=== PATIENT | male | born 1955 | race Caucasian/White ===

== ENCOUNTER → 2016-07-06 | Outpatient (REF) | payer OTHER ==
[~2016-07-06] MED LIST: ASPI81TA85 PO; CREO12CA PO; LISI5TAB PO; SYNT88TA2 PO; VICO5TAB16 PO; ZANA4CAP PO; ZYRT10CA PO
[2016-07-06 18:31] LABS: ALBUMIN 3.5 GM/DL (3.2-5.2); ALBUMIN/GLOBULIN RATIO 1.17 (1.00-1.93); ALKALINE PHOSPHATASE 149 U/L (45-117); ALT/SGPT 17 U/L (12-78); AMYLASE 154 U/L (25-115); ANION GAP 8 MEQ/L (8-16); AST/SGOT 21 U/L (15-37); BILIRUBIN,TOTAL 0.2 MG/DL (0.2-1.0); BLOOD UREA NITROGEN 23 MG/DL (7-18); CALCIUM LEVEL 8.1 MG/DL (8.8-10.2); CARBON DIOXIDE LEVEL 27 MEQ/L (21-32); CHLORIDE LEVEL 107 MEQ/L (98-107); CREATININE FOR GFR 1.09 MG/DL (0.70-1.30); GLOMERULAR FILTRATION RATE > 60.0 (>49); GLUCOSE, FASTING 72 MG/DL (80-110); POTASSIUM SERUM 4.8 MEQ/L (3.5-5.1); SODIUM LEVEL 142 MEQ/L (136-145); TOTAL PROTEIN 6.5 GM/DL (6.4-8.2)
[2016-07-06 18:43] LABS: ADD MORPHOLOGY? YES; BASO % 0.8 % (0.0-1.0); EOS # 0.3 K/mm3 (0.0-0.50); EOS % 6.3 % (0.0-3.0); LARGE UNSTAINED CELL # 0.2 K/mm3 (0.0-0.4); LARGE UNSTAINED CELL % 3.2 % (0.0-4.0); LYMPH # 1.4 K/mm3 (1.5-4.5); MEAN CORPUSCULAR HEMOGLOBIN 19.5 pg (27.0-33.0); MEAN CORPUSCULAR HGB CONC 27.5 g/dl (32.0-36.5); MONO # 0.4 K/mm3 (0.0-0.8); MONO % 7.4 % (0.0-5.0); NEUTROPHILS # 2.9 K/mm3 (1.8-7.7); NEUTROPHILS % 55.3 % (36.0-66.0); PLATELET COUNT, AUTOMATED 219 k/mm3 (150-450); RED CELL DISTRIBUTION WIDTH 14.9 % (11.5-14.5); WHITE BLOOD COUNT 5.2 K/mm3 (4.0-10.0)
[2016-07-06 20:05] LABS: ANISOCYTOSIS 1+; HYPOCHROMASIA 3+; MICROCYTOSIS 2+
== END ==
LOC: M SFHCLERA 14:18
PROVIDERS: ATTEND Family Medicine
DX: K86.9 Disease of pancreas, unspecified (principal); G45.9 Transient cerebral ischemic attack, unspecified; I10 Essential (primary) hypertension

== ENCOUNTER → 2016-07-20 | Outpatient (CLI) | payer OTHER ==
--- NOTE | 2016-07-20 11:47 | REP ---
MRI PANCREAS WITH AND WITHOUT CONTRAST: TECHNIQUE: Multiple axial and coronal sequences obtained pre and post IV gadolinium administration, with the intravenous administration of 13 mL of gadolinium via thyroid injector. This study is limited due to patient breathing motion reportedly due to persistent coughing. Comparison made with a CT from [facility] 03/09/[address] exams from [facility] dated 03/06/2016 and 06/18/2015. Given the limitations of this exam, I do not see a definite mass involving the pancreas. There is no pancreatic duct dilatation and no evidence of biliary dilatation. Note is again made of multiple enlarged mesenteric lymph nodes as seen on the CT exams dating back to 06/18/2015. The adenopathy is seen centrally in the mesentery just below the body of the pancreas and surrounding the pancreatic head. Findings appear similar to the prior CT of 03/09/2016. I do not see significant ascites in the visualized abdomen. The visualized abdominal aorta is normal in caliber. The visualized liver and spleen are grossly unremarkable. There are small cysts in each kidney. IMPRESSION: Limited due to persistent breathing motion due to a persistent cough. No definite pancreatic mass within the limitations of this exam. There is mesenteric and peripancreatic adenopathy, which appears similar to the prior CT study of 03/09/2016. Recommend followup CT of the abdomen with multiphasic intravenous contrast administration to better evaluate the pancreas and mesentery, as CT exam would eliminate motion artifact. Signed by Shravan Monahan MD 07/20/2016 12:44 P
== END ==
LOC: M RAD 09:41
PROVIDERS: ATTEND Family Medicine
DX: K86.9 Disease of pancreas, unspecified (principal)

== ENCOUNTER → 2016-08-31 | Outpatient (REF) | payer OTHER ==
[2016-08-31 12:30] LABS: MEAN CORPUSCULAR HEMOGLOBIN 19.9 pg (27.0-33.0); MEAN CORPUSCULAR HGB CONC 28.4 g/dl (32.0-36.5); MEAN CORPUSCULAR VOLUME 70.3 fl (80.0-96.0); RED CELL DISTRIBUTION WIDTH 16.7 % (11.5-14.5); WHITE BLOOD COUNT 8.1 K/mm3 (4.0-10.0)
[2016-08-31 13:25] LABS: ALBUMIN 3.3 GM/DL (3.2-5.2); ALBUMIN/GLOBULIN RATIO 1.18 (1.00-1.93); ALKALINE PHOSPHATASE 172 U/L (45-117); ALT/SGPT 21 U/L (12-78); ANION GAP 8 MEQ/L (8-16); AST/SGOT 22 U/L (15-37); BILIRUBIN,TOTAL 0.4 MG/DL (0.2-1.0); BLOOD UREA NITROGEN 28 MG/DL (7-18); CARBON DIOXIDE LEVEL 27 MEQ/L (21-32); CHLORIDE LEVEL 104 MEQ/L (98-107); CREATININE FOR GFR 1.33 MG/DL (0.70-1.30); FREE T4 1.09 NG/DL (0.76-1.46); GLUCOSE, FASTING 92 MG/DL (80-110); POTASSIUM SERUM 4.6 MEQ/L (3.5-5.1); SODIUM LEVEL 139 MEQ/L (136-145); TOTAL PROTEIN 6.1 GM/DL (6.4-8.2)
[2016-08-31 13:45] LABS: BANDS 1 % (< 11); EOSINOPHILS 3 % (0-5)
[2016-08-31 13:46] LABS: ANISOCYTOSIS 2+; HYPOCHROMASIA 2+; MICROCYTOSIS 2+; POIKILOCYTOSIS 1+
[2016-09-04 08:06] LABS: ACETAMINOPHEN Negative ug/mL (10-30); AMITRIPTYLINE None Detected (Not Estab.); BUTALBITAL None Detected ug/mL (1-10); DESIPRAMINE None Detected (Not Estab.); DIAZEPAM None Detected ug/mL (0.1-0.9); DOXEPIN None Detected (Not Estab.); ETHANOL Negative % (0.000-0.010); NORCHLORDIAZEPOXIDE None Detected ug/mL (0.1-0.6); NORDIAZEPAM None Detected ug/mL (0.1-1.4); NORDOXEPIN None Detected (Not Estab.); NORTRIPTYLINE None Detected ng/mL (50-150); PENTOBARBITAL None Detected ug/mL (1-5); PHENOBARBITAL None Detected ug/mL (15-40); PHENYTOIN None Detected ug/mL (10.0-20.0)
== END ==
LOC: M SFHCLERA 10:22
PROVIDERS: ATTEND Family Medicine
DX: D64.89 Other specified anemias (principal); R59.1 Generalized enlarged lymph nodes; K86.9 Disease of pancreas, unspecified; F19.10 Other psychoactive substance abuse, uncomplicated

== ENCOUNTER → 2016-09-15 | Outpatient (REF) | payer OTHER | LOC: M SFHCLERA 13:06 | PROVIDERS: ATTEND Family Medicine | DX: D64.9 Anemia, unspecified (principal); R74.8 Abnormal levels of other serum enzymes ==

== ENCOUNTER → 2016-09-21 | Outpatient (REF) | payer OTHER ==
[2016-09-21 18:16] LABS: ALBUMIN 3.1 GM/DL (3.2-5.2); ALBUMIN/GLOBULIN RATIO 1.03 (1.00-1.93); ALKALINE PHOSPHATASE 169 U/L (45-117); ALT/SGPT 28 U/L (12-78); ANION GAP 7 MEQ/L (8-16); AST/SGOT 25 U/L (15-37); BILIRUBIN,TOTAL 0.4 MG/DL (0.2-1.0); BLOOD UREA NITROGEN 24 MG/DL (7-18); CALCIUM LEVEL 7.8 MG/DL (8.8-10.2); CARBON DIOXIDE LEVEL 29 MEQ/L (21-32); CHLORIDE LEVEL 102 MEQ/L (98-107); CREATININE FOR GFR 1.28 MG/DL (0.70-1.30); GLOMERULAR FILTRATION RATE > 60.0 (>49); GLUCOSE, FASTING 91 MG/DL (80-110); POTASSIUM SERUM 4.3 MEQ/L (3.5-5.1); SODIUM LEVEL 138 MEQ/L (136-145); TOTAL PROTEIN 6.1 GM/DL (6.4-8.2)
[2016-09-21 18:50] LABS: MEAN CORPUSCULAR HEMOGLOBIN 19.7 pg (27.0-33.0); MEAN CORPUSCULAR VOLUME 68.2 fl (80.0-96.0); RED CELL DISTRIBUTION WIDTH 16.4 % (11.5-14.5); WHITE BLOOD COUNT 8.8 K/mm3 (4.0-10.0)
[2016-09-21 19:50] LABS: BASOPHILS 3 % (0-4); EOSINOPHILS 5 % (0-5); MICROCYTOSIS 3+
[2016-09-21 19:51] LABS: ANISOCYTOSIS 1+; HYPOCHROMASIA 2+
== END ==
LOC: M SFHCLERA 13:39
PROVIDERS: ATTEND Family Medicine
DX: D64.9 Anemia, unspecified (principal)

== ENCOUNTER → 2016-10-05 | Outpatient (REF) | payer OTHER ==
[2016-10-05 17:48] LABS: MEAN CORPUSCULAR HEMOGLOBIN 19.3 pg (27.0-33.0); MEAN CORPUSCULAR HGB CONC 27.7 g/dl (32.0-36.5); MEAN CORPUSCULAR VOLUME 69.7 fl (80.0-96.0); RED CELL DISTRIBUTION WIDTH 16.2 % (11.5-14.5); WHITE BLOOD COUNT 8.6 K/mm3 (4.0-10.0)
[2016-10-05 18:02] LABS: ANION GAP 6 MEQ/L (8-16); BLOOD UREA NITROGEN 20 MG/DL (7-18); CALCIUM LEVEL 8.1 MG/DL (8.8-10.2); CARBON DIOXIDE LEVEL 28 MEQ/L (21-32); CHLORIDE LEVEL 107 MEQ/L (98-107); GLOMERULAR FILTRATION RATE > 60.0 (>49); GLUCOSE, FASTING 92 MG/DL (80-110); POTASSIUM SERUM 4.1 MEQ/L (3.5-5.1); SODIUM LEVEL 141 MEQ/L (136-145)
== END ==
LOC: M SFHCLERA 14:13
PROVIDERS: ATTEND Family Medicine
DX: D64.9 Anemia, unspecified (principal)

== ENCOUNTER 2016-11-13 00:19 | Emergency (ER) | payer OTHER ==
[~2016-11-13] VITALS: Ht 175.3 cm; Wt 62.0 kg
[2016-11-13 00:38] VITALS: BP 144/79
[2016-11-13] MEDS ORDERED: PRED20TA PO (02:59)
[2016-11-13] MEDS ORDERED: traMADol 50 MG TAB PO ONE (03:00)
[2016-11-13] MEDS ORDERED: predniSONE 20 MG TAB PO ONE (03:00)
== END 2016-11-13 03:30 | disposition home or self-care (01) ==
LOC: M ED 00:19
DX: S80.861A Insect bite (nonvenomous), right lower leg, initial encounter (principal); W57.XXXA Bitten or stung by nonvenomous insect and other nonvenomous arthropods, initial encounter; Y92.89 Other specified places as the place of occurrence of the external cause; Y93.89 Activity, other specified; Y99.9 Unspecified external cause status

== ENCOUNTER → 2017-01-04 | Outpatient (CLI) | payer OTHER ==
[~2017-01-04] MED LIST changes: +PRED20TA PO; +PROT1TAB2 PO
--- NOTE | 2017-01-04 15:15 | REP ---
LEFT FOOT, FOUR VIEWS: HISTORY: Foreign body There is no acute fracture or dislocation. The joint spaces are normal in appearance. There is no radiopaque foreign body. IMPRESSION: There is no acute fracture or dislocation. Signed by Edgardo Carmona MD 01/04/2017 03:20 P
== END ==
LOC: M LRY 14:00
PROVIDERS: ATTEND Family Medicine
DX: M79.672 Pain in left foot (principal); M79.5 Residual foreign body in soft tissue

== ENCOUNTER → 2017-01-04 | Outpatient (REF) | payer OTHER | LOC: M SFHCLERA 14:05 | PROVIDERS: ATTEND Family Medicine | DX: K86.9 Disease of pancreas, unspecified (principal) ==

== ENCOUNTER → 2017-01-12 | Outpatient (REF) | payer OTHER ==
[2017-01-12 17:19] LABS: MEAN CORPUSCULAR HEMOGLOBIN 22.2 pg (27.0-33.0); MEAN CORPUSCULAR HGB CONC 30.7 g/dl (32.0-36.5); MEAN CORPUSCULAR VOLUME 72.3 fl (80.0-96.0); RED CELL DISTRIBUTION WIDTH 19.8 % (11.5-14.5); WHITE BLOOD COUNT 6.8 K/mm3 (4.0-10.0)
[2017-01-12 17:39] LABS: ALBUMIN 2.6 GM/DL (3.2-5.2); ALBUMIN/GLOBULIN RATIO 0.84 (1.00-1.93); BILIRUBIN,TOTAL 0.3 MG/DL (0.2-1.0); CALCIUM LEVEL 8.2 MG/DL (8.8-10.2); CREATININE FOR GFR 1.34 MG/DL (0.70-1.30); GLOMERULAR FILTRATION RATE 57.5 (>49); POTASSIUM SERUM 4.3 MEQ/L (3.5-5.1); TOTAL PROTEIN 5.7 GM/DL (6.4-8.2)
[2017-01-24 06:40] LABS: SUMMARY SEE SEPARATE REPORT
== END ==
LOC: M SFHCLERA 13:16
PROVIDERS: ATTEND Family Medicine
DX: F19.10 Other psychoactive substance abuse, uncomplicated (principal)

== ENCOUNTER 2017-02-20 07:11 | Emergency (ER) | payer OTHER ==
[~2017-02-20] VITALS: Ht 167.6 cm; Wt 65.2 kg
[~2017-02-20 07:11] MED LIST changes: -PROT1TAB2 PO
[2017-02-20] MEDS ORDERED: fentaNYL 100 MCG/2 ML INJECTION (J3010) IV ONE (08:00)
[2017-02-20 08:26] LABS: BASO # 0.1 10^3/uL (0.0-0.2); BASO % 0.6 % (0.0-1.0); EOS # 0.3 10^3/uL (0.0-0.50); EOS % 2.9 % (0.0-3.0); IMMATURE GRANULOCYTE % 0.3 % (0-0); LYMPH # 1.1 10^3/uL (1.5-4.5); LYMPH % 11.6 % (24.0-44.0); MEAN CORPUSCULAR HGB CONC 30.1 g/dl (32.0-36.5); MONO # 0.8 10^3/uL (0.0-0.8); MONO % 9.2 % (0.0-5.0); NEUTROPHILS # 6.9 10^3/uL (1.8-7.7); NEUTROPHILS % 75.4 % (36.0-66.0); PLATELET COUNT, AUTOMATED 267 10^3/uL (150-450); WHITE BLOOD COUNT 9.1 10^3/uL (4.0-10.0)
[2017-02-20 08:40] LABS: ADD MORPHOLOGY? YES; MEAN CORPUSCULAR VOLUME 73.1 fl (80.0-96.0); POSITIVE MORPH POS FLAG
[2017-02-20 08:43] LABS: ALBUMIN 2.3 GM/DL (3.2-5.2); ALBUMIN/GLOBULIN RATIO 0.59 (1.00-1.93); ALKALINE PHOSPHATASE 141 U/L (45-117); ALT/SGPT 20 U/L (12-78); ANION GAP 6 MEQ/L (8-16); AST/SGOT 14 U/L (15-37); BILIRUBIN,DIRECT < 0.1 MG/DL (0.0-0.2); BILIRUBIN,TOTAL 0.2 MG/DL (0.2-1.0); BLOOD UREA NITROGEN 17 MG/DL (7-18); CALCIUM LEVEL 8.2 MG/DL (8.8-10.2); CARBON DIOXIDE LEVEL 27 MEQ/L (21-32); CHLORIDE LEVEL 104 MEQ/L (98-107); CREATININE FOR GFR 1.03 MG/DL (0.70-1.30); GLOMERULAR FILTRATION RATE > 60.0 (>49); GLUCOSE, FASTING 123 MG/DL (80-110); POTASSIUM SERUM 4.1 MEQ/L (3.5-5.1); SODIUM LEVEL 137 MEQ/L (136-145); TOTAL PROTEIN 6.2 GM/DL (6.4-8.2)
[2017-02-20 09:06] LABS: MICROCYTOSIS 2+
--- NOTE | 2017-02-20 09:31 | REP ---
ABDOMEN SERIES: Three views. HISTORY: Abdomen pain. FINDINGS: Upright chest radiograph is compared with the December 28, 2016 prior study. There are old granulomatous calcifications in the right upper lobe and in the left hilus and left mediastinum unchanged. Multiple healed bilateral rib fractures are noted as before. Heart is not enlarged. Lung gavin are otherwise clear. No infiltrate or free subdiaphragmatic air is seen. Supine and erect views of the abdomen show a normal bowel gas pattern with air and stool in a nondistended colon. There is a bone island in the left iliac bone unchanged from the December 28, 2016 prior radiographs. Old rib fractures are again noted. Some vascular calcification is seen. Psoas margins and flank stripes are intact. No mass organomegaly is seen. No significant air fluid level noted. IMPRESSION: Unremarkable bowel gas pattern. Multiple old rib fractures bilaterally. Old granulomatous disease. Signed by Seth Victor MD 02/20/2017 12:58 P
[2017-02-20] MEDS ORDERED: DICYCLOMINE INJ 20MG/2ML (J0500) IM ONE (09:45)
[2017-02-20] MEDS ORDERED: NS 1,000 ML IV ONE (09:45)
[2017-02-20] MEDS ORDERED: GASTROGRAFIN SOLUTION 30ML PO ONE (10:00)
[2017-02-20] MEDS ORDERED: GASTROGRAFIN SOLUTION 30ML (Q9963) PO ONE (10:30)
[2017-02-20] MEDS ORDERED: ISOVUE-370 76% 100ML VIAL (Q9967) As Ordered ONE (11:21)
[2017-02-20 12:08] LABS: METHADONE URINE NEGATIVE (NEGATIVE)
--- NOTE | 2017-02-20 12:20 | REP ---
CT of the chest with IV contrast: Comparison is the most recent prior study of 04/11/2015. There are no lung masses or nodules. There are no infiltrates or effusions. There is a calcified granuloma in the lingula. This is unchanged. There are numerous small bulla throughout the lung parenchyma bilaterally compatible with bullous emphysema, unchanged. There is no mediastinal, hilar or axillary lymphadenopathy. The thoracic aorta is unremarkable. Cardiac size is normal. There is no pericardial effusion. There are no lytic, blastic or destructive changes in the skeletal structures. There are calcified granulomas in the right and left emilie. . Impression: No evidence of metastatic disease. No lymphadenopathy. No infiltrate or effusion. Bullous emphysema. Calcified granulomas. Signed by Shravan Peterson MD 02/20/2017 12:11 P
--- NOTE | 2017-02-20 12:31 | REP ---
CT abdomen pelvis with IV contrast, without bowel contrast: Comparison is 12/28/2016. The hepatic parenchyma is homogeneous and unchanged. The gallbladder is unremarkable and unchanged. The head of the pancreas is enlarged measuring 4.7 cm transversely by 2.9 cm AP by 4.8 cm craniocaudad. This is unchanged from the comparison study. The body and tail of the pancreas are normal size, unchanged and unremarkable. There is diffuse gastric wall thickening as previously. This is nonspecific and the stomach is nondistended and could merely be artifact from under distension. There are numerous enlarged peripancreatic and mesenteric lymph nodes. These are similar to the prior study. Pelvis: There is no ascites. There is no pelvic sidewall adenopathy. The bladder is unremarkable. There is no inguinal adenopathy. I suspect there is a left scrotal hydrocele. Impression: Enlarged pancreatic head, unchanged from the prior study. Parapancreatic and mesenteric lymphadenopathy, unchanged from the prior study. No ascites. Left scrotal hydrocele, unchanged. There are no lytic, blastic or destructive skeletal changes. There is degenerative disc disease in the lumbar spine L5 S1. I suspect there is an old healed fracture of the posterior arch of the right tenth rib. Signed by Shravan Peterson MD 02/20/2017 12:21 P
[2017-02-20] MEDS ORDERED: PROT1TAB2 PO (12:50)
[2017-02-20 13:09] VITALS: BP 135/79
== END 2017-02-20 13:22 | disposition home or self-care (01) ==
LOC: M ED 07:11
DX: K29.00 Acute gastritis without bleeding (principal); K86.9 Disease of pancreas, unspecified; F19.10 Other psychoactive substance abuse, uncomplicated; Z72.0 Tobacco use
CPT/HCPCS: 71260; 74022; 74177; 80048; 80076; 80307; 83690; 85025; 93041; 96372; 96374; 99284; J0500; J3010; Q9963; Q9967

== ENCOUNTER → 2017-04-18 | Outpatient (REF) | payer OTHER ==
[~2017-04-18] MED LIST changes: +PROT1TAB2 PO
[2017-04-18 16:44] LABS: ALBUMIN 2.5 GM/DL (3.2-5.2); ALBUMIN/GLOBULIN RATIO 0.76 (1.00-1.93); ALKALINE PHOSPHATASE 145 U/L (45-117); ALT/SGPT 30 U/L (12-78); ANION GAP 9 MEQ/L (8-16); AST/SGOT 26 U/L (7-37); BILIRUBIN,TOTAL 0.1 MG/DL (0.2-1.0); BLOOD UREA NITROGEN 22 MG/DL (7-18); CALCIUM LEVEL 7.3 MG/DL (8.8-10.2); CARBON DIOXIDE LEVEL 23 MEQ/L (21-32); CHLORIDE LEVEL 111 MEQ/L (98-107); CREATININE FOR GFR 1.05 MG/DL (0.70-1.30); GLOMERULAR FILTRATION RATE > 60.0 (>49); GLUCOSE, FASTING 95 MG/DL (80-110); POTASSIUM SERUM 4.2 MEQ/L (3.5-5.1); SODIUM LEVEL 143 MEQ/L (136-145); TOTAL PROTEIN 5.8 GM/DL (6.4-8.2)
== END ==
LOC: M SFHCLERA 11:45
PROVIDERS: ATTEND Family Medicine
DX: I10 Essential (primary) hypertension (principal)

== ENCOUNTER 2017-07-19 18:19 | Inpatient (IN) | payer OTHER ==
[2017-07-19] MEDS: NS 1,000 ML IV (19:54)
[2017-07-19] MEDS: MORPHINE 4 MG/ML 1ML VIAL (J2270) IV ×2 (20:01→22:43)
[2017-07-19 20:12] LABS: BASO # 0.1 10^3/uL (0.0-0.2); BASO % 0.4 % (0.0-1.0); EOS # 0.2 10^3/uL (0.0-0.50); EOS % 1.4 % (0.0-3.0); HEMOGLOBIN 7.2 g/dl (14.0-18.0); IMMATURE GRANULOCYTE % 0.5 % (0-3.0); LYMPH # 1.1 10^3/uL (1.5-4.5); LYMPH % 8.4 % (24.0-44.0); MEAN CORPUSCULAR HEMOGLOBIN 17.4 pg (27.0-33.0); MEAN CORPUSCULAR HGB CONC 26.7 g/dl (32.0-36.5); MEAN CORPUSCULAR VOLUME 65.4 fl (80.0-96.0); MONO # 1.6 10^3/uL (0.0-0.8); MONO % 12.3 % (0.0-5.0); NEUTROPHILS # 10.1 10^3/uL (1.8-7.7); PLATELET COUNT, AUTOMATED 348 10^3/uL (150-450); RED BLOOD COUNT 4.13 10^6/uL (4.30-6.10); RED CELL DISTRIBUTION WIDTH 18.5 % (11.5-14.5); WHITE BLOOD COUNT 13.1 10^3/uL (4.0-10.0)
[2017-07-19 20:20] LABS: ANION GAP 6 MEQ/L (8-16); BLOOD UREA NITROGEN 17 MG/DL (7-18); CALCIUM LEVEL 7.4 MG/DL (8.8-10.2); CARBON DIOXIDE LEVEL 28 MEQ/L (21-32); CHLORIDE LEVEL 106 MEQ/L (98-107); CREATININE FOR GFR 1.12 MG/DL (0.70-1.30); GLOMERULAR FILTRATION RATE > 60.0 (>49); GLUCOSE, FASTING 90 MG/DL (70-100); POTASSIUM SERUM 4.1 MEQ/L (3.5-5.1); SODIUM LEVEL 140 MEQ/L (136-145)
[2017-07-19 20:23] LABS: LACTIC ACID SEPSIS PROTOCOL 1.7 MMOL/L (0.4-2.0)
[2017-07-19] MEDS: CEFAZOLIN SOD 1 GM in APPROPRIATE DILUENT 1 EA IV (20:35)
[2017-07-19] MEDS ORDERED: ACETAMINOPHEN TAB 650MG DOSE (2X325MG) PO (23:30)
[2017-07-19] MEDS ORDERED: tiZANidine 4 MG TAB PO (23:30)
[2017-07-19] MEDS ORDERED: PERCOCET 5MG/325MG TAB PO (23:30)
[2017-07-19] MEDS ORDERED: ONDANSETRON 4 MG TAB (S0181) PO (23:30)
[2017-07-19] MEDS ORDERED: IPRATROPIUM HFA INHALER 12.9 GRAMS (ATROVENT HFA) INH (23:45)
[2017-07-20] MEDS ORDERED: ISOVUE-370 76% 100ML VIAL (Q9967) As Ordered (00:02)
[2017-07-20] MEDS: LevoFLOXacin IV 500 MG in APPROPRIATE DILUENT 1 EA IV ×2 (01:11→23:03)
[2017-07-20] MEDS: SUCRALFATE 1 GM TAB PO ×5 (01:17→20:22)
[2017-07-20] MEDS: PERCOCET 5MG/325MG TAB PO (01:18)
[2017-07-20] MEDS: hydrOXYzine 25 MG TAB PO (01:37)
[2017-07-20] MEDS: VANCOMYCIN HCL 1,000 MG, VIAL MATE ADAPTER 1 EACH in D5W 250 ML IV ×3 (03:15→20:22)
[2017-07-20 03:44] LABS: IMMEDIATE SPIN CROSSMATCH 1 2
[2017-07-20 06:53] LABS: BASO % 0.4 % (0.0-1.0); EOS # 0.3 10^3/uL (0.0-0.50); EOS % 3.1 % (0.0-3.0); HEMATOCRIT 34.3 % (42.0-52.0); IMMATURE GRANULOCYTE % 0.4 % (0-3.0); LYMPH # 0.9 10^3/uL (1.5-4.5); LYMPH % 9.4 % (24.0-44.0); MEAN CORPUSCULAR HEMOGLOBIN 19.5 pg (27.0-33.0); MEAN CORPUSCULAR HGB CONC 28.3 g/dl (32.0-36.5); MEAN CORPUSCULAR VOLUME 68.9 fl (80.0-96.0); MONO # 1.2 10^3/uL (0.0-0.8); NEUTROPHILS # 7.2 10^3/uL (1.8-7.7); NEUTROPHILS % 74.7 % (36.0-66.0); RED BLOOD COUNT 4.98 10^6/uL (4.30-6.10); RED CELL DISTRIBUTION WIDTH 21.2 % (11.5-14.5); WHITE BLOOD COUNT 9.7 10^3/uL (4.0-10.0)
[2017-07-20 06:57] LABS: HEMOGLOBIN 9.7 g/dl (14.0-18.0); PLATELET COUNT, AUTOMATED 238 10^3/uL (150-450)
[2017-07-20 07:14] LABS: ANION GAP 7 MEQ/L (8-16); BLOOD UREA NITROGEN 15 MG/DL (7-18); CALCIUM LEVEL 7.7 MG/DL (8.8-10.2); CARBON DIOXIDE LEVEL 24 MEQ/L (21-32); CHLORIDE LEVEL 104 MEQ/L (98-107); GLOMERULAR FILTRATION RATE > 60.0 (>49); GLUCOSE, FASTING 67 MG/DL (70-100); MAGNESIUM LEVEL 1.8 MG/DL (1.8-2.4); POTASSIUM SERUM 4.1 MEQ/L (3.5-5.1); SODIUM LEVEL 135 MEQ/L (136-145)
[2017-07-20 07:16] LABS: ERYTHROCYTE SEDIMENTATION RATE 27 mm/hr (0-20)
[2017-07-20] MEDS: ATORVASTATIN 20 MG TAB PO (08:52)
[2017-07-20] MEDS: CREON-24 CAPSULE PO ×3 (08:52→17:49)
[2017-07-20] MEDS: FLUoxetine 20 MG CAP PO (08:52)
[2017-07-20] MEDS: amLODIPine 10 MG TAB PO (08:53)
[2017-07-20] MEDS: PANTOPRAZOLE 40MG TAB (PROTONIX) PO (08:53)
[2017-07-20] MEDS: ENOXAPARIN 40 MG/0.4 ML SYRINGE (J1650) SC (08:54)
[2017-07-20] MEDS: hydroCHLOROthiazide 25 MG TAB PO (09:01)
[2017-07-20] MEDS: IPRATROPIUM 0.5MG/ALBUTEROL 2.5MG INH SOL UD 3ML (DUONEB)(J7620) NEB ×3 (12:08→20:00)
[2017-07-20] MEDS: ASPIRIN 81 MG ENTERIC TAB PO (12:44)
[2017-07-20] MEDS: FERROUS SULFATE 325MG TAB PO ×3 (12:44→20:22)
[2017-07-21] MEDS: IPRATROPIUM 0.5MG/ALBUTEROL 2.5MG INH SOL UD 3ML (DUONEB)(J7620) NEB ×4 (02:00→20:00)
[2017-07-21] MEDS: ALBUTEROL 90 MCG/ACT 8GM HFA INHALER INH (04:01)
[2017-07-21 06:33] LABS: BASO % 0.4 % (0.0-1.0); EOS # 0.2 10^3/uL (0.0-0.50); EOS % 2.4 % (0.0-3.0); HEMATOCRIT 31.2 % (42.0-52.0); HEMOGLOBIN 9.2 g/dl (14.0-18.0); IMMATURE GRANULOCYTE % 0.3 % (0-3.0); LYMPH % 10.2 % (24.0-44.0); MEAN CORPUSCULAR HEMOGLOBIN 19.6 pg (27.0-33.0); MEAN CORPUSCULAR HGB CONC 29.5 g/dl (32.0-36.5); MEAN CORPUSCULAR VOLUME 66.4 fl (80.0-96.0); MONO # 1.3 10^3/uL (0.0-0.8); MONO % 13.6 % (0.0-5.0); NEUTROPHILS # 6.9 10^3/uL (1.8-7.7); NEUTROPHILS % 73.1 % (36.0-66.0); PLATELET COUNT, AUTOMATED 285 10^3/uL (150-450); RED CELL DISTRIBUTION WIDTH 21.2 % (11.5-14.5); WHITE BLOOD COUNT 9.4 10^3/uL (4.0-10.0)
[2017-07-21 07:05] LABS: ANION GAP 8 MEQ/L (8-16); BLOOD UREA NITROGEN 17 MG/DL (7-18); CALCIUM LEVEL 7.1 MG/DL (8.8-10.2); CARBON DIOXIDE LEVEL 26 MEQ/L (21-32); CHLORIDE LEVEL 101 MEQ/L (98-107); CREATININE FOR GFR 1.24 MG/DL (0.70-1.30); GLOMERULAR FILTRATION RATE > 60.0 (>49); GLUCOSE, FASTING 102 MG/DL (70-100); MAGNESIUM LEVEL 1.8 MG/DL (1.8-2.4); POTASSIUM SERUM 3.8 MEQ/L (3.5-5.1); SODIUM LEVEL 135 MEQ/L (136-145)
[2017-07-21] MEDS: SUCRALFATE 1 GM TAB PO ×4 (07:37→20:49)
[2017-07-21 09:18] LABS: VANCOMYCIN LEVEL TROUGH 14.1 UG/ML (10.0-20.0)
[2017-07-21] MEDS: VANCOMYCIN HCL 1,000 MG, VIAL MATE ADAPTER 1 EACH in D5W 250 ML IV ×2 (10:09→20:49)
[2017-07-21] MEDS: FLUoxetine 20 MG CAP PO (10:15)
[2017-07-21] MEDS: ENOXAPARIN 40 MG/0.4 ML SYRINGE (J1650) SC (10:16)
[2017-07-21] MEDS: ASPIRIN 81 MG ENTERIC TAB PO (10:16)
[2017-07-21] MEDS: ATORVASTATIN 20 MG TAB PO (10:16)
[2017-07-21] MEDS: FERROUS SULFATE 325MG TAB PO ×3 (10:17→20:49)
[2017-07-21] MEDS: amLODIPine 10 MG TAB PO (10:17)
[2017-07-21] MEDS: CREON-24 CAPSULE PO ×3 (10:19→17:16)
[2017-07-21] MEDS: hydroCHLOROthiazide 25 MG TAB PO (10:20)
[2017-07-21] MEDS: PANTOPRAZOLE 40MG TAB (PROTONIX) PO (10:20)
[2017-07-22] MEDS: LevoFLOXacin IV 500 MG in APPROPRIATE DILUENT 1 EA IV (00:12)
[2017-07-22] MEDS: IPRATROPIUM 0.5MG/ALBUTEROL 2.5MG INH SOL UD 3ML (DUONEB)(J7620) NEB ×4 (02:00→20:00)
[2017-07-22 06:01] LABS: BASO % 0.5 % (0.0-1.0); EOS # 0.3 10^3/uL (0.0-0.50); EOS % 3.7 % (0.0-3.0); HEMATOCRIT 31.3 % (42.0-52.0); HEMOGLOBIN 9.1 g/dl (14.0-18.0); IMMATURE GRANULOCYTE % 0.6 % (0-3.0); LYMPH # 0.9 10^3/uL (1.5-4.5); LYMPH % 10.4 % (24.0-44.0); MEAN CORPUSCULAR HEMOGLOBIN 19.4 pg (27.0-33.0); MEAN CORPUSCULAR HGB CONC 29.1 g/dl (32.0-36.5); MEAN CORPUSCULAR VOLUME 66.9 fl (80.0-96.0); MONO % 11.7 % (0.0-5.0); NEUTROPHILS # 6.2 10^3/uL (1.8-7.7); NEUTROPHILS % 73.1 % (36.0-66.0); PLATELET COUNT, AUTOMATED 311 10^3/uL (150-450); RED BLOOD COUNT 4.68 10^6/uL (4.30-6.10); RED CELL DISTRIBUTION WIDTH 21.7 % (11.5-14.5); WHITE BLOOD COUNT 8.5 10^3/uL (4.0-10.0)
[2017-07-22 06:23] LABS: ANION GAP 7 MEQ/L (8-16); BLOOD UREA NITROGEN 13 MG/DL (7-18); CARBON DIOXIDE LEVEL 26 MEQ/L (21-32); CHLORIDE LEVEL 103 MEQ/L (98-107); CREATININE FOR GFR 1.03 MG/DL (0.70-1.30); GLOMERULAR FILTRATION RATE > 60.0 (>49); GLUCOSE, FASTING 109 MG/DL (70-100); MAGNESIUM LEVEL 1.8 MG/DL (1.8-2.4); POTASSIUM SERUM 3.8 MEQ/L (3.5-5.1); SODIUM LEVEL 136 MEQ/L (136-145)
[2017-07-22] MEDS: CREON-24 CAPSULE PO ×3 (07:39→18:04)
[2017-07-22] MEDS: SUCRALFATE 1 GM TAB PO ×4 (07:39→20:48)
[2017-07-22] MEDS: ASPIRIN 81 MG ENTERIC TAB PO (09:16)
[2017-07-22] MEDS: FLUoxetine 20 MG CAP PO (09:16)
[2017-07-22] MEDS: PANTOPRAZOLE 40MG TAB (PROTONIX) PO (09:16)
[2017-07-22] MEDS: ATORVASTATIN 20 MG TAB PO (09:17)
[2017-07-22] MEDS: amLODIPine 10 MG TAB PO (09:17)
[2017-07-22] MEDS: FERROUS SULFATE 325MG TAB PO ×3 (09:17→20:48)
[2017-07-22] MEDS: hydroCHLOROthiazide 25 MG TAB PO (09:18)
[2017-07-22] MEDS: VANCOMYCIN HCL 1,000 MG, VIAL MATE ADAPTER 1 EACH in D5W 250 ML IV ×2 (09:18→20:48)
[2017-07-22] MEDS: ENOXAPARIN 40 MG/0.4 ML SYRINGE (J1650) SC (09:19)
[2017-07-23] MEDS: LevoFLOXacin IV 500 MG in APPROPRIATE DILUENT 1 EA IV (00:34)
[2017-07-23] MEDS: IPRATROPIUM 0.5MG/ALBUTEROL 2.5MG INH SOL UD 3ML (DUONEB)(J7620) NEB ×4 (02:00→20:50)
[2017-07-23 06:02] LABS: BASO # 0.1 10^3/uL (0.0-0.2); BASO % 0.5 % (0.0-1.0); EOS # 0.6 10^3/uL (0.0-0.50); EOS % 5.9 % (0.0-3.0); HEMATOCRIT 33.4 % (42.0-52.0); HEMOGLOBIN 9.9 g/dl (14.0-18.0); IMMATURE GRANULOCYTE % 0.7 % (0-3.0); LYMPH # 0.8 10^3/uL (1.5-4.5); LYMPH % 7.7 % (24.0-44.0); MEAN CORPUSCULAR HEMOGLOBIN 19.8 pg (27.0-33.0); MEAN CORPUSCULAR HGB CONC 29.6 g/dl (32.0-36.5); MEAN CORPUSCULAR VOLUME 66.7 fl (80.0-96.0); MONO # 0.8 10^3/uL (0.0-0.8); MONO % 7.4 % (0.0-5.0); NEUTROPHILS # 8.2 10^3/uL (1.8-7.7); NEUTROPHILS % 77.8 % (36.0-66.0); PLATELET COUNT, AUTOMATED 388 10^3/uL (150-450); RED BLOOD COUNT 5.01 10^6/uL (4.30-6.10); RED CELL DISTRIBUTION WIDTH 22.3 % (11.5-14.5); WHITE BLOOD COUNT 10.5 10^3/uL (4.0-10.0)
[2017-07-23 06:24] LABS: ANION GAP 9 MEQ/L (8-16); BLOOD UREA NITROGEN 16 MG/DL (7-18); CALCIUM LEVEL 7.2 MG/DL (8.8-10.2); CARBON DIOXIDE LEVEL 25 MEQ/L (21-32); CHLORIDE LEVEL 102 MEQ/L (98-107); CREATININE FOR GFR 1.05 MG/DL (0.70-1.30); GLOMERULAR FILTRATION RATE > 60.0 (>49); GLUCOSE, FASTING 100 MG/DL (70-100); MAGNESIUM LEVEL 1.8 MG/DL (1.8-2.4); SODIUM LEVEL 136 MEQ/L (136-145)
[2017-07-23] MEDS: PANTOPRAZOLE 40MG TAB (PROTONIX) PO (08:06)
[2017-07-23] MEDS: SUCRALFATE 1 GM TAB PO ×4 (08:06→20:27)
[2017-07-23] MEDS: CREON-24 CAPSULE PO ×3 (08:06→17:31)
[2017-07-23] MEDS: amLODIPine 10 MG TAB PO (08:06)
[2017-07-23] MEDS: FERROUS SULFATE 325MG TAB PO ×3 (08:06→20:27)
[2017-07-23] MEDS: FLUoxetine 20 MG CAP PO (08:06)
[2017-07-23] MEDS: ATORVASTATIN 20 MG TAB PO (08:06)
[2017-07-23] MEDS: ASPIRIN 81 MG ENTERIC TAB PO (08:07)
[2017-07-23] MEDS: hydroCHLOROthiazide 25 MG TAB PO (08:07)
[2017-07-23] MEDS: ENOXAPARIN 40 MG/0.4 ML SYRINGE (J1650) SC (08:07)
[2017-07-23] MEDS: VANCOMYCIN HCL 1,000 MG, VIAL MATE ADAPTER 1 EACH in D5W 250 ML IV (08:08)
[2017-07-23] MEDS: CALCIUM CARBONATE 500 MG CHEW U/D PO (16:42)
[2017-07-23] MEDS: BACTRIM 160MG/800MG DS TAB PO (20:27)
[2017-07-24] MEDS: IPRATROPIUM 0.5MG/ALBUTEROL 2.5MG INH SOL UD 3ML (DUONEB)(J7620) NEB ×2 (02:00→08:40)
[2017-07-24 07:39] LABS: BASO # 0.1 10^3/uL (0.0-0.2); BASO % 0.6 % (0.0-1.0); EOS # 0.6 10^3/uL (0.0-0.50); EOS % 7.3 % (0.0-3.0); HEMATOCRIT 33.8 % (42.0-52.0); HEMOGLOBIN 9.9 g/dl (14.0-18.0); IMMATURE GRANULOCYTE % 0.8 % (0-3.0); LYMPH # 1.1 10^3/uL (1.5-4.5); LYMPH % 13.3 % (24.0-44.0); MEAN CORPUSCULAR HEMOGLOBIN 19.4 pg (27.0-33.0); MEAN CORPUSCULAR HGB CONC 29.3 g/dl (32.0-36.5); MEAN CORPUSCULAR VOLUME 66.4 fl (80.0-96.0); MONO # 0.7 10^3/uL (0.0-0.8); NEUTROPHILS # 5.9 10^3/uL (1.8-7.7); PLATELET COUNT, AUTOMATED 366 10^3/uL (150-450); RED BLOOD COUNT 5.09 10^6/uL (4.30-6.10); RED CELL DISTRIBUTION WIDTH 22.4 % (11.5-14.5); WHITE BLOOD COUNT 8.5 10^3/uL (4.0-10.0)
[2017-07-24 07:58] LABS: ANION GAP 7 MEQ/L (8-16); BLOOD UREA NITROGEN 26 MG/DL (7-18); C REACTIVE PROTEIN QUANTITATIV 1.16 MG/DL (0.00-0.30); CALCIUM LEVEL 7.6 MG/DL (8.8-10.2); CARBON DIOXIDE LEVEL 25 MEQ/L (21-32); CHLORIDE LEVEL 103 MEQ/L (98-107); CREATININE FOR GFR 1.23 MG/DL (0.70-1.30); GLOMERULAR FILTRATION RATE > 60.0 (>49); GLUCOSE, FASTING 102 MG/DL (70-100); MAGNESIUM LEVEL 1.9 MG/DL (1.8-2.4); SODIUM LEVEL 135 MEQ/L (136-145)
[2017-07-24] MEDS: CREON-24 CAPSULE PO (08:20)
[2017-07-24] MEDS: BACTRIM 160MG/800MG DS TAB PO (08:20)
[2017-07-24] MEDS: ASPIRIN 81 MG ENTERIC TAB PO (08:20)
[2017-07-24] MEDS: FERROUS SULFATE 325MG TAB PO (08:20)
[2017-07-24] MEDS: amLODIPine 10 MG TAB PO (08:21)
[2017-07-24] MEDS: ATORVASTATIN 20 MG TAB PO (08:21)
[2017-07-24] MEDS: PANTOPRAZOLE 40MG TAB (PROTONIX) PO (08:21)
[2017-07-24] MEDS: FLUoxetine 20 MG CAP PO (08:22)
[2017-07-24] MEDS: SUCRALFATE 1 GM TAB PO (08:27)
[2017-07-24] MEDS: ENOXAPARIN 40 MG/0.4 ML SYRINGE (J1650) SC (08:33)
[2017-07-24] MEDS: hydroCHLOROthiazide 25 MG TAB PO (09:33)
== END 2017-07-24 11:20 | disposition home or self-care (01) | DRG 383 ==
LOC: M MS5PR 07-20 13:48 → M ED 18:19 → M ED INP 23:12
PROC: 30233N1 Transfusion of Nonautologous Red Blood Cells into Peripheral Vein, Percutaneous Approach (ICD-10-PCS; principal; 2017-07-20)
DX: L03.115 Cellulitis of right lower limb (principal); I10 Essential (primary) hypertension; J44.9 Chronic obstructive pulmonary disease, unspecified; D50.9 Iron deficiency anemia, unspecified; E03.9 Hypothyroidism, unspecified; I25.10 Atherosclerotic heart disease of native coronary artery without angina pectoris; K21.9 Gastro-esophageal reflux disease without esophagitis; Z87.891 Personal history of nicotine dependence; Z90.411 Acquired partial absence of pancreas; Z88.1 Allergy status to other antibiotic agents; Z88.8 Allergy status to other drugs, medicaments and biological substances; Z95.5 Presence of coronary angioplasty implant and graft; Z79.899 Other long term (current) drug therapy; Z91.14 Patient's other noncompliance with medication regimen; Z86.73 Personal history of transient ischemic attack (TIA), and cerebral infarction without residual deficits

== ENCOUNTER 2017-10-22 01:00 | Emergency (ER) | payer OTHER ==
[2017-10-22] MEDS: metroNIDAZOLE (FLAGYL) 500 MG TAB PO (02:33)
[2017-10-22] MEDS: cefTRIAXone SOD 1 GM VIAL (J0696) IM (02:33)
[2017-10-22] MEDS: ADACEL/BOOSTRIX VACCINE (DIPHTH/PERTUSS/ACELL/TETANUS)0.5ML SYR (90715) IM (02:34)
== END 2017-10-22 02:58 | disposition home or self-care (01) ==
LOC: M ED 01:00
DX: S61.250A Open bite of right index finger without damage to nail, initial encounter (principal); W55.01XA Bitten by cat, initial encounter; Y92.009 Unspecified place in unspecified non-institutional (private) residence as the place of occurrence of the external cause; Y93.89 Activity, other specified; I25.10 Atherosclerotic heart disease of native coronary artery without angina pectoris; I12.9 Hypertensive chronic kidney disease with stage 1 through stage 4 chronic kidney disease, or unspecified chronic kidney disease; N18.9 Chronic kidney disease, unspecified; K21.9 Gastro-esophageal reflux disease without esophagitis; G47.33 Obstructive sleep apnea (adult) (pediatric); Z79.899 Other long term (current) drug therapy; Z95.1 Presence of aortocoronary bypass graft; Z86.73 Personal history of transient ischemic attack (TIA), and cerebral infarction without residual deficits; Z88.0 Allergy status to penicillin; Z88.8 Allergy status to other drugs, medicaments and biological substances
CPT/HCPCS: 90715

== ENCOUNTER → 2017-11-28 | Outpatient (REF) | payer OTHER ==
[2017-11-28 20:31] LABS: BASO # 0.1 10^3/uL (0.0-0.2); BASO % 0.7 % (0.0-1.0); EOS # 0.1 10^3/uL (0.0-0.50); EOS % 1.9 % (0.0-3.0); HEMATOCRIT 29.5 % (42.0-52.0); HEMOGLOBIN 8.1 g/dl (13.5-17.5); IMMATURE GRANULOCYTE % 0.3 % (0-3.0); LYMPH # 1.2 10^3/uL (1.5-4.5); LYMPH % 17.8 % (24.0-44.0); MEAN CORPUSCULAR HGB CONC 27.5 g/dl (32.0-36.5); MEAN CORPUSCULAR VOLUME 69.1 fl (80.0-96.0); MONO # 0.6 10^3/uL (0.0-0.8); MONO % 8.5 % (0.0-5.0); NEUTROPHILS # 4.9 10^3/uL (1.8-7.7); NEUTROPHILS % 70.8 % (36.0-66.0); PLATELET COUNT, AUTOMATED 278 10^3/uL (150-450); RED BLOOD COUNT 4.27 10^6/uL (4.30-6.10); RED CELL DISTRIBUTION WIDTH 17.1 % (11.5-14.5); WHITE BLOOD COUNT 6.9 10^3/uL (4.0-10.0)
[2017-11-28 20:43] LABS: APPEARANCE, URINE CLEAR (CLEAR); BACTERIA, URINE AUTO NEGATIVE (NEGATIVE); BILIRUBIN, URINE AUTO NEGATIVE (NEGATIVE); BLOOD, URINE BLOOD NEGATIVE (NEGATIVE); COLOR, URINE YELLOW (YELLOW); GLUCOSE, URINE (UA) AUTO NEGATIVE (NEGATIVE); KETONE, URINE AUTO NEGATIVE (NEGATIVE); LEUKOCYTE ESTERASE, URINE AUTO NEGATIVE (NEGATIVE); MUCUS, URINE SMALL (NEGATIVE); NITRITE, URINE AUTO NEGATIVE (NEGATIVE); PROTEIN, URINE AUTO NEGATIVE (NEGATIVE); RBC, URINE AUTO 1 /HPF (0-3); SPECIFIC GRAVITY URINE AUTO 1.015 (1.002-1.035); SQUAMOUS EPITHELIAL CELL UR AU 0 /HPF (0-6); UROBILINOGEN, URINE AUTO 0.2 mg/dL (0.0-2.0); WBC, URINE AUTO 1 /HPF (0-3)
[2017-11-28 20:51] LABS: ALBUMIN 2.8 GM/DL (3.2-5.2); ALKALINE PHOSPHATASE 144 U/L (45-117); ALT/SGPT 23 U/L (12-78); ANION GAP 10 MEQ/L (8-16); AST/SGOT 24 U/L (7-37); BILIRUBIN,TOTAL 0.3 MG/DL (0.2-1.0); BLOOD UREA NITROGEN 21 MG/DL (7-18); CALCIUM LEVEL 8.1 MG/DL (8.8-10.2); CARBON DIOXIDE LEVEL 25 MEQ/L (21-32); CHLORIDE LEVEL 108 MEQ/L (98-107); CHOLESTEROL LEVEL 134 MG/DL (<200); CHOLESTEROL RISK RATIO 2.977 (<5); CREATININE FOR GFR 1.42 MG/DL (0.70-1.30); GLOMERULAR FILTRATION RATE 53.6 (>49); GLUCOSE, FASTING 78 MG/DL (70-100); HDL CHOLESTEROL 45 MG/DL (>40); LDL CHOLESTEROL 63.6 MG/DL (<100); NON-HDL-C 89 MG/DL; POTASSIUM SERUM 4.5 MEQ/L (3.5-5.1); SODIUM LEVEL 143 MEQ/L (136-145); TOTAL PROTEIN 6.3 GM/DL (6.4-8.2); TRIGLYCERIDES LEVEL 127 MG/DL (<150)
[2017-12-06 11:26] LABS: SUMMARY SEE SEPARATE REPORT
== END ==
LOC: M SFHCLERA 15:11
DX: I10 Essential (primary) hypertension (principal); F15.10 Other stimulant abuse, uncomplicated

== ENCOUNTER 2018-01-17 23:58 | Emergency (ER) | payer OTHER ==
[2018-01-18 00:55] LABS: BASO # 0.1 10^3/uL (0.0-0.2); BASO % 0.7 % (0.0-1.0); EOS # 0.4 10^3/uL (0.0-0.50); EOS % 6.2 % (0.0-3.0); HEMATOCRIT 29.1 % (42.0-52.0); HEMOGLOBIN 7.9 g/dl (13.5-17.5); IMMATURE GRANULOCYTE % 0.1 % (0-3.0); LYMPH # 1.5 10^3/uL (1.5-4.5); LYMPH % 20.3 % (24.0-44.0); MEAN CORPUSCULAR HEMOGLOBIN 18.5 pg (27.0-33.0); MEAN CORPUSCULAR HGB CONC 27.1 g/dl (32.0-36.5); MEAN CORPUSCULAR VOLUME 68.1 fl (80.0-96.0); MONO # 0.9 10^3/uL (0.0-0.8); MONO % 12.5 % (0.0-5.0); NEUTROPHILS # 4.3 10^3/uL (1.8-7.7); NEUTROPHILS % 60.2 % (36.0-66.0); PLATELET COUNT, AUTOMATED 194 10^3/uL (150-450); RED BLOOD COUNT 4.27 10^6/uL (4.30-6.10); RED CELL DISTRIBUTION WIDTH 17.1 % (11.5-14.5); WHITE BLOOD COUNT 7.1 10^3/uL (4.0-10.0)
[2018-01-18 01:30] LABS: ALBUMIN 2.6 GM/DL (3.2-5.2); ALBUMIN/GLOBULIN RATIO 0.76 (1.00-1.93); ALKALINE PHOSPHATASE 140 U/L (45-117); ALT/SGPT 27 U/L (12-78); ANION GAP 7 MEQ/L (8-16); AST/SGOT 29 U/L (7-37); BILIRUBIN,DIRECT < 0.1 MG/DL (0.0-0.2); BILIRUBIN,TOTAL 0.2 MG/DL (0.2-1.0); BLOOD UREA NITROGEN 14 MG/DL (7-18); CALCIUM LEVEL 6.7 MG/DL (8.8-10.2); CARBON DIOXIDE LEVEL 23 MEQ/L (21-32); CHLORIDE LEVEL 110 MEQ/L (98-107); GLOMERULAR FILTRATION RATE > 60.0 (>49); GLUCOSE, FASTING 74 MG/DL (70-100); LIPASE 452 U/L (73-393); POTASSIUM SERUM 4.5 MEQ/L (3.5-5.1); SODIUM LEVEL 140 MEQ/L (136-145)
[2018-01-18] MEDS: NS 1,000 ML IV (02:11)
[2018-01-18] MEDS: GASTROGRAFIN SOLUTION 30ML (Q9963) PO ×2 (02:11→02:40)
[2018-01-18 03:25] LABS: KETONE, URINE AUTO RFX NEGATIVE (NEGATIVE); LEUKOCYTE ESTERASE UR AUTO RFX NEGATIVE (NEGATIVE); NITRITE, URINE AUTO RFX NEGATIVE (NEGATIVE); RBC, URINE AUTO RFX 1 /HPF (0-3); SPECIFIC GRAVITY UR AUTO RFX 1.009 (1.002-1.035); SQUAM EPITHELIAL CELL UR AURFX 0 /HPF (0-6); WBC, URINE AUTO RFX 0 /HPF (0-3)
[2018-01-18] MEDS ORDERED: ISOVUE-370 76% 100ML VIAL (Q9967) As Ordered (03:27)
== END 2018-01-18 04:46 | disposition home or self-care (01) ==
LOC: M ED 23:58
DX: D64.9 Anemia, unspecified (principal); N43.40 Spermatocele of epididymis, unspecified; R19.7 Diarrhea, unspecified; J44.9 Chronic obstructive pulmonary disease, unspecified; I10 Essential (primary) hypertension; E07.9 Disorder of thyroid, unspecified; H40.9 Unspecified glaucoma; F19.10 Other psychoactive substance abuse, uncomplicated; K86.89 Other specified diseases of pancreas; Z88.0 Allergy status to penicillin; Z88.8 Allergy status to other drugs, medicaments and biological substances; Z87.891 Personal history of nicotine dependence
CPT/HCPCS: Q9963

== ENCOUNTER → 2018-03-15 | Outpatient (REF) | payer OTHER | LOC: M SFHCLERA 14:22 | DX: D50.9 Iron deficiency anemia, unspecified (principal); E03.9 Hypothyroidism, unspecified; F15.10 Other stimulant abuse, uncomplicated; Z53.8 Procedure and treatment not carried out for other reasons ==

== ENCOUNTER 2018-04-19 19:20 | Observation (INO) | payer OTHER ==
[2018-04-19 20:40] LABS: BASO % 0.6 % (0.0-1.0); EOS # 0.3 10^3/uL (0.0-0.50); EOS % 4.8 % (0.0-3.0); HEMATOCRIT 24.8 % (42.0-52.0); IMMATURE GRANULOCYTE % 0.4 % (0-3.0); LYMPH # 1.1 10^3/uL (1.5-4.5); LYMPH % 16.3 % (24.0-44.0); MEAN CORPUSCULAR HEMOGLOBIN 18.6 pg (27.0-33.0); MEAN CORPUSCULAR VOLUME 68.9 fl (80.0-96.0); MONO # 0.6 10^3/uL (0.0-0.8); MONO % 8.8 % (0.0-5.0); NEUTROPHILS # 4.6 10^3/uL (1.8-7.7); NEUTROPHILS % 69.1 % (36.0-66.0); PLATELET COUNT, AUTOMATED 238 10^3/uL (150-450); RED CELL DISTRIBUTION WIDTH 18.1 % (11.5-14.5); WHITE BLOOD COUNT 6.7 10^3/uL (4.0-10.0)
[2018-04-19 20:44] LABS: INR 1.03; PROTHROMBIN TIME 13.6 SECONDS (12.1-14.4)
[2018-04-19 20:45] LABS: PARTIAL THROMBOPLASTIN TIME 24.4 SECONDS (25.4-37.6)
[2018-04-19 20:50] LABS: ANION GAP 7 MEQ/L (8-16); BLOOD UREA NITROGEN 21 MG/DL (7-18); CARBON DIOXIDE LEVEL 29 MEQ/L (21-32); CHLORIDE LEVEL 105 MEQ/L (98-107); GLOMERULAR FILTRATION RATE 59.2 (>49); GLUCOSE, FASTING 90 MG/DL (70-100); POTASSIUM SERUM 3.7 MEQ/L (3.5-5.1); SODIUM LEVEL 141 MEQ/L (136-145)
[2018-04-19 21:01] LABS: HEMOGLOBIN 6.7 g/dl (13.5-17.5)
[2018-04-19] MEDS ORDERED: IPRATROPIUM 0.5MG/ALBUTEROL 2.5MG INH SOL UD 3ML (DUONEB)(J7620) NEB (22:15)
[2018-04-19] MEDS: diphenhydrAMINE 25 MG CAP PO (23:29)
[2018-04-19] MEDS: ACETAMINOPHEN TAB 650MG DOSE (2X325MG) PO (23:29)
[2018-04-19 23:30] LABS: IMMEDIATE SPIN CROSSMATCH 1 2
[2018-04-20 01:44] LABS: APPEARANCE, URINE CLEAR (CLEAR); BACTERIA, URINE AUTO NEGATIVE (NEGATIVE); BILIRUBIN, URINE AUTO NEGATIVE (NEGATIVE); BLOOD, URINE BLOOD NEGATIVE (NEGATIVE); COLOR, URINE YELLOW (YELLOW); GLUCOSE, URINE (UA) AUTO NEGATIVE (NEGATIVE); KETONE, URINE AUTO NEGATIVE (NEGATIVE); LEUKOCYTE ESTERASE, URINE AUTO NEGATIVE (NEGATIVE); NITRITE, URINE AUTO NEGATIVE (NEGATIVE); PROTEIN, URINE AUTO NEGATIVE (NEGATIVE); RBC, URINE AUTO 1 /HPF (0-3); SPECIFIC GRAVITY URINE AUTO 1.017 (1.002-1.035); SQUAMOUS EPITHELIAL CELL UR AU 0 /HPF (0-6); UROBILINOGEN, URINE AUTO 0.2 mg/dL (0.0-2.0); WBC, URINE AUTO 0 /HPF (0-3)
[2018-04-20] MEDS: IPRATROPIUM 0.5MG/ALBUTEROL 2.5MG INH SOL UD 3ML (DUONEB)(J7620) NEB ×4 (02:22→20:36)
[2018-04-20] MEDS: ACETAMINOPHEN TAB 650MG DOSE (2X325MG) PO (03:31)
[2018-04-20] MEDS: NS 1,000 ML IV ×2 (03:58→20:24)
[2018-04-20] MEDS: LEVOTHYROXINE 88MCG TABLET (0.088 MG) PO (05:35)
[2018-04-20 06:03] LABS: HEMATOCRIT 29.2 % (42.0-52.0); HEMOGLOBIN 8.5 g/dl (13.5-17.5); MEAN CORPUSCULAR HEMOGLOBIN 20.8 pg (27.0-33.0); MEAN CORPUSCULAR HGB CONC 29.1 g/dl (32.0-36.5); MEAN CORPUSCULAR VOLUME 71.6 fl (80.0-96.0); PLATELET COUNT, AUTOMATED 209 10^3/uL (150-450); RED BLOOD COUNT 4.08 10^6/uL (4.30-6.10); RED CELL DISTRIBUTION WIDTH 21.6 % (11.5-14.5)
[2018-04-20 06:19] LABS: ANION GAP 8 MEQ/L (8-16); BLOOD UREA NITROGEN 21 MG/DL (7-18); CALCIUM LEVEL 7.3 MG/DL (8.8-10.2); CARBON DIOXIDE LEVEL 25 MEQ/L (21-32); CHLORIDE LEVEL 109 MEQ/L (98-107); CREATININE FOR GFR 1.17 MG/DL (0.70-1.30); GLOMERULAR FILTRATION RATE > 60.0 (>49); GLUCOSE, FASTING 117 MG/DL (70-100); POTASSIUM SERUM 3.8 MEQ/L (3.5-5.1); SODIUM LEVEL 142 MEQ/L (136-145)
[2018-04-20 09:15] LABS: FOLATE 16.5 NG/ML (>5.4); VITAMIN B12 LEVEL 871 PG/ML (247-911)
[2018-04-20] MEDS: amLODIPine 10 MG TAB PO (09:30)
[2018-04-20] MEDS: FERROUS SULFATE 325MG TAB PO ×2 (09:30→20:23)
[2018-04-20] MEDS: hydroCHLOROthiazide 25 MG TAB PO (09:31)
[2018-04-20] MEDS: IRON SUCROSE 500 MG in NS 250 ML IV (10:18)
[2018-04-20] MEDS: MAALOX 30 ML SUSP *UDC PO (16:55)
[2018-04-20] MEDS: rOPINIRole 1MG TAB PO (20:23)
[2018-04-20] MEDS: PANTOPRAZOLE 40MG TAB (PROTONIX) PO (20:23)
[2018-04-20] MEDS: ONDANSETRON 4MG/2ML VIAL (J2405) IV (22:13)
[2018-04-21] MEDS: IPRATROPIUM 0.5MG/ALBUTEROL 2.5MG INH SOL UD 3ML (DUONEB)(J7620) NEB ×2 (01:47→08:36)
[2018-04-21] MEDS: MAALOX 30 ML SUSP *UDC PO (02:13)
[2018-04-21] MEDS: LEVOTHYROXINE 88MCG TABLET (0.088 MG) PO (06:47)
[2018-04-21 08:26] LABS: BASO # 0.1 10^3/uL (0.0-0.2); BASO % 0.6 % (0.0-1.0); EOS # 0.5 10^3/uL (0.0-0.50); EOS % 5.3 % (0.0-3.0); HEMATOCRIT 31.1 % (42.0-52.0); IMMATURE GRANULOCYTE % 0.5 % (0-3.0); LYMPH # 0.9 10^3/uL (1.5-4.5); MEAN CORPUSCULAR HEMOGLOBIN 20.7 pg (27.0-33.0); MEAN CORPUSCULAR HGB CONC 28.9 g/dl (32.0-36.5); MEAN CORPUSCULAR VOLUME 71.5 fl (80.0-96.0); MONO # 0.6 10^3/uL (0.0-0.8); MONO % 7.4 % (0.0-5.0); NEUTROPHILS # 6.5 10^3/uL (1.8-7.7); NEUTROPHILS % 76.2 % (36.0-66.0); PLATELET COUNT, AUTOMATED 280 10^3/uL (150-450); RED BLOOD COUNT 4.35 10^6/uL (4.30-6.10); RED CELL DISTRIBUTION WIDTH 21.6 % (11.5-14.5); WHITE BLOOD COUNT 8.5 10^3/uL (4.0-10.0)
[2018-04-21] MEDS: FERROUS SULFATE 325MG TAB PO (09:48)
[2018-04-21] MEDS: amLODIPine 10 MG TAB PO (09:50)
[2018-04-21] MEDS: hydroCHLOROthiazide 25 MG TAB PO (09:50)
[2018-04-24 11:09] LABS: ALBUMIN % 48.5 % (55.8-66.1); ALPHA-1-GLOBULIN % 8.5 % (2.9-4.9)
[2018-04-24 11:10] LABS: ALBUMIN 2.91 GM/DL (3.29-5.55); ALPHA-1-GLOBULINS 0.51 GM/DL (0.17-0.41); BETA-2-GLOBULINS 0.52 GM/DL (0.19-0.55); BETA-2-GLOBULINS % 8.7 % (3.2-6.5); GAMMA GLOBULIN % 14.3 % (11.1-18.8); GAMMA GLOBULINS 0.86 GM/DL (0.65-1.58)
== END 2018-04-21 11:33 | disposition home or self-care (01) ==
LOC: M ED 19:20 → M ED INP 22:00 → M MSPAV 22:55
DX: D50.9 Iron deficiency anemia, unspecified (principal); I10 Essential (primary) hypertension; E78.00 Pure hypercholesterolemia, unspecified; E03.9 Hypothyroidism, unspecified; J44.9 Chronic obstructive pulmonary disease, unspecified; M54.5 Low back pain; K21.9 Gastro-esophageal reflux disease without esophagitis; Z79.899 Other long term (current) drug therapy; Z98.61 Coronary angioplasty status; I25.10 Atherosclerotic heart disease of native coronary artery without angina pectoris; Z87.891 Personal history of nicotine dependence; F15.20 Other stimulant dependence, uncomplicated; F12.90 Cannabis use, unspecified, uncomplicated; F10.11 Alcohol abuse, in remission; F11.11 Opioid abuse, in remission; Z88.0 Allergy status to penicillin; Z88.8 Allergy status to other drugs, medicaments and biological substances
CPT/HCPCS: 36430

== ENCOUNTER → 2018-04-19 | Outpatient (REF) | payer OTHER ==
[~2018-04-19] MED LIST changes: +AMLO10TA4; +AMLO10TA4 PO; +ASPI81TAEC PO; +ATOR1TAB21 PO; +ATRO0.063; +ATRO0.063 INH; +CARA1TAB6 PO; +CART240C3 PO; +CREO24CA PO; +FERR1TAB8 PO; +FLAG500T PO; +FLUO20CA19 PO; +HYDR1CAP25 PO; +HYDR25TAB PO; +LEVA750T7 PO; +LEVO88TA3; +PATIENT COMMENT; +REQU3TAB PO; +SULF1TAB93 PO; +TIZA-208 PO; +VENTAER INH
[2018-04-19 16:43] LABS: BASO % 0.4 % (0.0-1.0); EOS # 0.3 10^3/uL (0.0-0.50); EOS % 2.9 % (0.0-3.0); HEMATOCRIT 27.6 % (42.0-52.0); HEMOGLOBIN 7.1 g/dl (13.5-17.5); LYMPH # 1.1 10^3/uL (1.5-4.5); LYMPH % 10.7 % (24.0-44.0); MEAN CORPUSCULAR HEMOGLOBIN 17.9 pg (27.0-33.0); MEAN CORPUSCULAR HGB CONC 25.7 g/dl (32.0-36.5); MEAN CORPUSCULAR VOLUME 69.7 fl (80.0-96.0); MONO # 0.8 10^3/uL (0.0-0.8); NEUTROPHILS % 77.6 % (36.0-66.0); PLATELET COUNT, AUTOMATED 293 10^3/uL (150-450); RED BLOOD COUNT 3.96 10^6/uL (4.30-6.10); WHITE BLOOD COUNT 10.3 10^3/uL (4.0-10.0)
[2018-04-19 16:54] LABS: BLOOD UREA NITROGEN 21 MG/DL (7-18); CARBON DIOXIDE LEVEL 25 MEQ/L (21-32); CHLORIDE LEVEL 106 MEQ/L (98-107); CREATININE FOR GFR 1.21 MG/DL (0.70-1.30); FERRITIN 5 NG/ML (26-388); GLOMERULAR FILTRATION RATE > 60.0 (>49); GLUCOSE, FASTING 79 MG/DL (70-100); IRON (FE) 33 UG/DL (65-175); PERCENT SATURATION 7.9 % (19.7-50.0); SODIUM LEVEL 139 MEQ/L (136-145); TOTAL IRON BINDING CAPACITY 417 UG/DL (250-450)
[2018-04-19 17:43] LABS: HEMOGLOBIN A1c 5.6 %
== END ==
LOC: M SFHCLERA 11:44
PROVIDERS: ATTEND Family Medicine
DX: D50.9 Iron deficiency anemia, unspecified (principal); E03.9 Hypothyroidism, unspecified; F15.10 Other stimulant abuse, uncomplicated; I10 Essential (primary) hypertension

== ENCOUNTER → 2018-10-23 | Outpatient (REF) | payer OTHER ==
[~2018-10-23] MED LIST changes: -AMLO10TA4; -AMLO10TA4 PO; +AMLO10TA5; +AMLO10TA5 PO; -TIZA-208 PO; +TIZA4TAB4 PO
[2018-10-23 20:29] LABS: BASO % 0.3 % (0.0-1.0); EOS # 0.3 10^3/uL (0.0-0.50); HEMATOCRIT 40.2 % (42.0-52.0); HEMOGLOBIN 12.3 g/dl (13.5-17.5); LYMPH % 16.9 % (24.0-44.0); MEAN CORPUSCULAR HEMOGLOBIN 25.1 pg (27.0-33.0); MEAN CORPUSCULAR HGB CONC 30.6 g/dl (32.0-36.5); MONO # 0.5 10^3/uL (0.0-0.8); MONO % 8.8 % (0.0-5.0); NEUTROPHILS # 4.2 10^3/uL (1.8-7.7); NEUTROPHILS % 68.7 % (36.0-66.0); PLATELET COUNT, AUTOMATED 143 10^3/uL (150-450); WHITE BLOOD COUNT 6.2 10^3/uL (4.0-10.0)
[2018-10-23 20:40] LABS: ALBUMIN 3.2 GM/DL (3.2-5.2); ALT/SGPT 17 U/L (12-78); BILIRUBIN,TOTAL 0.2 MG/DL (0.2-1.0); BLOOD UREA NITROGEN 23 MG/DL (7-18); CALCIUM LEVEL 8.2 MG/DL (8.8-10.2); CARBON DIOXIDE LEVEL 26 MEQ/L (21-32); CHLORIDE LEVEL 106 MEQ/L (98-107); CREATININE FOR GFR 1.17 MG/DL (0.70-1.30); GLOMERULAR FILTRATION RATE > 60.0 (>49); GLUCOSE, FASTING 77 MG/DL (70-100); POTASSIUM SERUM 4.1 MEQ/L (3.5-5.1); SODIUM LEVEL 140 MEQ/L (136-145); TOTAL PROTEIN 6.5 GM/DL (6.4-8.2)
== END ==
LOC: M SFHCLERA 15:27
PROVIDERS: ATTEND Family Medicine
DX: I10 Essential (primary) hypertension (principal); E03.9 Hypothyroidism, unspecified

== ENCOUNTER → 2019-01-15 | Outpatient (REF) | payer OTHER ==
[2019-01-15 19:41] LABS: BASO # 0.1 10^3/uL (0.0-0.2); BASO % 0.6 % (0.0-1.0); EOS # 0.7 10^3/uL (0.0-0.5); EOS % 8.5 % (0.0-3.0); HEMOGLOBIN 12.2 g/dl (13.5-17.5); LYMPH # 1.4 10^3/uL (1.5-5.0); LYMPH % 17.1 % (24.0-44.0); MEAN CORPUSCULAR HEMOGLOBIN 25.5 pg (27.0-33.0); MEAN CORPUSCULAR HGB CONC 31.3 g/dl (32.0-36.5); MEAN CORPUSCULAR VOLUME 81.6 fl (80.0-96.0); MONO # 0.9 10^3/uL (0.0-0.8); MONO % 10.9 % (0.0-5.0); PLATELET COUNT, AUTOMATED 193 10^3/uL (150-450); RED BLOOD COUNT 4.78 10^6/uL (4.30-6.10); WHITE BLOOD COUNT 8.1 10^3/uL (4.0-10.0)
== END ==
LOC: M SFHCLERA 15:42
PROVIDERS: ATTEND Family Medicine
DX: R10.84 Generalized abdominal pain (principal); E03.9 Hypothyroidism, unspecified

== ENCOUNTER 2019-01-28 16:14 | Emergency (ER) | payer OTHER ==
[~2019-01-28] VITALS: Ht 165.1 cm; Wt 63.6 kg
[2019-01-28] MEDS ORDERED: ROPI0.253 PO (16:26)
[2019-01-28] MEDS ORDERED: LOSA100T8 PO (16:26)
[2019-01-28] MEDS ORDERED: diphenhydrAMINE INJ 50MG/ML VIAL (J1200) As Ordered ONE (16:40)
[2019-01-28] MEDS ORDERED: HALOPERIDOL 5 MG/ML VIAL (J1630) As Ordered ONE (16:41)
[2019-01-28] MEDS ORDERED: diphenhydrAMINE INJ 50MG/ML VIAL (J1200) IM ONE (16:45)
[2019-01-28] MEDS ORDERED: HALOPERIDOL 5 MG/ML VIAL (J1630) IM ONE (17:00)
[2019-01-28 17:48] LABS: HEMATOCRIT 39.6 % (42.0-52.0); HEMOGLOBIN 12.8 g/dl (13.5-17.5); MEAN CORPUSCULAR HEMOGLOBIN 26.3 pg (27.0-33.0); MEAN CORPUSCULAR HGB CONC 32.3 g/dl (32.0-36.5); MEAN CORPUSCULAR VOLUME 81.3 fl (80.0-96.0); PLATELET COUNT, AUTOMATED 188 10^3/uL (150-450); RED BLOOD COUNT 4.87 10^6/uL (4.30-6.10); WHITE BLOOD COUNT 6.4 10^3/uL (4.0-10.0)
[2019-01-28 18:18] LABS: ACETAMINOPHEN LEVEL < 2.0 UG/ML (10.0-30.0); ALBUMIN 3.3 GM/DL (3.2-5.2); ALT/SGPT 19 U/L (12-78); BILIRUBIN,DIRECT < 0.1 MG/DL (0.0-0.2); BILIRUBIN,TOTAL 0.3 MG/DL (0.2-1.0); BLOOD UREA NITROGEN 25 MG/DL (7-18); CALCIUM LEVEL 8.3 MG/DL (8.8-10.2); CARBON DIOXIDE LEVEL 27 MEQ/L (21-32); CHLORIDE LEVEL 107 MEQ/L (98-107); CREATININE FOR GFR 1.14 MG/DL (0.70-1.30); ETHYL ALCOHOL (ETHANOL) < 0.003 % (0.000-0.010); GLOMERULAR FILTRATION RATE > 60.0 (>49); GLUCOSE, FASTING 94 MG/DL (70-100); POTASSIUM SERUM 4.5 MEQ/L (3.5-5.1); SALICYLATE LEVEL < 1.7 MG/DL (5.0-30.0); SODIUM LEVEL 140 MEQ/L (136-145); TOTAL PROTEIN 6.4 GM/DL (6.4-8.2)
[2019-01-28 18:34] LABS: AMPHETAMINES LEVEL URINE POSITIVE (NEGATIVE); BARBITURATES URINE NEGATIVE (NEGATIVE); BENZODIAZEPINES URINE NEGATIVE (NEGATIVE); CANNABINOIDS URINE POSITIVE (NEGATIVE); COCAINE METABOLITE URINE NEGATIVE (NEGATIVE); METHADONE URINE NEGATIVE (NEGATIVE); OPIATES URINE NEGATIVE (NEGATIVE); PHENCYCLIDINE URINE NEGATIVE (NEGATIVE)
[2019-01-28 20:03] VITALS: BP 141/79
--- NOTE | 2019-01-30 07:24 | ECGEPIP ---
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
== END 2019-01-28 20:05 | disposition home or self-care (01) ==
LOC: EDBD 16:14 → M ED 16:14
DX: F19.10 Other psychoactive substance abuse, uncomplicated (principal); I10 Essential (primary) hypertension; J44.9 Chronic obstructive pulmonary disease, unspecified; Z79.51 Long term (current) use of inhaled steroids; Z79.899 Other long term (current) drug therapy; Z87.891 Personal history of nicotine dependence; Z88.1 Allergy status to other antibiotic agents; Z88.8 Allergy status to other drugs, medicaments and biological substances
CPT/HCPCS: 80048; 80076; 80307; 84443; 85027; 93005; 96372; 99285; G0480; J1200; J1630

== ENCOUNTER → 2019-05-27 | Outpatient (REF) | payer MEDICARE, MEDICAID ==
[~2019-05-27] MED LIST changes: -FLUO20CA19 PO; +FLUO20CA22 PO; +LOSA100T8 PO; +ROPI0.253 PO
[2019-05-27 18:08] LABS: BASO # 0.1 10^3/uL (0.0-0.2); BASO % 0.7 % (0.0-1.0); EOS # 0.5 10^3/uL (0.0-0.5); EOS % 7.2 % (0.0-3.0); HEMATOCRIT 39.5 % (42.0-52.0); HEMOGLOBIN 12.1 g/dl (13.5-17.5); LYMPH # 1.3 10^3/uL (1.5-5.0); MEAN CORPUSCULAR HEMOGLOBIN 24.5 pg (27.0-33.0); MEAN CORPUSCULAR HGB CONC 30.6 g/dl (32.0-36.5); MEAN CORPUSCULAR VOLUME 80.1 fl (80.0-96.0); MONO # 0.7 10^3/uL (0.0-0.8); MONO % 9.8 % (0.0-5.0); NEUTROPHILS # 4.5 10^3/uL (1.5-8.5); NEUTROPHILS % 64.2 % (36.0-66.0); PLATELET COUNT, AUTOMATED 190 10^3/uL (150-450); RED BLOOD COUNT 4.93 10^6/uL (4.30-6.10)
[2019-05-27 18:23] LABS: ALBUMIN 3.2 GM/DL (3.2-5.2); ALT/SGPT 19 U/L (12-78); BILIRUBIN,TOTAL 0.2 MG/DL (0.2-1.0); BLOOD UREA NITROGEN 21 MG/DL (7-18); CALCIUM LEVEL 7.7 MG/DL (8.8-10.2); CARBON DIOXIDE LEVEL 27 MEQ/L (21-32); CHLORIDE LEVEL 106 MEQ/L (98-107); CREATININE FOR GFR 1.13 MG/DL (0.70-1.30); FREE T4 1.03 NG/DL (0.76-1.46); GLOMERULAR FILTRATION RATE > 60.0 (>49); GLUCOSE, FASTING 117 MG/DL (70-100); POTASSIUM SERUM 4.4 MEQ/L (3.5-5.1); SODIUM LEVEL 139 MEQ/L (136-145); TOTAL PROTEIN 6.2 GM/DL (6.4-8.2)
== END ==
LOC: M SFHCLERA 12:42
PROVIDERS: ATTEND Family Medicine
DX: I10 Essential (primary) hypertension (principal); E03.9 Hypothyroidism, unspecified

== ENCOUNTER → 2019-07-30 | Outpatient (REF) | payer OTHER, MEDICAID, MEDICARE | LOC: M SFHCLERA 12:04 | PROVIDERS: ATTEND Family Medicine | DX: Z11.59 Encounter for screening for other viral diseases (principal); E83.51 Hypocalcemia; K86.9 Disease of pancreas, unspecified ==

== ENCOUNTER 2020-01-16 18:50 | Emergency (ER) | payer MEDICARE, MEDICAID ==
[~2020-01-16] VITALS: Ht 167.6 cm; Wt 68.2 kg
[~2020-01-16 18:50] MED LIST changes: -AMLO10TA5; -AMLO10TA5 PO; +AMLO1TAB25; +AMLO1TAB25 PO; -ASPI81TA85 PO; +ASPI81TA86 PO
[2020-01-16 18:53] VITALS: BP 141/74
[2020-01-16] MEDS ORDERED: PANT40TA29 PO (19:32)
--- NOTE | 2020-01-16 21:35 | REPVR ---
PROCEDURE INFORMATION: Exam: XR Chest, 2 Views Exam date and time: 01/16/2020 9:06 PM Age: 64 years old Clinical indication: Shortness of breath; Additional info: SOB TECHNIQUE: Imaging protocol: XR of the chest Views: 2 views. COMPARISON: CT Chest with contrast 02/20/2017 11:26 AM FINDINGS: Lungs: There are small partially calcified granulomas on the right. There is mild prominence of the vascular markings which could be the result of borderline congestive change. Pleural space: There are small bilateral pleural effusions. There is a small amount of fluid within the minor fissure. Heart/Mediastinum: Prosthetic valve is noted. Bones/joints: Severe degenerative and arthritic change right and left shoulder with osteophyte formation. Old healed fracture of the right clavicle. Old healed rib fractures right and left lower thorax. Sternal wires are present. There is mild kyphosis of the thoracic spine. IMPRESSION: 1. There are small bilateral pleural effusions. 2. Possible borderline congestive change Electronically signed by: Eliu Clark On 01/16/2020 21:35:19 PM
[2020-01-16 21:45] LABS: AMPHETAMINES LEVEL URINE POSITIVE (NEGATIVE); BARBITURATES URINE NEGATIVE (NEGATIVE); BENZODIAZEPINES URINE NEGATIVE (NEGATIVE); CANNABINOIDS URINE NEGATIVE (NEGATIVE); COCAINE METABOLITE URINE NEGATIVE (NEGATIVE); METHADONE URINE NEGATIVE (NEGATIVE); OPIATES URINE NEGATIVE (NEGATIVE); PHENCYCLIDINE URINE NEGATIVE (NEGATIVE)
--- NOTE | 2020-01-17 09:26 | ED PDOC ---
Post-Departure Follow-Up radiology report faxed to Yamilex Hernandez MD Jan 17, 2020 09:26
== END 2020-01-16 22:12 | disposition home or self-care (01) ==
LOC: M ED 18:50
DX: F15.10 Other stimulant abuse, uncomplicated (principal); E11.9 Type 2 diabetes mellitus without complications; J44.9 Chronic obstructive pulmonary disease, unspecified; I10 Essential (primary) hypertension; E78.5 Hyperlipidemia, unspecified; F10.10 Alcohol abuse, uncomplicated; F11.10 Opioid abuse, uncomplicated; Z79.899 Other long term (current) drug therapy; Z79.82 Long term (current) use of aspirin; Z88.0 Allergy status to penicillin; Z88.8 Allergy status to other drugs, medicaments and biological substances; F17.210 Nicotine dependence, cigarettes, uncomplicated

== ENCOUNTER 2020-01-17 21:59 | Inpatient (IN) | payer MEDICARE, MEDICAID ==
[~2020-01-17] VITALS: Ht 170.2 cm; Wt 63.5 kg
[~2020-01-17 21:59] MED LIST changes: +PANT40TA29 PO
[2020-01-17 23:29] VITALS: BP 154/74
[2020-01-18] MEDS ORDERED: ROPI0.5T3 PO (00:40)
[2020-01-18] MEDS ORDERED: HYDR12CA PO (00:40)
[2020-01-18] MEDS ORDERED: AMLO1TAB24 PO (00:40)
[2020-01-18] MEDS ORDERED: TRAM50TA2 PO (00:40)
[2020-01-18] MEDS ORDERED: COMBAER6 INH (00:40)
[2020-01-18] MEDS: FUROSEMIDE 40MG/4ML VIAL (J1940) IV SCH ×4 (01:19→20:08)
[2020-01-18] MEDS: ACETAMINOPHEN TAB 650MG DOSE (2X325MG) PO PRN ×2 (01:26→20:09)
[2020-01-18] MEDS: LevoFLOXacin IV 750 MG in IV 1 EA IV SCH ×3 (01:30→23:37)
--- NOTE | 2020-01-18 01:41 | REPVR ---
PROCEDURE INFORMATION: Exam: XR Chest, 1 View Exam date and time: 01/18/2020 1:33 AM Age: 64 years old Clinical indication: Shortness of breath; Additional info: SOB TECHNIQUE: Imaging protocol: XR of the chest Views: 1 view. COMPARISON: CR Chest, 2 view PA, Lat 01/16/2020 8:52 PM FINDINGS: Lungs: Slight interstitial prominence which is similar to the prior study. Minimal bibasilar infiltrates since the prior study. Pleural space: Unremarkable. No pleural effusion. No pneumothorax. Heart/Mediastinum: Left atrial occluding device. Mild cardiomegaly. Bones/joints: Status post sternotomy. Degenerative changes are noted in the shoulders, left greater than right. IMPRESSION: 1. Minimal right base and left infrahilar infiltrates since 01/16/2020 which may reflect early pulmonary venous congestion. 2. Otherwise stable chest. Electronically signed by: Kirk Mott On 01/18/2020 01:40:53 AM
--- NOTE | 2020-01-18 01:42 | HPEPDOC ---
[facility] Medical History & Physical Date of Admission Jan 17, 2020 Date of Service: Jan 17, 2020 Attending Physician: DANNY HOPPER MD History and Physical CHIEF COMPLAINT: Dyspnea HISTORY OF PRESENT ILLNESS: 64-year-old M with a recent history of a 5 vessel CABG for CAD, history of PSUD currently smoking meth, last confirmed use 01/16/2020, history of anemia, hypertension, hyperlipidemia, hypothyroidism, COPD/asthma, osteoarthritis, low back pain, GERD, TIA, history of pancreatic mass s/p resection c/b pancreatic insufficiency, DM who presented to [facility] [place] with worsening SOB and WRIGHT over a few days without a recent history of fever, chills, nausea, vomiting, diarrhea, peripheral edema, chest pain or palpitations. At [facility] initial vitals were 121/85, hypoxemic requiring 3L NC, tachypneic to a RR of 25, HR 99. On examination there, he had diminished breath sounds some scattered wheezing without fabby crackles or edema. Work up at [facility] [place] revealed WBC 8.6, Hgb 11.6, platelets 206, K 3, Cl 115, bicarb 14, BUN 11, Cr 0.7, Ca 4. 9, lactate 3.1, EKG without acute ischemic signs with QTc of 493 otherwise NSR, elevated D-dimer for which he had a CTA that showed bilateral R>L (R loculated) moderate pleural effusions without a PE, while UA was bland, tox screen was negative, troponin was wnl (0.04) and proBNP was 4913. He is now being transferred from [place] for new onset CHF with request for possible pulm/th oracic surgery involvement for pleural effusions. Review system: 10 point review systems negative and then those described in HPI. PAST MEDICAL HISTORY: HTN Hypercholesterolemia Hypothyroidism COPD Asthma Osteoarthritis Low Back Pain Cataract Acid Reflux TIA History of pancreatic mass Anemia Substance abuse: former EtOH and former smoker. 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 Noncompliance with medications PAST SURGICAL HISTORY: Tonsillectomy Carotid endarterectomy Left Subclavian artery bypass Partial pancreatectomy Recent CABG within the last 1 month FAMILY HISTORY: Father: of cancer Mother: of [place] and had a hx of cancer 5 sisters; 1 of cancer, and does not know the health history of his other 4 sisters. SOCIAL HISTORY: Quit smoking. Smoked 1 PPD x 40 years. Quit EtOH. Used to drink whiskey. Still smokes marijuana and uses methamphetamine. Did use heroine in the past. Has a remote hx of cocaine use. On Social Security Disability. Does not work. Last worked in 1974. PHYSICAL EXAMINATION: General: Appears older than stated age, NAD HEENT: NCAT, wears corrective lenses, PERRLA, EOMI, clear posterior oropharynx Neck: No JVD, supple Pulm: Diminished breath sounds, better at apices, no fabby crackles, wheezing or rhonchi, on 4L NC Cardiac: RRR, no mrg Abd: normoactive sounds, soft, NTND Ext: no LE edema, WWP Neuro: CN2-12 intact, moving all extremities Psych: AOx3 LABORATORY DATA: See above from [place] IMAGING: as described above. MICROBIOLOGY: Had BCx drawn at [place]. Assessment and plan: 64-year-old M with a recent history of a 5 vessel CABG for CAD, history of PSUD currently smoking meth, last confirmed use 01/16/2020, history of anemia, hypertension, hyperlipidemia, hypothyroidism, COPD/asthma, osteoarthritis, low back pain, GERD, TIA, history of pancreatic mass s/p resection c/b pancreatic insufficiency, DM who presented to [place] with worsening SOB and WRIGHT over a few days and found to have new onset HF with bilateral pleural effusions and interstitial edema and elevated BNP without evidence of ongoing ACS now transferred to [facility]. New onset CHF s/p recent CABG without evidence of ACS -TTE -Diuresis with 40 IV lasix Q46H, goal net negative 2L/24h -daily weights -consistent carb diet with 2g sodium and 2L/24h fluid restriction -strict I/Os -cardiology consult in the morning, does not have a jordan man, just had a multivessel CABG, now with new onset HF -EKG on arrival --> NSR -telemetry -Troponin -CXR CAD: -s/p recent CABG -ASA 81 Hypoxemic respiratory failure: likely 2/2 CHF with bilateral pleural effusions however given active CT chest findings will entertain possible infectious etiology vs. other etiologies for the bilateral effusions -respiratory panel on arrival for covid-19 r/o -procalcitonin -diuresis as above -TTE as above -CXR -will defer to day team on decision to pursue thoracentesis, currently suspect HF post CABG and hemodynamically stable with mild hypoxemia -empiric Levaquin -CTA without PE PSUD: -No recent alcohol or nicotine, however admits to meth and marijuana and discussed deleterious health effects to which he reports plan to quit both immediately DM: -SSI -hypoglycemia protocol -FSBG AC/HS -consistent carb diet COPD: -combivent and albuterol PRN -hold off steroids at this time, s/p solumedrol at [facility] -respiratory panel HTN: -hold amlodipine and HCTZ for hemodynamic accommodation to diurese -lasix as above RLS: -continue ropinirole DVT prophylaxis with TEDs and SCDs Dispo: medsurg with tele Home Medications Scheduled Amlodipine Besylate (Amlodipine Besylate) 5 Mg Tablet, 5 MG PO DAILY Hydrochlorothiazide (Hydrochlorothiazide) 12.5 Mg Capsule, 12.5 MG PO DAILY Levothyroxine Sodium (Synthroid) 88 Mcg Tab, 88 MCG PO DAILY Ropinirole HCl (Ropinirole HCl) 0.5 Mg Tablet, 0.5 MG PO BID Scheduled PRN Albuterol Sulfate (Ventolin Hfa) 108 Mcg/Act Aer, 2 PUFFS INH Q4H PRN for SHORTNESS OF BREATH Ipratropium/Albuterol Sulfate (Combivent Respimat 20-100 Mcg) 4 Gm Mist.inhal, 1 PUFF INH Q6H PRN for SHORTNESS OF BREATH Tramadol HCl (Tramadol HCl) 50 Mg Tablet, 50 MG PO BID PRN for PAIN Allergies Coded Allergies: amoxicillin (Verified Allergy, Unknown, rash, 01/28/19) clavulanic acid (Verified Allergy, Unknown, rash, 01/28/19) pregabalin (Verified Adverse Reaction, Unknown, seizures, 01/28/19) warfarin (Verified Adverse Reaction, Unknown, bleeding, 01/28/19) A-FIB/CHADSVASC A-FIB History Current/History of A-Fib/PAF?: No Current PO Anticoag Therapy: No Age/Risk Factor Scoring CHADSVASC: CHADSVASC Response (Comments) Value Age Risk Factor Age < 65 years old 0 Gender Risk Factor Male 0 Hx of CHF Yes 1 Hx of HTN Yes 1 Hx of Stroke/TIA/or VTE No 0 Hx of Diabetes Yes 1 Hx of Vascular Disease Yes 1 Total 4 Treatment Treatment ordered: NONE Reason Anticoagulant not given: Not indicated/[id number] DANNY HOPPER MD Jan 17, 2020 23:19
[2020-01-18 04:47] LABS: HEMATOCRIT 35.5 % (42.0-52.0); HEMOGLOBIN 10.5 g/dl (13.5-17.5); MEAN CORPUSCULAR HGB CONC 29.6 g/dl (32.0-36.5); MEAN CORPUSCULAR VOLUME 84.5 fl (80.0-96.0); PLATELET COUNT, AUTOMATED 206 10^3/uL (150-450); WHITE BLOOD COUNT 5.8 10^3/uL (4.0-10.0)
[2020-01-18 05:27] LABS: ALBUMIN 2.8 GM/DL (3.2-5.2); BILIRUBIN,TOTAL 0.3 MG/DL (0.2-1.0); CREATININE FOR GFR 1.33 MG/DL (0.70-1.30); FREE T4 0.97 NG/DL (0.76-1.46); GLOMERULAR FILTRATION RATE 57.4 (>49); MAGNESIUM LEVEL 1.4 MG/DL (1.8-2.4); POTASSIUM SERUM 3.9 MEQ/L (3.5-5.1); THYROID STIMULATING HORMONE 1.34 uIU/ML (0.358-3.740)
[2020-01-18 06:00] VITALS: BP 117/64
[2020-01-18] MEDS ORDERED: FUROSEMIDE 40MG/4ML VIAL (J1940) IV SCH (06:00)
[2020-01-18] MEDS: LEVOTHYROXINE 88MCG TABLET (0.088 MG) PO SCH (06:04)
[2020-01-18] MEDS: ALBUTEROL 90 MCG/ACT 8GM HFA INHALER INH PRN (08:23)
[2020-01-18] MEDS ORDERED: PREVNAR 13 VACCINE SYRINGE IM ONE (09:00)
[2020-01-18] MEDS: rOPINIRole 0.25 MG TAB(REQUIP) PO SCH ×2 (09:38→20:08)
[2020-01-18] MEDS: ENOXAPARIN 40MG/0.4ML SYRINGE (J1650 PER 10MG) SC SCH (09:38)
--- NOTE | 2020-01-18 10:33 | IPNPDOC ---
Subjective Date Seen The patient was seen on 01/18/20. Subjective Chief Complaint/HPI Mr. Ambriz is a 64 year old male with history of polysubstance abuse with meth and a 5 vessel CABG for CAD here with dyspnea 2/2 decompensated heart failure. Overnight, he was diuresed which helped with his breathing. He is still requiring oxygen this morning, but we will wean as tolerated. Otherwise, denies fever/chills, N/V, diarrhea, chest pain, abdominal pain, or dysuria Constitutional: Denies: Chills, Fever Pulmonary: Reports: Dyspnea Cardiovascular: Denies: Chest Pain Gastrointestinal: Denies: Nausea, Vomiting, Abdominal Pain, Diarrhea Genitourinary: Denies: Dysuria Objective Physical Examination General Exam: Positive: Alert, Cooperative, Mild Distress Eye Exam: Positive: EOMI; Negative: Sclera icteric Neck Exam: Positive: Supple Chest Exam: Positive: Other (Bibasilar crackles) Heart Exam: Positive: Rate Normal, Regular Rhythm Abdomen Exam: Positive: Normal bowel sounds Extremity Exam: Positive: Edema (bilateral pitting edema) Psych Exam: Positive: Mood NL Assessment /Plan Assessment Mr. Ambriz is a 64 year old male with polysubstance abuse with meth and recent 5 vessel CABG here with dyspnea 2/2 CHF exacerbation. We will aggressively diurese him and put him on a 2L fluid restriction and 2g sodium diet. Echo has been ordered. Cardiology has been consulted, recommendations appreciated Plan/VTE VTE Prophylaxis Ordered?: Yes Plan 1. New onset CHF in setting of recent CABG - Denies symptoms of ACS and troponin is within normal limits - Will try to obtain records from [place] where he had his CABG - Consistent carb diet with 2g sodium and 2L fluid restriction - Continue with diuresis - Pending results from TTE - Cardiology consulted, spoke with Dr. Ladd, Recommendations appreciated 2. Hypoxemic respiratory failure - Required 3L at [place] - Improved with diuresis - Continue oxygen supplementation as needed - CXR demonstrated minimal pleural effusion, most likely CHF than infectious etiology (low WBC and improvement with diuresis), will wait for Procalcitonin results before discontinuing antibiotics. Since minimal pleural effusion on CXR, will hold off on thoracic surgery consult for drainage. 3. Recent 5 vessel CABG - Continue ASA - Will try to obtain records from [place] - Cardiology consulted, recommendations appreciated 4. Polysubstance abuse - Uses meth and marijuana - No withdrawal symptoms at this time, will continue to monitor 5. DM 2 - Continue with SSI and consistent carbohydrate diet 6. Hypertension - Amlodipine and HCTZ held due to diuresis - Blood pressure stable 7. RLS - Ropinirole 8. DVT ppx - SCD and TEDs VS, I&O, 24H, Fishbone Vital Signs/I&O Vital Signs Date Time Temp Pulse Resp B/P (MAP) Pulse Ox O2 Delivery O2 Flow Rate FiO2 01/18/20 08:56 97 Room Air 01/18/20 06:00 97.9 84 20 117/64 (81) 3.0 I&O- Last 24 Hours up to 6 AM 01/18/20 06:00 Intake Total 0 ml Output Total 1300 ml Balance -1300 ml Laboratory Data 24H LABS Laboratory Tests 2 01/17/20 23:59: Bedside Glucose (Misc Panel) 264H 01/18/20 00:07: Lactic Acid Level 2.5*H, Troponin I 0.02 01/18/20 04:38: Anion Gap 7L, Glomerular Filtration Rate 57.4, Lactic Acid Followup at 4 Hours 1.7, Calcium Level 8.0L, Magnesium Level 1.4L, Total Bilirubin 0.3, Aspartate Amino Transf (AST/SGOT) 15, Alanine Aminotransferase (ALT/SGPT) 27, Alkaline Phosphatase 216H, Total Protein 6.0L, Albumin 2.8L, Albumin/Globulin Ratio 0.9, Thyroid Stimulating Hormone (TSH) 1.340, Free Thyroxine 0.97 01/18/20 04:39: Nucleated Red Blood Cells % (auto) 0.3H CBC/BMP Laboratory Tests 01/18/20 04:38 01/18/20 04:39 Microbiology Microbiology 01/18/20 Respiratory Virus Panel (PCR) ([facility]ILIB[facility]) - Final, Complete 01/18/20 Blood Culture, Received Pending 01/18/20 Blood Culture, Received Pending PUJA CASTELLANOS DO Jan 18, 2020 10:33
[2020-01-18] MEDS: COMBIVENT RESPIMAT 100-20MCG INHALER 4GM INH PRN ×2 (11:58→16:47)
[2020-01-18] MEDS: CALCIUM CARBONATE 500 MG CHEW U/D PO PRN ×2 (13:19→20:08)
[2020-01-18] MEDS: MAG SULF 1GM/100ML (MAG RUN) 1 GM in IV 1 EA IV SCH ×3 (13:20→17:17)
[2020-01-18] MEDS: PANTOPRAZOLE 20 MG TAB PO SCH (13:22)
[2020-01-18 14:00] VITALS: BP 143/70
--- NOTE | 2020-01-18 16:52 | ECGEPIP ---
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
[2020-01-18] MEDS: LOSARTAN 25 MG TAB PO SCH (21:39)
[2020-01-18] MEDS: MAGNESIUM OXIDE 400 MG TAB (MAG-OX) PO SCH (21:40)
[2020-01-18] MEDS: ATORVASTATIN 20 MG TAB PO SCH (21:40)
[2020-01-18 22:00] VITALS: BP 112/62
[2020-01-19] MEDS: ALBUTEROL 90 MCG/ACT 8GM HFA INHALER INH PRN (04:34)
[2020-01-19] MEDS: LEVOTHYROXINE 88MCG TABLET (0.088 MG) PO SCH (05:49)
[2020-01-19 06:00] VITALS: BP 124/75
[2020-01-19 07:51] LABS: BASO % 0.4 % (0.0-1.0); EOS # 0.1 10^3/uL (0.0-0.5); EOS % 1.2 % (0.0-3.0); HEMATOCRIT 32.3 % (42.0-52.0); HEMOGLOBIN 9.8 g/dl (13.5-17.5); LYMPH % 9.6 % (24.0-44.0); MEAN CORPUSCULAR HGB CONC 30.3 g/dl (32.0-36.5); MEAN CORPUSCULAR VOLUME 82.4 fl (80.0-96.0); MONO # 0.8 10^3/uL (0.0-0.8); NEUTROPHILS # 8.7 10^3/uL (1.5-8.5); NEUTROPHILS % 81.3 % (36.0-66.0); PLATELET COUNT, AUTOMATED 219 10^3/uL (150-450); RED BLOOD COUNT 3.92 10^6/uL (4.30-6.10); WHITE BLOOD COUNT 10.7 10^3/uL (4.0-10.0)
[2020-01-19 08:10] LABS: CALCIUM LEVEL 8.3 MG/DL (8.8-10.2); CREATININE FOR GFR 1.47 MG/DL (0.70-1.30); GLOMERULAR FILTRATION RATE 51.2 (>49); POTASSIUM SERUM 3.6 MEQ/L (3.5-5.1); TROPONIN I 0.02 NG/ML (< 0.10)
[2020-01-19] MEDS: FUROSEMIDE 40MG/4ML VIAL (J1940) IV SCH (08:14)
[2020-01-19] MEDS: PANTOPRAZOLE 20 MG TAB PO SCH (08:16)
[2020-01-19] MEDS: ASPIRIN 81 MG ENTERIC TAB PO SCH (08:16)
[2020-01-19] MEDS: ENOXAPARIN 40MG/0.4ML SYRINGE (J1650 PER 10MG) SC SCH (08:16)
[2020-01-19] MEDS: rOPINIRole 0.25 MG TAB(REQUIP) PO SCH ×2 (08:16→20:23)
[2020-01-19] MEDS: MAGNESIUM OXIDE 400 MG TAB (MAG-OX) PO SCH ×2 (08:16→20:23)
[2020-01-19] MEDS: COMBIVENT RESPIMAT 100-20MCG INHALER 4GM INH PRN ×3 (08:30→18:30)
[2020-01-19] MEDS: SUCRALFATE 1 GM TAB PO SCH ×3 (12:55→20:23)
[2020-01-19] MEDS: FAMOTIDINE 20 MG TAB PO SCH ×2 (12:55→20:22)
[2020-01-19 14:00] VITALS: BP 116/68
--- NOTE | 2020-01-19 18:48 | IPNPDOC ---
Subjective Date Seen The patient was seen on 01/19/20. Subjective Chief Complaint/HPI Mr. Ambriz is a 64 year old male with history of polysubstance abuse with meth and a 5 vessel CABG for CAD here with dyspnea 2/2 decompensated heart failure. Overnight, he felt short of breath but saturation was okay. Will give IS. Otherwise, denies fever/chills, N/V, diarrhea, chest pain, abdominal pain, or dysuria Constitutional: Denies: Chills, Fever Pulmonary: Reports: Dyspnea Cardiovascular: Denies: Chest Pain Gastrointestinal: Denies: Abdominal Pain Genitourinary: Denies: Dysuria Objective Physical Examination General Exam: Positive: Alert, Cooperative, Mild Distress Eye Exam: Positive: EOMI; Negative: Sclera icteric Neck Exam: Positive: Supple Chest Exam: Positive: Other (Bibasilar crackles) Heart Exam: Positive: Rate Normal, Regular Rhythm Abdomen Exam: Positive: Normal bowel sounds Extremity Exam: Positive: Edema (bilateral pitting edema) Psych Exam: Positive: Mood NL Assessment /Plan Assessment Mr. Ambriz is a 64 year old male with polysubstance abuse with meth and recent 5 vessel CABG here with dyspnea 2/2 CHF exacerbation. We will aggressively diurese him and put him on a 2L fluid restriction and 2g sodium diet. Echo has been ordered. Cardiology has been consulted, recommendations appreciated Plan/VTE VTE Prophylaxis Ordered?: Yes Plan 1. New onset CHF in setting of recent CABG - Denies symptoms of ACS and troponin is within normal limits - Will try to obtain records from [place] where he had his CABG - Consistent carb diet with 2g sodium and 2L fluid restriction - Continue with diuresis - Pending results from TTE - Cardiology consulted, spoke with Dr. Ladd, Recommendations appreciated - On losartan and metoprolol 2. Hypoxemic respiratory failure - Required 3L at [place] - Improved with diuresis - Continue oxygen supplementation as needed - CXR demonstrated minimal pleural effusion, most likely CHF than infectious etiology (low WBC and improvement with diuresis), will wait for Procalcitonin results before discontinuing antibiotics. Since minimal pleural effusion on CXR, will hold off on thoracic surgery consult for drainage. - Start IS 3. Recent 5 vessel CABG - Continue ASA - Will try to obtain records from [place] - Cardiology consulted, recommendations appreciated 4. Polysubstance abuse - Uses meth and marijuana - No withdrawal symptoms at this time, will continue to monitor 5. DM 2 - Continue with SSI and consistent carbohydrate diet 6. Hypertension - Blood pressure stable. Continue to monitor 7. RLS - Ropinirole 8. DVT ppx - SCD and TEDs VS, I&O, 24H, Fishbone Vital Signs/I&O Vital Signs Date Time Temp Pulse Resp B/P (MAP) Pulse Ox O2 Delivery O2 Flow Rate FiO2 01/19/20 14:00 98.4 81 17 116/68 (84) 98 Nasal Cannula 1.0 I&O- Last 24 Hours up to 6 AM 01/19/20 06:00 Intake Total 1820 ml Output Total 1955 ml Balance -135 ml Laboratory Data 24H LABS Laboratory Tests 2 01/18/20 19:53: Bedside Glucose (Misc Panel) 132H 01/19/20 06:56: Immature Granulocyte % (Auto) 0.5, Neutrophils (%) (Auto) 81.3H, Lymphocytes (%) (Auto) 9.6L, Monocytes (%) (Auto) 7.0H, Eosinophils (%) (Auto) 1.2, Basophils (%) (Auto) 0.4, Neutrophils # (Auto) 8.7H, Lymphocytes # (Auto) 1.0L, Monocytes # (Auto) 0.8, Eosinophils # (Auto) 0.1, Basophils # (Auto) 0.0, Nucleated Red Blood Cells % (auto) 0.0, Anion Gap 9, Glomerular Filtration Rate 51.2, Calcium Level 8.3L, Magnesium Level 2.0, Troponin I 0.02 01/19/20 11:24: Bedside Glucose (Misc Panel) 100 01/19/20 16:26: Bedside Glucose (Misc Panel) 109 CBC/BMP Laboratory Tests 01/19/20 06:56 Microbiology Microbiology 01/18/20 Respiratory Virus Panel (PCR) ([facility]ILIBETH) - Final, Complete 01/18/20 Blood Culture - Preliminary, Resulted No growth after 24 hours . All specim... 01/18/20 Blood Culture - Preliminary, Resulted No growth after 24 hours . All specim... PUJA CASTELLANOS DO Jan 19, 2020 18:48
[2020-01-19] MEDS: CALCIUM CARBONATE 500 MG CHEW U/D PO PRN (20:22)
[2020-01-19] MEDS: LOSARTAN 25 MG TAB PO SCH (20:22)
[2020-01-19] MEDS: ATORVASTATIN 20 MG TAB PO SCH (20:23)
[2020-01-19] MEDS: METOPROLOL SUCC *XL* 12.5MG PER 1/2 TAB (TopROL *XL*) PO SCH (20:33)
[2020-01-19 22:00] VITALS: BP 95/52
[2020-01-19] MEDS: LevoFLOXacin IV 750 MG in IV 1 EA IV SCH (23:04)
[2020-01-20] MEDS: ALBUTEROL 90 MCG/ACT 8GM HFA INHALER INH PRN ×2 (00:32→04:45)
[2020-01-20] MEDS: ACETAMINOPHEN TAB 650MG DOSE (2X325MG) PO PRN ×2 (01:46→22:33)
[2020-01-20] MEDS: CALCIUM CARBONATE 500 MG CHEW U/D PO PRN ×2 (03:55→15:55)
[2020-01-20] MEDS: LEVOTHYROXINE 88MCG TABLET (0.088 MG) PO SCH (05:37)
[2020-01-20 06:00] VITALS: BP 108/59
[2020-01-20 06:42] LABS: BASO % 0.5 % (0.0-1.0); EOS # 0.2 10^3/uL (0.0-0.5); EOS % 2.9 % (0.0-3.0); HEMATOCRIT 33.8 % (42.0-52.0); HEMOGLOBIN 10.2 g/dl (13.5-17.5); LYMPH # 0.9 10^3/uL (1.5-5.0); LYMPH % 11.6 % (24.0-44.0); MEAN CORPUSCULAR HEMOGLOBIN 25.4 pg (27.0-33.0); MEAN CORPUSCULAR HGB CONC 30.2 g/dl (32.0-36.5); MEAN CORPUSCULAR VOLUME 84.1 fl (80.0-96.0); MONO # 0.6 10^3/uL (0.0-0.8); MONO % 7.7 % (0.0-5.0); NEUTROPHILS % 76.4 % (36.0-66.0); PLATELET COUNT, AUTOMATED 204 10^3/uL (150-450); RED BLOOD COUNT 4.02 10^6/uL (4.30-6.10); WHITE BLOOD COUNT 7.8 10^3/uL (4.0-10.0)
[2020-01-20 07:12] LABS: CALCIUM LEVEL 7.6 MG/DL (8.8-10.2); CREATININE FOR GFR 1.47 MG/DL (0.70-1.30); GLOMERULAR FILTRATION RATE 51.2 (>49); POTASSIUM SERUM 3.6 MEQ/L (3.5-5.1)
[2020-01-20] MEDS: SUCRALFATE 1 GM TAB PO SCH ×4 (07:30→20:35)
[2020-01-20] MEDS ORDERED: LIDOCAINE 5% (LIDODERM) PATCH TD SCH (09:00)
[2020-01-20] MEDS: ENOXAPARIN 40MG/0.4ML SYRINGE (J1650 PER 10MG) SC SCH (11:02)
[2020-01-20] MEDS: FAMOTIDINE 20 MG TAB PO SCH ×2 (11:02→20:35)
[2020-01-20] MEDS: MAGNESIUM OXIDE 400 MG TAB (MAG-OX) PO SCH ×2 (11:03→20:34)
[2020-01-20] MEDS: rOPINIRole 0.25 MG TAB(REQUIP) PO SCH ×2 (11:04→20:34)
[2020-01-20] MEDS: PARoxetine 10MG TABLET PO SCH (11:04)
[2020-01-20] MEDS: FUROSEMIDE 40 MG TAB PO SCH (11:04)
[2020-01-20] MEDS: PANTOPRAZOLE 20 MG TAB PO SCH (11:05)
[2020-01-20] MEDS: ASPIRIN 81 MG ENTERIC TAB PO SCH (11:05)
[2020-01-20] MEDS: COMBIVENT RESPIMAT 100-20MCG INHALER 4GM INH PRN ×2 (11:20→16:48)
[2020-01-20] MEDS: TIOTROPIUM INHALER/CAPSULE (SPIRIVA) INH SCH (11:58)
[2020-01-20 16:00] VITALS: BP 113/56
[2020-01-20] MEDS ORDERED: COMBIVENT RESPIMAT 100-20MCG INHALER 4GM INH PRN (17:00)
[2020-01-20] MEDS: MAALOX 30 ML SUSP *UDC PO PRN ×2 (17:30→22:33)
[2020-01-20] MEDS: IPRATROPIUM 0.5MG/ALBUTEROL 2.5MG INH SOL UD 3ML (DUONEB) NEB PRN (17:31)
[2020-01-20] MEDS: ADVAIR HFA 230/21MCG INHALER INH SCH (19:28)
--- NOTE | 2020-01-20 20:08 | IPNPDOC ---
Subjective Date Seen The patient was seen on 01/20/20. Subjective Chief Complaint/HPI Mr. Ambriz is a 64 year old male with history of polysubstance abuse with meth and a 5 vessel CABG for CAD here with dyspnea 2/2 decompensated heart failure. He does not have oxygen at home. We weaned him off oxygen, but he feels dyspneic without it. Saturated at 96 at room air. Ambulation saturated at 93. Spoke with cardiology about his dyspnea. He does have COPD and currently is not receiving medication for COPD. Will add on COPD treatment. Otherwise, denies fever/chills, N/V, diarrhea, chest pain, abdominal pain, or dysuria Constitutional: Denies: Chills, Fever Pulmonary: Reports: Dyspnea Cardiovascular: Denies: Chest Pain Gastrointestinal: Reports: Other Symptoms (gerd); Denies: Diarrhea Genitourinary: Denies: Dysuria Objective Physical Examination General Exam: Positive: Alert, Cooperative, Mild Distress Eye Exam: Positive: EOMI; Negative: Sclera icteric Neck Exam: Positive: Supple Chest Exam: Positive: Other (Bibasilar crackles) Heart Exam: Positive: Rate Normal, Regular Rhythm Abdomen Exam: Positive: Normal bowel sounds Extremity Exam: Positive: Edema (bilateral pitting edema) Psych Exam: Positive: Mood NL Assessment /Plan Assessment Mr. Ambriz is a 64 year old male with polysubstance abuse with meth and recent 5 vessel CABG here with dyspnea 2/2 CHF exacerbation. We will aggressively diurese him and put him on a 2L fluid restriction and 2g sodium diet. Echo has been ordered. Cardiology has been consulted, recommendations appreciated Plan/VTE VTE Prophylaxis Ordered?: Yes Plan 1. New onset CHF in setting of recent CABG - Denies symptoms of ACS and troponin is within normal limits - Will try to obtain records from [place] where he had his CABG - Consistent carb diet with 2g sodium and 2L fluid restriction - Continue with diuresis - Pending results from [facility] - Cardiology consulted, spoke with Dr. Ladd, Recommendations appreciated - On losartan and metoprolol 2. Hypoxemic respiratory failure - Required 3L at [place], weaned off - Improved with diuresis - CXR demonstrated minimal pleural effusion, most likely CHF than infectious etiology (low WBC and improvement with diuresis), will wait for Procalcitonin results before discontinuing antibiotics. Since minimal pleural effusion on CXR, will hold off on thoracic surgery consult for drainage. - Start IS 3. Recent 5 vessel CABG - Continue ASA - Will try to obtain records from [place] - Cardiology consulted, recommendations appreciated 4. Polysubstance abuse - Uses meth and marijuana - No withdrawal symptoms at this time, will continue to monitor 5. DM 2 - Continue with SSI and consistent carbohydrate diet 6. Hypertension - Blood pressure stable. Continue to monitor 7. RLS - Ropinirole 8. COPD - Will start on inhalers 9. DVT ppx - SCD and TEDs VS, I&O, 24H, Fishbone Vital Signs/I&O Vital Signs Date Time Temp Pulse Resp B/P (MAP) Pulse Ox O2 Delivery O2 Flow Rate FiO2 01/20/20 16:00 97.4 87 19 113/56 (75) 96 Room Air 01/20/20 09:00 0.0 I&O- Last 24 Hours up to 6 AM 01/20/20 06:00 Intake Total 1976 ml Output Total 675 ml Balance 1301 ml Laboratory Data 24H LABS Laboratory Tests 2 01/19/20 20:47: Bedside Glucose (Misc Panel) 89 01/20/20 05:07: Bedside Glucose (Misc Panel) 112 01/20/20 05:51: Immature Granulocyte % (Auto) 0.9, Neutrophils (%) (Auto) 76.4H, Lymphocytes (%) (Auto) 11.6L, Monocytes (%) (Auto) 7.7H, Eosinophils (%) (Auto) 2.9, Basophils (%) (Auto) 0.5, Neutrophils # (Auto) 6.0, Lymphocytes # (Auto) 0.9L, Monocytes # (Auto) 0.6, Eosinophils # (Auto) 0.2, Basophils # (Auto) 0.0, Nucleated Red B lood Cells % (auto) 0.0, Anion Gap 10, Glomerular Filtration Rate 51.2, Calcium Level 7.6L 01/20/20 11:42: Bedside Glucose (Misc Panel) 82 01/20/20 17:03: Bedside Glucose (Misc Panel) 130H CBC/BMP Laboratory Tests 01/20/20 05:51 Microbiology Microbiology 01/18/20 Respiratory Virus Panel (PCR) (LILIBETH) - Final, Complete 01/18/20 Blood Culture - Preliminary, Resulted No Growth after 48 hours. All Specime... 01/18/20 Blood Culture - Preliminary, Resulted No Growth after 48 hours. All Specime... PUJA CASTELLANOS DO Jan 20, 2020 20:08
--- NOTE | 2020-01-20 20:31 | ECGEPIP ---
[facility] Test Date: 2020-01-19 Pat Name: RISSA YUSUF Department: Room: [place] [address] Gender: Male Sap Sd Analyst: LATOSHA : [id number] Requested By: Otilio Ladd Order Number: [id number] Reading MD: Fabian Cortes Measurements Intervals [place] Rate: 80 P: 79 FL: 161 QRS: 68 QRSD: 109 T: 105 QT: 452 QTc: 524 Interpretive Statements Normal sinus rhythm Left atrial enlargement Nonspecific repolarization abnormalities No significant change when compared to prior tracing of 01/18/2020 Electronically Signed on 01-20-2020 20:30:59 EDT by Fabian Cortes
[2020-01-20] MEDS: ATORVASTATIN 20 MG TAB PO SCH (20:35)
[2020-01-20] MEDS: LOSARTAN 25 MG TAB PO SCH (20:36)
[2020-01-20] MEDS: METOPROLOL SUCC *XL* 12.5MG PER 1/2 TAB (TopROL *XL*) PO SCH (20:37)
[2020-01-20] MEDS ORDERED: **NOTE PATIENT COMMENT** MISC XX SCH (21:00)
[2020-01-20 22:00] VITALS: BP 127/60
[2020-01-21] MEDS: LevoFLOXacin IV 750 MG in IV 1 EA IV SCH (00:13)
[2020-01-21] MEDS ORDERED: PILL CUTTER 1 EACH XX PRN (01:30)
[2020-01-21] MEDS: LEVOTHYROXINE 88MCG TABLET (0.088 MG) PO SCH (05:49)
[2020-01-21 06:00] VITALS: BP 134/71
[2020-01-21 06:03] LABS: BASO % 0.4 % (0.0-1.0); EOS # 0.3 10^3/uL (0.0-0.5); EOS % 3.8 % (0.0-3.0); HEMATOCRIT 33.9 % (42.0-52.0); HEMOGLOBIN 10.5 g/dl (13.5-17.5); LYMPH # 0.7 10^3/uL (1.5-5.0); LYMPH % 9.7 % (24.0-44.0); MEAN CORPUSCULAR HEMOGLOBIN 25.4 pg (27.0-33.0); MEAN CORPUSCULAR VOLUME 82.1 fl (80.0-96.0); MONO # 0.6 10^3/uL (0.0-0.8); MONO % 8.6 % (0.0-5.0); NEUTROPHILS # 5.6 10^3/uL (1.5-8.5); NEUTROPHILS % 76.7 % (36.0-66.0); PLATELET COUNT, AUTOMATED 196 10^3/uL (150-450); RED BLOOD COUNT 4.13 10^6/uL (4.30-6.10); WHITE BLOOD COUNT 7.3 10^3/uL (4.0-10.0)
[2020-01-21] MEDS: TIOTROPIUM INHALER/CAPSULE (SPIRIVA) INH SCH (06:27)
[2020-01-21] MEDS: ADVAIR HFA 230/21MCG INHALER INH SCH ×2 (06:28→20:26)
[2020-01-21 06:38] LABS: BLOOD UREA NITROGEN 24 MG/DL (7-18); CALCIUM LEVEL 7.8 MG/DL (8.8-10.2); CARBON DIOXIDE LEVEL 29 MEQ/L (21-32); CHLORIDE LEVEL 99 MEQ/L (98-107); CREATININE FOR GFR 1.25 MG/DL (0.70-1.30); GLOMERULAR FILTRATION RATE > 60.0 (>49); GLUCOSE, FASTING 102 MG/DL (70-100); POTASSIUM SERUM 4.3 MEQ/L (3.5-5.1); SODIUM LEVEL 135 MEQ/L (136-145)
--- NOTE | 2020-01-21 07:25 | ECHO ---
DATE OF PROCEDURE: 01/19/2020 Gender: Male Height: 60 kg Weight: 67 inches REFERRING PHYSICIAN: Dr. Marroquin INDICATION: Congestive heart failure, recent coronary artery bypass grafting (CABG). MEASUREMENTS: IVS 0.7 cm LV 5.2 cm LVPW 1.2 cm LA 4.3 cm Aorta 3.1 cm RV 2.7 IVC 1.6 cm Mitral E wave velocity 83 Mitral A wave 51 E prime septal 5.4 E prime lateral 8.6 FINDINGS: This study is of fair technical quality with difficult visualization. Left ventricle is normal size. There is severe global hypokinesis with dyskinesis of the septum and akinesis of the apex. Overall estimated LVEF approximately 20%. Right ventricle does not appear grossly dilated and has preserved mobility. Left atrium is mildly enlarged. Right atrium appears normal. Aortic valve is sclerotic, but mobility of cusp is preserved. There are prominent degenerative abnormalities of the mitral malina with mitral annular calcifications. Mobility of leaflets is preserved. Tricuspid valve appears normal. Pulmonic valve was not seen. No pericardial effusion is noted. Inferior vena cava is normal size. Aortic root is normal. Aortic arch and abdominal aorta were not well seen. Doppler interrogation of the aortic valve reveals no stenosis or insufficiency. There is mild mitral insufficiency and mild tricuspid insufficiency. Calculated pulmonary artery pressure is within normal limits. Mitral inflow pattern on tissue Doppler imaging of the mitral annulus revealed grade 2 diastolic dysfunction. CONCLUSIONS: 1. Study is of fair technical quality. Patient is in sinus rhythm. 2. Normal left ventricle (LV) with extensive wall motion abnormalities as outlined above, and overall estimated left ventricular ejection fraction (LVEF) 20%. Grade 2 diastolic dysfunction. 3. Mild mitral insufficiency. 4. Likely normal central venous pressure and normal pulmonary artery pressure. COMMENTS: This study is consistent with ischemic cardiomyopathy and resulting severe left ventricular systolic dysfunction, but is arguing against volume overloaded state. [id number]
[2020-01-21] MEDS: MAGNESIUM OXIDE 400 MG TAB (MAG-OX) PO SCH ×2 (09:15→20:23)
[2020-01-21] MEDS: PARoxetine 10MG TABLET PO SCH (09:15)
[2020-01-21] MEDS: ENOXAPARIN 40MG/0.4ML SYRINGE (J1650 PER 10MG) SC SCH (09:15)
[2020-01-21] MEDS: FAMOTIDINE 20 MG TAB PO SCH ×2 (09:15→20:24)
[2020-01-21] MEDS: ASPIRIN 81 MG ENTERIC TAB PO SCH (09:16)
[2020-01-21] MEDS: rOPINIRole 0.25 MG TAB(REQUIP) PO SCH ×2 (09:16→20:22)
[2020-01-21] MEDS: SUCRALFATE 1 GM TAB PO SCH ×4 (09:16→20:22)
[2020-01-21] MEDS: FUROSEMIDE 40 MG TAB PO SCH (09:16)
[2020-01-21] MEDS: PANTOPRAZOLE 20 MG TAB PO SCH (09:19)
[2020-01-21] MEDS: IPRATROPIUM 0.5MG/ALBUTEROL 2.5MG INH SOL UD 3ML (DUONEB) NEB PRN (11:26)
[2020-01-21] MEDS: MAALOX 30 ML SUSP *UDC PO PRN ×2 (11:47→17:37)
[2020-01-21 14:00] VITALS: BP 110/49
--- NOTE | 2020-01-21 18:58 | IPNPDOC ---
Subjective Date Seen The patient was seen on 01/21/20. Subjective Chief Complaint/HPI Mr. Ambriz is a 64 year old male with history of polysubstance abuse with meth and a 5 vessel CABG for CAD here with dyspnea 2/2 decompensated heart failure. He has been weaned off oxygen and is on COPD regimen. Heart burn, better with Mylanta. Otherwise, denies fever/chills, N/V, diarrhea, chest pain, abdominal pain, or dysuria Constitutional: Denies: Chills, Fever Cardiovascular: Denies: Chest Pain Gastrointestinal: Denies: Abdominal Pain Genitourinary: Denies: Dysuria Objective Physical Examination General Exam: Positive: Alert, Cooperative, Mild Distress Eye Exam: Positive: EOMI; Negative: Sclera icteric Neck Exam: Positive: Supple Chest Exam: Positive: Other (diminished breath sounds) Heart Exam: Positive: Rate Normal, Regular Rhythm Abdomen Exam: Positive: Normal bowel sounds Extremity Exam: Positive: Edema (bilateral pitting edema) Psych Exam: Positive: Mood NL Assessment /Plan Assessment Mr. Ambriz is a 64 year old male with polysubstance abuse with meth and recent 5 vessel CABG here with dyspnea 2/2 CHF exacerbation. We will aggressively diurese him and put him on a 2L fluid restriction and 2g sodium diet.. He still has some dyspnea, suspecting from COPD. When he was admitted, there was no COPD meds on his med list. We have started him on COPD medications Plan/VTE VTE Prophylaxis Ordered?: Yes Plan 1. New onset CHF in setting of recent CABG - Denies symptoms of ACS and troponin is within normal limits - Will try to obtain records from [place] where he had his CABG - Consistent carb diet with 2g sodium and 2L fluid restriction - Continue with diuresis - Pending results from [facility] - Cardiology consulted, spoke with Dr. Ladd, Recommendations appreciated - On losartan and metoprolol 2. Hypoxemic respiratory failure - Required 3L at [place], weaned off - Improved with diuresis - CXR demonstrated minimal pleural effusion, most likely CHF than infectious etiology (low WBC and improvement with diuresis), will wait for Procalcitonin results before discontinuing antibiotics. Since minimal pleural effusion on CXR, will hold off on thoracic surgery consult for drainage. - Start IS 3. Recent 5 vessel CABG - Continue ASA - Will try to obtain records from [place] - Cardiology consulted, recommendations appreciated 4. Polysubstance abuse - Uses meth and marijuana - No withdrawal symptoms at this time, will continue to monitor 5. DM 2 - Continue with SSI and consistent carbohydrate diet 6. Hypertension - Blood pressure stable. Continue to monitor 7. RLS - Ropinirole 8. COPD - Will start on inhalers 9. DVT ppx - SCD and TEDs VS, I&O, 24H, Fishbone Vital Signs/I&O Vital Signs Date Time Temp Pulse Resp B/P (MAP) Pulse Ox O2 Delivery O2 Flow Rate FiO2 01/21/20 14:00 98.5 69 16 110/49 (69) 93 Room Air I&O- Last 24 Hours up to 6 AM 01/21/20 06:00 Intake Total 1360 ml Output Total 0 ml Balance 1360 ml Laboratory Data 24H LABS Laboratory Tests 2 01/20/20 20:49: Bedside Glucose (Misc Panel) 120H 01/21/20 05:29: Immature Granulocyte % (Auto) 0.8, Neutrophils (%) (Auto) 76.7H, Lymphocytes (%) (Auto) 9.7L, Monocytes (%) (Auto) 8.6H, Eosinophils (%) (Auto) 3.8H, Basophils (%) (Auto) 0.4, Neutrophils # (Auto) 5.6, Lymphocytes # (Auto) 0.7L, Monocytes # (Auto) 0.6, Eosinophils # (Auto) 0.3, Basophils # (Auto) 0.0, Nucleated Red B lood Cells % (auto) 0.0, Anion Gap 7L, Glomerular Filtration Rate > 60.0, Calcium Level 7.8L 01/21/20 12:19: Bedside Glucose (Misc Panel) 109 01/21/20 16:34: Bedside Glucose (Misc Panel) 154H CBC/BMP Laboratory Tests 01/21/20 05:29 Microbiology Microbiology 01/18/20 Respiratory Virus Panel (PCR) (LILIBETH) - Final, Complete 01/18/20 Blood Culture - Preliminary, Resulted No Growth after 72 hours. All specime... 01/18/20 Blood Culture - Preliminary, Resulted No Growth after 72 hours. All specime... PUJA CASTELLANOS DO Jan 21, 2020 18:58
[2020-01-21] MEDS: LOSARTAN 25 MG TAB PO SCH (20:23)
[2020-01-21] MEDS: ATORVASTATIN 20 MG TAB PO SCH (20:24)
[2020-01-21 20:29] VITALS: BP 113/50
[2020-01-21] MEDS ORDERED: METOPROLOL SUCC *XL* 12.5MG PER 1/2 TAB (TopROL *XL*) PO SCH (21:00)
[2020-01-21] MEDS: ACETAMINOPHEN TAB 650MG DOSE (2X325MG) PO PRN (21:42)
[2020-01-21 22:00] VITALS: BP 113/50
[2020-01-22] MEDS: IPRATROPIUM 0.5MG/ALBUTEROL 2.5MG INH SOL UD 3ML (DUONEB) NEB PRN (04:57)
[2020-01-22] MEDS: LEVOTHYROXINE 88MCG TABLET (0.088 MG) PO SCH (05:49)
[2020-01-22 06:00] VITALS: BP 122/70
[2020-01-22 06:18] LABS: BASO % 0.6 % (0.0-1.0); EOS # 0.3 10^3/uL (0.0-0.5); EOS % 4.7 % (0.0-3.0); HEMATOCRIT 36.4 % (42.0-52.0); HEMOGLOBIN 11.1 g/dl (13.5-17.5); LYMPH % 14.8 % (24.0-44.0); MEAN CORPUSCULAR HEMOGLOBIN 25.2 pg (27.0-33.0); MEAN CORPUSCULAR HGB CONC 30.5 g/dl (32.0-36.5); MEAN CORPUSCULAR VOLUME 82.5 fl (80.0-96.0); MONO # 0.6 10^3/uL (0.0-0.8); MONO % 8.7 % (0.0-5.0); NEUTROPHILS # 4.8 10^3/uL (1.5-8.5); NEUTROPHILS % 70.3 % (36.0-66.0); PLATELET COUNT, AUTOMATED 237 10^3/uL (150-450); RED BLOOD COUNT 4.41 10^6/uL (4.30-6.10); WHITE BLOOD COUNT 6.9 10^3/uL (4.0-10.0)
[2020-01-22 06:40] LABS: BLOOD UREA NITROGEN 21 MG/DL (7-18); CALCIUM LEVEL 7.8 MG/DL (8.8-10.2); CARBON DIOXIDE LEVEL 29 MEQ/L (21-32); CHLORIDE LEVEL 99 MEQ/L (98-107); CREATININE FOR GFR 1.26 MG/DL (0.70-1.30); GLOMERULAR FILTRATION RATE > 60.0 (>49); GLUCOSE, FASTING 97 MG/DL (70-100); SODIUM LEVEL 132 MEQ/L (136-145)
[2020-01-22] MEDS: TIOTROPIUM INHALER/CAPSULE (SPIRIVA) INH SCH (07:11)
[2020-01-22] MEDS: ADVAIR HFA 230/21MCG INHALER INH SCH (07:11)
[2020-01-22] MEDS: SUCRALFATE 1 GM TAB PO SCH ×2 (08:11→12:15)
[2020-01-22] MEDS: FUROSEMIDE 40 MG TAB PO SCH (08:11)
[2020-01-22] MEDS: PANTOPRAZOLE 20 MG TAB PO SCH (08:11)
[2020-01-22] MEDS: rOPINIRole 0.25 MG TAB(REQUIP) PO SCH (08:11)
[2020-01-22] MEDS: ASPIRIN 81 MG ENTERIC TAB PO SCH (08:12)
[2020-01-22] MEDS: FAMOTIDINE 20 MG TAB PO SCH (08:12)
[2020-01-22] MEDS: PARoxetine 10MG TABLET PO SCH (08:12)
[2020-01-22] MEDS: ENOXAPARIN 40MG/0.4ML SYRINGE (J1650 PER 10MG) SC SCH (08:12)
[2020-01-22] MEDS: MAGNESIUM OXIDE 400 MG TAB (MAG-OX) PO SCH (08:12)
[2020-01-22] MEDS: MAALOX 30 ML SUSP *UDC PO PRN ×2 (08:16→14:08)
[2020-01-22] MEDS ORDERED: METO1TAB32 PO (09:53)
[2020-01-22] MEDS ORDERED: SPIR12.9 INH (09:53)
[2020-01-22] MEDS ORDERED: ADVA230A INH (09:53)
[2020-01-22] MEDS ORDERED: FURO40TA2 PO (09:53)
[2020-01-22] MEDS ORDERED: PARO5TAB PO (09:53)
[2020-01-22] MEDS ORDERED: MYLASSUD PO (09:53)
[2020-01-22] MEDS ORDERED: Pill Cutter XX (09:53)
[2020-01-22] MEDS ORDERED: ATOR40TA75 PO (09:53)
[2020-01-22] MEDS ORDERED: ASPI81TAEC PO (09:53)
[2020-01-22] MEDS ORDERED: COZA1TAB PO (09:53)
[2020-01-22] MEDS: ACETAMINOPHEN TAB 650MG DOSE (2X325MG) PO PRN (12:54)
--- NOTE | 2020-01-22 21:16 | DS.PDOC ---
Discharge Summary General Date of Admission Jan 17, 2020 at 23:37 Date of Discharge Jan 22, 2020 Attending Physician: PUJA CASTELLANOS DO Specialist/Consultants [facility], Dr. Ladd Discharge Summary PROCEDURES PERFORMED DURING STAY: Echocardiogram ADMITTING DIAGNOSES: 1. New onset CHF in the setting of recent CABG 2. CAD, no evidence of ACS at this time 3. Hypoxic respiratory failure 4. Polysubstance use disorder 5. Diabetes mellitus 6. COPD 8. Hypertension 9. Restless leg syndrome DISCHARGE DIAGNOSES: 1. New onset CHF in the setting of recent CABG 2. CAD, no evidence of ACS at this time 3. Hypoxic respiratory failure 4. Polysubstance use disorder 5. Diabetes mellitus 6. COPD 8. Hypertension 9. Restless leg syndrome COMPLICATIONS/CHIEF COMPLAINT: Congestive Heart Failure. HISTORY OF PRESENT ILLNESS: Mr. Ambriz is a 54-year-old male with recent history of a 5 vessel CABG for coronary artery disease, polysubstance use disorder with meth, hypertension, hyperlipidemia, COPD who initially presented to [facility] for worsening shortness of breath and dyspnea on exertion who was transferred here for higher level of care. While at [facility] his hypoxic requiring 3 L of nasal cannula when normally is not on oxygen.. EKG did not demonstrate any ischemic signs. Troponins were negative. Pro-BMP was [id number]. HOSPITAL COURSE: During his hospitalization cardiology was consulted. They helped manage his diuretics as well as his cardiac medications. He was put on a diuretic, and ARB, and a beta luisito. He is also started on aspirin and a stati n. He was able to be weaned off of oxygen, based still felt dyspneic. At room air he was saturated at 96%, and when he walked he saturated 93%. When received a packet from [facility], he was on triple therapy for COPD. It was not on his home med list. It may have been too expensive for him. I started him on triple therapy with a long-acting beta agonist, a long-acting antimuscarinic, and a long-acting inhaled steroid. In addition, he does not have good help at home. He has a lot of new medications which he will need help taking and staying compliant. On discharge she was feeling better. Denied any fever or chills, lightheadedness or dizziness, abdominal pain, diarrhea, or dysuria. He did have an episode of chest pain, bases that he gets this periodically since the recent CABG. We checked an EKG which was similar to his prior EKGs. He asked about paying for oxygen even though he did not qualify for oxygen. Since he had a history of smoking, I was worried that the oxygen with combusted. I explained I cannot write him a prescription for oxygen. Otherwise, the packet from [facility] also mentioned that he had a pancreatic mass. The biopsy of the nodule in his lung did not demonstrate cancer. I recommended that he follow-up with oncology for further evaluation. DISCHARGE MEDICATIONS: Please see below. ALLERGIES: Please see below. PHYSICAL EXAMINATION ON DISCHARGE: VITAL SIGNS: Please see below. GENERAL: Comfortable, in no apparent distress. HEENT: Head normocephalic/atraumatic, EOMI, sclera clear. NECK: Supple RESPIRATORY: Lungs clear to auscultation bilaterally, no rales, wheeze or rhonchi. CARDIOVASCULAR: Regular rate and rhythm. ABDOMEN: Soft, nontender, no guarding or rebound tenderness. Normal bowel sounds. MUSCLE SKELETAL: Muscle strength 5/5 in all extremities. NEUROLOGICAL: CN 312 grossly intact, no focal deficits noted. PSYCHOLOGICAL: Normal mood and affect LABORATORY DATA: Please see below. PROGNOSIS: Stable ACTIVITY: As tolerated DIET: Low-salt diet with 2 L fluid ejection DISCHARGE PLAN: Home DISPOSITION: 01 Home, Self-Care. DISCHARGE INSTRUCTIONS: 1. Follow-up with her PCP within a week 2. Follow-up with cardiology within a week 3. Follow-up with a ancient art curator for COPD management 4. Follow-up with oncology for evaluation of pancreatic mass ITEMS TO FOLLOWUP ON ON OUTPATIENT: 1. Official echocardiogram results (the lyft driver said the EF was poor) DISCHARGE CONDITION: Stable. Total time spent on discharge planning, discharge summary, and med reconciliation a 55 minutes Vital Signs/I&Os Vital Signs Date Time Temp Pulse Resp B/P (MAP) Pulse Ox O2 Delivery O2 Flow Rate FiO2 01/22/20 06:00 98.2 75 17 122/70 (87) 100 Room Air 01/21/20 14:00 I&O- Last 24 Hours up to 6 AM 01/22/20 06:00 Intake Total 1060 ml Balance 1060 ml Laboratory Data Labs 24H Laboratory Tests 2 01/22/20 05:38: Immature Granulocyte % (Auto) 0.9, Neutrophils (%) (Auto) 70.3H, Lymphocytes (%) (Auto) 14.8L, Monocytes (%) (Auto) 8.7H, Eosinophils (%) (Auto) 4.7H, Basophils (%) (Auto) 0.6, Neutrophils # (Auto) 4.8, Lymphocytes # (Auto) 1.0L, Monocytes # (Auto) 0.6, Eosinophils # (Auto) 0.3, Basophils # (Auto) 0.0, Nucleated Red Blood Cells % (auto) 0.0, Anion Gap 4L, Glomerular Filtration Rate > 60.0, [place] Level 7.8L CBC/BMP Laboratory Tests 01/22/20 05:38 Microbiology Microbiology 01/18/20 Respiratory Virus Panel (PCR) (LILIBETH) - Final, Complete 01/18/20 Blood Culture - Preliminary, Resulted No Growth after 72 hours. All specime... 01/18/20 Blood Culture - Preliminary, Resulted No Growth after 72 hours. All specime... Discharge Medications Scheduled Aspirin (Aspirin EC) 81 Mg Tablet.dr, 81 MG PO DAILY Atorvastatin Calcium (Atorvastatin Calcium) 40 Mg Tablet, 40 MG PO QPM Fluticasone Propion/Salmeterol (Advair Hfa 230-21 Mcg Inhaler) 12 Gm Hfa.aer.ad, 2 PUFF INH RBID Furosemide (Furosemide) 40 Mg Tablet, 40 MG PO DAILY Levothyroxine Sodium (Synthroid) 88 Mcg Tab, 88 MCG PO DAILY, (Reported) Losartan Potassium (Cozaar) 25 Mg Tablet, 25 MG PO QHS Metoprolol Succinate (Metoprolol Succinate) 25 Mg Tab.er.24h, 12.5 MG PO QHS Paroxetine (Paroxetine HCl) 10 Mg Tablet, 10 MG PO DAILY Ropinirole HCl (Ropinirole HCl) 0.5 Mg Tablet, 0.5 MG PO BID, (Reported) Tiotropium [place] (Spiriva Respimat) 4 Gm Mist.inhal, 2 INHALATION INH DAILY Scheduled PRN Albuterol Sulfate (Ventolin Hfa) 108 Mcg/Act Aer, 2 PUFFS INH Q4H PRN for SHORTNESS OF BREATH, (Reported) Aluminum/Magnesium/Simeth (Mag-Al Plus Suspension) 30 Ml Oral.susp, 30 ML PO Q4HP PRN for INDIGESTION Ipratropium/Albuterol Sulfate (Combivent Respimat 20-100 Mcg) 4 Gm Mist.inhal, 1 PUFF INH Q6H PRN for SHORTNESS OF BREATH, (Reported) Tramadol HCl (Tramadol HCl) 50 Mg Tablet, 50 MG PO BID PRN for PAIN, (Reported) [Pill Cutter] 1 EACH EA, 1 EACH XX ASDIRECTED PRN for TO SPLIT MEDICATION Allergies Coded Allergies: amoxicillin (Verified Allergy, Unknown, rash, 01/28/19) clavulanic acid (Verified Allergy, Unknown, rash, 01/28/19) pregabalin (Verified Adverse Reaction, Unknown, seizures, 01/28/19) warfarin (Verified Adverse Reaction, Unknown, bleeding, 01/28/19) PUJA CASTELLANOS DO Jan 22, 2020 21:16
--- NOTE | 2020-01-23 06:05 | ECGEPIP ---
[facility] Test Date: 2020-01-22 Pat Name: RISSA YUSUF Department: Room: [place] [address] Gender: Male Post Partum Nurse: TASHA : 1955 Requested By: PUJA Del Valle Order Number: [id number] Reading MD: Fabian Cortes Measurements Intervals [place] Rate: 77 P: 71 SD: 168 QRS: 57 QRSD: 106 T: 118 QT: 442 QTc: 502 Interpretive Statements Normal sinus rhythm Nonspecific ST-T wave abnormalities No significant change when compared to prior tracing of 01/19/2020 Electronically Signed on 01-23-2020 6:05:53 EDT by Fabian Cortes
--- NOTE | 2020-01-30 12:49 | IPN ---
DATE: 01/19/2020 Mr. Ambriz tells me that he is feeling better than he did yesterday. He is a little less short of breath but still gets easily short of breath just ambulating in his room. Denies any chest discomfort other than his chronic heartburn. No other clinical events occurred overnight. Vital signs: Blood pressure 124/75, heart rate has been in 80s and 90s, sinus rhythm. He is afebrile. Saturation is 97% on 1 liter of oxygen by nasal cannula. Fluid balance yesterday was recorded as -1300 mL. Weight is 60.4 kg. He is alert, oriented, and appropriate. His jugular venous pressure (JVP) does not look high. Lungs are reasonably clear today. I barely can appreciate any diminished breath sounds over right base. Left lung sounds clear. Heart exam reveals regular rhythm without obvious gallop, murmur, or rub. Abdomen is soft without obvious tenderness, guarding, or dullness. The previous surgeries are apparent. Extremities are free of edema. Peripheral pulses are diminished but no trophic defects are present. Neurologically, he is for the most part intact. LABORATORIES: CBC: WBC 10.7, hemoglobin 9.9, hematocrit 32.3, platelet count 217,000. Basic metabolic panel this morning was sodium 135, potassium 3.6, BUN 29, creatinine 1.5, glucose 107, magnesium 2.0, and troponin was negative. Patient had an electrocardiogram that did not appreciably change from prior. He had an echocardiogram that I interpreted about an hour ago that revealed severe left ventricular systolic dysfunction with ejection fraction approximately 20%, grade 2 diastolic dysfunction, and no hemodynamically significant valvular disease. Central venous pressure and pulmonary artery pressure were normal. ASSESSMENT AND PLAN: Mr. Ambriz is a 64-year-old man who has a multitude of medical problems, but his dominant issue currently is congestive heart failure that is due to underlying severe left ventricular systolic dysfunction. He just had coronary bypass surgery on December 15. At this point, he is already reasonably euvolemic. We will be working on adjusting his medications to support left ventricular (LV) function. Fortunately, his blood pressure seems to be holding reasonably well. I am going to discontinue his intravenous (IV) furosemide and leave him only on oral furosemide 40 mg daily. Will not advance the dose of losartan as yet, because his creatinine had jumped up since yesterday, I believe most likely as a consequence of IV contrast administered in [place]. I will add a small dose of beta luisito. Because I foresee that compliance on the patient's part will be limited and because he has also chronic obstructive pulmonary disease (COPD), I will give him Toprol-XL, even though carvedilol would typically be my drug of choice. But in this situation, but it is once a day dosing, and beta 1 selectivity provides certain advantage. health services administrator hopefully will see the patient tomorrow, because in my opinion it probably does not matter what we do in the hospital; if he returns home, he will be back almost immediately, because he does not have any support, and I do not believe that he is able to comprehend the importance of medication compliance and also dietary compliance. As far as coronary artery disease is concerned, he continues to complain about heartburn, which probably indeed is heartburn. There is no evidence for ischemia on EKG, and his troponin has remained negative. Overall his prognosis is certainly poor, not only due to underlying heart and lung disease but also due to history of drug use and very limited social support. [facility]
--- NOTE | 2020-01-31 11:06 | CR ---
DATE OF CONSULTATION: 01/18/2020 REFERRING PROVIDER: Mark Calle DO INDICATION: Congestive heart failure. HISTORY OF PRESENT ILLNESS: Mr. Ambriz is previously unknown to me. He is a 64-year-old man who has a longstanding history of polysubstance abuse and most recently presented to [facility] in [place] with unstable coronary syndrome which prompted cardiac catheterization that was followed by bypass surgery on 12/16/2019 (total of five bypasses, free left internal mammary artery (UPTON) to diagonal sequentially to left anterior descending artery (LAD), and sequential saphenous vein graft (SVG) to obtuse marginal-1 (OM1), OM2, and posterior descending artery (PDA). Preoperatively, he had an echocardiogram that revealed left ventricular ejection fraction 25-30% with 1+ to 2+ mitral regurgitation (MR) and moderately severe pulmonary hypertension. He was discharged home and apparently spent at home approximately 2 or 3 weeks but then presented to [facility] yesterday with tachypnea and severe dyspnea. CT angiography of the chest did not reveal any evidence for pulmonary embolism but he was noted to have bilateral pleural effusions more on the right side and his BNP was high, close to 5000. His lactic acid was also elevated and he was transferred to our facility for further management. On arrival here, he was essentially treated with administration of diuretics and today tells me that he is feeling better even though he is still short of breath with fairly minimal exertion. He denies any anginal symptoms but complains about heartburn which he says, I have all the time. PAST MEDICAL HISTORY: 1. Coronary artery disease as above. 2. Chronic obstructive pulmonary disease (COPD). 3. Pulmonary nodule. 4. Carotid artery disease. He is followed by Dr. Andrade. Based on the exam, it appears that he has probably [id number] bypasses on both sides. 5. Chronic aortic insufficiency. 6. History of CVA. 7. History of peptic ulcer disease with gastrointestinal (GI) bleeding. 8. Glaucoma. 9. Polysubstance drug abuse including crack cocaine, alcohol, cigarettes, and currently methamphetamine. 10. Hyperlipidemia. 11. Hypertension. 12. History of pancreatis mass and recurrent pancreatitis status post surgeries. 13. Hypothyroidism. 14. History of GI bleeding. FAMILY HISTORY: Patient tells me that both his parents of cancer even though the admission note states that his mother of myocardial infarction (MA). He had several sisters, he believes that they all of cancer but is not certain. SOCIAL HISTORY: Patient is single, lives alone, does not have any relatives. He says that he never really worked and has been on social security disability virtually all of his adult life. He quit smoking and drinking alcohol in 2011 after pancreatitis that was nearly lethal. He still uses methamphetamine occasionally. OUTPATIENT MEDICATIONS: Based on admission note, his outpatient medications include: - amlodipine 10 - losartan/HCTZ 100/12.5 - Synthroid 88 - Ventolin as needed - tramadol - pantoprazole 40 mg daily ALLERGIES: He has reported allergies of AMOXICILIN, CLAVULANIC ACID, PREGABALIN, and WARFARIN. REVIEW OF SYSTEMS: Somewhat limited but he denies any fever, chills, nausea, vomiting, or diarrhea, if anything, he tends to be constipated. He says that he still has some soreness around the sternum. Denies any obvious anginal symptoms but does report exertional dyspnea, and [place] Heart Association Class III-IV, and also had episodes of paroxysmal nocturnal dyspnea (PND) and orthopnea. No peripheral edema. Denies trouble with urination. PHYSICAL EXAMINATION: Mr. Ambriz is a 64-year-old man who appears substantially older than his calendar age. He does not appear to be in any distress. He is alert and oriented times three. Vital signs: Blood pressure 143/70, heart rate has been in 80s and 90s, sinus rhythm. There were no significant arrhythmias detected on telemetry. He is afebrile, saturation is 99% on room air. I do not appreciate any distinct jugular venous pressure (JVP) elevation. There are scars below both clavicles and there are palpable, probably [id number]-[id number]-[id number] bypasses crossing clavicles on both sides, it appears much larger on the left. There are bilateral carotid bruits. Lungs are reasonably clear with the exception of the diminished breath sounds over bases. Heart exam reveals regular rhythm, I do not appreciate any distinct gallop, rub, or murmur. Abdomen has scars after prior surgeries but overall is soft. I do not appreciate any guarding. No evidence for ascites. I do not appreciate any obvious hepatosplenomegaly. Extremities have, if anything, trace edema. Peripheral pulses are of full quality but no trophic defects. Neurologically, there seems to be generalized weakness, but he is alert and oriented and for the most part appropriate. I do not appreciate any evidence for focal defects. His sternotomy seems to be healing appropriately without any discharge, redness, or other signs of infection. EVALUATION AND LABORATORY DATA: His ECG reveals sinus rhythm with nonspecific ST-T abnormalities and no convincing evidence for prior myocardial infarction. Basic metabolic panel as of this morning: Sodium 136, potassium 3.9, BUN 22, creatinine 1.3, GFR 57, glucose 184. His lactic acid, the initial one, was 2.5 here, which was better compared to [facility] and came down to 1.7 as of this morning. Magnesium 1.4. Liver function tests otherwise normal. Troponin I was negative. Albumin was 2.8. TSH 1.3. CBC reveals hemoglobin 10.5, hematocrit 35, platelet count 206,000, and WBC count 5.8. Chest x-ray is consistent with mild congestive heart failure and sternotomy. ASSESSMENT AND PLAN: Mr. Ambriz is a 64-year-old man who underwent five-vessel bypass surgery on 12/16/2019 and now presents with heart failure. At the time of my dictation, he already appears much improved. He does have a lot of heartburn, which does not sound angina by his description. His troponin was negative. Obviously, one of the dominant problems here is a history of drug abuse. Also, the fact that he does not have any help at home and he says that it is virtually impossible for him to even go shopping because he gets very short of breath. He says it is about half a mile and he uses an electric scooter that he just bought but with approaching winter that certainly might be challenging. So, I initially I asked for social security specialist to get involved because he probably will need some form of assistance at home. As far as purely medical management is concerned, I believe that we need to put him on appropriate medications. His current anemia is mildly elevated, but I still think he should be able to tolerate low dose ARB or angiotensin-converting enzyme. I am not going to put him on full dose but will start him on losartan 25 mg daily. Diuretics will be continued. I think that he will be probably sufficiently compensated that we can start him on low dose beta luisito tomorrow. I will add aspirin. He is not chronically anticoagulated because of history of gastrointestinal (GI) bleeding, but at least enteric-coated baby aspirin he certainly should tolerate and he needs to be put on lipid lowering medications with extensive vascular disease and recent bypass surgery. I will be happy to see him in followup on outpatient basis, but I have to repeat that the principal determinate of his prognosis is probably not medical but social and he will need some form of support. KOSTA
== END 2020-01-22 14:52 | disposition home or self-care (01) | DRG 291 ==
LOC: M MSPAV 23:37
PROVIDERS: ADMIT Internal Medicine; ATTEND Internal Medicine
DX: I11.0 Hypertensive heart disease with heart failure (principal); J96.91 Respiratory failure, unspecified with hypoxia; I25.10 Atherosclerotic heart disease of native coronary artery without angina pectoris; Z95.1 Presence of aortocoronary bypass graft; D64.9 Anemia, unspecified; I50.41 Acute combined systolic (congestive) and diastolic (congestive) heart failure; E78.5 Hyperlipidemia, unspecified; E03.9 Hypothyroidism, unspecified; J44.9 Chronic obstructive pulmonary disease, unspecified; M19.90 Unspecified osteoarthritis, unspecified site; M54.5 Low back pain; K21.9 Gastro-esophageal reflux disease without esophagitis; Z86.73 Personal history of transient ischemic attack (TIA), and cerebral infarction without residual deficits; E11.9 Type 2 diabetes mellitus without complications; Z91.14 Patient's other noncompliance with medication regimen; F12.10 Cannabis abuse, uncomplicated; F15.10 Other stimulant abuse, uncomplicated; Z87.891 Personal history of nicotine dependence; G25.81 Restless legs syndrome; Z79.899 Other long term (current) drug therapy; Z88.0 Allergy status to penicillin; Z88.8 Allergy status to other drugs, medicaments and biological substances

== ENCOUNTER 2020-03-18 11:33 | Inpatient (IN) | payer MEDICARE, MEDICAID ==
[~2020-03-18] VITALS: Ht 167.6 cm; Wt 62.9 kg
[~2020-03-18 11:33] MED LIST changes: +ADVA230A INH; +AMLO1TAB24 PO; +ATOR40TA75 PO; +COMBAER6 INH; +COZA1TAB PO; +FURO40TA2 PO; +HYDR12CA PO; +METO1TAB32 PO; +MYLASSUD PO; +PARO5TAB PO; +Pill Cutter XX; +ROPI0.5T3 PO; +SPIR12.9 INH; +TRAM50TA2 PO
[2020-03-18 14:15] VITALS: BP 139/74
[2020-03-18] MEDS ORDERED: METO1TAB32 PO (16:46)
[2020-03-18] MEDS ORDERED: LOSA25TA14 PO (16:46)
[2020-03-18] MEDS ORDERED: ATOR40TA75 PO (16:46)
[2020-03-18] MEDS ORDERED: IPRAINH INH (16:46)
[2020-03-18 16:50] LABS: BASO # 0.1 10^3/uL (0.0-0.2); BASO % 0.6 % (0.0-1.0); EOS # 0.2 10^3/uL (0.0-0.5); EOS % 1.2 % (0.0-3.0); HEMATOCRIT 31.3 % (42.0-52.0); HEMOGLOBIN 8.9 g/dl (13.5-17.5); LYMPH # 1.3 10^3/uL (1.5-5.0); LYMPH % 9.4 % (24.0-44.0); MEAN CORPUSCULAR HEMOGLOBIN 22.4 pg (27.0-33.0); MEAN CORPUSCULAR HGB CONC 28.4 g/dl (32.0-36.5); MEAN CORPUSCULAR VOLUME 78.6 fl (80.0-96.0); MONO # 0.9 10^3/uL (0.0-0.8); MONO % 6.2 % (0.0-5.0); NEUTROPHILS # 11.3 10^3/uL (1.5-8.5); NEUTROPHILS % 81.7 % (36.0-66.0); RED BLOOD COUNT 3.98 10^6/uL (4.30-6.10); WHITE BLOOD COUNT 13.8 10^3/uL (4.0-10.0)
[2020-03-18] MEDS ORDERED: PARO5TAB PO (16:53)
[2020-03-18] MEDS ORDERED: AMLO1TAB24 PO (16:53)
[2020-03-18 16:59] LABS: INR 1.07; PROTHROMBIN TIME 14.1 SECONDS (12.5-14.3)
[2020-03-18] MEDS ORDERED: FURO40TA2 PO (17:07)
[2020-03-18] MEDS ORDERED: SPIR12.9 INH (17:07)
[2020-03-18 17:36] LABS: ALBUMIN 2.9 GM/DL (3.2-5.2); ALT/SGPT 20 U/L (12-78); BILIRUBIN,TOTAL 0.4 MG/DL (0.2-1.0); BLOOD UREA NITROGEN 25 MG/DL (7-18); CALCIUM LEVEL 8.1 MG/DL (8.8-10.2); CARBON DIOXIDE LEVEL 23 MEQ/L (21-32); CHLORIDE LEVEL 102 MEQ/L (98-107); CREATININE FOR GFR 1.27 MG/DL (0.70-1.30); GLOMERULAR FILTRATION RATE > 60.0 (>49); GLUCOSE, FASTING 81 MG/DL (70-100); POTASSIUM SERUM 5.1 MEQ/L (3.5-5.1); SODIUM LEVEL 134 MEQ/L (136-145); TOTAL PROTEIN 6.6 GM/DL (6.4-8.2)
--- NOTE | 2020-03-18 19:06 | HPEPDOC ---
General Date of Admission 03/18/20 Date of Service: Mar 18, 2020 Chief Complaint The patient is a 64-year-old male admitted with a reason for visit of Symptomatic Anemia. History of Present Illness 64-year-old male with CAD/ CABG, PAD s/p left axillary carotid bypass, COPD, history of PSUD, history of anemia, hypertension, hyperlipidemia, hypothyroidism, osteoarthritis, low back pain, GERD, TIA, history of pancreatic mass s/p resection c/b pancreatic insufficiency, DM, memory issues who presented to [facility] on 03/16/20 for sudden onset back pain. He also complained of dyspnea on exertion. He also complained of dizziness and light headedness and says sometimes he feels like he is going to pass out but has not actually passed out. On evaluation there he was found to have a Hb of 6.1, his stool occult was negative. He was transfused 2 units of PRBC. He had CT of chest and abdomen done CT abdomen showed extensive retroperitoneal adenopathy, gastric wall thickening with irregularity and irregularity of distal esophagus. possible pancreatic head enlargement. CT chest showed COPD, bilateral pleural effusions. Underlying opacity in the right lung base and malignancy cannot be excluded. He was transfered here for symptomatic anemia, GI malignancy for GI work up with EGD/ ERCP. Now patient complains of persistant back pain radiating to right shoulder It is sharp, stabbing in nature about 6/10 and constant. He still has exertional SOB but denies dizziness and light headedness. Home Medications Scheduled Amlodipine Besylate (Amlodipine Besylate) 5 Mg Tablet, 5 MG PO DAILY, (Reported) Atorvastatin Calcium (Atorvastatin Calcium) 40 Mg Tablet, 40 MG PO QHS, (Reported) Furosemide (Furosemide) 40 Mg Tablet, 40 MG PO DAILY, (Reported) Ipratropium [place] (Atrovent Hfa) 12.9 Gm Hfa.aer.ad, 2 PUFF INH Q6H, (Reported) Losartan Potassium (Losartan Potassium) 25 Mg Tablet, 25 MG PO QHS, (Reported) Metoprolol Succinate (Metoprolol Succinate) 25 Mg Tab.er.24h, 12.5 MG PO QHS, (Reported) Paroxetine (Paroxetine HCl) 10 Mg Tablet, 10 MG PO DAILY, (Reported) Ropinirole HCl (Ropinirole HCl) 0.5 Mg Tablet, 0.5 MG PO BID, (Reported) Tiotropium [place] (Spiriva Respimat) 4 Gm Mist.inhal, 2 PUFFS INH DAILY, (Reported) Scheduled PRN Albuterol Sulfate (Ventolin Hfa) 108 Mcg/Act Aer, 2 PUFFS INH Q4H PRN for SHORTNESS OF BREATH, (Reported) Ipratropium/Albuterol Sulfate (Combivent Respimat 20-100 Mcg) 4 Gm Mist.inhal, 1 PUFF INH Q6H PRN for SHORTNESS OF BREATH, (Reported) Tramadol HCl (Tramadol HCl) 50 Mg Tablet, 50 MG PO Q6H PRN for PAIN, (Reported) Allergies Coded Allergies: amoxicillin (Verified Allergy, Unknown, rash, 01/28/19) clavulanic acid (Verified Allergy, Unknown, rash, 01/28/19) pregabalin (Verified Adverse Reaction, Unknown, seizures, 01/28/19) warfarin (Verified Adverse Reaction, Unknown, bleeding, 01/28/19) Past Medical History Medical History CAD s/p CABG in November 2019 History of severe pancreatitis 8 years ago related to alcohol abuse s/p partial resection Chronic pancreatic insufficiency, Pancreatic mass since 2017 had biopsy recently with [facility] DM Anemia HTN HLD Hypothyroidism COPD Asthma CKD stage 3 Osteoarthritis Low Back Pain Cataract Glaucoma TIA Substance abuse: former EtOH and former smoker. 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 Noncompliance with medications PAD with left axillary to carotid bypass. LBP RADIATING TO BLE BILATERAL SHOULDER PAIN Systolic CHF ejection fraction 25-30% with 1+ to 2+ mitral regurgitation (MR) Moderately severe pulmonary hypertension Chronic aortic insufficiency. History of CVA. History of peptic ulcer disease with gastrointestinal (GI) bleeding. Surgical History Tonsillectomy Carotid endarterectomy Left Subclavian artery bypass Partial pancreatectomy CABG November 2019 Family History Father: of cancer Mother: of [place] and had a hx of cancer 5 sisters; 1 of cancer Social History * Smoker: former Smoker Alcohol: Denies Drugs: marijuana (last used 2 weeks ago ), other (methamphetamine last use within 3 to 4 weeks ago) A-FIB/CHADSVASC A-FIB History Current/History of A-Fib/PAF?: No Review of Systems Constitutional: Reports: Weakness, Fatigue; Denies: Chills, Fever, Night Sweats Eyes: Denies: Pain, Vision change ENT: Denies: Head Aches, Ear Pain, Dysphagia Skin: Denies: Rash, Lesions, Breakdown Pulmonary: Reports: Dyspnea, Cough Cardiovascular: Reports: Lt Headedness; Denies: Chest Pain, Palpitations, Orthopnea, Paroxysmal Noc. Dyspnea Gastrointestinal: Denies: Nausea, Vomiting, Abdominal Pain, Diarrhea Genitourinary: Denies: Dysuria, Frequency, Incontinence, Retention Hematologic: Denies: Bruising, Bleeding Excessively Musculoskeletal: Reports: Back Pain Psych: Reports: Memory Issues Physical Examination General Exam: Positive: Alert, Cooperative, No Acute Distress Eye Exam: Positive: PERRLA, Conjunctiva & lids normal, EOMI; Negative: Sclera icteric ENT Exam: Positive: Atraumatic, Mucous membr. moist/pink, Pharynx Normal Neck Exam: Positive: Supple, +2 carotid pulse wo bruit (on the left); Negative: JVD, thyromegaly Chest Exam: Positive: Clear to auscultation, Diminished (diminished airentry) Heart Exam: Positive: Rate Normal, Regular Rhythm, Normal S1, Normal S2; Negative: Murmurs, Rubs Assessment/Plan 64-year-old male with CAD/ CABG, PAD s/p left axillary carotid bypass, COPD, history of PSUD, history of anemia, hypertension, hyperlipidemia, hypothyro idism, osteoarthritis, low back pain, GERD, TIA, history of pancreatic mass s/p resection c/b pancreatic insufficiency, DM, memory issues who presented to [facility] on 03/16/20 for sudden onset back pain. He also complained of dyspnea on exertion. He also complained of dizziness and light headedness and says sometimes he feels like he is going to pass out but has not actually passed out. On evaluation there he was found to have a Hb of 6.1, his stool occult was negative. He was transfused 2 units of PRBC. He had CT of chest and abdomen done CT abdomen showed extensive retroperitoneal adenopathy, gastric wall thickening with irregularity and irregularity of distal esophagus. possible pancreatic head enlargement. CT chest showed COPD, bilateral pleural effusions. Underlying opacity in the right lung base and malignancy cannot be excluded. He was transferred here for symptomatic anemia, GI malignancy for GI work up with EGD/ ERCP. Symptomatic Anemia Hb 6.1 no clear source of any bleed Stool for occult blood Outside hospital was negative Transfused 2 units of red blood cell at [place]. Has h/o severe iron deficiency will check levels of iron, vit b12, folate GI consult dr manley. Gastric wall thickening and esophageal wall thickening with retroperitoneal lymphadenopathy Planned for EGD tomorrow. Pancreatic Mass known for [address] with retroperitoneal lymphadenopathy Reports had biopsy in the last 1 moth. will try to get records. CAD s/p CABG in November 2019 metoprolol Back pain tramadol prn. Hypertension amlodipine and Metoprolol Hypothyroid Synthroid Asthma/COPD combivent and spiriva RLS on requip PAD s/p Left carotid bypass surgery follows with vascular as outpatient in [place]. Partial pancreatectomy for pancreatitis 8 years ago with chronic pancreatitis. H/O Substance abuse Quit EtOH and tobacco use use 8 years ago Still smokes marijuana and does a little methamphetamine. Last use 2 weeks to 1 month ago. Did use heroine and cocaine use in the past, but has quit. Plan / VTE VTE Prophylaxis Ordered?: Yes CIRO CLARK MD Mar 18, 2020 14:29
[2020-03-18] MEDS: COMBIVENT RESPIMAT 100-20MCG INHALER 4GM INH SCH (19:13)
--- NOTE | 2020-03-18 19:13 | CR.PDOC ---
General Date of Consultation: Mar 18, 2020 Referring Provider: CIRO MALIK MD Attending Physician: MADHU MURRAY MD Consultation Primary physician/ hospitalist: -Dr. Malik Reason for consult: -Anemia and abnormal CT scan showing esophageal and gastric wall thickening, intra-abdominal lymphadenopathy HPI: 64-year-old male with CAD/ CABG, PAD s/p left axillary carotid bypass, COPD, h istory of PSUD, history of anemia, hypertension, hyperlipidemia, hypothyroidism, osteoarthritis, low back pain, GERD, TIA, history of pancreatic mass s/p resection c/b pancreatic insufficiency, DM, memory issues who presented to [place] on 03/16/20 for sudden onset back pain. He also complained of dyspnea on exertion. He also complained of dizziness and light headedness and says sometimes he feels like he is going to pass out but has not actually passed out. On evaluation there he was found to have a Hb of 6.1, his stool occult was negative but patient reports having dark stools for the past few days, soft and paste like stools. He was transfused 2 units of PRBC. He had CT of chest and abdomen done CT abdomen showed extensive retroperitoneal adenopathy, gastric wall thickening with irregularity and irregularity of distal esophagus. possible pancreatic head enlargement. Pertinent negative GI symptoms: Patient denies fever, sick contacts, recent travel,, diarrhea, abdominal pain, loss of appetite, early satiety or unintentional weight loss. No history of hematemesis, hematochezia. Review of Systems: GI: as stated above CVS: No chest pain, No palpitations, No leg swelling. 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 Skin: No rash : No hematuria, No burning sensation of the urine ENT: No ear discharge/ pain, No dysphagia. Eyes: No photophobia. Jaundice Home medications: reviewed. Antithrombotic agents: - [ ] Medical h/o: As above. Surgical h/o: None on abdomen. Social h/o: Alcohol: - [ ] , smoking: [ ] , IVDA/ drugs: [ ] . Family h/o of GI cancers - None Prior Endoscopies: --- EGD: - [ ] --- Colonoscopy: - [ ] Prior GI evaluations: - [ ] Exam: Vitals: reviewed General: Alert and oriented x 3, not in distress HEENT: NO pallor, no icterus. Normal oropharynx, NO cervical lymph nodes. Chest: symmetric with bilateral clear air entry, CVS: S1, S2 heard, normal, no murmurs . Abdomen: non-distended, no surgical scars, soft, non-tender, no palpable masses, normal bowel sounds heard. Rectal exam: Patient refused / Deferred at this time in view of scheduled colonoscopy. Extremities: no pedal edema, pulses palpable. ANTI [employer] OPER[employer] OFFICER: no focal motor or sensory deficits. Moves all extremities Skin: no rash. Labs: reviewed. HCV screening indicated ordered / done OR Not indicated due to age. Imaging: reviewed. [ ] Impression: - Severe symptomatic anemia with abnormal CT scan -- needs further evaluation -- DDx-- lymphoma vs Gi cancer vs reactive lymphadenopathy. Recommendations: - Patient educated about the test results, possible differential diagnoses and All questions answered. - Diet as tolerated for today and NPO after midnight. - Monitor H/H and transfuse as needed. - Will schedule for EGD tomorrow and depending on that will need EUS electively. - The procedure, indications, elevated risks (bleeding, perforation, infection, hypotension, respiratory depression, allergy, need for endotracheal intubation, surgery, colostomy, cardiac arrest, even ), benefits, limitations (e.g., missing a lesion), and all other alternatives (including no intervention) were explained to the patient who understood and agreed for the procedure. Plan of care discussed with patient and primary team. Patient verbalized understanding and agreed with the plan. Vital Signs/I&O Vital Signs Date Time Temp Pulse Resp B/P (MAP) Pulse Ox O2 Delivery O2 Flow Rate FiO2 03/18/20 14:15 98.2 79 18 139/74 (95) 98 Nasal Cannula 2.0 98 Laboratory Data Labs 24H Laboratory Tests 2 03/18/20 16:29: Immature Granulocyte % (Auto) 0.9, Neutrophils (%) (Auto) 81.7H, Lymphocytes (%) (Auto) 9.4L, Monocytes (%) (Auto) 6.2H, Eosinophils (%) (Auto) 1.2, Basophils (%) (Auto) 0.6, Neutrophils # (Auto) 11.3H, Lymphocytes # (Auto) 1.3L, Monocytes # (Auto) 0.9H, Eosinophils # (Auto) 0.2, Basophils # (Auto) 0.1, Nucleated Red Blood Cells % (auto) 0.0, Prothrombin Time 14.1H, Prothromb Time International Ratio 1.07, Anion Gap 9, Glomerular Filtration Rate > 60.0, Calcium Level 8.1L, Total Bilirubin 0.4, Aspartate Amino Transf (AST/SGOT) 39H, Alanine Aminotransferase (ALT/SGPT) 20, Alkaline Phosphatase 225H, Total Protein 6.6, Albumin 2.9L, Albumin/Globulin Ratio 0.8 CBC/BMP Laboratory Tests 03/18/20 16:29 Allergies Coded Allergies: amoxicillin (Verified Allergy, Unknown, rash, 01/28/19) clavulanic acid (Verified Allergy, Unknown, rash, 01/28/19) pregabalin (Verified Adverse Reaction, Unknown, seizures, 01/28/19) warfarin (Verified Adverse Reaction, Unknown, bleeding, 01/28/19) Home Medications Scheduled Amlodipine Besylate (Amlodipine Besylate) 5 Mg Tablet, 5 MG PO DAILY, (Reported) Atorvastatin Calcium (Atorvastatin Calcium) 40 Mg Tablet, 40 MG PO QHS, (Rep orted) Furosemide (Furosemide) 40 Mg Tablet, 40 MG PO DAILY, (Reported) Ipratropium [place] (Atrovent Hfa) 12.9 Gm Hfa.aer.ad, 2 PUFF INH Q6H, (Reported) Losartan Potassium (Losartan Potassium) 25 Mg Tablet, 25 MG PO QHS, (Reported) Metoprolol Succinate (Metoprolol Succinate) 25 Mg Tab.er.24h, 12.5 MG PO QHS, (Reported) Paroxetine (Paroxetine HCl) 10 Mg Tablet, 10 MG PO DAILY, (Reported) Ropinirole HCl (Ropinirole HCl) 0.5 Mg Tablet, 0.5 MG PO BID, (Reported) Tiotropium [place] (Spiriva Respimat) 4 Gm Mist.inhal, 2 PUFFS INH DAILY, (Reported) Scheduled PRN Albuterol Sulfate (Ventolin Hfa) 108 Mcg/Act Aer, 2 PUFFS INH Q4H PRN for SHORTN ESS OF BREATH, (Reported) Ipratropium/Albuterol Sulfate (Combivent Respimat 20-100 Mcg) 4 Gm Mist.inhal, 1 PUFF INH Q6H PRN for SHORTNESS OF BREATH, (Reported) Tramadol HCl (Tramadol HCl) 50 Mg Tablet, 50 MG PO Q6H PRN for PAIN, (Reported) MADHU MURRAY MD Mar 18, 2020 19:13
[2020-03-18] MEDS: traMADol 50 MG TAB PO PRN (20:13)
[2020-03-18] MEDS: ATORVASTATIN 20 MG TAB PO SCH (20:51)
[2020-03-18] MEDS: rOPINIRole 0.25 MG TAB(REQUIP) PO SCH (20:51)
[2020-03-18] MEDS: METOPROLOL SUCC *XL* 12.5MG PER 1/2 TAB (TopROL *XL*) PO SCH (20:53)
[2020-03-18 22:00] VITALS: BP 119/59
[2020-03-19] MEDS ORDERED: traMADol 50 MG TAB PO ONE (00:45)
[2020-03-19] MEDS: traMADol 50 MG TAB PO PRN ×4 (00:45→23:50)
[2020-03-19 06:00] VITALS: BP 134/61
[2020-03-19 06:44] LABS: BASO # 0.1 10^3/uL (0.0-0.2); BASO % 0.7 % (0.0-1.0); EOS # 0.2 10^3/uL (0.0-0.5); EOS % 2.6 % (0.0-3.0); HEMATOCRIT 28.9 % (42.0-52.0); HEMOGLOBIN 8.3 g/dl (13.5-17.5); LYMPH # 1.4 10^3/uL (1.5-5.0); LYMPH % 17.6 % (24.0-44.0); MEAN CORPUSCULAR HEMOGLOBIN 22.4 pg (27.0-33.0); MEAN CORPUSCULAR HGB CONC 28.7 g/dl (32.0-36.5); MEAN CORPUSCULAR VOLUME 78.1 fl (80.0-96.0); MONO # 0.7 10^3/uL (0.0-0.8); MONO % 8.5 % (0.0-5.0); NEUTROPHILS # 5.6 10^3/uL (1.5-8.5); NEUTROPHILS % 69.5 % (36.0-66.0); PLATELET COUNT, AUTOMATED 576 10^3/uL (150-450)
[2020-03-19 07:06] LABS: BLOOD UREA NITROGEN 26 MG/DL (7-18); CALCIUM LEVEL 7.8 MG/DL (8.8-10.2); CARBON DIOXIDE LEVEL 27 MEQ/L (21-32); CHLORIDE LEVEL 103 MEQ/L (98-107); CREATININE FOR GFR 1.26 MG/DL (0.70-1.30); FERRITIN 17 NG/ML (26-388); GLOMERULAR FILTRATION RATE > 60.0 (>49); GLUCOSE, FASTING 81 MG/DL (70-100); IRON (FE) 17 UG/DL (65-175); PERCENT SATURATION 4.7 % (19.7-50.0); POTASSIUM SERUM 4.8 MEQ/L (3.5-5.1); SODIUM LEVEL 135 MEQ/L (136-145); TOTAL IRON BINDING CAPACITY 363 UG/DL (250-450)
[2020-03-19] MEDS: TIOTROPIUM INHALER/CAPSULE (SPIRIVA) INH SCH (07:27)
[2020-03-19] MEDS: COMBIVENT RESPIMAT 100-20MCG INHALER 4GM INH SCH ×4 (07:27→19:43)
--- NOTE | 2020-03-19 07:54 | REP ---
INDICATION: pleural efussion COMPARISON: 01/18/2020 TECHNIQUE: PA and lateral. FINDINGS: Mediastinum and cardiac silhouette stable with evidence for prior sternotomy and CABG. Lung gavin demonstrate chronic changes suggesting COPD/emphysematous disease. No focal consolidation. Blunting to the costophrenic angles and diaphragmatic surface on both frontal and lateral radiographs suggests chronic change although small pleural reactions cannot be excluded. No pneumothorax. Skeletal structures intact. IMPRESSION: Presumed chronic stable changes. No focal consolidation or significant large effusion. <Electronically signed by Rocael James > 03/19/20 [id number]
[2020-03-19] MEDS: rOPINIRole 0.25 MG TAB(REQUIP) PO SCH ×2 (09:24→22:31)
[2020-03-19] MEDS: amLODIPine 5 MG TAB PO SCH (09:25)
--- NOTE | 2020-03-19 10:54 | IPNPDOC ---
Subjective Date Seen The patient was seen on 03/19/20. Subjective Chief Complaint/HPI No complaints this morning. Asks when he can eat. No fever ro chills, no overt bleeding from anywhere. Objective Physical Examination General Exam: Positive: Alert, Cooperative, No Acute Distress Eye Exam: Positive: PERRLA, Conjunctiva & lids normal, EOMI; Negative: Sclera icteric ENT Exam: Positive: Atraumatic, Mucous membr. moist/pink, Pharynx Normal Neck Exam: Positive: Supple, +2 carotid pulse wo bruit (on the left); Negative: JVD, thyromegaly Chest Exam: Positive: Clear to auscultation, Diminished (diminished airentry) Heart Exam: Positive: Rate Normal, Regular Rhythm, Normal S1, Normal S2; Negative: Murmurs, Rubs Assessment /Plan Assessment 64-year-old male with CAD/ CABG, PAD s/p left axillary carotid bypass, COPD, history of PSUD, history of anemia, hypertension, hyperlipidemia, hypothyroidism, osteoarthritis, low back pain, GERD, TIA, history of pancreatic mass s/p resection c/b pancreatic insufficiency, DM, memory issues who presented to [place] on 03/16/20 for sudden onset back pain. He also complained of dyspnea on exertion. He also complained of dizziness and light headedness and says sometimes he feels like he is going to pass out but has not actually passed out. On evaluation there he was found to have a Hb of 6.1, his stool occult was negative. He was transfused 2 units of PRBC. He had CT of chest and abdomen done CT abdomen showed extensive retroperitoneal adenopathy, gastric wall thickening with irregularity and irregularity of distal esophagus. possible pancreatic head enlargement. CT chest showed COPD, bilateral pleural effusions. Underlying opacity in the right lung base and malignancy cannot be excluded. He was transferred here for symptomatic anemia, GI malignancy for GI work up with EGD/ ERCP. Symptomatic Anemia Hb 6.1 no clear source of any bleed Stool for occult blood Outside hospital was negative Transfused 2 units of red blood cell at [place]. Has severe iron deficiency, noncompliant with oral iron supplements. Says he forgets his meds will give venofer prior to discharge. vit b12, folate, Pending. GI consult Dr Marquez. Gastric wall thickening and esophageal wall thickening with retroperitoneal lymphadenopathy possible malignancy Planned for EGD Pancreatic Mass known for [address] with retroperitoneal lymphadenopathy Reports had biopsy in the last 1 month. Will try to get records. Pulmonary nodules. Retroperitoneal lymphadenopathy/ mesenteric lymphadenopathy PET scan on 04/10/2019 slightly hypermetabolic RLL nodule SUV 1.0, 1.3 cm Mild hypermetabolism in the mid and distal esophagus 2.3 SUV Hypermetabolism with in the retroperitoneal and small bowel mesenteric lymph nodes compatible with likely malignancy 1.9 to 2.6 SUV Mild low level metabolism in the region of pancreatic head fullness may be related to inflammation or neoplasm. 2.1 SUV Bx of RLL nodule on 01/27/20: benign lung parenchyma wih fibroelastosis and a minute area of granulomatous inflammation and necrosis at the edge of the cores. Negative for AFB and fungal organisms. No carcinoma is identified. CAD s/p CABG in November 2019 metoprolol Back pain tramadol prn. Hypertension amlodipine and Metoprolol Hypothyroid Synthroid Asthma/COPD Combivent and Spiriva RLS on Requip PAD s/p bilateral carotid bypass surgery follows with vascular as outpatient in [place]. Partial pancreatectomy for pancreatitis 8 years ago with chronic pancreatitis. H/O Substance abuse Quit EtOH and tobacco use use 8 years ago Still smokes marijuana and does a little methamphetamine. Last use 2 weeks to 1 month ago. Did use heroine and cocaine use in the past, but has quit. Plan/VTE VTE Prophylaxis Ordered?: Yes VS, I&O, 24H, Fishbone Vital Signs/I&O Vital Signs Date Time Temp Pulse Resp B/P (MAP) Pulse Ox O2 Delivery O2 Flow Rate FiO2 03/19/20 10:15 18 03/19/20 09:26 Nasal Cannula 03/19/20 09:25 78 147/70 03/19/20 06:00 98.7 93 2.0 03/18/20 14:15 98 I&O- Last 24 Hours up to 6 AM 03/19/20 06:00 Intake Total 780 ml Balance 780 ml Laboratory Data 24H LABS Laboratory Tests 2 03/18/20 16:29: Immature Granulocyte % (Auto) 0.9, Neutrophils (%) (Auto) 81.7H, Lymphocytes (%) (Auto) 9.4L, Monocytes (%) (Auto) 6.2H, Eosinophils (%) (Auto) 1.2, Basophils (%) (Auto) 0.6, Neutrophils # (Auto) 11.3H, Lymphocytes # (Auto) 1.3L, Monocytes # (Auto) 0.9H, Eosinophils # (Auto) 0.2, Basophils # (Auto) 0.1, Nucleated Red Blood Cells % (auto) 0.0, Prothrombin Time 14.1H, Prothromb Time International Ratio 1.07, Anion Gap 9, Glomerular Filtration Rate > 60.0, Calcium Level 8.1L, Total Bilirubin 0.4, Aspartate Amino Transf (AST/SGOT) 39H, Alanine Aminotransferase (ALT/SGPT) 20, Alkaline Phosphatase 225H, Total Protein 6.6, Albumin 2.9L, Albumin/Globulin Ratio 0.8 03/19/20 06:11: Coronavirus (COVID-19)(PCR) NEGATIVE 03/19/20 06:13: Immature Granulocyte % (Auto) 1.1, Neutrophils (%) (Auto) 69.5H, Lymphocytes (%) (Auto) 17.6L, Monocytes (%) (Auto) 8.5H, Eosinophils (%) (Auto) 2.6, Basophils (%) (Auto) 0.7, Neutrophils # (Auto) 5.6, Lymphocytes # (Auto) 1.4L, Monocytes # (Auto) 0.7, Eosinophils # (Auto) 0.2, Basophils # (Auto) 0.1, Nucleated Red Blood Cells % (auto) 0.0, Anion Gap 5L, Glomerular Filtration Rate > 60.0, [place] Level 7.8L, Iron Level 17L, Total Iron Binding Capacity 363, Transferrin % Saturation 4.7L, Ferritin 17L CBC/BMP Laboratory Tests 03/18/20 16:29 03/19/20 06:13 CIRO CLARK MD Mar 19, 2020 10:54
[2020-03-19] MEDS ORDERED: KETOROLAC 30 MG/ML 1ML VIAL IV ONE (11:15)
[2020-03-19 12:47] LABS: VITAMIN B12 LEVEL 756 PG/ML (247-911)
[2020-03-19 12:49] LABS: FOLATE 10.3 NG/ML (>5.4)
[2020-03-19] MEDS ORDERED: LIDOCAINE 2% 100MG/5ML SDV (FOR ANES.) As Ordered ONE (13:21)
[2020-03-19] MEDS ORDERED: propofoL 200 MG/20 ML VIAL As Ordered ONE (13:21)
[2020-03-19] MEDS ORDERED: ePHEDrine SULFATE 25 MG/5 ML(5MG/ML) SYRINGE As Ordered ONE (14:02)
--- NOTE | 2020-03-19 14:27 | ROOR ---
Patient Name: Edgardo Ambriz Procedure Date: 03/19/2020 1:01 PM Date of : 1955 Age: 64 Gender: Male Note Status: Finalized Procedure: Upper GI endoscopy Indications: Acute post hemorrhagic anemia, Abnormal CT of the GI tract Providers: Joe Marquez MD Referring MD: Shravan SAHU MD, 2. Inpatient 2. Inpatient Requesting Provider: Medicines: Monitored Anesthesia Care Complications: No immediate complications. Procedure: Pre-Anesthesia Assessment: - Prior to the procedure, a History and Physical was performed, and patient medications and allergies were reviewed. The patient is competent. The risks and benefits of the procedure and the sedation options and risks were discussed with the patient. All questions were answered and informed consent was obtained. Patient identification and proposed procedure were verified by the physician, the nurse and the anesthesiologist in the procedure room. Mental Status Examination: alert and oriented. Airway Examination: normal oropharyngeal airway and neck mobility. Respiratory Examination: clear to auscultation. CV Examination: normal. Prophylactic Antibiotics: The patient does not require prophylactic antibiotics. Prior Anticoagulants: The patient has taken no previous anticoagulant or antiplatelet agents. ASA Grade Assessment: II - A patient with mild systemic disease. After reviewing the risks and benefits, the patient was deemed in satisfactory condition to undergo the procedure. The anesthesia plan was to use monitored anesthesia care (MAC). Immediately prior to administration of medications, the patient was re-assessed for adequacy to receive sedatives. The heart rate, respiratory rate, oxygen saturations, blood pressure, adequacy of pulmonary ventilation, and response to care were monitored throughout the procedure. The physical status of the patient was re-assessed after the procedure. The Endoscope was introduced through the mouth, and advanced to the second part of duodenum. The upper GI endoscopy was accomplished without difficulty. The patient tolerated the procedure well. Findings: LA Grade D (one or more mucosal breaks involving at least 75% of esophageal circumference) esophagitis with no bleeding was found in the lower third of the esophagus. Evidence of a gastrojejunostomy was found in the gastric body (greater curvature). This was characterized by erythema and ulceration. Multiple biopsies were obtained at the anastomosis and ulcer with cold forceps for histology. Verification of patient identification for the specimen was done by the physician and nurse using the patient's name, date and medical record number. Estimated blood loss was minimal. A suture was found at the pylorus. A benign appearing (likely from prior surgery) moderate stenosis was found at the pylorus. This was traversed. The duodenal bulb, second portion of the duodenum and third portion of the duodenum were normal. Duodenum contained clear bile. Normal mucosa was found in the jejunum. Impression: - LA Grade D reflux esophagitis. - A gastrojejunostomy was found, characterized by erythema and ulceration. - A suture was found in the stomach. - Gastric stenosis was found at the pylorus. - Normal duodenal bulb, second portion of the duodenum and third portion of the duodenum. - Normal mucosa was found in the jejunum. - Multiple biopsies were obtained at the anastomosis and ulcer. Recommendation: - Patient has a contact number available for emergencies. The signs and symptoms of potential delayed complications were discussed with the patient. Return to normal activities tomorrow. Written discharge instructions were provided to the patient. - Clear liquid diet today, then advance as tolerated to high fiber diet. - Continue present medications. - Use Protonix (pantoprazole) 40 mg PO twice daily - to be taken in morning (1/2 hour before breakfast) and at bedtime ( atleast 3 hours after last meal) for 3 months. - Observe patient's clinical course. - Check hemoglobin and hematocrit q 12 hours for one day. - Perform magnetic resonance imaging (MRI) with gadolinium. - Perform an upper endoscopic ultrasound (UEUS) at appointment to be scheduled. - Return to GI clinic 1 - 2 weeks. Please call GI clinic @ [phone] for apppointment date and time. - Return to primary care physician. Procedure Code(s): --- Professional --- 23278, Esophagogastroduodenoscopy, flexible, transoral; with biopsy, single or multiple Diagnosis Code(s): --- Professional --- K21.0, Gastro-esophageal reflux disease with esophagitis Z98.0, Intestinal bypass and anastomosis status T18.2XXA, Foreign body in stomach, initial encounter K31.1, Adult hypertrophic pyloric stenosis D62, Acute posthemorrhagic anemia R93.3, Abnormal findings on diagnostic imaging of other parts of digestive tract CPT copyright 2019 [employer]. All rights reserved. The codes documented in this report are preliminary and upon grip boss review may be revised to meet current compliance requirements. Joe Marquez MD Joe Marquez MD 03/19/2020 2:26:15 PM Electronically signed by Joe Marquez MD Number of Addenda: 0 Note Initiated On: 03/19/2020 1:01 PM Estimated Blood Loss: Estimated blood loss: none.
[2020-03-19] MEDS ORDERED: LR 1,000 ML IV SCH (14:30)
[2020-03-19] MEDS ORDERED: ONDANSETRON 4MG/2ML VIAL IV PRN (14:30)
[2020-03-19] MEDS ORDERED: PANTOPRAZOLE 40MG VIAL (C9113 PER 1) IV STA (14:30)
[2020-03-19] MEDS ORDERED: IRON SUCROSE 500 MG in NS 250 ML IV ONE (20:00)
[2020-03-19 22:00] VITALS: BP 151/8
[2020-03-19] MEDS: ATORVASTATIN 20 MG TAB PO SCH (22:30)
[2020-03-19] MEDS: SUCRALFATE SUSP 1GM/10ML UD PO SCH (22:31)
[2020-03-19 22:35] VITALS: BP 144/64
[2020-03-19] MEDS: METOPROLOL SUCC *XL* 12.5MG PER 1/2 TAB (TopROL *XL*) PO SCH (22:37)
[2020-03-19 23:32] VITALS: BP 150/74
[2020-03-20] VITALS (12 sets, daily range): BP systolic 116–165; BP diastolic 55–95; O2SAT 98
[2020-03-20] MEDS: ACETAMINOPHEN TAB 650MG DOSE (2X325MG) PO PRN ×2 (01:31→08:25)
[2020-03-20] MEDS: COMBIVENT RESPIMAT 100-20MCG INHALER 4GM INH SCH ×3 (06:24→15:27)
[2020-03-20] MEDS: TIOTROPIUM INHALER/CAPSULE (SPIRIVA) INH SCH (06:24)
[2020-03-20 07:07] LABS: BASO # 0.1 10^3/uL (0.0-0.2); BASO % 0.7 % (0.0-1.0); EOS # 0.2 10^3/uL (0.0-0.5); EOS % 2.8 % (0.0-3.0); HEMATOCRIT 27.9 % (42.0-52.0); HEMOGLOBIN 8.2 g/dl (13.5-17.5); LYMPH % 13.2 % (24.0-44.0); MEAN CORPUSCULAR HEMOGLOBIN 23.1 pg (27.0-33.0); MEAN CORPUSCULAR HGB CONC 29.4 g/dl (32.0-36.5); MEAN CORPUSCULAR VOLUME 78.6 fl (80.0-96.0); MONO # 0.5 10^3/uL (0.0-0.8); NEUTROPHILS # 5.7 10^3/uL (1.5-8.5); NEUTROPHILS % 75.6 % (36.0-66.0); PLATELET COUNT, AUTOMATED 508 10^3/uL (150-450); RED BLOOD COUNT 3.55 10^6/uL (4.30-6.10); WHITE BLOOD COUNT 7.6 10^3/uL (4.0-10.0)
[2020-03-20 07:29] LABS: BLOOD UREA NITROGEN 25 MG/DL (7-18); CALCIUM LEVEL 7.2 MG/DL (8.8-10.2); CARBON DIOXIDE LEVEL 26 MEQ/L (21-32); CHLORIDE LEVEL 104 MEQ/L (98-107); CREATININE FOR GFR 1.15 MG/DL (0.70-1.30); GLOMERULAR FILTRATION RATE > 60.0 (>49); GLUCOSE, FASTING 98 MG/DL (70-100); SODIUM LEVEL 136 MEQ/L (136-145)
[2020-03-20] MEDS: SUCRALFATE SUSP 1GM/10ML UD PO SCH ×2 (08:24→12:27)
[2020-03-20] MEDS: rOPINIRole 0.25 MG TAB(REQUIP) PO SCH (08:24)
[2020-03-20] MEDS: traMADol 50 MG TAB PO PRN (08:24)
[2020-03-20] MEDS: amLODIPine 5 MG TAB PO SCH (08:26)
[2020-03-20] MEDS ORDERED: DICLOFENAC EPOLAMINE 1.3 % PATCH TOP SCH (09:00)
[2020-03-20] MEDS ORDERED: NORCO, ANEXSIA 5/325MG TABLET (HYDROcodone/ACETAMINOPHEN) PO PRN (11:30)
[2020-03-20] MEDS ORDERED: NORC1TAB7 PO (15:38)
[2020-03-20] MEDS ORDERED: ALBU83IN INH (15:38)
[2020-03-20] MEDS ORDERED: DICL1GEL3 TOP (15:38)
[2020-03-21] MEDS ORDERED: PANT40TA29 PO (06:06)
--- NOTE | 2020-03-21 06:20 | DS.PDOC ---
Discharge Summary General Date of Admission Mar 18, 2020 at 13:57 Date of Discharge 03/20/20 Discharge Summary PROCEDURES PERFORMED DURING STAY: EGD: Findings: LA Grade D (one or more mucosal breaks involving at least 75% of esophageal circumference) esophagitis with no bleeding was found in the lower third of the esophagus. Evidence of a gastrojejunostomy was found in the gastric body (greater curvature). This was characterized by erythema and ulceration. Multiple biopsies were obtained at the anastomosis and ulcer with cold forceps for histology. Verification of patient identification for the specimen was done by the physician and nurse using the patient's name, date and medical record number. Estimated blood loss was minimal. A suture was found at the pylorus. A benign appearing (likely from prior surgery) moderate stenosis was found at the pylorus. This was traversed. The duodenal bulb, second portion of the duodenum and third portion of the duodenum were normal. Duodenum contained clear bile. Normal mucosa was found in the jejunum. DISCHARGE DIAGNOSES: GIB due to Anastomotic ulcer at the gastrojejunostomy. Acute blood loss anemia Pyloric stenosis Esophagitis Severe iron deficiency anemia Polysubstance abuse with meth and marijuana till 3 weeks ago SECONDARY DIAGNOSIS: CAD s/p CABG in November 2019 History of severe pancreatitis 8 years ago related to alcohol abuse s/p partial resection and gastrojejunostomy. Chronic pancreatic insufficiency, Pancreatic Head mass since 2016 had EUS biopsy recently with [facility] in 2018 Pulmonary nodules . Had Bx of right Lower lobe pulmonary nodule in dec 2019 DM Anemia HTN HLD Hypothyroidism COPD Asthma CKD stage 3 Osteoarthritis Low Back Pain Cataract Glaucoma TIA Substance abuse: former EtOH and former smoker. Former heroine user. Still doing meth and marijuana till 3 weeks ago Noncompliance with medications Carotid artery disease with bilateral axillary to carotid bypass. LBP RADIATING TO BLE BILATERAL SHOULDER PAIN Systolic CHF ejection fraction 25-30% with 1+ to 2+ mitral regurgitation (MR) Moderately severe pulmonary hypertension Chronic aortic insufficiency. History of CVA. History of peptic ulcer disease with gastrointestinal (GI) bleeding. Esophageal stenosis. COMPLICATIONS/CHIEF COMPLAINT: Symptomatic Anemia. HOSPITAL COURSE: 64-year-old male with CAD/ CABG, PAD s/p left axillary carotid bypass, COPD, history of PSUD, history of anemia, hypertension, hyperlipidemia, hypothyroidism, osteoarthritis, low back pain, GERD, TIA, history of pancreatic mass s/p resection c/b pancreatic insufficiency, DM, memory issues who presented to [place] on 03/16/20 for sudden onset back pain. He also complained of dyspnea on exertion. He also complained of dizziness and light headedness and says sometimes he feels like he is going to pass out but has not actually passed out. On evaluation there he was found to have a Hb of 6.1, his stool occult was negative. He was transfused 2 units of PRBC. He had CT of chest and abdomen done CT abdomen showed extensive retroperitoneal adenopathy, gastric wall thickening with irregularity and irregularity of distal esophagus. possible pancreatic head enlargement. CT chest showed COPD, bilateral pleural effusions. Underlying opacity in the right lung base and malignancy cannot be excluded. He was transferred here for symptomatic anemia, GI malignancy for GI work up with EGD/ ERCP. Reviewed all records from [facility]. GIB with Acute blood loss anemia Due to Anastomotic ulcer at the gastrojejunostomy site Pantoprazole 40 bid. Sucralfate. Symptomatic Anemia acute on chronic / Iron Deficiency Hb 6.1 at Outside hospital. Received total 3 units of PRBC transfusion 2 in [place] and 1 here. Has severe iron deficiency, noncompliant with oral iron supplements. Says he forgets his meds Has Gastrojejunostomy Received Venofer. vit b12, folate normal. Gastric wall thickening and esophageal wall thickening with retroperitoneal lymphadenopathy possible malignancy No diagnosis has been reached yet . Following with Dr Lei EGD as above. Pancreatic Head Mass known for [address] with retroperitoneal lymphadenopathy Had EUS pancreatic head biopsy on 01/25/[address] Lei at [facility] was negative for pancreatic malignancy however he felt it may not be a good sample as due to his altered internal anatomy after his pancreatic surgery procedure years back the head is difficult to reach He recommended CT guided biopsy if EUS biopsy was negative as the next step of diagnosis. He had a PET scan done on 03/2019 Pulmonary nodules. Retroperitoneal lymphadenopathy/ mesenteric lymphadenopathy PET scan on 04/10/2019 slightly hypermetabolic RLL nodule SUV 1.0, 1.3 cm Mild hypermetabolism in the mid and distal esophagus 2.3 SUV Hypermetabolism with in the retroperitoneal and small bowel mesenteric lymph nodes compatible with likely malignancy 1.9 to 2.6 SUV Mild low level metabolism in the region of pancreatic head fullness may be related to inflammation or neoplasm. 2.1 SUV Bx of RLL nodule on 01/27/20: benign lung parenchyma with fibroelastosis and a minute area of granulomatous inflammation and necrosis at the edge of the cores. Negative for AFB and fungal organisms. No carcinoma is identified. CAD s/p CABG in November 2019 metoprolol Back pain tramadol prn. Hypertension amlodipine and Metoprolol Hypothyroid Synthroid Asthma/COPD Combivent and Spiriva RLS on Requip PAD s/p bilateral carotid bypass surgery follows with vascular as outpatient in [place]. Partial pancreatectomy for pancreatitis 8 years ago with chronic pancreatitis. H/O Substance abuse Quit EtOH and tobacco use use 8 years ago Still smokes marijuana and does a little methamphetamine. Last use 2 weeks to 1 month ago. Did use heroine and cocaine use in the past, but has quit. DISCHARGE MEDICATIONS: Please see below. ALLERGIES: Please see below. PHYSICAL EXAMINATION ON DISCHARGE: VITAL SIGNS: Please see below. General Exam: Positive: Alert, Cooperative, No Acute Distress Eye Exam: Positive: PERRLA, Conjunctiva & lids normal, EOMI; Negative: Sclera icteric ENT Exam: Positive: Atraumatic, Mucous membr. moist/pink, Pharynx Normal Neck Exam: Positive: Supple, +2 carotid pulse with bruit (on the left); Negative: JVD, thyromegaly Chest Exam: Positive: Bilateral mild wheezing with ronchi. Heart Exam: Positive: Rate Normal, Regular Rhythm, Normal S1, Normal S2; Negative: Murmurs, Rubs Abdomen: Soft, nontender, bowel sounds normal Extremities: No edema. Back : tenderness at the right posterior sup illiac spine. LABORATORY DATA: Please see below. ACTIVITY: [As tolerated]. DIET: As tolerated DISPOSITION: 01 Home, Self-Care. DISCHARGE INSTRUCTIONS: in [address] Lei in [place] in 2 to 4 weeks. ITEMS TO FOLLOWUP ON ON OUTPATIENT: Follow up Biopsy reports from EGD. DISCHARGE CONDITION: [Stable]. TIME SPENT ON DISCHARGE: 35 minutes. Vital Signs/I&Os Vital Signs Date Time Temp Pulse Resp B/P (MAP) Pulse Ox O2 Delivery O2 Flow Rate FiO2 03/20/20 16:37 96.9 86 158/75 98 Room Air 03/20/20 15:42 18 03/20/20 12:39 0.0 03/18/20 14:15 98 I&O- Last 24 Hours up to 6 AM 03/21/20 07:00 Intake Total 1635 ml Balance 1635 ml Laboratory Data Labs 24H Laboratory Tests 2 03/20/20 06:39: Immature Granulocyte % (Auto) 0.7, Neutrophils (%) (Auto) 75.6H, Lymphocytes (%) (Auto) 13.2L, Monocytes (%) (Auto) 7.0H, Eosinophils (%) (Auto) 2.8, Basophils (%) (Auto) 0.7, Neutrophils # (Auto) 5.7, Lymphocytes # (Auto) 1.0L, Monocytes # (Auto) 0.5, Eosinophils # (Auto) 0.2, Basophils # (Auto) 0.1, Nucleated Red Blood Cells % (auto) 0.0, Anion Gap 6L, Glomerular Filtration Rate > 60.0, Calcium Level 7.2L CBC/BMP Laboratory Tests 03/20/20 06:39 Discharge Medications Scheduled Amlodipine Besylate (Amlodipine Besylate) 5 Mg Tablet, 5 MG PO DAILY, (Reported) Atorvastatin Calcium (Atorvastatin Calcium) 40 Mg Tablet, 40 MG PO QHS, (Reported) Furosemide (Furosemide) 40 Mg Tablet, 40 MG PO DAILY, (Reported) Ipratropium [place] (Atrovent Hfa) 12.9 Gm Hfa.aer.ad, 2 PUFF INH Q6H, (Reported) Losartan Potassium (Losartan Potassium) 25 Mg Tablet, 25 MG PO QHS, (Reported) Metoprolol Succinate (Metoprolol Succinate) 25 Mg Tab.er.24h, 12.5 MG PO QHS, (Reported) Paroxetine (Paroxetine HCl) 10 Mg Tablet, 10 MG PO DAILY, (Reported) Ropinirole HCl (Ropinirole HCl) 0.5 Mg Tablet, 0.5 MG PO BID, (Reported) Tiotropium [place] (Spiriva Respimat) 4 Gm Mist.inhal, 2 PUFFS INH DAILY, (Reported) Scheduled PRN Albuterol Sulf (Albuterol Sulfate) 2.5 Mg/3 Ml Vial.neb, 2.5 MG INH TIDP PRN for SHORTNESS OF BREATH Albuterol Sulfate (Ventolin Hfa) 108 Mcg/Act Aer, 2 PUFFS INH Q4H PRN for SHOR TNESS OF BREATH, (Reported) Diclofenac Sodium (Diclofenac Sodium) 1% 100GM Gel..gram., 1 APLCT TOP TIDP PRN for back pain Hydrocodone/Acetaminophen ([place] 5-325 Tablet) 1 Each Tablet, 1 TAB PO TIDP PRN for pain Ipratropium/Albuterol Sulfate (Combivent Respimat 20-100 Mcg) 4 Gm Mist.inhal, 1 PUFF INH Q6H PRN for SHORTNESS OF BREATH, (Reported) Tramadol HCl (Tramadol HCl) 50 Mg Tablet, 50 MG PO Q6H PRN for PAIN, (Reported) Allergies Coded Allergies: amoxicillin (Verified Allergy, Unknown, rash, 01/28/19) clavulanic acid (Verified Allergy, Unknown, rash, 01/28/19) pregabalin (Verified Adverse Reaction, Unknown, seizures, 01/28/19) warfarin (Verified Adverse Reaction, Unknown, bleeding, 01/28/19) CIRO CLARK MD Mar 21, 2020 06:20
[2020-03-21] MEDS ORDERED: SUCR1TA PO (15:22)
[2020-03-23] MEDS ORDERED: PARIMIS30 XX (12:58)
== END 2020-03-20 18:59 | disposition home or self-care (01) | DRG 381 ==
LOC: M MSPAV 13:57
PROVIDERS: ADMIT General Practice; ATTEND Internal Medicine Nephrology
PROC: 30233N1 Transfusion of Nonautologous Red Blood Cells into Peripheral Vein, Percutaneous Approach (ICD-10-PCS; 2020-03-18)
PROC: 0DB98ZX Excision of Duodenum, Via Natural or Artificial Opening Endoscopic, Diagnostic (ICD-10-PCS; principal; 2020-03-19 13:30)
DX: K31.1 Adult hypertrophic pyloric stenosis (principal); I50.22 Chronic systolic (congestive) heart failure; I13.0 Hypertensive heart and chronic kidney disease with heart failure and stage 1 through stage 4 chronic kidney disease, or unspecified chronic kidney disease; K92.2 Gastrointestinal hemorrhage, unspecified; K86.1 Other chronic pancreatitis; D50.9 Iron deficiency anemia, unspecified; I25.10 Atherosclerotic heart disease of native coronary artery without angina pectoris; J44.9 Chronic obstructive pulmonary disease, unspecified; E78.5 Hyperlipidemia, unspecified; E03.9 Hypothyroidism, unspecified; M19.90 Unspecified osteoarthritis, unspecified site; R91.8 Other nonspecific abnormal finding of lung field; M54.5 Low back pain; I27.20 Pulmonary hypertension, unspecified; I35.1 Nonrheumatic aortic (valve) insufficiency; K28.9 Gastrojejunal ulcer, unspecified as acute or chronic, without hemorrhage or perforation; K21.9 Gastro-esophageal reflux disease without esophagitis; K86.89 Other specified diseases of pancreas; G25.81 Restless legs syndrome; N18.30 Chronic kidney disease, stage 3 unspecified; E11.22 Type 2 diabetes mellitus with diabetic chronic kidney disease; E11.51 Type 2 diabetes mellitus with diabetic peripheral angiopathy without gangrene; K20.90 Esophagitis, unspecified without bleeding; H40.9 Unspecified glaucoma; Z79.899 Other long term (current) drug therapy; Z88.0 Allergy status to penicillin; Z88.8 Allergy status to other drugs, medicaments and biological substances; Z95.1 Presence of aortocoronary bypass graft; Z86.73 Personal history of transient ischemic attack (TIA), and cerebral infarction without residual deficits; Z87.891 Personal history of nicotine dependence; Z20.828 Contact with and (suspected) exposure to other viral communicable diseases

== ENCOUNTER 2020-08-06 05:45 | Inpatient (IN) | payer MEDICARE, MEDICAID ==
[~2020-08-06] VITALS: Ht 167.6 cm; Wt 58.2 kg
[~2020-08-06 05:45] MED LIST changes: +ALBU83IN INH; +ASPI-569 PO; -ASPI81TAEC PO; +BACTDSTA PO; +DICL1GEL3 TOP; +HYDR-3490 PO; -HYDR25TAB PO; +IPRAINH INH; +LOSA25TA14 PO; +NORC1TAB7 PO; +PARIMIS30 XX; +SUCR1TA PO; -SULF1TAB93 PO
--- NOTE | 2020-08-06 08:08 | REP ---
INDICATION: DYSPNEA/COUGH. COMPARISON: 03/19/2020 PA and lateral chest. TECHNIQUE: Portable AP chest with the patient sitting. FINDINGS: There is a focal patchy infiltrate in the left mid lung field as an interval change. The remainder of the lung gavin are clear. Cardiac size is normal. Sternotomy wires and left atrial appendage clip are again noted, unchanged. IMPRESSION: Subtle patchy infiltrate in the left mid lung field. <Electronically signed by Shravan Peterson > 08/06/20 0815
[2020-08-06] MEDS: COMBIVENT RESPIMAT 100-20MCG INHALER 4GM INH SCH ×3 (08:27→09:03)
[2020-08-06 08:47] LABS: AMPHETAMINES LEVEL URINE POSITIVE (NEGATIVE); BARBITURATES URINE NEGATIVE (NEGATIVE); BENZODIAZEPINES URINE NEGATIVE (NEGATIVE); CANNABINOIDS URINE NEGATIVE (NEGATIVE); COCAINE METABOLITE URINE NEGATIVE (NEGATIVE); METHADONE URINE NEGATIVE (NEGATIVE); OPIATES URINE NEGATIVE (NEGATIVE); PHENCYCLIDINE URINE NEGATIVE (NEGATIVE)
[2020-08-06 09:33] LABS: VENOUS PH 7.419 UNITS (7.330-7.430)
--- NOTE | 2020-08-06 09:33 | ECGEPIP ---
[facility] - ED Test Date: 2020-08-06 Pat Name: RISSA YUSUF Department: Room: - Gender: Male Bill Recapitulation Clerk: keli : 1955 Requested By: FREDRICK Santacruz PA-C Order Number: [id number] Reading MD: Julio Madsen Measurements Intervals [place] Rate: 98 P: 73 MO: 152 QRS: 61 QRSD: 96 T: 115 QT: 410 QTc: 523 Interpretive Statements Normal sinus rhythm Cannot rule out Inferior infarct , age undetermined NSTTW ABNORMALITY(S) SIMILAR TO 01/22/20 Electronically Signed on 08-06-2020 9:33:34 EDT by Julio Madsen
[2020-08-06 09:34] LABS: VENOUS BASE EXCESS -5.9 (-2.0-2.0); VENOUS O2 SATURATION 99.6 % (60.0-80.0); VENOUS PARTIAL PRESSURE CO2 26.8 mmHg (38.0-50.0); VENOUS PARTIAL PRESSURE O2 207.2 mmHg (30.0-50.0); VENOUS STANDARD HCO3 19.7 MEQ/L; VENOUS TOTAL CO2 17.8 MEQ/L (24.0-28.0)
[2020-08-06 09:45] LABS: HEMATOCRIT 43.6 % (42.0-52.0); HEMOGLOBIN 12.7 g/dl (13.5-17.5); MEAN CORPUSCULAR HEMOGLOBIN 23.5 pg (27.0-33.0); MEAN CORPUSCULAR HGB CONC 29.1 g/dl (32.0-36.5); MEAN CORPUSCULAR VOLUME 80.7 fl (80.0-96.0); PLATELET COUNT, AUTOMATED 108 10^3/uL (150-450); WHITE BLOOD COUNT 22.3 10^3/uL (4.0-10.0)
[2020-08-06 10:08] LABS: ALBUMIN 2.8 GM/DL (3.2-5.2); ALT/SGPT 16 U/L (12-78); BILIRUBIN,DIRECT 0.1 MG/DL (0.0-0.2); BILIRUBIN,TOTAL 0.4 MG/DL (0.2-1.0); BLOOD UREA NITROGEN 21 MG/DL (7-18); CALCIUM LEVEL 8.4 MG/DL (8.8-10.2); CARBON DIOXIDE LEVEL 21 MEQ/L (21-32); CHLORIDE LEVEL 105 MEQ/L (98-107); CK-MB VALUE MASS 7.3 NG/ML (<3.6); CPK CREATINE PHOSPHOKINASE 268 U/L (39-308); CREATININE FOR GFR 1.14 MG/DL (0.70-1.30); GLOMERULAR FILTRATION RATE > 60.0 (>49); GLUCOSE, FASTING 155 MG/DL (70-100); MB/CK RELATIVE INDEX 2.72 (< OR =4); NT-PRO BNP 2811 PG/ML (<125); POTASSIUM SERUM 4.4 MEQ/L (3.5-5.1); SODIUM LEVEL 137 MEQ/L (136-145); THYROXINE (T4) 7.2 UG/DL (4.5-12.0); TOTAL PROTEIN 6.1 GM/DL (6.4-8.2); TROPONIN I < 0.02 NG/ML (< 0.10)
[2020-08-06] MEDS ORDERED: FUROSEMIDE 40MG/4ML VIAL (J1940) IV ONE (10:15)
[2020-08-06 10:16] LABS: ANISOCYTOSIS 1+; ATYPICAL LYMPH 1 % (0-5); HYPOCHROMASIA 1+; LYMPHOCYTES 6 % (16-44); NEUTROPHILS 82 % (28-66)
[2020-08-06 10:17] LABS: PLATELET ESTIMATE DECREASED (NORMAL)
[2020-08-06] MEDS ORDERED: predniSONE 20 MG TAB PO ONE (10:30)
[2020-08-06] MEDS ORDERED: FUROSEMIDE 40 MG TAB PO ONE (10:45)
[2020-08-06] MEDS ORDERED: PATIENT COMMENT (10:46)
[2020-08-06] MEDS ORDERED: ALBU83IN INH (10:46)
[2020-08-06] MEDS ORDERED: LOSA100T8 PO (10:46)
[2020-08-06] MEDS ORDERED: PANT20TA6 PO (10:46)
[2020-08-06] MEDS ORDERED: CEFTAROLINE FOSAMIL 600 MG in D5W MINI-BAG PLUS 50 ML IV SCH (12:00)
[2020-08-06 12:41] VITALS: BP 123/69
[2020-08-06] MEDS: rOPINIRole 0.25 MG TAB(REQUIP) PO SCH ×2 (12:55→21:52)
[2020-08-06 14:00] VITALS: BP 132/70
[2020-08-06] MEDS: IPRATROPIUM 0.5MG/ALBUTEROL 2.5MG INH SOL UD 3ML (DUONEB) NEB SCH ×2 (15:34→22:48)
[2020-08-06] MEDS ORDERED: LIDOCAINE 1% MDV 20ML VIAL As Ordered ONE (15:50)
--- NOTE | 2020-08-06 17:04 | REP ---
INDICATION: venous access. COMPARISON: None. TECHNIQUE: The procedure was performed under the direct supervision of Dr. Monahan. The risks and benefits of the procedure were explained to the patient and informed consent was obtained. The right brachial vein was localized using ultrasound guidance. The skin was prepped and draped in a sterile fashion. 2% lidocaine was used as a local anesthetic. Using ultrasound guidance the brachial vein was cannulated and a 0.018 guidewire was inserted and advanced to the SVC using fluoroscopic guidance. The needle was removed and a 5.5 [place] dilator and peel-away sheath was inserted over the guide wire. A 5.5 [place] dual lumen catheter was cut to length of 43 cm. The dilator was removed and the catheter was inserted over the guide wire with the tip ending in the SVC. The peel-away sheath was removed and the catheter was flushed with heparinized saline as per Hospital protocol. The catheter was affixed to the skin and a sterile dressing was applied. The patient tolerated the procedure well and there were no immediate complications. 0.1 minutes of fluoro time was utilized for this procedure. FINDINGS: None IMPRESSION: PICC line insertion right brachial vein with the tip ending in the SVC. <Electronically signed by Kian Landa > 08/06/20 1700 <Electronically signed by Shravan Monahan > 08/06/20 1700
[2020-08-06] MEDS ORDERED: SODIUM CHLORIDE 0.9% INJ 10 ML SYR IV PRN (17:10)
[2020-08-06] MEDS: CEFTAROLINE FOSAMIL 600 MG in D5W MINI-BAG PLUS 50 ML IV SCH (17:35)
--- NOTE | 2020-08-06 17:35 | HPEPDOC ---
General Date of Admission Aug 06, 2020 at 11:35 Date of Service: Aug 06, 2020 Chief Complaint The patient is a 65-year-old male admitted with a reason for visit of Shortness Of Breath/Pneumonia. Source: Patient, RN/MD History of Present Illness 65 year old male with multiple medical comorbidities as below presented to the ED with SOB for 3 days. He had gone to another hospital ED for this last night was there all night given lasix and antibiotics and discharged home. After reaching home he continued to feel bad to decided to call the ambulance and came to our ED. Patient has not taken any of the antibiotics prescribed from the other hospital. He also complains of dry cough intermittent for the same duration. No phelgm production and no blood. His breathing has been so bad that he has not been able to sleep for 3 days. He also reported subjective fevers. He says he does not use any inhalers or nebulizers at home as it does not help. Patient also used methamphetamine before coming to our ED. His EKG showed sinus rhythm with qtc prolongation to 523. He was somnolent during the interview though easily arousable. He reported that as now he is feeling a little better . He is very tired and has not slept at all last night so he is very sleepy. CXR showed early left mid field infiltrates. He was admitted for Pneumonia. Home Medications Scheduled Amlodipine Besylate (Amlodipine Besylate) 5 Mg Tablet, 5 MG PO DAILY, (Reported) Atorvastatin Calcium (Atorvastatin Calcium) 40 Mg Tablet, 40 MG PO QHS, (Reported) Losartan/Hydrochlorothiazide (Losartan-Hctz 100-12.5 mg Tab) 1 Each Tablet, 1 TAB PO DAILY, (Reported) Metoprolol Succinate (Metoprolol Succinate) 25 Mg Tab.er.24h, 12.5 MG PO QHS, (Reported) Pantoprazole Sodium (Pantoprazole Sodium) 20 Mg Tablet.dr, 20 MG PO DAILY, ( Reported) Paroxetine (Paroxetine HCl) 10 Mg Tablet, 10 MG PO DAILY, (Reported) Ropinirole HCl (Ropinirole HCl) 0.5 Mg Tablet, 0.5 MG PO BID, (Reported) Tiotropium [place] (Spiriva Respimat) 4 Gm Mist.inhal, 2 PUFFS INH DAILY, (Reported) Scheduled PRN Albuterol Sulf (Albuterol Sulfate) 2.5 Mg/3 Ml Vial.neb, 2.5 MG INH TID PRN for SHORTNESS OF BREATH, (Reported) Albuterol Sulfate (Ventolin Hfa) 108 Mcg/Act Aer, 2 PUFFS INH Q4H PRN for SH ORTNESS OF BREATH, (Reported) Ipratropium [place] (Atrovent Hfa) 12.9 Gm Hfa.aer.ad, 2 PUFF INH Q6H PRN for SHORTNESS OF BREATH, (Reported) Ipratropium/Albuterol Sulfate (Combivent Respimat 20-100 Mcg) 4 Gm Mist.inhal, 1 PUFF INH Q6H PRN for SHORTNESS OF BREATH, (Reported) Miscellaneous Medications [Patient Comment] , (Reported) MED LIST OBTAINED FROM EXT [employer] HX, PATIENT STATES HE HAS NOT TAKEN MEDICATIONS IN A FEW MONTHS Allergies Coded Allergies: amoxicillin (Verified Allergy, Unknown, rash, 01/28/19) clavulanic acid (Verified Allergy, Unknown, rash, 01/28/19) pregabalin (Verified Adverse Reaction, Unknown, seizures, 01/28/19) warfarin (Verified Adverse Reaction, Unknown, bleeding, 01/28/19) Past Medical History Medical History CAD s/p CABG in November 2019 Systolic CHF ejection fraction 25-30% with mitral regurgitation (MR) Moderately severe pulmonary hypertension Chronic aortic insufficiency. History of severe pancreatitis 8 years ago related to alcohol abuse s/p partial resection and gastrojejunostomy. Chronic pancreatic insufficiency, Pancreatic Head mass since 2017 had EUS biopsy with [facility] and hepatology of [facility] in 2018, supposed to have CT guided biopsy Pulmonary nodules . Had Bx of right Lower lobe pulmonary nodule in dec 2019 DM HTN HLD Hypothyroidism COPD Asthma CKD stage 3 Carotid artery disease with bilateral axillary to carotid bypass. History of CVA/TIA Peptic ulcer disease with gastrointestinal (GI) bleeding. Esophageal stenosis. H/o GIB due to Anastomotic ulcer at the gastrojejunostomy site in mar 2020 Pyloric stenosis Esophagitis Iron deficiency anemia Substance abuse: former EtOH and former smoker. 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 Osteoarthritis LBP RADIATING TO BLE BILATERAL SHOULDER PAIN Cataract Glaucoma Surgical History Tonsillectomy Bilateral Carotid bypasses Left Subclavian artery bypass Partial pancreatectomy Recent CABG within the last 1 month Family History Father: of cancer Mother: of [place] and had a hx of cancer 5 sisters; 1 of cancer, and does not know the health history of his other 4 sisters. Social History * Smoker: former Smoker Alcohol: sober (9 years) Drugs: marijuana, other (methaphetamine) A-FIB/CHADSVASC A-FIB History Current/History of A-Fib/PAF?: No Review of Systems Constitutional: Reports: Fever, Fatigue; Denies: Chills, Night Sweats Eyes: Denies: Pain, Vision change ENT: Denies: Head Aches, Ear Pain, Dysphagia Skin: Denies: Rash, Lesions, Breakdown Pulmonary: Reports: Dyspnea, Cough Cardiovascular: Denies: Chest Pain, Palpitations Gastrointestinal: Denies: Nausea, Vomiting, Abdominal Pain, Diarrhea Genitourinary: Denies: Dysuria, Frequency, Incontinence, Retention Hematologic: Denies: Bruising, Bleeding Excessively Musculoskeletal: Reports: Back Pain Neurological: Denies: Weakness, Numbness, Change in speech, Confusion Physical Examination General Exam: Positive: Cooperative, No Acute Distress, Other (somnolent but easily arousable) Eye Exam: Positive: Conjunctiva & lids normal, EOMI ENT Exam: Positive: Atraumatic, Mucous membr. moist/pink, Pharynx Normal Neck Exam: Positive: Supple; Negative: JVD, thyromegaly Chest Exam: Positive: Clear to auscultation, Diminished Heart Exam: Positive: Rate Normal, Regular Rhythm, Normal S1, Normal S2; Negative: Murmurs, Rubs Telemetry: Positive: No significant arrhythmia Abdomen Exam: Positive: Normal bowel sounds, Soft; Negative: Tenderness, Hepatospenomegaly Extremity Exam: Negative: Clubbing, Cyanosis, Edema Skin Exam: Positive: Nl turgor and temperature; Negative: Breakdown, Lesion Neuro Exam: Positive: Normal Speech, Strength at 5/5 X4 ext Vital Signs Vital Signs Date Time Temp Pulse Resp B/P (MAP) Pulse Ox O2 Delivery O2 Flow Rate FiO2 08/06/20 15:11 98.0 66 21 93 Nasal Cannula 2.0 08/06/20 14:00 132/70 (90) Laboratory Data Labs 24H Laboratory Tests 2 08/06/20 08:16: Urine Opiates Screen NEGATIVE, Urine Methadone Screen NEGATIVE, Urine Barbiturates Screen NEGATIVE, Urine Phencyclidine Screen NEGATIVE, Urine Amphetamines Screen POSITIVEH, Urine Benzodiazepines Screen NEGATIVE, Urine Cocaine Metabolite Screen NEGATIVE, Urine Cannabinoids Screen NEGATIVE 08/06/20 09:19: Neutrophils (%) (Auto) , Nucleated Red Blood Cells % (auto) 0.0, Neutrophils 82 H, Band Neutrophils 11, Lymphocytes (Manual) 6L, Atypical Lymphocytes 1, Hypochromasia 1+, Anisocytosis 1+, Platelet Estimate DECREASED, Blood Gas Bicarbonate Standard 19.7, Venous Blood pH 7.419, Venous Blood Partial Pressure CO2 26.8L, Venous Blood Partial Pressure O2 207.2H, Venous Blood Total Carbon Dioxide 17.8L, Venous Blood HCO3 17.0L, Venous Blood Oxygen Saturation 99.6H, Venous Blood Base Excess -5.9L, Anion Gap 11, Glomerular Filtration Rate > 60.0, Calcium Level 8.4L, Total Bilirubin 0.4, Direct Bilirubin 0.1, Aspartate Amino Transf (AST/SGOT) 25, Alanine Aminotransferase (ALT/SGPT) 16, Alkaline Phosphatase 154H, Total Creatine Kinase 268, Creatine Kinase MB 7.3H, Creatine Kinase MB Relative Index 2.72, Troponin I < 0.02, VP-Mcx-W-Type Natriuretic Peptide 2811H, Total Protein 6.1L, Albumin 2.8L, Albumin/Globulin Ratio 0.8, Thyroid Stimulating Hormone (TSH) 1.260, Thyroxine (T4) 7.2 CBC/BMP Laboratory Tests 08/06/20 09:19 Microbiology Microbiology 08/06/20 Respiratory Virus Panel (PCR) ([facility]IL[facility]) - Final, Complete Assessment/Plan 65 year old male with multiple medical comorbidities as below presented to the ED with SOB, cough and subjective fevers for 3 days. CXR showed early left mid field infiltrates. He was admitted for Pneumonia. Community acquired Pneumonia left he has Qtc prolongation so will avoid azithromycin and levofloxacin will give ceftaroline. COPD exacerbation due to pneumonia will continue with duonebs Patient does not use any inhalers or nebs at home. now better. Will not give any steroids at this time. wean oxygen as tolerated Systolic CHF ejection fraction 25-30% with mitral regurgitation (MR)/ AR/Pulmonary hypertension severe. Had mild fluid overload on presentation now improved with lasix. CAD s/p CABG in November 2019 No issues at this time metoprolol, statin History of severe pancreatitis 8 years ago related to alcohol abuse s/p partial resection and gastrojejunostomy. Chronic pancreatic insufficiency, Pancreatic Head mass since 2016 had EUS biopsy with [facility]ology and hepatology of [facility] in 2019, supposed to have CT guided biopsy patient does not want any more work up for this Pulmonary nodules . Had Bx of right Lower lobe pulmonary nodule in dec 2019 DM not on any meds at this time HTN metoprolol continued, continue lasix. will hold losartan, amlodipine and HCZ for now. HLD statin H/o Hypothyroidism not on any meds Carotid artery disease with bilateral axillary to carotid bypass. Peptic ulcer disease with gastrointestinal (GI) bleeding/ Esophageal stenosis/ pyloric stenosis H/o GIB due to Anastomotic ulcer at the gastrojejunostomy site in mar 2020 continue pantoprazole Chronic anemia/ iron def will monitor hb. RLS continue ropinirole. Plan / VTE VTE Prophylaxis Ordered?: Yes CIRO CLARK MD Aug 06, 2020 17:35
[2020-08-06] MEDS: ALBUTEROL SULFATE 2.5 MG/0.5 ML INH NEB SOLN NEB PRN ×2 (18:27→22:23)
[2020-08-06] MEDS: SODIUM CHLORIDE 0.9% INJ 10 ML SYR IV SCH (18:53)
[2020-08-06] MEDS: ATORVASTATIN 20 MG TAB PO SCH (21:52)
[2020-08-06 22:00] VITALS: BP 134/70
[2020-08-06] MEDS: METOPROLOL SUCC *XL* 12.5MG PER 1/2 TAB (TopROL *XL*) PO SCH (22:23)
[2020-08-07] MEDS: ACETAMINOPHEN TAB 650MG DOSE (2X325MG) PO PRN (00:57)
[2020-08-07] MEDS: SODIUM CHLORIDE 0.9% INJ 10 ML SYR IV SCH ×2 (05:45→17:52)
[2020-08-07] MEDS: CEFTAROLINE FOSAMIL 600 MG in D5W MINI-BAG PLUS 50 ML IV SCH ×2 (05:45→17:51)
[2020-08-07 06:00] VITALS: BP 133/69
[2020-08-07] MEDS: IPRATROPIUM 0.5MG/ALBUTEROL 2.5MG INH SOL UD 3ML (DUONEB) NEB SCH ×2 (07:41→15:49)
[2020-08-07 08:32] LABS: BASO % 0.2 % (0.0-1.0); EOS # 0.1 10^3/uL (0.0-0.5); EOS % 0.3 % (0.0-3.0); HEMATOCRIT 34.8 % (42.0-52.0); HEMOGLOBIN 10.6 g/dl (13.5-17.5); LYMPH # 1.1 10^3/uL (1.5-5.0); MEAN CORPUSCULAR HEMOGLOBIN 23.5 pg (27.0-33.0); MEAN CORPUSCULAR HGB CONC 30.5 g/dl (32.0-36.5); MEAN CORPUSCULAR VOLUME 77.2 fl (80.0-96.0); MONO # 1.1 10^3/uL (0.0-0.8); MONO % 7.2 % (2.0-8.0); NEUTROPHILS # 13.2 10^3/uL (1.5-8.5); NEUTROPHILS % 84.7 % (36.0-66.0); PLATELET COUNT, AUTOMATED 268 10^3/uL (150-450); RED BLOOD COUNT 4.51 10^6/uL (4.30-6.10); WHITE BLOOD COUNT 15.6 10^3/uL (4.0-10.0)
[2020-08-07 08:42] LABS: BLOOD UREA NITROGEN 22 MG/DL (7-18); CALCIUM LEVEL 7.6 MG/DL (8.8-10.2); CARBON DIOXIDE LEVEL 24 MEQ/L (21-32); CHLORIDE LEVEL 105 MEQ/L (98-107); CREATININE FOR GFR 1.09 MG/DL (0.70-1.30); GLOMERULAR FILTRATION RATE > 60.0 (>49); GLUCOSE, FASTING 106 MG/DL (70-100); POTASSIUM SERUM 3.6 MEQ/L (3.5-5.1); SODIUM LEVEL 137 MEQ/L (136-145)
[2020-08-07] MEDS: rOPINIRole 0.25 MG TAB(REQUIP) PO SCH ×2 (09:50→21:09)
[2020-08-07] MEDS: FUROSEMIDE 40 MG TAB PO SCH (09:50)
[2020-08-07] MEDS: PANTOPRAZOLE 20 MG TAB PO SCH (09:50)
[2020-08-07] MEDS: PARoxetine 10MG TABLET PO SCH (09:50)
--- NOTE | 2020-08-07 11:16 | IPNPDOC ---
Subjective Date Seen The patient was seen on 08/07/20. Subjective Chief Complaint/HPI feels better this morning. SOB has improved. Not much cough, No fever or chills. Objective Physical Examination General Exam: Positive: Cooperative, No Acute Distress, Other (somnolent but easily arousable) Eye Exam: Positive: Conjunctiva & lids normal, EOMI ENT Exam: Positive: Atraumatic, Mucous membr. moist/pink, Pharynx Normal Neck Exam: Positive: Supple; Negative: JVD, thyromegaly Chest Exam: Positive: Clear to auscultation, Diminished Heart Exam: Positive: Rate Normal, Regular Rhythm, Normal S1, Normal S2; Negative: Murmurs, Rubs Telemetry: Positive: No significant arrhythmia Abdomen Exam: Positive: Normal bowel sounds, Soft; Negative: Tenderness, Hepatospenomegaly Extremity Exam: Negative: Clubbing, Cyanosis, Edema Skin Exam: Positive: Nl turgor and temperature; Negative: Breakdown, Lesion Neuro Exam: Positive: Normal Speech, Strength at 5/5 X4 ext Assessment /Plan Assessment 65 year old male with multiple medical comorbidities as below presented to the ED with SOB, cough and subjective fevers for 3 days. CXR showed early left mid field infiltrates. He was admitted for Pneumonia. Community acquired Pneumonia left he has Qtc prolongation so will avoid azithromycin and levofloxacin will give ceftaroline. COPD exacerbation due to pneumonia will continue with duonebs Patient does not use any inhalers or nebs at home. now better. Will not give any steroids at this time. wean oxygen as tolerated Systolic CHF ejection fraction 25-30% with mitral regurgitation (MR)/ AR/Pulmonary hypertension severe. Had mild fluid overload on presentation now improved with lasix. CAD s/p CABG in November 2019 No issues at this time metoprolol, statin History of severe pancreatitis 8 years ago related to alcohol abuse s/p partial resection and gastrojejunostomy. Chronic pancreatic insufficiency, Pancreatic Head mass since 2017 had EUS biopsy with [facility]ology and hepatology of [facility] in 2019, supposed to have CT guided biopsy patient does not want any more work up for this Pulmonary nodules . Had Bx of right Lower lobe pulmonary nodule in dec 2019 DM not on any meds at this time HTN metoprolol continued, continue lasix. will hold losartan, amlodipine and HCZ for now. HLD statin H/o Hypothyroidism not on any meds Carotid artery disease with bilateral axillary to carotid bypass. Peptic ulcer disease with gastrointestinal (GI) bleeding/ Esophageal stenosis/ pyloric stenosis H/o GIB due to Anastomotic ulcer at the gastrojejunostomy site in mar 2020 continue pantoprazole Chronic anemia/ iron def will monitor hb. RLS continue ropinirole. Plan/VTE VTE Prophylaxis Ordered?: Yes VS, I&O, 24H, Fishbone Vital Signs/I&O Vital Signs Date Time Temp Pulse Resp B/P (MAP) Pulse Ox O2 Delivery O2 Flow Rate FiO2 08/07/20 06:00 98.4 98 19 133/69 (90) 97 Nasal Cannula 0.5 I&O- Last 24 Hours up to 6 AM 08/07/20 06:00 Intake Total 1310 ml Output Total 800 ml Balance 510 ml Laboratory Data 24H LABS Laboratory Tests 2 08/07/20 07:58: Immature Granulocyte % (Auto) 0.6, Neutrophils (%) (Auto) 84.7H, Lymphocytes (%) (Auto) 7.0L, Monocytes (%) (Auto) 7.2, Eosinophils (%) (Auto) 0.3, Basophils (%) (Auto) 0.2, Neutrophils # (Auto) 13.2H, Lymphocytes # (Auto) 1.1L, Monocytes # (Auto) 1.1H, Eosinophils # (Auto) 0.1, Basophils # (Auto) 0.0, Nucleated Red Blood Cells % (auto) 0.0, Anion Gap 8, Glomerular Filtration Rate > 60.0, Calcium Level 7.6L CBC/BMP Laboratory Tests 08/07/20 07:58 Microbiology Microbiology 08/06/20 Respiratory Virus Panel (PCR) ([facility]) - Final, Complete CIRO CLARK MD Aug 07, 2020 11:16
[2020-08-07 14:00] VITALS: BP 130/60
[2020-08-07] MEDS ORDERED: ONDANSETRON 4MG/2ML VIAL IV PRN (17:00)
[2020-08-07] MEDS: ALBUTEROL SULFATE 2.5 MG/0.5 ML INH NEB SOLN NEB PRN (19:30)
[2020-08-07] MEDS: ATORVASTATIN 20 MG TAB PO SCH (21:09)
[2020-08-07] MEDS: METOPROLOL SUCC *XL* 12.5MG PER 1/2 TAB (TopROL *XL*) PO SCH (21:09)
[2020-08-07 22:00] VITALS: BP 132/72
[2020-08-08] MEDS: IPRATROPIUM 0.5MG/ALBUTEROL 2.5MG INH SOL UD 3ML (DUONEB) NEB SCH ×3 (00:50→20:27)
[2020-08-08] MEDS: CEFTAROLINE FOSAMIL 600 MG in D5W MINI-BAG PLUS 50 ML IV SCH ×2 (05:42→17:42)
[2020-08-08] MEDS: SODIUM CHLORIDE 0.9% INJ 10 ML SYR IV SCH ×2 (05:43→17:42)
[2020-08-08 06:00] VITALS: BP 132/63
[2020-08-08 06:12] LABS: BASO % 0.3 % (0.0-1.0); EOS # 0.4 10^3/uL (0.0-0.5); EOS % 4.2 % (0.0-3.0); HEMATOCRIT 34.5 % (42.0-52.0); HEMOGLOBIN 10.1 g/dl (13.5-17.5); LYMPH # 0.8 10^3/uL (1.5-5.0); LYMPH % 8.7 % (24.0-44.0); MEAN CORPUSCULAR HEMOGLOBIN 23.4 pg (27.0-33.0); MEAN CORPUSCULAR HGB CONC 29.3 g/dl (32.0-36.5); MONO # 0.8 10^3/uL (0.0-0.8); MONO % 8.1 % (2.0-8.0); NEUTROPHILS # 7.2 10^3/uL (1.5-8.5); NEUTROPHILS % 78.2 % (36.0-66.0); PLATELET COUNT, AUTOMATED 228 10^3/uL (150-450); RED BLOOD COUNT 4.31 10^6/uL (4.30-6.10); WHITE BLOOD COUNT 9.2 10^3/uL (4.0-10.0)
[2020-08-08 06:52] LABS: BLOOD UREA NITROGEN 16 MG/DL (7-18); CALCIUM LEVEL 7.2 MG/DL (8.8-10.2); CARBON DIOXIDE LEVEL 25 MEQ/L (21-32); CHLORIDE LEVEL 107 MEQ/L (98-107); CREATININE FOR GFR 1.11 MG/DL (0.70-1.30); GLOMERULAR FILTRATION RATE > 60.0 (>49); GLUCOSE, FASTING 88 MG/DL (70-100); POTASSIUM SERUM 3.8 MEQ/L (3.5-5.1); SODIUM LEVEL 137 MEQ/L (136-145)
--- NOTE | 2020-08-08 08:29 | IPNPDOC ---
Subjective Date Seen The patient was seen on 08/08/20. Subjective Chief Complaint/HPI Feels better. Denies any SOB. No fever or chils, Had 3 liquids stools yesterday but none overnight. No abdominal pain or nausea. Objective Physical Examination General Exam: Positive: Cooperative, No Acute Distress, Other (somnolent but easily arousable) Eye Exam: Positive: Conjunctiva & lids normal, EOMI ENT Exam: Positive: Atraumatic, Mucous membr. moist/pink, Pharynx Normal Neck Exam: Positive: Supple; Negative: JVD, thyromegaly Chest Exam: Positive: Diminished, Other (crackles at the left base) Heart Exam: Positive: Rate Normal, Regular Rhythm, Normal S1, Normal S2; Negative: Murmurs, Rubs Telemetry: Positive: No significant arrhythmia Abdomen Exam: Positive: Normal bowel sounds, Soft; Negative: Tenderness, Hepatospenomegaly Extremity Exam: Negative: Clubbing, Cyanosis, Edema Skin Exam: Positive: Nl turgor and temperature; Negative: Breakdown, Lesion Neuro Exam: Positive: Normal Speech, Strength at 5/5 X4 ext Assessment /Plan Assessment 65 year old male with multiple medical comorbidities as below presented to the E D with SOB, cough and subjective fevers for 3 days. CXR showed early left mid field infiltrates. He was admitted for Pneumonia. Community acquired Pneumonia left he has Qtc prolongation so will avoid azithromycin and levofloxacin will give ceftaroline. COPD exacerbation due to pneumonia will continue with duonebs Patient does not use any inhalers or nebs at home. now better. Will not give any steroids at this time. wean oxygen as tolerated Systolic CHF ejection fraction 25-30% with mitral regurgitation (MR)/ AR/Pulmonary hypertension severe. Had mild fluid overload on presentation now improved with lasix. CAD s/p CABG in November 2019 No issues at this time metoprolol, statin History of severe pancreatitis 8 years ago related to alcohol abuse s/p partial resection and gastrojejunostomy. Chronic pancreatic insufficiency, Pancreatic Head mass since 2017 had EUS biopsy with Gastroenterology and hepatology of [facility] in 2019, supposed to have CT guided biopsy patient does not want any more work up for this Pulmonary nodules . Had Bx of right Lower lobe pulmonary nodule in dec 2019 DM not on any meds at this time HTN metoprolol continued, continue lasix. will hold losartan, amlodipine and HCZ for now. HLD statin H/o Hypothyroidism not on any meds Carotid artery disease with bilateral axillary to carotid bypass. Peptic ulcer disease with gastrointestinal (GI) bleeding/ Esophageal stenosis/ pyloric stenosis H/o GIB due to Anastomotic ulcer at the gastrojejunostomy site in mar 2020 continue pantoprazole Chronic anemia/ iron def will monitor hb. RLS continue ropinirole. Plan/VTE VTE Prophylaxis Ordered?: Yes VS, I&O, 24H, Fishbone Vital Signs/I&O Vital Signs Date Time Temp Pulse Resp B/P (MAP) Pulse Ox O2 Delivery O2 Flow Rate FiO2 08/08/20 06:00 97.4 67 18 132/63 (86) 96 Nasal Cannula 0.5 I&O- Last 24 Hours up to 6 AM 08/08/20 06:00 Intake Total 1290 ml Output Total 200 ml Balance 1090 ml Laboratory Data 24H LABS Laboratory Tests 2 08/08/20 05:44: Immature Granulocyte % (Auto) 0.5, Neutrophils (%) (Auto) 78.2H, Lymphocytes (%) (Auto) 8.7L, Monocytes (%) (Auto) 8.1H, Eosinophils (%) (Auto) 4.2H, Basophils (%) (Auto) 0.3, Neutrophils # (Auto) 7.2, Lymphocytes # (Auto) 0.8L, Monocytes # (Auto) 0.8, Eosinophils # (Auto) 0.4, Basophils # (Auto) 0.0, Nucleated Red Blood Cells % (auto) 0.0, Anion Gap 5L, Glomerular Filtration Rate > 60.0, Calcium Level 7.2L CBC/BMP Laboratory Tests 08/08/20 05:44 Microbiology Microbiology 08/06/20 Respiratory Virus Panel (PCR) ([facility]) - Final, Complete CIRO CLARK MD Aug 08, 2020 08:29
[2020-08-08] MEDS: PARoxetine 10MG TABLET PO SCH (10:15)
[2020-08-08] MEDS: rOPINIRole 0.25 MG TAB(REQUIP) PO SCH ×2 (10:15→20:06)
[2020-08-08] MEDS: PANTOPRAZOLE 20 MG TAB PO SCH (10:15)
[2020-08-08] MEDS: FUROSEMIDE 40 MG TAB PO SCH (10:15)
[2020-08-08 14:00] VITALS: BP 138/72
[2020-08-08] MEDS: ALBUTEROL SULFATE 2.5 MG/0.5 ML INH NEB SOLN NEB PRN (15:40)
[2020-08-08 20:06] VITALS: BP 135/70
[2020-08-08] MEDS: METOPROLOL SUCC *XL* 12.5MG PER 1/2 TAB (TopROL *XL*) PO SCH (20:06)
[2020-08-08] MEDS: ATORVASTATIN 20 MG TAB PO SCH (20:06)
[2020-08-08 20:29] VITALS: O2SAT 98
[2020-08-08 22:00] VITALS: BP 135/70
[2020-08-08] MEDS ORDERED: CALCIUM CARBONATE 500 MG CHEW U/D PO PRN (22:35)
[2020-08-09] MEDS: CEFTAROLINE FOSAMIL 600 MG in D5W MINI-BAG PLUS 50 ML IV SCH (05:23)
[2020-08-09] MEDS: SODIUM CHLORIDE 0.9% INJ 10 ML SYR IV SCH (05:23)
[2020-08-09 05:29] LABS: BASO % 0.3 % (0.0-1.0); EOS # 0.6 10^3/uL (0.0-0.5); EOS % 6.7 % (0.0-3.0); HEMOGLOBIN 10.2 g/dl (13.5-17.5); LYMPH % 10.7 % (24.0-44.0); MEAN CORPUSCULAR HGB CONC 29.1 g/dl (32.0-36.5); MEAN CORPUSCULAR VOLUME 78.8 fl (80.0-96.0); MONO # 0.8 10^3/uL (0.0-0.8); MONO % 8.9 % (2.0-8.0); NEUTROPHILS # 6.5 10^3/uL (1.5-8.5); NEUTROPHILS % 72.8 % (36.0-66.0); PLATELET COUNT, AUTOMATED 218 10^3/uL (150-450); RED BLOOD COUNT 4.44 10^6/uL (4.30-6.10); WHITE BLOOD COUNT 8.9 10^3/uL (4.0-10.0)
[2020-08-09 05:50] LABS: BLOOD UREA NITROGEN 13 MG/DL (7-18); CALCIUM LEVEL 7.4 MG/DL (8.8-10.2); CARBON DIOXIDE LEVEL 28 MEQ/L (21-32); CHLORIDE LEVEL 110 MEQ/L (98-107); CREATININE FOR GFR 1.11 MG/DL (0.70-1.30); GLOMERULAR FILTRATION RATE > 60.0 (>49); GLUCOSE, FASTING 92 MG/DL (70-100); POTASSIUM SERUM 3.8 MEQ/L (3.5-5.1); SODIUM LEVEL 140 MEQ/L (136-145)
[2020-08-09 06:00] VITALS: BP 139/72
[2020-08-09] MEDS: ALBUTEROL SULFATE 2.5 MG/0.5 ML INH NEB SOLN NEB PRN (06:04)
[2020-08-09] MEDS: IPRATROPIUM 0.5MG/ALBUTEROL 2.5MG INH SOL UD 3ML (DUONEB) NEB SCH (08:00)
[2020-08-09] MEDS: rOPINIRole 0.25 MG TAB(REQUIP) PO SCH (09:28)
[2020-08-09] MEDS: PARoxetine 10MG TABLET PO SCH (09:28)
[2020-08-09] MEDS: FUROSEMIDE 40 MG TAB PO SCH (09:28)
[2020-08-09] MEDS: PANTOPRAZOLE 20 MG TAB PO SCH (09:28)
[2020-08-09] MEDS: ACETAMINOPHEN TAB 650MG DOSE (2X325MG) PO PRN (09:29)
[2020-08-09] MEDS ORDERED: CEFD300CAP PO (13:10)
[2020-08-09] MEDS ORDERED: LASI40TA9 PO (13:10)
[2020-08-09 14:00] VITALS: BP 144/75
--- NOTE | 2020-09-03 07:50 | DS.PDOC ---
Discharge Summary General Date of Admission Aug 06, 2020 at 11:35 Date of Discharge 08/09/20 Discharge Summary PROCEDURES PERFORMED DURING STAY: [None]. DISCHARGE DIAGNOSES: Community acquired pneumonia COPD exacerbation SECONDARY DIAGNOSIS: CAD s/p CABG in November 2019 History of severe pancreatitis 8 years ago related to alcohol abuse s/p partial resection and gastrojejunostomy. Chronic pancreatic insufficiency, Pancreatic Head mass since 2017 had EUS biopsy recently with Gastroenterology and hepatology of [facility] in 2018 Pulmonary nodules . Had Bx of right Lower lobe pulmonary nodule in dec 2019 DM Anemia HTN HLD Hypothyroidism COPD Asthma CKD stage 3 Osteoarthritis Low Back Pain Cataract Glaucoma TIA Substance abuse: former EtOH and former smoker. 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 Noncompliance with medications Carotid artery disease with bilateral axillary to carotid bypass. LBP RADIATING TO BLE BILATERAL SHOULDER PAIN Systolic CHF ejection fraction 25-30% with mitral regurgitation (MR) Moderately severe pulmonary hypertension Chronic aortic insufficiency. History of CVA. History of peptic ulcer disease with gastrointestinal (GI) bleeding. Esophageal stenosis. H/o GIB due to Anastomotic ulcer at the gastrojejunostomy. Pyloric stenosis Esophagitis iron deficiency anemia RLS COMPLICATIONS/CHIEF COMPLAINT: Shortness Of Breath/Pneumonia. HOSPITAL COURSE: 65 year old male with multiple medical comorbidities as below presented to the ED with SOB, cough and subjective fevers for 3 days. CXR showed early left mid field infiltrates. He was admitted for Pneumonia. Community acquired Pneumonia left he has Qtc prolongation so will avoid azithromycin and levofloxacin given ceftaroline in hospital then discharged on cefdinir. COPD exacerbation due to pneumonia will continue with duonebs Patient does not use any inhalers or nebs at home. Says that he had stopped most of his meds several months ago. now better. Will not give any steroids at this time. Systolic CHF ejection fraction 25-30% with mitral regurgitation (MR)/ AR/Pulmonary hypertension severe. Had mild fluid overload on presentation now improved with lasix. CAD s/p CABG in November 2019 No issues at this time metoprolol, statin History of severe pancreatitis 8 years ago related to alcohol abuse s/p partial resection and gastrojejunostomy. Chronic pancreatic insufficiency, Pancreatic Head mass since 2017 had EUS biopsy with Gastroenterology and hepatology of [facility] in 2019, supposed to have CT guided biopsy patient does not want any more work up for this Pulmonary nodules . Had Bx of right Lower lobe pulmonary nodule in dec 2019 DM not on any meds at this time HTN metoprolol continued, continue lasix. will hold losartan, amlodipine and HCZ for now. HLD statin H/o Hypothyroidism not on any meds Carotid artery disease with bilateral axillary to carotid bypass. Peptic ulcer disease with gastrointestinal (GI) bleeding/ Esophageal stenosis/ pyloric stenosis H/o GIB due to Anastomotic ulcer at the gastrojejunostomy site in mar 2020 continue pantoprazole Chronic anemia/ iron def will monitor hb. RLS continue ropinirole. DISCHARGE MEDICATIONS: Please see below. ALLERGIES: Please see below. PHYSICAL EXAMINATION ON DISCHARGE: VITAL SIGNS: Please see below. General Exam: Positive: Cooperative, No Acute Distress, Other (somnolent but easily arousable) Eye Exam: Positive: Conjunctiva & lids normal, EOMI ENT Exam: Positive: Atraumatic, Mucous membr. moist/pink, Pharynx Normal Neck Exam: Positive: Supple; Negative: JVD, thyromegaly Chest Exam: Positive: Diminished, Other (crackles at the left base) Heart Exam: Positive: Rate Normal, Regular Rhythm, Normal S1, Normal S2; Negative: Murmurs, Rubs Telemetry: Positive: No significant arrhythmia Abdomen Exam: Positive: Normal bowel sounds, Soft; Negative: Tenderness, Hepatosplenomegaly Extremity Exam: Negative: Clubbing, Cyanosis, Edema Skin Exam: Positive: Nl turgor and temperature; Negative: Breakdown, Lesion Neuro Exam: Positive: Normal Speech, Strength at 5/5 X4 ext LABORATORY DATA: Please see below. ACTIVITY: [As tolerated]. DIET: As tolerated DISPOSITION: 01 Home, Self-Care. DISCHARGE INSTRUCTIONS: PMD in 1 to 2 weeks DISCHARGE CONDITION: [Stable]. TIME SPENT ON DISCHARGE:40 minutes. Vital Signs/I&Os Vital Signs Date Time Temp Pulse Resp B/P (MAP) Pulse Ox O2 Delivery O2 Flow Rate FiO2 08/09/20 14:00 98.1 89 16 144/75 (98) 100 Room Air 08/09/20 06:00 0.5 08/08/20 20:29 24 Microbiology Microbiology 08/06/20 Respiratory Virus Panel (PCR) ([facility]) - Final, Complete Discharge Medications Scheduled Amlodipine Besylate (Amlodipine Besylate) 5 Mg Tablet, 5 MG PO DAILY, (Reported) Atorvastatin Calcium (Atorvastatin Calcium) 40 Mg Tablet, 40 MG PO QHS, (Reported) Cefdinir (Cefdinir) 300 Mg Capsule, 300 MG PO BID Furosemide (Lasix) 40 Mg Tablet, 40 MG PO DAILY Metoprolol Succinate (Metoprolol Succinate) 25 Mg Tab.er.24h, 12.5 MG PO QHS, (Reported) Pantoprazole Sodium (Pantoprazole Sodium) 20 Mg Tablet.dr, 20 MG PO DAILY, (Reported) Ropinirole HCl (Ropinirole HCl) 0.5 Mg Tablet, 0.5 MG PO BID, (Reported) Tiotropium [place] (Spiriva Respimat) 4 Gm Mist.inhal, 2 PUFFS INH DAILY, (Reported) Scheduled PRN Albuterol Sulf (Albuterol Sulfate) 2.5 Mg/3 Ml Vial.neb, 2.5 MG INH TID PRN for SHORTNESS OF BREATH, (Reported) Albuterol Sulfate (Ventolin Hfa) 108 Mcg/Act Aer, 2 PUFFS INH Q4H PRN for SHORTNESS OF BREATH, (Reported) Ipratropium [place] (Atrovent Hfa) 12.9 Gm Hfa.aer.ad, 2 PUFF INH Q6H PRN for SHORTNESS OF BREATH, (Reported) Ipratropium/Albuterol Sulfate (Combivent Respimat 20-100 Mcg) 4 Gm Mist.inhal, 1 PUFF INH Q6H PRN for SHORTNESS OF BREATH, (Reported) Miscellaneous Medications [Patient Comment] , (Reported) MED LIST OBTAINED FROM EXT [employer] HX, PATIENT STATES HE HAS NOT TAKEN MEDICATIONS IN A FEW MONTHS Allergies Coded Allergies: amoxicillin (Verified Allergy, Unknown, rash, 01/28/19) clavulanic acid (Verified Allergy, Unknown, rash, 01/28/19) pregabalin (Verified Adverse Reaction, Unknown, seizures, 01/28/19) warfarin (Verified Adverse Reaction, Unknown, bleeding, 01/28/19) CIRO CLARK MD Aug 11, 2020 01:12
== END 2020-08-09 15:24 | disposition home or self-care (01) | DRG 194 ==
LOC: M ED 05:45 → M ED INP 11:35 → ENRESERV 11:55 → M MSPAV 12:40
PROVIDERS: ADMIT Internal Medicine Nephrology; ATTEND Internal Medicine Nephrology
PROC: 02HV33Z Insertion of Infusion Device into Superior Vena Cava, Percutaneous Approach (ICD-10-PCS; principal; 2020-08-06 14:26)
DX: J18.9 Pneumonia, unspecified organism (principal); I50.22 Chronic systolic (congestive) heart failure; J44.1 Chronic obstructive pulmonary disease with (acute) exacerbation; K86.1 Other chronic pancreatitis; J44.0 Chronic obstructive pulmonary disease with (acute) lower respiratory infection; I34.0 Nonrheumatic mitral (valve) insufficiency; I27.20 Pulmonary hypertension, unspecified; E78.5 Hyperlipidemia, unspecified; I25.10 Atherosclerotic heart disease of native coronary artery without angina pectoris; E11.9 Type 2 diabetes mellitus without complications; D50.9 Iron deficiency anemia, unspecified; R91.8 Other nonspecific abnormal finding of lung field; K28.9 Gastrojejunal ulcer, unspecified as acute or chronic, without hemorrhage or perforation; K86.89 Other specified diseases of pancreas; I11.0 Hypertensive heart disease with heart failure; Z79.899 Other long term (current) drug therapy; Z88.1 Allergy status to other antibiotic agents; Z88.8 Allergy status to other drugs, medicaments and biological substances; Z95.1 Presence of aortocoronary bypass graft; Z87.891 Personal history of nicotine dependence; J22 Unspecified acute lower respiratory infection

== ENCOUNTER 2020-11-14 05:13 | Inpatient (IN) | payer MEDICAID, MEDICARE ==
[~2020-11-14] VITALS: Ht 167.6 cm; Wt 57.9 kg
[~2020-11-14 05:13] MED LIST changes: +CEFD300CAP PO; +LASI40TA9 PO; +PANT20TA6 PO
[2020-11-14] MEDS: COMBIVENT RESPIMAT 100-20MCG INHALER 4GM INH SCH ×2 (05:56→05:57)
[2020-11-14] MEDS ORDERED: dexameTHASONE 20MG/5ML VIAL (J1100 PER 1MG) IV ONE (06:05)
[2020-11-14 06:54] LABS: BASO % 0.4 % (0.0-1.0); EOS # 0.1 10^3/uL (0.0-0.5); EOS % 1.3 % (0.0-3.0); HEMATOCRIT 33.2 % (42.0-52.0); HEMOGLOBIN 9.1 g/dl (13.5-17.5); LYMPH # 0.8 10^3/uL (1.5-5.0); LYMPH % 7.1 % (24.0-44.0); MEAN CORPUSCULAR HEMOGLOBIN 19.7 pg (27.0-33.0); MEAN CORPUSCULAR HGB CONC 27.4 g/dl (32.0-36.5); MEAN CORPUSCULAR VOLUME 71.7 fl (80.0-96.0); MONO # 0.7 10^3/uL (0.0-0.8); MONO % 6.3 % (2.0-8.0); NEUTROPHILS # 9.2 10^3/uL (1.5-8.5); NEUTROPHILS % 84.5 % (36.0-66.0); PLATELET COUNT, AUTOMATED 311 10^3/uL (150-450); RED BLOOD COUNT 4.63 10^6/uL (4.30-6.10); WHITE BLOOD COUNT 10.9 10^3/uL (4.0-10.0)
[2020-11-14 07:30] LABS: ALBUMIN 2.7 GM/DL (3.2-5.2); ALT/SGPT 55 U/L (12-78); BILIRUBIN,DIRECT 0.2 MG/DL (0.0-0.2); BILIRUBIN,TOTAL 0.4 MG/DL (0.2-1.0); BLOOD UREA NITROGEN 18 MG/DL (7-18); CALCIUM LEVEL 8.1 MG/DL (8.8-10.2); CARBON DIOXIDE LEVEL 23 MEQ/L (21-32); CHLORIDE LEVEL 109 MEQ/L (98-107); CK-MB VALUE MASS 8.1 NG/ML (<3.6); CPK CREATINE PHOSPHOKINASE 117 U/L (39-308); CREATININE FOR GFR 1.03 MG/DL (0.70-1.30); GLOMERULAR FILTRATION RATE > 60.0 (>49); GLUCOSE, FASTING 101 MG/DL (70-100); MB/CK RELATIVE INDEX 6.92 (< OR =4); NT-PRO BNP 13426 PG/ML (<125); POTASSIUM SERUM 4.8 MEQ/L (3.5-5.1); SODIUM LEVEL 139 MEQ/L (136-145); TOTAL PROTEIN 6.3 GM/DL (6.4-8.2); TROPONIN I 0.04 NG/ML (< 0.10)
[2020-11-14] MEDS ORDERED: FUROSEMIDE 40MG/4ML VIAL (J1940) IV ONE (08:00)
[2020-11-14] MEDS: IPRATROPIUM 0.5MG/ALBUTEROL 2.5MG INH SOL UD 3ML (DUONEB) NEB SCH ×4 (08:20→19:51)
[2020-11-14] MEDS ORDERED: IPRATROPIUM 0.5MG/ALBUTEROL 2.5MG INH SOL UD 3ML (DUONEB) NEB PRN (08:20)
[2020-11-14] MEDS ORDERED: IPRATROPIUM 0.5MG/ALBUTEROL 2.5MG INH SOL UD 3ML (DUONEB) As Ordered ONE (08:27)
[2020-11-14] MEDS ORDERED: LOSA100T8 PO (09:32)
--- NOTE | 2020-11-14 09:34 | REPVR ---
PROCEDURE INFORMATION: Exam: XR Chest Exam date and time: 11/14/2020 5:39 AM Age: 65 years old Clinical indication: Other: Dyspnea/cough TECHNIQUE: Imaging protocol: XR of the chest. Views: 1 view. COMPARISON: [facility] PORT[facility] CHEST X-RAY 08/06/2020 7:49 AM FINDINGS: Lungs: Emphysematous changes. Minimal patchy consolidation in the right lung base. Pleural spaces: Unremarkable. No pleural effusion. No pneumothorax. Heart/Mediastinum: Left atrial appendage clip. Paratracheal surgical clips. Bones/joints: Median sternotomy wires. Degenerative change of the spine. Bilateral glenohumeral joint DJD. Chronic rib fractures. IMPRESSION: Minimal patchy consolidation in the right lung base. Electronically signed by: Tere Demarco On 11/14/2020 09:33:46 AM
[2020-11-14] MEDS ORDERED: FURO40TA2 PO (09:50)
[2020-11-14] MEDS: methylPREDNISolone 125MG 2ML VIAL IV SCH ×3 (10:28→21:08)
[2020-11-14] MEDS: AZITHROMYCIN INJ 500 MG, VIAL MATE ADAPTER 1 EACH in NS 250 ML IV SCH (10:59)
--- NOTE | 2020-11-14 10:59 | ECGEPIP ---
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
[2020-11-14] MEDS ORDERED: IPRATROPIUM HFA INHALER 12.9 GRAMS (ATROVENT HFA) INH PRN (11:25)
--- NOTE | 2020-11-14 11:59 | HPEPDOC ---
General Date of Admission Nov 14, 2020 at 08:42 Date of Service: Nov 14, 2020 Chief Complaint The patient is a 65-year-old male admitted with a reason for visit of Acute Hypoxemic Respiratory Failure, Copd. Source: Patient, RN/MD History of Present Illness Mr. Ambriz is a 65-year-old male with COPD, hypothyroidism, and polysubstance abuse who presents with worsening dyspnea. When I saw patient in the ED, he was in respiratory distress and history taking was limited. He was sitting up and tripoding as well as gasping for air. He kept asking for his inhalers. He was able to tell me that he has been feeling short of breath for the past year. It has been progressively worsening, but today was the worst. He was not able to breathe. He was brought in on a nonrebreather. ED provider said his lungs were very tight, and after steroids and breathing treatments, he was wheezy. He was weaned down from nonrebreather to 4 L of oxygen. VBG was obtained and patient PCO2 was 45.5. Otherwise, patient has told me that he has not been taking his medications. Denies any fever or chills. Complains of chest tightness and abdominal pain related to shortness of breath. Patient will be admitted for COPD exacerbation. Home Medications Scheduled Atorvastatin Calcium (Atorvastatin Calcium) 40 Mg Tablet, 40 MG PO QHS, (Reported) Furosemide (Furosemide) 40 Mg Tablet, 40 MG PO DAILY, (Reported) Losartan/Hydrochlorothiazide (Losartan-Hctz 100-12.5 mg Tab) 1 Each Tablet, 1 TAB PO DAILY, (Reported) Ropinirole HCl (Ropinirole HCl) 0.5 Mg Tablet, 0.5 MG PO BID, (Reported) Scheduled PRN Albuterol Sulf (Albuterol Sulfate) 2.5 Mg/3 Ml Vial.neb, 2.5 MG INH TID PRN for SHORTNESS OF BREATH, (Reported) Albuterol Sulfate (Ventolin Hfa) 108 Mcg/Act Aer, 2 PUFFS INH Q4H PRN for SHORTNESS OF BREATH, (Reported) Ipratropium [place] (Atrovent Hfa) 12.9 Gm Hfa.aer.ad, 2 PUFF INH Q6H PRN for SHORTNESS OF BREATH, (Reported) Miscellaneous Medications [Patient Comment] , (Reported) MED LIST OBTAINED FROM EXT MED HX Allergies Coded Allergies: amoxicillin (Verified Allergy, Unknown, rash, 01/28/19) clavulanic acid (Verified Allergy, Unknown, rash, 01/28/19) pregabalin (Verified Adverse Reaction, Unknown, seizures, 01/28/19) warfarin (Verified Adverse Reaction, Unknown, bleeding, 01/28/19) Past Medical History Medical History 1. COPD 2. Hypertension 3. Pancreatic insufficiency 4. Low back pain 5. Bilateral shoulder pain 6. Hypothyroidism 7. Polysubstance abuse 8. Glaucoma 9. Cataracts 10. CVA status post carotid bypass 11. Questionable diabetes mellitus 12. Spermatocele 13. Pancreatic mass status post resection Surgical History 1. Cataract surgery 2. Carotid endarterectomy 3. Left subclavian artery bypass 4. Tonsillectomy 5. Partial pancreatectomy 6. Heart bypass 12/2019 Family History Father: from cancer Mother: of [place]. History of cancer Social History * Smoker: former Smoker Alcohol: sober Drugs: other (Methamphetamines) A-FIB/CHADSVASC A-FIB History Current/History of A-Fib/PAF?: No Review of Systems Constitutional: Denies: Chills, Fever Eyes: Denies: Vision change ENT: Denies: Sore Throat Skin: Denies: Rash Pulmonary: Reports: Dyspnea, Cough Cardiovascular: Reports: Other Symptoms (Chest tightness from dyspnea) Gastrointestinal: Reports: Nausea, Abdominal Pain (Mild abdominal pain) Genitourinary: Denies: Dysuria Hematologic: Denies: Bruising Neurological: Denies: Numbness Psych: Reports: Anxiety Physical Examination General Exam: Positive: Alert, Cooperative, Moderate Distress Eye Exam: Negative: Sclera icteric ENT Exam: Positive: Atraumatic Neck Exam: Positive: Supple Chest Exam: Positive: Wheezing Heart Exam: Positive: Tachycardic, Regular Rhythm Abdomen Exam: Positive: Normal bowel sounds, Soft Extremity Exam: Negative: Edema (Mild pitting) Neuro Exam: Positive: Normal Speech Psych Exam: Positive: Anxiety Vital Signs Vital Signs Date Time Temp Pulse Resp B/P (MAP) Pulse Ox O2 Delivery O2 Flow Rate FiO2 11/14/20 09:00 90 165/88 (113) 92 11/14/20 08:15 Nasal Cannula 4.0 11/14/20 06:13 24 11/14/20 05:29 97.6 Laboratory Data Labs 24H Laboratory Tests 2 11/14/20 05:38: POC pH (Misc Panel) 7.319L, POC Base Excess (Misc Panel) -3.0L, POC Saturated Percent O2 (Misc) 100H, POC pO2 (Misc Panel) 331.0H, POC pCO2 (Misc Panel) 45.5H, POC HCO3 (Misc Panel) 23.4, POC Total CO2 (Misc Panel) 25.0 11/14/20 06:42: Immature Granulocyte % (Auto) 0.4, Neutrophils (%) (Auto) 84.5H, Lymphocytes (%) (Auto) 7.1L, Monocytes (%) (Auto) 6.3, Eosinophils (%) (Auto) 1.3, Basophils (%) (Auto) 0.4, Neutrophils # (Auto) 9.2H, Lymphocytes # (Auto) 0.8L, Monocytes # (Auto) 0.7, Eosinophils # (Auto) 0.1, Basophils # (Auto) 0.0, Nucleated Red Blood Cells % (auto) 0.0, Anion Gap 7L, Glomerular Filtration Rate > 60.0, Lactic Acid Level 2.4*H, Calcium Level 8.1L, Total Bilirubin 0.4, Direct Bilirubin 0.2, Aspartate Amino Transf (AST/SGOT) 43H, Alanine Aminotransferase (ALT/SGPT) 55, Alkaline Phosphatase 216H, Total Creatine Kinase 117, Creatine Kinase MB 8.1H, Creatine Kinase MB Relative Index 6.92H, Troponin I 0.04, DT-Jyl-B-Type Natriuretic Peptide 59598R, Total Protein 6.3L, Albumin 2.7L, Albumin/Globulin Ratio 0.8, Thyroid Stimulating Hormone (TSH) 2.910 11/14/20 09:22: 11/14/20 11:04: CBC/BMP Laboratory Tests 11/14/20 06:42 Microbiology Microbiology 11/14/20 Blood Culture, Received Pending 11/14/20 Blood Culture, Received Pending 11/14/20 Respiratory Virus Panel (PCR) ([facility]) - Final, Complete Assessment/Plan Mr. Ambriz is a 65-year-old male with COPD, hypothyroidism, and polysubstance abuse who presents with worsening dyspnea. Patient is in COPD exacerbation, possibly secondary to medical noncompliance. We will give Solu-Medrol every 8 hours, IV ceftriaxone and IV azithromycin, and DuoNeb's scheduled and as needed. Plan / VTE VTE Prophylaxis Ordered?: Yes Plan Plan 1. Acute hypoxic respiratory failure On admission patient required nonrebreather, now weaned down to 4 L of oxygen Continue with IV steroids and breathing treatment 2. COPD exacerbation Possibly secondary to noncompliance Continue with IV steroids, empiric IV antibiotics, and breathing treatments Ceftriaxone and azithromycin day 1 We will order a procalcitonin tomorrow 3. Heart failure with reduced ejection fraction Echocardiogram 01/19/2020 demonstrated EF of 20% BNP elevated at 13,000 We will increase Lasix from 40 mg p.o. to 40 mg IV Pending clinical improvement Patient not on beta-luisito, will start metoprolol tartrate 4. CAD status post CABG Continue losartan and atorvastatin Patient not on aspirin or beta-luisito We will start aspirin and metoprolol tartrate 5. Hypertension Continue losartan and HCTZ Lopressor recently started 6. DVT prophylaxis Heparin Subq Disposition: pending clinical improvement and improvement in oxygen levels PUJA CASTELLANOS DO Nov 14, 2020 11:59
[2020-11-14] MEDS: hydroCHLOROthiazide 12.5 MG CAPSULE PO SCH (12:39)
[2020-11-14] MEDS: METOPROLOL TART 25 MG TABLET PO SCH ×2 (12:39→21:08)
[2020-11-14] MEDS: ASPIRIN 81MG ENTERIC TABLET PO SCH (12:39)
[2020-11-14] MEDS: LOSARTAN 50MG TABLET PO SCH (12:40)
[2020-11-14] MEDS: cefTRIAXone SOD 1 GM in D5W MINI-BAG PLUS 50 ML IV SCH (12:41)
[2020-11-14 13:30] VITALS: BP 126/59
[2020-11-14] MEDS: rOPINIRole 0.25 MG TAB(REQUIP) PO SCH ×2 (13:44→21:08)
[2020-11-14 16:00] VITALS: BP 139/65
[2020-11-14] MEDS ORDERED: NS 500 ML IV ONE (16:50)
[2020-11-14 17:30] VITALS: BP 132/59
[2020-11-14] MEDS: MAALOX 30 ML SUSP *UDC PO PRN (19:44)
[2020-11-14 20:00] VITALS: BP 129/62
[2020-11-14] MEDS ORDERED: HEPARIN SOD (PORCINE) 5000UNITS/ML 1ML VIAL/SYRINGE SQ SCH (21:00)
[2020-11-14] MEDS: ATORVASTATIN 20 MG TAB PO SCH (21:08)
[2020-11-15] VITALS: BP 130/62
[2020-11-15] MEDS: IPRATROPIUM 0.5MG/ALBUTEROL 2.5MG INH SOL UD 3ML (DUONEB) NEB SCH ×6 (00:15→20:26)
[2020-11-15 04:00] VITALS: BP 103/49
[2020-11-15 05:50] LABS: HEMATOCRIT 27.9 % (42.0-52.0); HEMOGLOBIN 7.7 g/dl (13.5-17.5); MEAN CORPUSCULAR HEMOGLOBIN 19.2 pg (27.0-33.0); MEAN CORPUSCULAR HGB CONC 27.6 g/dl (32.0-36.5); MEAN CORPUSCULAR VOLUME 69.6 fl (80.0-96.0); PLATELET COUNT, AUTOMATED 407 10^3/uL (150-450); RED BLOOD COUNT 4.01 10^6/uL (4.30-6.10); WHITE BLOOD COUNT 15.9 10^3/uL (4.0-10.0)
[2020-11-15] MEDS: methylPREDNISolone 125MG 2ML VIAL IV SCH ×3 (05:53→21:48)
[2020-11-15 06:24] LABS: BLOOD UREA NITROGEN 31 MG/DL (7-18); CALCIUM LEVEL 7.7 MG/DL (8.8-10.2); CARBON DIOXIDE LEVEL 27 MEQ/L (21-32); CHLORIDE LEVEL 104 MEQ/L (98-107); CREATININE FOR GFR 1.05 MG/DL (0.70-1.30); GLOMERULAR FILTRATION RATE > 60.0 (>49); GLUCOSE, FASTING 166 MG/DL (70-100); POTASSIUM SERUM 4.5 MEQ/L (3.5-5.1); SODIUM LEVEL 139 MEQ/L (136-145)
[2020-11-15 08:00] VITALS: BP 138/68
[2020-11-15] MEDS ORDERED: FUROSEMIDE 40MG/4ML VIAL (J1940) IV SCH (09:00)
[2020-11-15] MEDS: rOPINIRole 0.25 MG TAB(REQUIP) PO SCH ×2 (09:01→21:49)
[2020-11-15] MEDS: hydroCHLOROthiazide 12.5 MG CAPSULE PO SCH (09:02)
[2020-11-15] MEDS: ASPIRIN 81MG ENTERIC TABLET PO SCH (09:02)
[2020-11-15] MEDS: LOSARTAN 50MG TABLET PO SCH (09:02)
[2020-11-15] MEDS: METOPROLOL TART 25 MG TABLET PO SCH ×2 (09:03→21:51)
[2020-11-15] MEDS: AZITHROMYCIN INJ 500 MG, VIAL MATE ADAPTER 1 EACH in NS 250 ML IV SCH (09:03)
[2020-11-15] MEDS: MAALOX 30 ML SUSP *UDC PO PRN ×2 (09:04→17:13)
[2020-11-15] MEDS: cefTRIAXone SOD 1 GM in D5W MINI-BAG PLUS 50 ML IV SCH (10:20)
--- NOTE | 2020-11-15 10:50 | IPNPDOC ---
Subjective Date Seen The patient was seen on 11/15/20. Subjective Chief Complaint/HPI Mr. Ambriz is a 65-year-old male with COPD, hypothyroidism, and polysubstance abuse who presents with worsening dyspnea. This morning, he appears more comfortable. No longer tripoding. Mild wheezing still present. Otherwise, patient still reports dyspnea. Objective Physical Examination General Exam: Positive: Alert, Cooperative Eye Exam: Negative: Sclera icteric ENT Exam: Positive: Atraumatic Neck Exam: Positive: Supple Chest Exam: Positive: Wheezing Heart Exam: Positive: Rate Normal, Regular Rhythm Abdomen Exam: Positive: Normal bowel sounds, Soft Extremity Exam: Negative: Edema (Mild pitting) Neuro Exam: Positive: Normal Speech Psych Exam: Positive: Anxiety Assessment /Plan Assessment Mr. Ambriz is a 65-year-old male with COPD, hypothyroidism, and polysubstance abuse who presents with worsening dyspnea. Patient is in COPD exacerbation, possibly secondary to medical noncompliance. We will give Solu-Medrol every 8 hours, IV ceftriaxone and IV azithromycin, and DuoNeb's scheduled and as needed. Plan/VTE VTE Prophylaxis Ordered?: Yes Plan 1. Acute hypoxic respiratory failure On admission patient required nonrebreather, now weaned down to 4 L of oxygen Continue with IV steroids and breathing treatment 2. COPD exacerbation Possibly secondary to noncompliance Continue with IV steroids, empiric IV antibiotics, and breathing treatments -Procalcitonin level negative at 0.07. Will discontinue ceftriaxone Azithromycin day 2 3. Heart failure with reduced ejection fraction Echocardiogram 01/19/2020 demonstrated EF of 20% BNP elevated at 13,000 -Lasix held due to low BP Pending clinical improvement Patient not on beta-luisito, will start metoprolol tartrate 4. CAD status post CABG Continue losartan and atorvastatin Patient not on aspirin or beta-luisito We will start aspirin and metoprolol tartrate 5. Hypertension Continue losartan and HCTZ Lopressor recently started 6. Microcytic anemia -Hemoglobin dropped to 7.7 from 9.1 -Will repeat CBC with reticulocyte count and order iron studies. Will also order for occult stool 7. DVT prophylaxis Heparin Subq discontinued due to rapid drop in H&H -Ordered for SCD and TEDs Disposition: Pending clinical improvement and improvement in oxygen levels VS, I&O, 24H, Fishbone Vital Signs/I&O Vital Signs Date Time Temp Pulse Resp B/P (MAP) Pulse Ox O2 Delivery O2 Flow Rate FiO2 11/15/20 09:03 92 11/15/20 09:02 103/49 11/15/20 08:00 97.8 17 97 Nasal Cannula 2.0 I&O- Last 24 Hours up to 6 AM 11/15/20 05:59 Intake Total 2725 ml Output Total 1850 ml Balance 875 ml Laboratory Data 24H LABS Laboratory Tests 2 11/14/20 11:04: Lactic Acid Followup at 4 Hours 2.1*H 11/14/20 15:23: Lactic Acid Level 3.8*H 11/14/20 19:58: Lactic Acid Followup at 4 Hours 4.3*H 11/15/20 05:13: Nucleated Red Blood Cells % (auto) 0.0, Anion Gap 8, Glomerular Filtration Rate > 60.0, Calcium Level 7.7L, Procalcitonin 0.07 CBC/BMP Laboratory Tests 11/15/20 05:13 Microbiology Microbiology 11/14/20 Blood Culture - Preliminary, Resulted No growth after 24 hours . All specim... 11/14/20 Blood Culture - Preliminary, Resulted No growth after 24 hours . All specim... 11/14/20 Respiratory Virus Panel (PCR) ([facility]) - Final, Complete PUJA CASTELLANOS DO Nov 15, 2020 10:50
--- NOTE | 2020-11-15 11:08 | REP ---
INDICATION: abdominal pain. COMPARISON: [facility] 02/20/2017, CT 01/18/2018. TECHNIQUE: AP supine FINDINGS: The gas pattern is nonspecific. There is scattered gas in the right, transverse colon and the splenic flexure. Only small amounts of gas in the distal of bowel loops and the sigmoid. Some left upper quadrant surgical clips noted. Do not see gross evidence for obstruction or mass. There is heavy vascular calcification in the iliac and femoral arteries. Some bone island over the left iliac wing unchanged. Some degenerative changes in the lower lumbar spine and mild hip joint space narrowing symmetric and unchanged. No definite stones over the renal fossa, expected course of the ureters or in the true pelvis. IMPRESSION: Nonspecific gas pattern without definite obstruction, mass or abnormal calcification over urinary tract region. Heavy vascular calcification iliac and femoral arteries. Some degenerative changes spine and hips. Stable appearance <Electronically signed by Shahram Blair > 11/15/20 [id number]
[2020-11-15] MEDS ORDERED: MORPHINE 2 MG/ML 1ML VIAL (J2270) IV ONE (11:15)
[2020-11-15] MEDS ORDERED: NS 1,000 ML IV SCH (11:20)
[2020-11-15] MEDS ORDERED: ISOVUE-370 76% 100ML VIAL As Ordered ONE (11:35)
[2020-11-15 11:36] LABS: HEMOGLOBIN 8.8 g/dl (13.5-17.5); MEAN CORPUSCULAR HGB CONC 28.4 g/dl (32.0-36.5); MEAN CORPUSCULAR VOLUME 70.5 fl (80.0-96.0); PLATELET COUNT, AUTOMATED 492 10^3/uL (150-450); WHITE BLOOD COUNT 25.4 10^3/uL (4.0-10.0)
[2020-11-15 11:40] LABS: FERRITIN 10 NG/ML (26-388); IRON (FE) 15 UG/DL (65-175); LDH LACTATE DEHYDROGENASE 177 U/L (87-241); PERCENT SATURATION 5.3 % (19.7-50.0); TOTAL IRON BINDING CAPACITY 282 UG/DL (250-450)
[2020-11-15 12:00] VITALS: BP 130/66
[2020-11-15] MEDS ORDERED: GI COCKTAIL 50ML BTL(HYOSCYAMINE/MAALOX/LIDOCAINE VISCOUS)(1:3:1) PO ONE ×2 (13:00→20:20)
[2020-11-15] MEDS ORDERED: ASCORBIC ACID 500 MG TAB PO SCH (13:30)
[2020-11-15] MEDS ORDERED: FERROUS SULFATE 325MG TAB PO SCH (13:30)
[2020-11-15] MEDS: GASTROGRAFIN SOLUTION 30ML PO SCH ×2 (13:51→14:20)
--- NOTE | 2020-11-15 16:48 | REP ---
INDICATION: abdominal pain, pain out of proportion. COMPARISON: [facility] 11/15/2020, CT 01/18/2018 TECHNIQUE: Oral Gastrografin mixture per our protocol for 2 doses and bolus of 100 mL Isovue 370 given scanning through the abdomen and pelvis with coronal and sagittal reconstructions. FINDINGS: CT abdomen/pelvis: There are bilateral pleural effusions now present. Slightly larger right than left. Some dependent or compressive atelectatic change deep sulcus right lower lobe less on the left. Cylindrical bronchiectatic change in both lower lobes and emphysematous change. Heart mildly prominent small hiatal hernia. No pericardial thickening or effusion. Stomach is distended with retained oral contrast and recent meal remnants. Third portion of the duodenum is compressed as it crosses anterior to the aorta deep to the SMA. Third portion proximal 4th portion the duodenum and jejunum are distended. Loop measuring up to 5.5 cm is noted, see image 50. Oral contrast passes through these proximal jejunal loops to the mid jejunum. The distal jejunum and ileum are more normal in caliber. The colon shows stool in fluid from the cecum and is tortuous and ectatic. The right colon and hepatic flexure are prominent. The transverse and proximal left colon are also mildly prominent. The distal left colon gradually tapers into the proximal sigmoid but this is a redundant sigmoid extending into the right upper quadrant. Some small bowel loops are thick walled. The lung window review shows no sign of perforation, free air or pneumatosis. I do not see any definite ascites. Liver is not enlarged. No focal hepatic mass or biliary dilatation. I do not see splenomegaly on today's study. The gallbladder shows a some mild wall thickening or pericholecystic fluid without calcified stone or mass. Pancreas shows some fullness of the pancreatic head up to 4.1 cm similar to the previous study with mildly prominent pancreatic and common bile ducts. These is all unchanged. No gross atrophy, mass in the pancreas or peripancreatic fluid collections. Small nodes noted in the retroperitoneum, peripancreatic area and mesentery as on previous studies. Extensive calcified plaque scattered in the aorta and branches. Takeoff of the celiac axis is stenotic due to extensive plaque. There is plaque throughout its proximal course as well as the SMA and all of their branches representing significant atherosclerotic disease. The renal arteries also show atherosclerotic plaque at their origins and there are bilateral zones of ischemia in the periphery of the kidneys as well as a few scattered cysts. This represents a pattern of poor enhancement more suggestive of a developing infarcts than pyelonephritis. There is no hydronephrosis or hydroureter. No definite solid renal mass. Nonobstructing calculi or vascular calcifications upper poles of each kidney. No definite ureteral dilatation or stone. Bladder well distended without stone, wall thickening or mass. Mild indentation of the bladder base by prostate. Small amount of residual fluid in the upper left inguinal canal compared to the previous CT, none on the right side. No bowel herniation. No ventral hernia or inguinal pathologic sized adenopathy. No pelvic adenopathy. Bone windows show degenerative disc changes greatest at L5-S1 without acute compression deformity or destructive lesion. Facet arthropathy lower lumbar spine. Visualized ribs unremarkable. The bony sacrum, pelvis and hips show some degenerative changes without destructive lesions or fractures. IMPRESSION: 1. Heavy vascular calcifications aorta and major branches with particular stenosis of the origin of the celiac axis and scattered but significant plaques along the SMA. 2. Bilateral renal artery calcifications there are bilateral fairly well-defined peripheral zones of non enhancement in the renal cortex more suggestive of a developing renal infarcts than pyelonephritis. No hydronephrosis. No hydroureter. Vascular calcifications and a few nonobstructing calculi suggested within the kidneys. No ureteral or bladder stone. 3. Stomach distended and there is narrowing of the 3rd portion of the duodenum as it crosses anterior to the aorta, deep to the SMA. The distal 3rd and 4th portion of the duodenum and proximal jejunum loops are dilated up to 5.4 cm with oral contrast and other loops to mid jejunum are less dilated but prominent. Mid to distal jejunum and ileum more normal caliber. This may reflect a focal ileus or partial small bowel obstruction. There is a gradual decrease in caliber of the jejunum along the left lateral abdominal wall near the iliac crest, no abrupt caliber change. 4. The colon is generally distended with stool and fluid through much of its course and an elongated sigmoid is evident. No oral contrast reaches it.: It is difficult to separate some of these bowel loops distally. No gross mass but technically challenging evaluation. 5. Fullness of the pancreatic head similar to studies in 2018 and earlier with some mild prominence of the common duct and pancreatic duct but grossly unchanged. Mesenteric and peripancreatic nodes are again seen. 6. Gallbladder wall with some pericholecystic fluid suggested or wall thickening. No calcified stones or mass. Liver and spleen not enlarged and without focal lesion. The spleen is decreased in size since 2018. No ascites on today's exam. <Electronically signed by Shahram Blair > 11/15/20 [id number]
[2020-11-15] MEDS ORDERED: CALCIUM CARBONATE 500 MG CHEW U/D PO PRN (19:25)
[2020-11-15 20:00] VITALS: BP 149/71
[2020-11-15 21:27] LABS: BASO % 0.1 % (0.0-1.0); HEMATOCRIT 29.1 % (42.0-52.0); HEMOGLOBIN 8.2 g/dl (13.5-17.5); LYMPH # 0.5 10^3/uL (1.5-5.0); LYMPH % 1.9 % (24.0-44.0); MEAN CORPUSCULAR HEMOGLOBIN 19.6 pg (27.0-33.0); MEAN CORPUSCULAR HGB CONC 28.2 g/dl (32.0-36.5); MEAN CORPUSCULAR VOLUME 69.6 fl (80.0-96.0); MONO # 0.2 10^3/uL (0.0-0.8); MONO % 0.9 % (2.0-8.0); NEUTROPHILS # 25.9 10^3/uL (1.5-8.5); NEUTROPHILS % 96.3 % (36.0-66.0); PLATELET COUNT, AUTOMATED 548 10^3/uL (150-450); RED BLOOD COUNT 4.18 10^6/uL (4.30-6.10); WHITE BLOOD COUNT 26.9 10^3/uL (4.0-10.0)
[2020-11-15 21:39] LABS: INR 1.07; PARTIAL THROMBOPLASTIN TIME 28.6 SECONDS (24.2-38.5); PROTHROMBIN TIME 14.1 SECONDS (12.5-14.3)
[2020-11-15] MEDS: metroNIDAZOLE 500 MG in IV 1 EA IV SCH (21:48)
[2020-11-15] MEDS: ATORVASTATIN 20 MG TAB PO SCH (21:49)
[2020-11-15 21:55] LABS: ALBUMIN 2.4 GM/DL (3.2-5.2); ALT/SGPT 63 U/L (12-78); BILIRUBIN,TOTAL 0.2 MG/DL (0.2-1.0); BLOOD UREA NITROGEN 28 MG/DL (7-18); CALCIUM LEVEL 8.3 MG/DL (8.8-10.2); CARBON DIOXIDE LEVEL 27 MEQ/L (21-32); CHLORIDE LEVEL 101 MEQ/L (98-107); CREATININE FOR GFR 1.09 MG/DL (0.70-1.30); GLOMERULAR FILTRATION RATE > 60.0 (>49); GLUCOSE, FASTING 177 MG/DL (70-100); POTASSIUM SERUM 4.3 MEQ/L (3.5-5.1); SODIUM LEVEL 138 MEQ/L (136-145); TOTAL PROTEIN 6.2 GM/DL (6.4-8.2)
--- NOTE | 2020-11-15 23:30 | REPVR ---
PROCEDURE INFORMATION: Exam: XR Chest Exam date and time: 11/15/2020 10:48 PM Age: 65 years old Clinical indication: Device placement; Ng tube; Additional info: Ng tube placement check TECHNIQUE: Imaging protocol: XR of the chest. Views: 1 view. COMPARISON: CR PORTABLE CHEST X-RAY 11/14/2020 5:24 AM FINDINGS: Tubes, catheters and devices: Left atrial appendage exclusion device. NG tube extending into the gastric fundus since the prior study. Lungs: Coarse interstitium which is similar to the prior study. There are no interval infiltrates. Pleural spaces: Unremarkable. No pleural effusion. No pneumothorax. Heart/Mediastinum: Borderline cardiomegaly. Bones/joints: Status post sternotomy. Degenerative change of the left shoulder which is similar. IMPRESSION: 1. NG tube placement with the tip in the gastric fundus since 11/14/2020. 2. Otherwise stable chest. Electronically signed by: Kirk Mott On 11/15/2020 23:29:50 PM
[2020-11-16] VITALS: BP 130/60
[2020-11-16] MEDS: NS 1,000 ML IV SCH ×3 (01:48→20:23)
[2020-11-16] MEDS: IPRATROPIUM 0.5MG/ALBUTEROL 2.5MG INH SOL UD 3ML (DUONEB) NEB SCH ×8 (03:37→22:58)
[2020-11-16 04:00] VITALS: BP 135/63
[2020-11-16] MEDS: metroNIDAZOLE 500 MG in IV 1 EA IV SCH ×3 (04:11→20:20)
[2020-11-16 05:28] LABS: HEMATOCRIT 26.3 % (42.0-52.0); HEMOGLOBIN 7.4 g/dl (13.5-17.5); MEAN CORPUSCULAR HEMOGLOBIN 19.8 pg (27.0-33.0); MEAN CORPUSCULAR HGB CONC 28.1 g/dl (32.0-36.5); MEAN CORPUSCULAR VOLUME 70.3 fl (80.0-96.0); RED BLOOD COUNT 3.74 10^6/uL (4.30-6.10); WHITE BLOOD COUNT 23.6 10^3/uL (4.0-10.0)
[2020-11-16 05:34] LABS: PLATELET COUNT, AUTOMATED 409 10^3/uL (150-450)
[2020-11-16 05:50] LABS: BLOOD UREA NITROGEN 30 MG/DL (7-18); CALCIUM LEVEL 7.9 MG/DL (8.8-10.2); CARBON DIOXIDE LEVEL 29 MEQ/L (21-32); CHLORIDE LEVEL 105 MEQ/L (98-107); CREATININE FOR GFR 1.02 MG/DL (0.70-1.30); GLOMERULAR FILTRATION RATE > 60.0 (>49); GLUCOSE, FASTING 143 MG/DL (70-100); POTASSIUM SERUM 4.4 MEQ/L (3.5-5.1); SODIUM LEVEL 139 MEQ/L (136-145)
[2020-11-16] MEDS: methylPREDNISolone 125MG 2ML VIAL IV SCH ×2 (06:06→16:44)
[2020-11-16 08:00] VITALS: BP 136/63
[2020-11-16] MEDS: rOPINIRole 0.25 MG TAB(REQUIP) PO SCH ×2 (08:58→20:22)
[2020-11-16] MEDS: AZITHROMYCIN INJ 500 MG, VIAL MATE ADAPTER 1 EACH in NS 250 ML IV SCH (08:59)
[2020-11-16] MEDS: METOPROLOL TART 25 MG TABLET PO SCH ×2 (09:03→20:23)
[2020-11-16] MEDS: LOSARTAN 50MG TABLET PO SCH (09:03)
--- NOTE | 2020-11-16 09:03 | IPNPDOC ---
Subjective Date Seen The patient was seen on 11/16/20. Subjective Chief Complaint/HPI Mr. Ambriz is a 65-year-old male with COPD, hypothyroidism, and polysubstance abuse who presents with worsening dyspnea. Last night, patient was made NPO and NGT was initially inserted. Patient could not tolerate NGT and it was removed. This morning, he appears fatigued and tired. Abdomen is not as tense as yesterday. Objective Physical Examination General Exam: Positive: Alert, Cooperative Eye Exam: Negative: Sclera icteric ENT Exam: Positive: Atraumatic Neck Exam: Positive: Supple Chest Exam: Positive: Wheezing Heart Exam: Positive: Rate Normal, Regular Rhythm Abdomen Exam: Positive: Normal bowel sounds, Soft Extremity Exam: Negative: Edema (Mild pitting) Neuro Exam: Positive: Normal Speech Psych Exam: Positive: Anxiety Assessment /Plan Assessment Mr. Ambriz is a 65-year-old male with COPD, hypothyroidism, and polysubstance abuse who presents with worsening dyspnea. Patient is in COPD exacerbation, possibly secondary to medical noncompliance. We will give parental steroids, IV antibiotics, and DuoNeb's scheduled and as needed. On 11/15/20, patient started to develop severe abdominal pain. Lactic acid was elevated. CT angio abd/pelvis demonstrated stenosis of SMA and ileus vs partial SBO. Consulted general surgery, recommendations appreciated. At this time, NPO. I will discontinue Iron, Vitamin C, aspirin (in case if surgery is needed), a torvastatin, HCTZ, and calcium carbonate as they are not essential medications at this time. These will need to be restarted at another time. Plan/VTE VTE Prophylaxis Ordered?: Yes Plan 1. Acute hypoxic respiratory failure On admission patient required nonrebreather, now weaned down to 1 L of oxygen Continue with breathing treatment -Weaned down IV solumedrol from q8h to q12h 2. COPD exacerbation Possibly secondary to noncompliance Continue with IV steroids, empiric IV antibiotics, and breathing treatments -Procalcitonin level negative at 0.07. Azithromycin day 3 3. Ileus vs partial SBO -General surgery consulted, recommendations appreciate -NPO -Patient has PCN allergy. Ceftriaxone and Flagyl day 1 4. Heart failure with reduced ejection fraction Echocardiogram 01/19/2020 demonstrated EF of 20% BNP elevated at 13,000 -Lasix held due to low BP Pending clinical improvement Patient not on beta-luisito, will start metoprolol tartrate 5. CAD status post CABG Continue losartan Patient not on aspirin or beta-luisito We will start metoprolol tartrate -Hold aspirin in case of surgery -Hold atorvastatin for NPO 6. Hypertension Continue losartan Lopressor recently started -Hold HCTZ 7. DVT prophylaxis Heparin Subq discontinued due to drop in H&H -Ordered for SCD and TEDs Disposition: Pending clinical improvement in ileus and improvement in respiratory status. VS, I&O, 24H, Fishbone Vital Signs/I&O Vital Signs Date Time Temp Pulse Resp B/P (MAP) Pulse Ox O2 Delivery O2 Flow Rate FiO2 11/16/20 04:00 96.7 88 22 135/63 (87) 97 Nasal Cannula 1.0 I&O- Last 24 Hours up to 6 AM 11/16/20 05:59 Intake Total 1445 ml Output Total 300 ml Balance 1145 ml Laboratory Data 24H LABS Laboratory Tests 2 11/15/20 11:17: Reticulocyte # (auto) 93.7H, Nucleated Red Blood Cells % (auto) 0.0, Percent Reticulocyte Count 1.9H, Reticulocyte Hemoglobin Equivalent 17.5L 11/15/20 11:23: Troponin I 0.02# 11/15/20 21:01: Nucleated Red Blood Cells % (auto) 0.0, Immature Granulocyte % (Auto) 0.8, Neutrophils (%) (Auto) 96.3H, Lymphocytes (%) (Auto) 1.9L, Monocytes (%) (Auto) 0.9L, Eosinophils (%) (Auto) 0.0, Basophils (%) (Auto) 0.1, Neutrophils # (Auto) 25.9H, Lymphocytes # (Auto) 0.5L, Monocytes # (Auto) 0.2, Eosinophils # (Auto) 0.0, Basophils # (Auto) 0.0, Prothrombin Time 14.1H, Prothromb Time International Ratio 1.07, Activated Partial Thromboplast Time 28.6, Anion Gap 10, Glomerular Filtration Rate > 60.0, Lactic Acid Level 3.5*H, Calcium Level 8.3L, Total Bilirubin 0.2, Aspartate Amino Transf (AST/SGOT) 37, Alanine Aminotransferase (ALT/SGPT) 63, Alkaline Phosphatase 195H, Total Protein 6.2L, Albumin 2.4L, Albumin/Globulin Ratio 0.6 11/16/20 01:36: Lactic Acid Followup at 4 Hours 2.4*H 11/16/20 05:10: Nucleated Red Blood Cells % (auto) 0.0, Anion Gap 5L, Glomerular Filtration Rate > 60.0, Calcium Level 7.9L CBC/BMP Laboratory Tests 11/15/20 11:17 11/15/20 21:01 11/16/20 05:10 Microbiology Microbiology 11/14/20 Blood Culture - Preliminary, Resulted No Growth after 48 hours. All Specime... 11/14/20 Blood Culture - Preliminary, Resulted No Growth after 48 hours. All Specime... 11/14/20 Respiratory Virus Panel (PCR) ([facility]) - Final, Complete PUJA CASTELLANOS DO Nov 16, 2020 09:03
[2020-11-16] MEDS: cefTRIAXone SOD 1 GM in D5W MINI-BAG PLUS 50 ML IV SCH (10:25)
[2020-11-16 12:00] VITALS: BP 110/53
[2020-11-16 12:31] LABS: HEMATOCRIT 25.4 % (42.0-52.0); HEMOGLOBIN 7.2 g/dl (13.5-17.5); MEAN CORPUSCULAR HEMOGLOBIN 20.1 pg (27.0-33.0); MEAN CORPUSCULAR HGB CONC 28.3 g/dl (32.0-36.5); MEAN CORPUSCULAR VOLUME 70.9 fl (80.0-96.0); PLATELET COUNT, AUTOMATED 454 10^3/uL (150-450); RED BLOOD COUNT 3.58 10^6/uL (4.30-6.10); WHITE BLOOD COUNT 28.5 10^3/uL (4.0-10.0)
[2020-11-16 16:00] VITALS: BP 131/59
[2020-11-16 20:00] VITALS: BP 123/58
[2020-11-16] MEDS: DOCUSATE SODIUM 100MG CAPSULE PO SCH (20:22)
[2020-11-16] MEDS: SENNA 8.6 MG TAB (SENOKOT) PO SCH (20:22)
[2020-11-16] MEDS ORDERED: DOCUSATE SODIUM 100MG CAPSULE PO SCH (21:00)
--- NOTE | 2020-11-16 23:34 | ECHO ---
ECHOCARDIOGRAM DATE OF PROCEDURE: 11/16/2020 Age: 65 Gender: Male Height: 61 inches Weight: 168 pounds REFERRING PHYSICIAN: Dr. Mark Calle INDICATION: Heart failure unspecified 2D MEASUREMENTS: Aortic annulus 2.0 cm Ventricular septum 6.0 cm Left ventricle systolic 5.5 cm Ventricular septum 0.70 cm Posterior wall 0.94 cm Aortic root 3.4 cm Left atrium 4.6 cm Inferior vena cava more than 50$ respiratory variation Doppler Measurements: No aortic regurgitation No aortic stenosis LVOT velocity 86.3 cm/s LVOT VTI 16.1 cm Moderate mitral regurgitation No mitral stenosis Mitral E velocity 112 cm/s Mitral A velocity 38.3 cm/s Mitral deceleration time 145 m/sec Mild tricuspid regurgitation Estimated right ventricle systolic pressure 46-51 mmHg Estimated right pressure 5-10 mmHg No pulmonic regurgitation MITRAL ANNULAR TISSUE DOPPLER: E prime lateral 7.7 cm/s E prime septal 5.4 cm/s. DESCRIPTION: Rhythm was sinus. This was a moderately technically difficult echocardiogram. No pericardial effusion. This was a 2D, M-mode, color flow Doppler and pulsed wave Doppler examination including mitral annular tissue Doppler. CONCLUSIONS: 1. Mildly dilated left ventricle at end-diastole. Normal LV wall thickness. Moderate to moderately-severe global LV hypokinesis of left ventricle. Severe reduction overall LV systolic function. LVEF of 32% (3D). Indeterminate assessment of LV diastolic function due to presence of moderate mitral regurgitation. No LV thrombus. 2. Mild left atrial dilatation. 3. Moderate aortic valve sclerosis of a 3-cuspid aortic valve. No aortic stenosis or regurgitation. 4. Moderate mitral annular calcification. Moderate mitral regurgitation. No mitral stenosis. 5. Suggestive of moderate elevation of estimated right ventricle systolic pressure. Mild tricuspid regurgitation. Normal right ventricle size and systolic function. 6. No pericardial effusion. MTDD
[2020-11-17] VITALS (10 sets, daily range): BP systolic 100–137; BP diastolic 51–66
[2020-11-17] MEDS ORDERED: KETOROLAC 30 MG/ML 1ML VIAL IV ONE (00:25)
[2020-11-17] MEDS: MAALOX 30 ML SUSP *UDC PO PRN ×3 (00:30→18:38)
[2020-11-17] MEDS: IPRATROPIUM 0.5MG/ALBUTEROL 2.5MG INH SOL UD 3ML (DUONEB) NEB SCH ×5 (03:46→19:45)
[2020-11-17] MEDS: methylPREDNISolone 125MG 2ML VIAL IV SCH ×2 (05:50→18:11)
[2020-11-17] MEDS: metroNIDAZOLE 500 MG in IV 1 EA IV SCH ×3 (05:51→20:58)
[2020-11-17 05:55] LABS: HEMATOCRIT 24.1 % (42.0-52.0); MEAN CORPUSCULAR HEMOGLOBIN 19.7 pg (27.0-33.0); MEAN CORPUSCULAR HGB CONC 28.2 g/dl (32.0-36.5); MEAN CORPUSCULAR VOLUME 69.7 fl (80.0-96.0); PLATELET COUNT, AUTOMATED 349 10^3/uL (150-450); RED BLOOD COUNT 3.46 10^6/uL (4.30-6.10); WHITE BLOOD COUNT 23.2 10^3/uL (4.0-10.0)
[2020-11-17 05:57] LABS: HEMOGLOBIN 6.8 g/dl (13.5-17.5)
[2020-11-17 06:12] LABS: BLOOD UREA NITROGEN 34 MG/DL (7-18); CALCIUM LEVEL 7.8 MG/DL (8.8-10.2); CARBON DIOXIDE LEVEL 29 MEQ/L (21-32); CHLORIDE LEVEL 105 MEQ/L (98-107); CREATININE FOR GFR 1.04 MG/DL (0.70-1.30); GLOMERULAR FILTRATION RATE > 60.0 (>49); GLUCOSE, FASTING 139 MG/DL (70-100); POTASSIUM SERUM 4.2 MEQ/L (3.5-5.1); SODIUM LEVEL 139 MEQ/L (136-145)
[2020-11-17] MEDS: rOPINIRole 0.25 MG TAB(REQUIP) PO SCH ×2 (08:15→21:06)
[2020-11-17] MEDS: AZITHROMYCIN INJ 500 MG, VIAL MATE ADAPTER 1 EACH in NS 250 ML IV SCH (08:15)
[2020-11-17] MEDS: DOCUSATE SODIUM 100MG CAPSULE PO SCH ×2 (08:15→20:58)
[2020-11-17] MEDS: LOSARTAN 50MG TABLET PO SCH (09:00)
[2020-11-17] MEDS: METOPROLOL TART 25 MG TABLET PO SCH ×2 (09:00→20:59)
[2020-11-17] MEDS: PERCOCET 5MG/325MG TAB PO PRN ×2 (09:45→21:11)
[2020-11-17] MEDS: cefTRIAXone SOD 1 GM in D5W MINI-BAG PLUS 50 ML IV SCH (09:46)
[2020-11-17] MEDS: NS 1,000 ML IV SCH (09:46)
[2020-11-17 10:11] LABS: FOLATE 6.4 NG/ML (>5.4)
--- NOTE | 2020-11-17 13:31 | IPNPDOC ---
Text Note Date of Service The patient was seen on 11/17/20. NOTE Subjective: Patient is a 65-year-old male with COPD, hypothyroidism, and poly substance abuse who presented with worsening dyspnea. Patient was made n.p.o. nasogastric tube was initially inserted but were removed with the patient not being able to tolerate it. Patient was having some tense abdomen and was thought to have an ileus. Patient is feeling hungry today really wants to eat. Patient says his abdomen is feeling much better and he has no pain in his abdomen. Review of systems: General: Patient denies fevers HEENT: Patient denies headaches Cardiovascular: Patient denies chest pain Respiratory: Patient denies shortness of breath, cough GI: Patient denies abdominal pain, nausea, vomiting, diarrhea : Patient denies increased frequency or pain with urination Extremities: Patient denies swelling or pain in extremities Neurological: Patient denies numbness or tingling in legs Physical exam: Vitals: See below General: Alert and oriented male patient who was sitting in the chair when I walked in the room. Patient not appear to be in any acute distress. HEENT: Normocephalic, atraumatic, moist mucous membranes. Neck: No lymphadenopathy or thyromegaly Cardiac: Regular rate and rhythm, no murmurs, normal S1, normal S2 Pulm: Clear to auscultation bilaterally. No wheezes, rhonchi, rales Abd: Nondistended, nontender to palpation, normal bowel sounds Ext: No edema bilateral lower extremities Labs: See below Imaging: No new imaging has been performed Assessment/plan: 65-year-old male with COPD, hypothyroid, and polysubstance abuse who presents with worsening dyspnea. Patient is in COPD exacerbation possibly secondary to medical noncompliance. Patient developed severe abdominal pain and CT angio of the abdomen pelvis demonstrated stenosis of the SMA and ileus versus partial small bowel obstruction. 1. Acute hypoxic respiratory failure patient required nonrebreather and is now on 1 L of oxygen. Continue weaning the patient of oxygen as he is not on home oxygen. 2. COPD exacerbation. Secondary to noncompliance. Continue IV steroids, em piric IV antibiotics and breathing treatments. Patient is on azithromycin day 4. 3. Ileus versus partial small bowel obstruction. General surgery consulted and recommendations appreciated. Patient is less distended and we will advance the diet to clear liquids. Patient is on ceftriaxone and Flagyl day 2. 4. Anemia. Patient's hemoglobin was 6.8 overnight and the patient was ordered to give blood. Patient was consented and patient will receive 2 units and will recheck in the morning. 5. Heart failure with reduced ejection fraction. Echocardiogram on 01/19/2020 demonstrated EF of 20%. We will continue to monitor the patient he is currently on beta-luisito therapy. 6. Coronary artery disease status post CABG. Continue losartan. Aspirin is held in case of surgery. 7. Hypertension. Continue losartan and Lopressor. DVT Prophylaxis: Sequential compression devices and teds Disposition: Pending clinical improvement and advancement of diet VS,Fishbone, I+O VS, Fishbone, I+O Laboratory Tests 11/17/20 05:35 Vital Signs Date Time Temp Pulse Resp B/P (MAP) Pulse Ox O2 Delivery O2 Flow Rate FiO2 11/17/20 11:55 97.9 88 17 100/51 100 Nasal Cannula 2.0 I&O- Last 24 Hours up to 6 AM 11/17/20 05:59 Intake Total 540 ml Balance 540 ml SUJIT ORDOÑEZ DO Nov 17, 2020 13:31
--- NOTE | 2020-11-17 20:49 | IPN ---
PROGRESS NOTE DATE: 11/16/2020 SUBJECTIVE: The patient actually has made some progress overnight and looks better this morning, and overall he was kept n.p.o., and had an NG tube placed, however he removed it several times with coughing etc., so we kept it out overnight and he is actually looking better this morning, having less complaints. He has had some diarrheal bowel movements. His abdomen is softly distended, tympanitic, and he at this point is distended enough, I feel that he should stay n.p.o. for right now. He really does not have a tender abdomen. No guarding, no rebound, no peritoneal signs are appreciated. IMPRESSION AND PLAN: The patient has some heavy calcifications and that is consistent with some arterial insufficiency and maybe even he has some baseline decreased flow to his gut, but his white count elevation is most likely from his steroids and at this point other possibilities obviously include infectious colitis as another possibility and his antibiotic coverage was extended out yesterday. But I would keep him n.p.o. and I anticipate since he is not having progressive abdominal pain and distention, that he will be able to be supported throughout this issue and probably start him on some clears, etc., in the next few days.
[2020-11-17] MEDS: SENNA 8.6 MG TAB (SENOKOT) PO SCH (20:58)
--- NOTE | 2020-11-17 21:36 | IPN ---
PROGRESS NOTE DATE: 11/17/2020 SUBJECTIVE: Patient has made some great progress throughout the night and this morning. He is not complaining of any abdominal pain or discomfort. He has had some bowel movements and states that his bowel movements are starting to thicken up a little bit. He has been tolerating a clear liquid diet earlier this morning without nausea, without vomiting. He would like to increase his diet as well, but otherwise his laboratory exam reveals that he still has an elevated white count and stool studies are still pending I guess. IMPRESSION/PLAN: Patient has resolving enteritis of undetermined etiology. At this point, I would recommend progression in his diet as tolerated and supportive care. From a surgical standpoint, please contact us if you have additional questions or concerns, but otherwise we will sign off at this point. I anticipate from a dietary standpoint, he will tolerate his diet. Obviously the question is whether this was an infectious enteritis that he had or whether he has some other gastroenteritis issues or longstanding GI issues, for which I would recommend the GI follow-up as an outpatient and evaluation, upper/lower endoscopy, etc.
[2020-11-18] VITALS: BP 120/65
[2020-11-18] MEDS: MAALOX 30 ML SUSP *UDC PO PRN ×4 (00:35→22:28)
[2020-11-18] MEDS: IPRATROPIUM 0.5MG/ALBUTEROL 2.5MG INH SOL UD 3ML (DUONEB) NEB SCH ×7 (00:35→23:08)
[2020-11-18 04:00] VITALS: BP 111/56
[2020-11-18] MEDS: methylPREDNISolone 125MG 2ML VIAL IV SCH (05:35)
[2020-11-18] MEDS: metroNIDAZOLE 500 MG in IV 1 EA IV SCH ×2 (05:35→12:03)
[2020-11-18 05:59] LABS: HEMATOCRIT 32.4 % (42.0-52.0); MEAN CORPUSCULAR HEMOGLOBIN 22.2 pg (27.0-33.0); MEAN CORPUSCULAR HGB CONC 29.6 g/dl (32.0-36.5); PLATELET COUNT, AUTOMATED 391 10^3/uL (150-450); RED BLOOD COUNT 4.32 10^6/uL (4.30-6.10); WHITE BLOOD COUNT 22.2 10^3/uL (4.0-10.0)
[2020-11-18 06:09] LABS: HEMOGLOBIN 9.6 g/dl (13.5-17.5)
[2020-11-18 06:29] LABS: BLOOD UREA NITROGEN 32 MG/DL (7-18); CALCIUM LEVEL 7.3 MG/DL (8.8-10.2); CARBON DIOXIDE LEVEL 29 MEQ/L (21-32); CHLORIDE LEVEL 106 MEQ/L (98-107); CREATININE FOR GFR 1.01 MG/DL (0.70-1.30); GLOMERULAR FILTRATION RATE > 60.0 (>49); GLUCOSE, FASTING 128 MG/DL (70-100); POTASSIUM SERUM 4.1 MEQ/L (3.5-5.1); SODIUM LEVEL 138 MEQ/L (136-145)
[2020-11-18 08:00] VITALS: BP 163/72
[2020-11-18] MEDS: METOPROLOL TART 25 MG TABLET PO SCH ×2 (08:17→22:25)
[2020-11-18] MEDS: rOPINIRole 0.25 MG TAB(REQUIP) PO SCH ×2 (08:17→22:26)
[2020-11-18] MEDS: LOSARTAN 50MG TABLET PO SCH (08:18)
[2020-11-18] MEDS: AZITHROMYCIN INJ 500 MG, VIAL MATE ADAPTER 1 EACH in NS 250 ML IV SCH (08:18)
[2020-11-18] MEDS: DOCUSATE SODIUM 100MG CAPSULE PO SCH (08:18)
[2020-11-18] MEDS: LACTOBACILLUS ACIDOPHILUS CAP (BACID) PO SCH (09:00)
[2020-11-18] MEDS: cefTRIAXone SOD 1 GM in D5W MINI-BAG PLUS 50 ML IV SCH (10:20)
[2020-11-18 12:00] VITALS: BP 112/57
--- NOTE | 2020-11-18 13:01 | IPNPDOC ---
Text Note Date of Service The patient was seen on 11/18/20. NOTE Subjective:.Patient is a 65-year-old male with COPD, hypothyroidism, and polysubstance abuse who presented with worsening dyspnea. Patient was made n.p.o. initially with a nasogastric tube initially inserted but was removed because the patient did not tolerate it. Patient was able to tolerate a clear liquid diet yesterday and Dr. Friedman of general surgery gave the patient a regular diet today. Patient states that his abdomen is feeling better today. Review of systems: General: Patient denies fevers HEENT: Patient denies headaches Cardiovascular: Patient denies chest pain Respiratory: Patient denies shortness of breath, cough GI: Patient denies abdominal pain, nausea, vomiting, diarrhea : Patient denies increased frequency or pain with urination Extremities: Patient denies swelling or pain in extremities Neurological: Patient denies numbness or tingling in legs Physical exam: Vitals: See below General: Alert and oriented male patient who was laying in bed when I walked in the room. Patient has nasal cannula oxygen in place. Patient did not appear to be in any acute distress. HEENT: Normocephalic, atraumatic, moist mucous membranes. Neck: No lymphadenopathy or thyromegaly Cardiac: Regular rate and rhythm, no murmurs, normal S1, normal S2 Pulm: Clear to auscultation bilaterally. No wheezes, rhonchi, rales Abd: Nondistended, mild tenderness to palpation, no rebound tenderness, normal bowel sounds Ext: No edema bilateral lower extremities Labs: See below Imaging: No new imaging has been performed Assessment/plan: 65-year-old male with COPD, hypothyroidism, and polysubstance abuse who presents with worsening dyspnea. Patient had COPD exacerbation possibly secondary to medical noncompliance or polysubstance abuse as the patient admitted to using methamphetamine on a daily basis. Patient developed severe abdominal pain and CT angio of the abdomen and pelvis demonstrated stenosis of the SMA and ileus versus partial small bowel obstruction. 1. Acute hypoxic respiratory failure. Patient initially required nonrebreather and now is on 1 L oxygen. Patient will need to be continue to wean off oxygen as he is not on home oxygen. 2. COPD exacerbation secondary to either noncompliance or smoking methamphetamine. IV steroids have been switched to p.o. Continue breathing treatments. Today is the final day of azithromycin. 3. Ileus versus partial small bowel obstruction. General surgery has been consulted and recommendations appreciated. Diet has been advanced to full. 4. Anemia. Patient's hemoglobin was 6.82 nights ago. Patient received 2 units of blood and his hemoglobin is now 9. 5. Heart failure with reduced ejection fraction. Echocardiogram on 01/19/2020 demonstrates EF of 20%. We will continue to monitor and he is currently on beta-luisito therapy. 6. Coronary artery disease status post CABG. Continue losartan. Aspirin can be restarted at this time as the patient will likely not can have surgery. 7. Hypertension. Continue losartan Lopressor DVT Prophylaxis: Sequential compression devices and teds Disposition: Pending clinical improvement and advancement of diet. Possible discharge next 24 to 48 hours. VS,Fishbone, I+O VS, Fishbone, I+O Laboratory Tests 11/18/20 05:34 Vital Signs Date Time Temp Pulse Resp B/P (MAP) Pulse Ox O2 Delivery O2 Flow Rate FiO2 11/18/20 08:18 114/63 11/18/20 08:17 74 11/18/20 08:00 97.9 17 100 Room Air 2.0 I&O- Last 24 Hours up to 6 AM 11/18/20 05:59 Intake Total 3785 ml Output Total 500 ml Balance 3285 ml SUJIT ORDOÑEZ DO Nov 18, 2020 13:01
[2020-11-18 13:09] LABS: BODY FLUID CULTURE Not indicated. (.); LEGIONELLA ANTIGEN URINE Negative (Negative); ORGANISM ID Not indicated. (.); SPECIMEN SOURCE Urine (.); URINE STREP PNEUMONIAE ANTIGEN Negative (Negative)
[2020-11-18] MEDS ORDERED: FUROSEMIDE 40MG/4ML VIAL (J1940) IV ONE (15:20)
[2020-11-18 16:00] VITALS: BP 133/75
[2020-11-18 20:00] VITALS: BP 135/66
[2020-11-18] MEDS ORDERED: ONDANSETRON 4 MG TAB PO PRN (20:15)
[2020-11-18] MEDS ORDERED: DOCUSATE SODIUM 100MG CAPSULE PO PRN (20:55)
[2020-11-18] MEDS ORDERED: SENNA 8.6 MG TAB (SENOKOT) PO PRN (20:55)
[2020-11-18] MEDS: metroNIDAZOLE (FLAGYL) 500MG TABLET PO SCH (22:24)
[2020-11-19] VITALS: BP 108/55
[2020-11-19] MEDS: IPRATROPIUM 0.5MG/ALBUTEROL 2.5MG INH SOL UD 3ML (DUONEB) NEB SCH ×6 (03:11→23:10)
[2020-11-19 04:00] VITALS: BP 121/64
[2020-11-19 06:02] LABS: HEMATOCRIT 34.2 % (42.0-52.0); HEMOGLOBIN 10.3 g/dl (13.5-17.5); MEAN CORPUSCULAR HEMOGLOBIN 22.3 pg (27.0-33.0); MEAN CORPUSCULAR HGB CONC 30.1 g/dl (32.0-36.5); PLATELET COUNT, AUTOMATED 256 10^3/uL (150-450); RED BLOOD COUNT 4.62 10^6/uL (4.30-6.10); WHITE BLOOD COUNT 8.1 10^3/uL (4.0-10.0)
[2020-11-19 06:30] LABS: BLOOD UREA NITROGEN 28 MG/DL (7-18); CALCIUM LEVEL 7.1 MG/DL (8.8-10.2); CARBON DIOXIDE LEVEL 31 MEQ/L (21-32); CHLORIDE LEVEL 102 MEQ/L (98-107); CREATININE FOR GFR 0.94 MG/DL (0.70-1.30); GLOMERULAR FILTRATION RATE > 60.0 (>49); GLUCOSE, FASTING 115 MG/DL (70-100); POTASSIUM SERUM 4.1 MEQ/L (3.5-5.1); SODIUM LEVEL 136 MEQ/L (136-145)
[2020-11-19] MEDS: metroNIDAZOLE (FLAGYL) 500MG TABLET PO SCH ×3 (06:49→20:59)
[2020-11-19] MEDS: LevoFLOXacin 750 MG TABLET PO SCH (06:49)
[2020-11-19 08:00] VITALS: BP 112/54
[2020-11-19] MEDS: rOPINIRole 0.25 MG TAB(REQUIP) PO SCH ×2 (08:27→20:59)
[2020-11-19] MEDS: predniSONE 20 MG TAB PO SCH (08:28)
[2020-11-19] MEDS: LOSARTAN 50MG TABLET PO SCH (08:28)
[2020-11-19] MEDS: METOPROLOL TART 25 MG TABLET PO SCH ×2 (08:28→20:59)
[2020-11-19] MEDS: LACTOBACILLUS ACIDOPHILUS CAP (BACID) PO SCH (08:29)
[2020-11-19] MEDS: FUROSEMIDE 40 MG TAB PO SCH (08:29)
[2020-11-19 12:00] VITALS: BP 115/72
--- NOTE | 2020-11-19 12:46 | IPNPDOC ---
Text Note Date of Service The patient was seen on 11/19/20. NOTE Subjective: 65-year-old male with COPD, hypothyroidism, polysubstance abuse, and heart failure with reduced ejection fraction who presented with worsening dyspnea. Patient's dyspnea has improved. Patient had been eating a regular diet but is complaining of some more abdominal pain and bloating today. Patient says he does not want to eat the solid food. Patient is also been having some diarrhea which patient states has been going on for quite some time. Patient's been having liquid bowel movements today. Patient did admit to using methamphetamine quite frequently prior to coming into the hospital. Patient was feeling like he was having difficulty breathing yesterday and was given a dose of IV Lasix which did help his breathing. Patient is no longer wearing oxygen. Review of systems: General: Patient denies fevers HEENT: Patient denies headaches Cardiovascular: Patient denies chest pain Respiratory: Patient denies shortness of breath, cough GI: Patient reports abdominal pain and diarrhea. Patient denies nausea or vomiting : Patient denies increased frequency or pain with urination Extremities: Patient denies swelling or pain in extremities Neurological: Patient denies numbness or tingling in legs Physical exam: Vitals: See below General: Alert and oriented male patient who was sitting up with breakfast when I walked in the room. Patient did not appear to be in any acute distress. HEENT: Normocephalic, atraumatic, moist mucous membranes. Neck: No lymphadenopathy or thyromegaly Cardiac: Regular rate and rhythm, no murmurs, normal S1, normal S2 Pulm: Clear to auscultation bilaterally. No wheezes, rhonchi, rales Abd: Mildly distended with mild tenderness to palpation throughout the abdomen, no rebound tenderness, normal bowel sounds Ext: No edema bilateral lower extremities Labs: See below Imaging: No new imaging has been performed Assessment/plan: 65-year-old male with COPD, hypothyroidism, polysubstance abuse, and heart failure with reduced ejection fraction who presented with worsening dyspnea was also found to have possible small bowel obstruction versus ileus. Patient has had worsening in his abdominal exam and symptoms today. 1. Acute hypoxic respiratory failure. Patient initially hearted nonrebreather but is on room air at this point. We will continue to monitor. 2. COPD exacerbation secondary to either noncompliance or smoking methamphetamine. Steroids switched to p.o. continue with breathing treatments. Yesterday his final day of azithromycin. 3. Ileus versus partial small bowel obstruction. I have reconsulted general surgery as the patient appears to be more distended today. Patient's regular d iet has been canceled. 4. Anemia. Patient received 2 units of blood and his hemoglobin is now stable. 5. Heart failure with reduced ejection fraction. Patient has an ejection fraction about 32% according to echocardiogram that was recently done. Patient is on beta-luisito therapy and his diuretics have been restarted. 6. Coronary artery disease status post CABG. Continue losartan. Aspirin has been restarted. 7. Hypertension. Continue losartan and Lopressor. DVT Prophylaxis: Sequential compression devices and teds Disposition: Pending clinical improvement. VS,Shauna, I+O VS, Shauna, I+O Laboratory Tests 11/19/20 05:45 Vital Signs Date Time Temp Pulse Resp B/P (MAP) Pulse Ox O2 Delivery O2 Flow Rate FiO2 11/19/20 08:28 84 114/60 11/19/20 08:00 97.0 16 96 Room Air 11/18/20 20:00 2.0 I&O- Last 24 Hours up to 6 AM 11/19/20 06:00 Intake Total 705 ml Output Total 400 ml Balance 305 ml SUJIT ORDOÑEZ DO Nov 19, 2020 12:46
[2020-11-19] MEDS: MAALOX 30 ML SUSP *UDC PO PRN ×2 (15:24→20:58)
[2020-11-19 16:00] VITALS: BP 155/72
[2020-11-19 20:00] VITALS: BP 154/67
[2020-11-19] MEDS: PERCOCET 5MG/325MG TAB PO PRN (20:59)
[2020-11-20] VITALS: BP 143/67
[2020-11-20] MEDS: LOMOTIL 2.5MG/0.025MG TABLET PO SCH ×5 (00:08→20:08)
[2020-11-20] MEDS: LACTOBACILLUS ACIDOPHILUS CAP (BACID) PO SCH ×5 (00:08→20:07)
[2020-11-20] MEDS: MAALOX 30 ML SUSP *UDC PO PRN ×2 (01:29→17:49)
[2020-11-20] MEDS: IPRATROPIUM 0.5MG/ALBUTEROL 2.5MG INH SOL UD 3ML (DUONEB) NEB SCH ×6 (03:31→23:55)
[2020-11-20] MEDS: PERCOCET 5MG/325MG TAB PO PRN ×3 (03:35→20:10)
[2020-11-20 04:00] VITALS: BP 134/66
[2020-11-20] MEDS: LevoFLOXacin 750 MG TABLET PO SCH (05:17)
[2020-11-20] MEDS: metroNIDAZOLE (FLAGYL) 500MG TABLET PO SCH ×3 (05:17→21:01)
--- NOTE | 2020-11-20 06:12 | IPN ---
PROGRESS NOTE DATE: 11/19/2020 SUBJECTIVE: I was asked to reevaluate Mr. Ambriz given that he has had multiple bowel movements. He states that these are watery bowel movements. He has not had any nausea or vomiting. He has been tolerating a clear liquid diet although there is some question whether he got a little bit more distended and bloated but is mostly complaining of diarrhea as his major issue. His GI is not available for consults at this time and thus they are asking me to evaluate the patient from a surgical standpoint again. No surgical intervention is necessary at this time, however, he has some ongoing diarrhea that will need to be assessed with an upper and lower endoscopy and GI evaluation for irritable/inflammatory bowel issues and at some point I anticipate he will probably need further workup of his mesenteric vessels to rule out chronic mesenteric ischemia issues. Will start him on some Lomotil to see if that does not make a difference, increase his Lactobacillus and continue with his Simethicone for his obvious abdominal distention, tympany that is appreciated.
[2020-11-20 08:00] VITALS: BP 111/58
[2020-11-20] MEDS: LOSARTAN 50MG TABLET PO SCH (08:38)
[2020-11-20] MEDS: rOPINIRole 0.25 MG TAB(REQUIP) PO SCH ×2 (09:03→20:08)
[2020-11-20] MEDS: predniSONE 20 MG TAB PO SCH (09:03)
[2020-11-20] MEDS: METOPROLOL TART 25 MG TABLET PO SCH ×2 (09:04→20:09)
[2020-11-20] MEDS: FUROSEMIDE 40 MG TAB PO SCH (09:04)
[2020-11-20 12:00] VITALS: BP 107/56
[2020-11-20] MEDS: SIMETHICONE 80MG CHEW TAB PO PRN ×3 (12:06→20:08)
--- NOTE | 2020-11-20 14:11 | IPNPDOC ---
Text Note Date of Service The patient was seen on 11/20/20. NOTE Subjective: 65-year-old male with COPD, hypothyroidism, polysubstance abuse, and heart failure with reduced ejection fraction presents with worsening dyspnea. Patient's dyspnea is improved but his abdominal pain and bloating has not. Patient is now back on a liquid diet. He was also having some diarrhea. General surgery was reconsulted. General surgery started him on Lomotil and rajput ggested simethicone for his bloating. Patient is complaining of the hiccups today. Patient states he has had an having the hiccups for quite some time and they are painful. Patient was asking for something to be done for his hiccups. Review of systems: General: Patient denies fevers HEENT: Patient denies headaches Cardiovascular: Patient denies chest pain Respiratory: Patient denies shortness of breath, cough GI: Patient reports abdominal pain and diarrhea but the diarrhea has slowed down. Patient denies any nausea or vomiting : Patient denies increased frequency or pain with urination Extremities: Patient denies swelling or pain in extremities Neurological: Patient denies numbness or tingling in legs Physical exam: Vitals: See below General: Alert and oriented male patient who was laying in bed hiccuping when I walked in the room. Patient did not appear to be in any acute distress. HEENT: Normocephalic, atraumatic, moist mucous membranes. Neck: No lymphadenopathy or thyromegaly Cardiac: Regular rate and rhythm, no murmurs, normal S1, normal S2 Pulm: Clear to auscultation bilaterally. No wheezes, rhonchi, rales Abd: Mildly distended with mild tenderness to palpation with no rebound tenderness. Normal bowel sounds Ext: No edema bilateral lower extremities Labs: See below Imaging: No new imaging has been performed Assessment/plan: 65-year-old male with COPD, hypothyroidism, polysubstance abuse, and heart failure with reduced ejection fraction who presented with worsening dyspnea who was found to have a possible small bowel obstruction versus ileus. Patient's abdominal exam has worsened and he was hiccuping today. 1. Acute hypoxic respiratory failure. Patient initially had a nonrebreather on but is on room air at this time. Continue to monitor. 2. COPD exacerbation secondary to either noncompliance or smoking methamphetamine. Steroid switched to p.o. Continue breathing treatments. Patient finished azithromycin 2 days ago. 3. Ileus versus partial small bowel obstruction. This is most likely ileus. I reconsulted general surgery yesterday who saw him. Patient's regular diet has been canceled. Patient is doing better with his diarrhea today. 4. Hiccups. I believe this is secondary to the patient's gastric distention. I advised the patient to stop eating solid food and go back to a liquid diet. I have written for simethicone to help break down any gaseous distention of the stomach. 5. Anemia. Stabilized. Patient did receive 2 units of blood. 6. Heart failure with reduced ejection fraction. Patient ejection fraction about 30% according echocardiogram that recently done. Patient is on beta- luisito and diuretics have been restarted. 7. Coronary artery disease. Status post CABG. Continue losartan and aspirin. 8. Hypertension. Continue losartan and Lopressor. DVT Prophylaxis: Sequential compression devices and teds Disposition: Pending clinical improvement. Patient will be transferred to the medical surgical floor at this time. VS,Fishbone, I+O VS, Fishbone, I+O Vital Signs Date Time Temp Pulse Resp B/P (MAP) Pulse Ox O2 Delivery O2 Flow Rate FiO2 11/20/20 12:36 18 11/20/20 12:00 96.8 76 107/56 (73) 97 Room Air 11/20/20 04:05 2.0 I&O- Last 24 Hours up to 6 AM 11/20/20 06:00 Intake Total 4635 ml Output Total 0 ml Balance 4635 ml SUJIT ORDOÑEZ DO Nov 20, 2020 14:11
[2020-11-20 20:00] VITALS: BP 138/67
[2020-11-20] MEDS: CALCIUM CARBONATE 500 MG CHEW U/D PO PRN (20:09)
[2020-11-21 04:00] VITALS: BP 116/59
[2020-11-21] MEDS: IPRATROPIUM 0.5MG/ALBUTEROL 2.5MG INH SOL UD 3ML (DUONEB) NEB SCH ×5 (04:03→19:48)
[2020-11-21] MEDS: LevoFLOXacin 750 MG TABLET PO SCH (05:14)
[2020-11-21] MEDS: metroNIDAZOLE (FLAGYL) 500MG TABLET PO SCH ×3 (05:14→21:18)
[2020-11-21 08:00] VITALS: BP 114/56
[2020-11-21] MEDS: LOSARTAN 50MG TABLET PO SCH (08:34)
[2020-11-21] MEDS: LACTOBACILLUS ACIDOPHILUS CAP (BACID) PO SCH ×4 (08:36→21:18)
[2020-11-21] MEDS: FUROSEMIDE 40 MG TAB PO SCH (08:37)
[2020-11-21] MEDS: rOPINIRole 0.25 MG TAB(REQUIP) PO SCH ×2 (08:37→21:17)
[2020-11-21] MEDS: LOMOTIL 2.5MG/0.025MG TABLET PO SCH ×4 (08:37→21:17)
[2020-11-21] MEDS: predniSONE 20 MG TAB PO SCH (08:38)
[2020-11-21] MEDS: METOPROLOL TART 25 MG TABLET PO SCH ×2 (08:38→21:17)
[2020-11-21] MEDS: PERCOCET 5MG/325MG TAB PO PRN ×2 (08:40→18:03)
[2020-11-21 12:00] VITALS: BP 131/66
[2020-11-21] MEDS: MAALOX 30 ML SUSP *UDC PO PRN ×2 (12:10→18:20)
[2020-11-21] MEDS: CALCIUM CARBONATE 500 MG CHEW U/D PO PRN (12:11)
--- NOTE | 2020-11-21 14:39 | IPNPDOC ---
Text Note Date of Service The patient was seen on 11/21/20. NOTE Subjective: Patient is a 65-year-old male who presented to the hospital with acute toxic respiratory failure who was found to have a possible ileus or partial small bowel obstruction. Patient did well on a full liquid diet yesterday and is asking for a full diet today. Patient still complaining of some hiccups. Patient's breathing has been doing better. Patient says he is feeling better today than he was yesterday. Patient did not have any acute events overnight and is feeling otherwise well. Review of systems: General: Patient denies fevers HEENT: Patient denies headaches Cardiovascular: Patient denies chest pain Respiratory: Patient denies shortness of breath, cough GI: Patient reports decreased abdominal pain, nausea, vomiting, diarrhea : Patient denies increased frequency or pain with urination Extremities: Patient denies swelling or pain in extremities Neurological: Patient denies numbness or tingling in legs Physical exam: Vitals: See below General: Alert and oriented male patient who is sitting up in bed eating breakfast when I walked in the room. Patient did not appear to be in any acute distress. HEENT: Normocephalic, atraumatic, moist mucous membranes. Neck: No lymphadenopathy or thyromegaly Cardiac: Regular rate and rhythm, no murmurs, normal S1, normal S2 Pulm: Clear to auscultation bilaterally. No wheezes, rhonchi, rales Abd: Nondistended, nontender to palpation, normal bowel sounds Ext: No edema bilateral lower extremities Labs: See below Imaging: No new imaging has been performed Assessment/plan: 65-year-old male with COPD, hypothyroidism, polysubstance abuse, and heart failure with reduced ejection fraction who presented with worsening dyspnea who was found to have possible small bowel obstruction versus ileus. Patient abdominal exam is improved. 1. Acute hypoxic respiratory failure. Patient was initially on nonrebreather but is now on room air. Continue to monitor. 2. COPD exacerbation secondary to either noncompliance or smoking methamphetamine. Steroids switched to p.o. Continue breathing treatments. Patient finished azithromycin 3 days ago. 3. Ileus versus partial small bowel obstruction. This is most likely an ileus. General surgery saw the patient 2 days ago. Patient was now on a regular diet. Patient's diarrhea is improving. 4. Hiccups. This is most likely secondary to the patient's gastric distention. Patient's hiccups have improved. 5. Anemia. Stabilized. Patient did receive 2 units of blood. I did advise the patient that we do need to get labs before the patient will be discharged. 6. Heart failure with reduced ejection fraction. Patient's ejection fraction was about 30% according to recent echocardiogram. Patient is on beta-luisito and diuretics been restarted. Patient is also on ARB. 7. Coronary artery disease. Status post CABG. Continue losartan and aspirin. 8. Hypertension. Continue losartan and Lopressor. DVT Prophylaxis: Sequential compression devices and teds Disposition: Pending clinical improvement. Possible discharge tomorrow VS,Fishbone, I+O VS, Fishbone, I+O Vital Signs Date Time Temp Pulse Resp B/P (MAP) Pulse Ox O2 Delivery O2 Flow Rate FiO2 11/21/20 12:00 97.4 82 18 131/66 (87) 98 Room Air 11/21/20 08:40 2.0 I&O- Last 24 Hours up to 6 AM 11/21/20 06:00 Intake Total 2480 ml Output Total 350 ml Balance 2130 ml SUJIT ORDOÑEZ DO Nov 21, 2020 14:39
[2020-11-21] MEDS: SIMETHICONE 80MG CHEW TAB PO PRN (14:50)
[2020-11-21 16:30] VITALS: BP 132/87
[2020-11-21 18:30] VITALS: BP 129/83
[2020-11-21 19:42] LABS: HEMATOCRIT 31.3 % (42.0-52.0); HEMOGLOBIN 9.3 g/dl (13.5-17.5); MEAN CORPUSCULAR HEMOGLOBIN 21.9 pg (27.0-33.0); MEAN CORPUSCULAR HGB CONC 29.7 g/dl (32.0-36.5); MEAN CORPUSCULAR VOLUME 73.8 fl (80.0-96.0); PLATELET COUNT, AUTOMATED 347 10^3/uL (150-450); RED BLOOD COUNT 4.24 10^6/uL (4.30-6.10); WHITE BLOOD COUNT 14.4 10^3/uL (4.0-10.0)
[2020-11-21 19:53] LABS: BLOOD UREA NITROGEN 16 MG/DL (7-18); CALCIUM LEVEL 7.3 MG/DL (8.8-10.2); CARBON DIOXIDE LEVEL 32 MEQ/L (21-32); CHLORIDE LEVEL 95 MEQ/L (98-107); CK-MB VALUE MASS 2.9 NG/ML (<3.6); CPK CREATINE PHOSPHOKINASE 44 U/L (39-308); GLOMERULAR FILTRATION RATE > 60.0 (>49); GLUCOSE, FASTING 154 MG/DL (70-100); MAGNESIUM LEVEL 1.7 MG/DL (1.8-2.4); MB/CK RELATIVE INDEX 6.59 (< OR =4); POTASSIUM SERUM 4.3 MEQ/L (3.5-5.1); SODIUM LEVEL 133 MEQ/L (136-145); TROPONIN I 0.02 NG/ML (< 0.10)
[2020-11-21] MEDS ORDERED: MAGNESIUM OXIDE 400MG TAB (MAG-OX) PO ONE (20:30)
[2020-11-21 21:00] VITALS: BP 136/66
[2020-11-22] MEDS: PERCOCET 5MG/325MG TAB PO PRN ×2 (00:16→11:30)
[2020-11-22] MEDS: MAALOX 30 ML SUSP *UDC PO PRN ×5 (00:17→15:23)
[2020-11-22] MEDS: IPRATROPIUM 0.5MG/ALBUTEROL 2.5MG INH SOL UD 3ML (DUONEB) NEB SCH ×5 (00:57→14:26)
[2020-11-22] MEDS: LevoFLOXacin 750 MG TABLET PO SCH (04:58)
[2020-11-22] MEDS: metroNIDAZOLE (FLAGYL) 500MG TABLET PO SCH ×2 (04:58→12:45)
[2020-11-22 06:00] VITALS: BP 135/67
[2020-11-22 06:17] LABS: HEMATOCRIT 30.1 % (42.0-52.0); HEMOGLOBIN 8.7 g/dl (13.5-17.5); MEAN CORPUSCULAR HEMOGLOBIN 21.4 pg (27.0-33.0); MEAN CORPUSCULAR HGB CONC 28.9 g/dl (32.0-36.5); PLATELET COUNT, AUTOMATED 299 10^3/uL (150-450); RED BLOOD COUNT 4.07 10^6/uL (4.30-6.10); WHITE BLOOD COUNT 11.9 10^3/uL (4.0-10.0)
[2020-11-22 06:43] LABS: BLOOD UREA NITROGEN 18 MG/DL (7-18); CALCIUM LEVEL 7.3 MG/DL (8.8-10.2); CARBON DIOXIDE LEVEL 35 MEQ/L (21-32); CHLORIDE LEVEL 98 MEQ/L (98-107); CREATININE FOR GFR 0.92 MG/DL (0.70-1.30); GLOMERULAR FILTRATION RATE > 60.0 (>49); GLUCOSE, FASTING 106 MG/DL (70-100); MAGNESIUM LEVEL 1.9 MG/DL (1.8-2.4); POTASSIUM SERUM 4.1 MEQ/L (3.5-5.1); SODIUM LEVEL 135 MEQ/L (136-145)
[2020-11-22 08:49] VITALS: BP 135/67
[2020-11-22] MEDS: rOPINIRole 0.25 MG TAB(REQUIP) PO SCH (08:49)
[2020-11-22] MEDS: METOPROLOL TART 25 MG TABLET PO SCH (08:49)
[2020-11-22] MEDS: LACTOBACILLUS ACIDOPHILUS CAP (BACID) PO SCH ×2 (08:49→12:45)
[2020-11-22] MEDS: LOMOTIL 2.5MG/0.025MG TABLET PO SCH ×2 (08:49→12:45)
[2020-11-22] MEDS: FUROSEMIDE 40 MG TAB PO SCH (08:49)
[2020-11-22] MEDS: LOSARTAN 50MG TABLET PO SCH (08:49)
[2020-11-22] MEDS ORDERED: FERROUS SULFATE 325MG TAB PO SCH (09:00)
[2020-11-22] MEDS ORDERED: RISATAB3 PO (12:46)
[2020-11-22] MEDS ORDERED: DIPH2.5T15 PO ×2 (12:46→12:48)
[2020-11-22] MEDS ORDERED: FERR1TAB8 PO (12:46)
[2020-11-22] MEDS: CALCIUM CARBONATE 500 MG CHEW U/D PO PRN (15:23)
--- NOTE | 2020-11-22 18:45 | DS.PDOC ---
Discharge Summary General Date of Admission Nov 14, 2020 at 08:42 Date of Discharge 11/22/2020 Primary Care Physician: RISSA GARCÍA DO Attending Physician: SUJIT ORDOÑEZ DO Specialist/Consultants Involve: Juan Friedman Jr Discharge Summary PROCEDURES PERFORMED DURING STAY: None. ADMITTING DIAGNOSES: 1. Acute hypoxic respiratory failure. 2. COPD exacerbation 3. Heart failure with reduced ejection fraction 4. Coronary artery disease status post CABG 5. Hypertension DISCHARGE DIAGNOSES: 1. Acute hypoxic respiratory failure, resolved. 2. COPD exacerbation, resolved 3. Iron deficiency anemia 4. Ileus, resolved 5. Diarrhea, improved 6. Heart failure with reduced ejection fraction 7. Coronary artery disease status post CABG 8. Hypertension COMPLICATIONS/CHIEF COMPLAINT: Acute Hypoxemic Respiratory Failure, Copd. HISTORY OF PRESENT ILLNESS: Patient is a 65-year-old male who presented to the hospital with worsening dyspnea. Patient has a history of COPD and polysubstance abuse and was sitting up tripoding gasping for air. Patient kept asking for inhalers. Patient was able to tell provider that the patient had be en feeling short of breath for the past year. It has been progressively worsening but today had been the worst. Patient was unable to breathe. Patient was brought in on a nonrebreather. Patient received IV steroids and breathing treatments and he was able to be weaned down to 4 L of oxygen. Patient was admitted for COPD exacerbation.. HOSPITAL COURSE: Patient began complaining of abdominal pain on 11/15/2020 and a KUB showed heavy calcifications. 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 Vascular surgery at outside facilities was contacted but there was no bed availability. Vascular surgery at [facility] in [place], [place] was contacted and explained that the SMA was still patent so would not be the cause of the patient's symptoms. Patient was seen by general surgery at our facility who diagnosed the patient with an ileus. NG tube has been placed and the patient was made n.p.o. however, patient could not tolerate the NG tube and it was removed. Patient's abdomen did become less tense. Patient initially was moved to a clear liquid diet then to a full liquid diet as the patient was stating he was very hungry. Patient then began to have a regular diet and then began to have increased abdominal pain. Patient hemoglobin was 6.8 and the patient received 2 units of blood and had some respiratory distress after this. Patient received a dose of IV Lasix which fixed the patient's respiratory distress. Patient was moved back to a full liquid diet and did well with this. Patient was advanced to a regular diet. Patient was having some diarrhea initially having 10 bowel movements on 11/19/2020. Patient was started on Lomotil and fiber tablets which slowed down the patient's diarrhea. On 11/22/2020, patient was feeling much better although he was still having some loose stools. Patient was deemed ready for discharge at this time. DISCHARGE MEDICATIONS: Please see below. ALLERGIES: Please see below. PHYSICAL EXAMINATION ON DISCHARGE: VITAL SIGNS: Please see below. General: Alert and oriented male patient who was sitting up in bed when I walked in. Patient did not appear to be in any acute distress. HEENT: Normocephalic, atraumatic, moist mucous membranes. Neck: No lymphadenopathy or thyromegaly Cardiac: Regular rate and rhythm, no murmurs, normal S1, normal S2 Pulm: Clear to auscultation bilaterally. No wheezes, rhonchi, rales Abd: Nondistended, nontender to palpation, normal bowel sounds Ext: No edema bilateral lower extremities LABORATORY DATA: Please see below. IMAGING: Chest x-ray performed on 11/14/2020 was reported to show minimal patchy consolidation of the right lung base. Abdominal x-ray performed on 11/15/2020 is reported to show nonspecific gas pattern without definite obstruction, mass or abdominal calcification over the urinary tract. Heavy vascular calcification iliac and femoral arteries. Some degenerative changes spine and hips. Stable appearance. 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 Bilateral renal artery calcifications there are bilateral fairly well- defined peripheral zones of nonenhancement in the renal cortex more suggestive of a developing renal infarct and pyelonephritis. No hydronephrosis. No hydroureter. Vascular calcifications with a few nonobstructing calculi suggested within the kidneys. No ureteral or bladder stones. Stomach distended and there is narrowing of the third portion of the duodenum as it crosses anterior to the aorta, deep to the SMA. The distal third and fourth portion of the duodenum and proximal jejunal loops are dilated up to 5.4 cm with oral contrast and other loops to the mid jejunum are less dilated prominent. Mid to distal jejunum and ileum are more normal in caliber. This may reflect a focal ileus or partial small bowel obstruction. There is a gradual decrease in the caliber of the jejunum along the left lateral abdominal wall near the iliac crest, no abrupt caliber change. The colon is generally distended with stool and fluid through much of its course and elongated sigmoid is evident. No oral contrast reaches the. Is difficult to separate some of these bowel loops distally. No gross mass but technically challenging evaluation. Fullness of the pancreatic head similar to studies in 2018 and earlier with some mild prominence of the common bile duct and pancreatic duct but grossly unchanged. Mesenteric and peripancreatic nodes are again seen. Gallbladder wall with some pericholecystic fluid suggested or wall thickening. No calcified stone or mass. Liver and spleen are nonenlarged without focal lesion. The spleen is decreased in size since 2018. No ascites on today's exam. Chest x-ray performed on 11/15/2020 is reported to show NG tube placement with the tip in the gastric fundus since 11/14/2020, otherwise stable chest. PROGNOSIS: Fair ACTIVITY: As tolerated. DIET: Regular DISCHARGE PLAN: Discharge home DISPOSITION: 01 Home, Self-Care. DISCHARGE INSTRUCTIONS: 1. Follow-up with your primary care provider in 3 to 5 days. 2. Follow-up with gastroenterology for diarrhea 3. Return to the ER if your symptoms worsen ITEMS TO FOLLOWUP ON ON OUTPATIENT: 1. Possible gastroenterology referral for diarrhea. DISCHARGE CONDITION: Stable. TIME SPENT ON DISCHARGE: 35 minutes. Vital Signs/I&Os Vital Signs Date Time Temp Pulse Resp B/P (MAP) Pulse Ox O2 Delivery O2 Flow Rate FiO2 11/22/20 14:26 2 18 11/22/20 12:00 Room Air 11/22/20 08:49 135/67 11/22/20 06:00 97.4 95 11/21/20 08:40 2.0 I&O- Last 24 Hours up to 6 AM 11/22/20 06:00 Intake Total 2760 ml Output Total 250 ml Balance 2510 ml Laboratory Data Labs 24H Laboratory Tests 2 11/21/20 19:12: Anion Gap 6L, Glomerular Filtration Rate > 60.0, Calcium Level 7.3L, Magnesium Level 1.7L, Total Creatine Kinase 44, Creatine Kinase MB 2.9, Creatine Kinase MB Relative Index 6.59H, Troponin I 0.02 11/21/20 19:13: Nucleated Red Blood Cells % (auto) 0.0 11/22/20 06:07: Anion Gap 2L, Glomerular Filtration Rate > 60.0, Calcium Level 7.3L, Magnesium Level 1.9, Nucleated Red Blood Cells % (auto) 0.0 CBC/BMP Laboratory Tests 11/21/20 19:12 11/21/20 19:13 11/22/20 06:07 Microbiology Microbiology 11/19/20 Stool Occult Blood (LILIBETH) - Final, Complete 11/14/20 Blood Culture - Final, Complete NO GROWTH AFTER 5 DAYS 11/14/20 Blood Culture - Final, Complete NO GROWTH AFTER 5 DAYS 11/14/20 Respiratory Virus Panel (PCR) (LILIBETH) - Final, Complete Discharge Medications Scheduled Atorvastatin Calcium (Atorvastatin Calcium) 40 Mg Tablet, 40 MG PO QHS, (Reported) Diphenoxylate HCl/Atropine (Diphenoxylate-Atrop 2.5-0.025) 1 Each Tablet, 1 EA PO QID Ferrous Sulfate (Ferrous Sulfate) 325 Mg Tablet, 325 MG PO DAILY Furosemide (Furosemide) 40 Mg Tablet, 40 MG PO DAILY, (Reported) L.acidoph/L.bulg/B.bif/S.therm (Bria-Bid Caplet) 1 Each Tablet, 1 EA PO QID Losartan/Hydrochlorothiazide (Losartan-Hctz 100-12.5 mg Tab) 1 Each Tablet, 1 TAB PO DAILY, (Reported) Ropinirole HCl (Ropinirole HCl) 0.5 Mg Tablet, 0.5 MG PO BID, (Reported) Scheduled PRN Albuterol Sulf (Albuterol Sulfate) 2.5 Mg/3 Ml Vial.neb, 2.5 MG INH TID PRN for SHORTNESS OF BREATH, (Reported) Albuterol Sulfate (Ventolin Hfa) 108 Mcg/Act Aer, 2 PUFFS INH Q4H PRN for SHORTNESS OF BREATH, (Reported) Ipratropium [place] (Atrovent Hfa) 12.9 Gm Hfa.aer.ad, 2 PUFF INH Q6H PRN for SHORTNESS OF BREATH, (Reported) Miscellaneous Medications [Patient Comment] , (Reported) MED LIST OBTAINED FROM EXT MED HX Allergies Coded Allergies: amoxicillin (Verified Allergy, Unknown, rash, 01/28/19) clavulanic acid (Verified Allergy, Unknown, rash, 01/28/19) pregabalin (Verified Adverse Reaction, Unknown, seizures, 01/28/19) warfarin (Verified Adverse Reaction, Unknown, bleeding, 01/28/19) SUJIT ORDOÑEZ DO Nov 22, 2020 18:45
--- NOTE | 2020-11-22 20:29 | ECGEPIP ---
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 No remarkable changes Electronically Signed on 11-22-2020 20:28:32 EDT by Joseph Ballard
== END 2020-11-22 16:20 | disposition home or self-care (01) | DRG 189 ==
LOC: M ED 05:13 → M ED INP 08:42 → ENRESERV 12:07 → M PCU 13:22 → M MS5PR 11-21 16:24
PROVIDERS: ADMIT Internal Medicine; ATTEND Family Medicine
PROC: 30233N1 Transfusion of Nonautologous Red Blood Cells into Peripheral Vein, Percutaneous Approach (ICD-10-PCS; principal; 2020-11-14)
DX: J96.01 Acute respiratory failure with hypoxia (principal); J44.1 Chronic obstructive pulmonary disease with (acute) exacerbation; I50.22 Chronic systolic (congestive) heart failure; K55.1 Chronic vascular disorders of intestine; M54.5 Low back pain; E03.9 Hypothyroidism, unspecified; R19.7 Diarrhea, unspecified; I11.0 Hypertensive heart disease with heart failure; F15.10 Other stimulant abuse, uncomplicated; H40.9 Unspecified glaucoma; I25.10 Atherosclerotic heart disease of native coronary artery without angina pectoris; D50.9 Iron deficiency anemia, unspecified; Z87.891 Personal history of nicotine dependence; Z79.899 Other long term (current) drug therapy; Z88.0 Allergy status to penicillin; Z88.8 Allergy status to other drugs, medicaments and biological substances; Z98.49 Cataract extraction status, unspecified eye; Z95.1 Presence of aortocoronary bypass graft

== ENCOUNTER 2020-11-26 19:39 | Inpatient (IN) | payer MEDICARE, MEDICAID ==
[~2020-11-26] VITALS: Ht 167.6 cm; Wt 57.8 kg
[~2020-11-26 19:39] MED LIST changes: +DIPH2.5T15 PO; +RISATAB3 PO
[2020-11-26] MEDS: BUDESONIDE 0.5 MG/2 ML INHALATION SUSPENSION INH SCH (20:00)
[2020-11-26] MEDS ORDERED: FUROSEMIDE 40MG/4ML VIAL (J1940) IV ONE (20:10)
[2020-11-26] MEDS ORDERED: DIGOXIN INJ 0.5 MG/2 ML AMP (J1160) IV ONE (20:40)
[2020-11-26] MEDS ORDERED: IPRATROPIUM 0.5MG/ALBUTEROL 2.5MG INH SOL UD 3ML (DUONEB) NEB ONE (21:50)
[2020-11-26 21:54] LABS: BASO # 0.1 10^3/uL (0.0-0.2); BASO % 0.2 % (0.0-1.0); EOS # 0.2 10^3/uL (0.0-0.5); EOS % 0.8 % (0.0-3.0); HEMATOCRIT 35.6 % (42.0-52.0); HEMOGLOBIN 9.8 g/dl (13.5-17.5); LYMPH # 1.1 10^3/uL (1.5-5.0); LYMPH % 4.3 % (24.0-44.0); MEAN CORPUSCULAR HEMOGLOBIN 21.5 pg (27.0-33.0); MEAN CORPUSCULAR HGB CONC 27.5 g/dl (32.0-36.5); MEAN CORPUSCULAR VOLUME 78.1 fl (80.0-96.0); MONO # 1.6 10^3/uL (0.0-0.8); MONO % 6.1 % (2.0-8.0); NEUTROPHILS # 23.2 10^3/uL (1.5-8.5); PLATELET COUNT, AUTOMATED 381 10^3/uL (150-450); RED BLOOD COUNT 4.56 10^6/uL (4.30-6.10)
--- NOTE | 2020-11-26 22:00 | REPVR ---
PROCEDURE INFORMATION: Exam: XR Chest Exam date and time: 11/26/2020 8:08 PM Age: 65 years old Clinical indication: Other: SOB TECHNIQUE: Imaging protocol: XR of the chest. Views: 1 view. COMPARISON: CR PORTABLE CHEST X-RAY 11/15/2020 10:34 PM FINDINGS: Lungs: Airspace infiltrate in the right upper lobe. Lungs are otherwise clear. Pleural spaces: No pleural effusion. No pneumothorax. Heart/Mediastinum: Mild cardiomegaly. Bones/joints: Skeletal degenerative changes are noted. Previous sternotomy. Healed right clavicle and rib fractures. IMPRESSION: 1. Right upper lobe pneumonia. 2. Cardiomegaly. Electronically signed by: Rico Ramey On 11/26/2020 21:59:43 PM
[2020-11-26] MEDS ORDERED: METOPROLOL 5 MG/5 ML VIAL IV STA (22:01)
[2020-11-26 22:11] LABS: WHITE BLOOD COUNT 26.3 10^3/uL (4.0-10.0)
[2020-11-26 22:23] LABS: ALBUMIN 2.8 GM/DL (3.2-5.2); BILIRUBIN,DIRECT 0.1 MG/DL (0.0-0.2); BILIRUBIN,TOTAL 0.2 MG/DL (0.2-1.0); CALCIUM LEVEL 8.5 MG/DL (8.8-10.2); CK-MB VALUE MASS 13.4 NG/ML (<3.6); CREATININE FOR GFR 1.76 MG/DL (0.70-1.30); GLOMERULAR FILTRATION RATE 41.4 (>49); MB/CK RELATIVE INDEX 11.26 (< OR =4); POTASSIUM SERUM 4.6 MEQ/L (3.5-5.1); TOTAL PROTEIN 5.9 GM/DL (6.4-8.2); TROPONIN I 0.39 NG/ML (< 0.10)
[2020-11-26] MEDS ORDERED: cefTRIAXone SOD 2 GM in D5W MINI-BAG PLUS 50 ML IV ONE (22:40)
[2020-11-26] MEDS ORDERED: NS 500 ML IV ONE (23:05)
[2020-11-27] VITALS (30 sets, daily range): BP systolic 86–148; BP diastolic 50–85
[2020-11-27 00:19] LABS: CK-MB VALUE MASS 10.6 NG/ML (<3.6); TROPONIN I 0.35 NG/ML (< 0.10)
[2020-11-27] MEDS: METOPROLOL 5 MG/5 ML VIAL IV SCH ×3 (00:46→00:54)
[2020-11-27] MEDS ORDERED: methylPREDNISolone 125MG 2ML VIAL IV ONE (01:25)
[2020-11-27] MEDS ORDERED: FERR1TAB8 PO (01:34)
[2020-11-27] MEDS ORDERED: DIPH2.5T15 PO (01:34)
[2020-11-27] MEDS ORDERED: ALBU8.5H INH (01:34)
[2020-11-27] MEDS ORDERED: HOME MED LIST COMPLETE! XX SCH (01:35)
[2020-11-27] MEDS: LEVALBUTEROL 1.25 MG/0.5 ML CONCENTRATE NEB NEB SCH ×4 (02:16→19:41)
[2020-11-27] MEDS: IPRATROPIUM 0.02% SOLN 0.5MG 2.5ML NEB NEB SCH ×4 (02:16→19:40)
[2020-11-27] MEDS ORDERED: VANCOMYCIN HCL 500 MG in D5W MINI-BAG PLUS 100 ML IV SCH (02:20)
[2020-11-27] MEDS ORDERED: VANCOMYCIN HCL 1,000 MG, VIAL MATE ADAPTER 1 EACH in NS 250 ML IV ONE (02:45)
[2020-11-27] MEDS ORDERED: AMIODARONE HCL 150 MG in IV 1 EA IV ONE ×2 (02:50→20:00)
[2020-11-27] MEDS ORDERED: FUROSEMIDE 40MG/4ML VIAL (J1940) IV SCH (04:00)
[2020-11-27] MEDS ORDERED: DOXYCYCLINE HYCLATE 100 MG in D5W MINI-BAG PLUS 100 ML IV ONE (04:00)
--- NOTE | 2020-11-27 04:34 | ECGEPIP ---
[facility] - ED Test Date: 2020-11-26 Pat Name: RISSA YUSUF Department: Room: - Gender: Male Body Man: OSKAR : 1955 Requested By: Julio Del Valle Order Number: [id number] Reading MD: Julio Madsen Measurements Intervals [place] Rate: 158 P: MD: QRS: 64 QRSD: 84 T: 254 QT: 298 QTc: 483 Interpretive Statements Supraventricular tachycardia Left ventricular hypertrophy with repolarization abnormality ( Sokolow-Bradshaw , Romhilt- Galvez ) Electronically Signed on 11-27-2020 4:34:25 EDT by Julio Madsen
--- NOTE | 2020-11-27 05:58 | HPEPDOC ---
General Date of Admission 11/27/20 Date of Service: Nov 27, 2020 Chief Complaint The patient is a 65-year-old male admitted with a reason for visit of SOB. Source: Patient Exam Limitations: Clinical conditions Timing/Duration: 24 hours Severity: Severe Associated Symptoms: Chest Pain History of Present Illness Edgardo Ambriz is a 65-year-old white male with significant history of COPD, h ypothyroidism, polysubstance abuse and CHF who is well-known to service and who has a history of being noncompliant. Patient admits to ER after wellness check from police who reportedly found him disheveled at home. Patient hypoxic during admission SPO2 as low as 80s on room air. He had improved saturation during exam to mid 90s on 3 L nasal cannula. Patient reports that he does not typically have oxygen at home. Patient examination limited as he reports that he needs a breathing treatment. Patient audibly wheezing and noticeably disheveled/emaciated. Respiratory rate 24. Patient endorses chest pain that began with coughing and shortness of breath in the ER. He reports a history of heart surgery in 2019. Pt denies brown, sinus congestion, sore throat, n/v/d, abdominal pain, sensory changes or syncope. He does report that it is hard for him to get up and move around home because he feels so weak. Patient also details that he has been having trouble swallowing that he gets "choked up" anytime he eats or drinks. Patient was recently treated November 14 for acute respiratory failure and COPD and also back in July for pneumonia. He reports that he does not know his home medications but he has been taking them. He describes that he became worse today and there was a prompt for a wellness check but he does not detail the timing of this or why. Of note, patient with rapid heart rate heart rate sustaining in the 160s. EKG questionable SVT versus sinus tach. Chest x-ray shows right upper lobe infiltrate and cardiomegaly. BNP over 19,000. Respiratory panel pending. Patient will be admitted for further evaluation of presenting concerns and diuresis. Home Medications Scheduled Atorvastatin Calcium (Atorvastatin Calcium) 40 Mg Tablet, 40 MG PO QHS, (Reported) Diphenoxylate HCl/Atropine (Diphenoxylate-Atrop 2.5-0.025) 1 Each Tablet, 1 TAB PO QID, (Reported) Ferrous Sulfate (Ferrous Sulfate) 325 Mg Tablet, 325 MG PO DAILY, (Reported) Furosemide (Furosemide) 40 Mg Tablet, 40 MG PO DAILY, (Reported) Ipratropium [place] (Atrovent Hfa) 12.9 Gm Hfa.aer.ad, 2 PUFF INH QID, (Reported) Losartan/Hydrochlorothiazide (Losartan-Hctz 100-12.5 mg Tab) 1 Each Tablet, 1 TAB PO DAILY, (Reported) Ropinirole HCl (Ropinirole HCl) 0.5 Mg Tablet, 0.5 MG PO BID, (Reported) Scheduled PRN Albuterol Sulf (Albuterol Sulfate) 2.5 Mg/3 Ml Vial.neb, 2.5 MG INH Q6H PRN for SHORTNESS OF BREATH, (Reported) Albuterol Sulfate (Albuterol Sulfate Hfa) 8.5 Gm Hfa.aer.ad, 2 PUFFS INH Q4H PRN for SHORTNESS OF BREATH, (Reported) Miscellaneous Medications [Patient Comment] , (Reported) MED LIST OBTAINED FROM [facility] HX; UNABLE TO SPEAK WITH PATIENT Allergies Coded Allergies: amoxicillin (Verified Allergy, Unknown, rash, 01/28/19) clavulanic acid (Verified Allergy, Unknown, rash, 01/28/19) pregabalin (Verified Adverse Reaction, Unknown, seizures, 01/28/19) warfarin (Verified Adverse Reaction, Unknown, bleeding, 01/28/19) Past Medical History Medical History COPD, CHF, hypertension, pancreatic insufficiency, pancreatic mass resection, chronic low back pain, hypothyroidism, polysubstance abuse, glaucoma, cataracts, CVA, borderline hyperglycemia Surgical History Cataract surgery, carotid and are correct to me, left subclavian artery bypass, tonsillectomy, partial pancreatoduodenectomy, heart bypass December 2019 Family History Significant Family History: Cancer (Father of cancer and mother had cancer), Heart disease (Mother of heart attack) Social History * Smoker: former Smoker Alcohol: Denies Drugs: denies Recent Travel/Sick Contacts: Denies: Recent travel, Recent sick contacts Difficulty during exam to obtain social setting background given the acuity of clinical condition. Patient did report that he the police brought him into the hospital related to a wellness check. A-FIB/CHADSVASC A-FIB History Current/History of A-Fib/PAF?: No Current PO Anticoag Therapy: No Review of Systems Constitutional: Reports: Malaise, Fatigue; Denies: Chills, Fever, Night Sweats Eyes: Denies: Pain, Vision change ENT: Denies: Head Aches, Ear Pain, Dysphagia Skin: Denies: Rash, Lesions, Breakdown Pulmonary: Reports: Dyspnea, Cough, Pleuritic Chest Pain Cardiovascular: Reports: Chest Pain, Palpitations, Orthopnea Gastrointestinal: Denies: Nausea, Vomiting, Abdominal Pain, Diarrhea Genitourinary: Denies: Dysuria, Frequency, Incontinence, Hematuria, Retention, Other Symptoms Musculoskeletal: Denies: Neck Pain, Back Pain, Joint Pain, Muscle Pain, Spasms Neurological: Reports: Weakness Psych: Reports: Mood Normal; Denies: Depression, Memory Issues Physical Examination General Exam: Positive: Alert, Cooperative, Mild Distress Eye Exam: Positive: PERRLA, Conjunctiva & lids normal ENT Exam: Positive: Atraumatic Neck Exam: Positive: Supple; Negative: thyromegaly Chest Exam: Positive: Rhonchi, Diminished Heart Exam: Positive: Tachycardic, Other (Extrasystole) Telemetry: Positive: Tachycardia Abdomen Exam: Positive: Normal bowel sounds Extremity Exam: Positive: Normal pulses; Negative: Edema Skin Exam: Positive: Nl turgor and temperature; Negative: Breakdown, Lesion Neuro Exam: Negative: Normal Speech (Hoarse) Psych Exam: Positive: Mental status NL, Anxiety Vital Signs Vital Signs Date Time Temp Pulse Resp B/P (MAP) Pulse Ox O2 Delivery O2 Flow Rate FiO2 11/27/20 02:25 20 107/60 (76) Nasal Cannula 3.0 11/27/20 02:24 162 100 11/26/20 19:56 97.7 Laboratory Data Labs 24H Laboratory Tests 2 11/26/20 20:46: Lactic Acid Level 2.3*H 11/26/20 20:54: POC pH (Misc Panel) 7.394, POC Base Excess (Misc Panel) -1.0, POC Saturated Percent O2 (Misc) 99H, POC pO2 (Misc Panel) 131.0H, POC pCO2 (Misc Panel) 38.5, POC HCO3 (Misc Panel) 23.5, POC Total CO2 (Misc Panel) 25.0 11/26/20 21:43: Immature Granulocyte % (Auto) 0.6, Neutrophils (%) (Auto) 88.0H, Lymphocytes (%) (Auto) 4.3L, Monocytes (%) (Auto) 6.1, Eosinophils (%) (Auto) 0.8, Basophils (%) (Auto) 0.2, Neutrophils # (Auto) 23.2H, Lymphocytes # (Auto) 1.1L, Monocytes # (Auto) 1.6H, Eosinophils # (Auto) 0.2, Basophils # (Auto) 0.1, Nucleated Red Blood Cells % (auto) 0.0, Anion Gap 7L, Glomerular Filtration Rate 41.4L, Calcium Level 8.5L, Total Bilirubin 0.2, Direct Bilirubin 0.1, Aspartate Amino Transf (AST/SGOT) 22, Alanine Aminotransferase (ALT/SGPT) 26, Alkaline Phosphatase 132H, Total Creatine Kinase 119, Creatine Kinase MB 13.4H, Creatine Kinase MB Relative Index 11.26H, Troponin I 0.39H, XT-Zin-B-Type Natriuretic Peptide 91305U, Total Protein 5.9L, Albumin 2.8L, Albumin/Globulin Ratio 0.9, Lipase 42L 11/26/20 23:49: Total Creatine Kinase 106, Creatine Kinase MB 10.6H, Creatine Kinase MB Relative Index 10.00H, Troponin I 0.35H CBC/BMP Laboratory Tests 11/26/20 21:43 Microbiology Microbiology 11/26/20 Blood Culture, Received Pending 11/26/20 Blood Culture, Received Pending 11/26/20 Respiratory Virus Panel (PCR) (LILIBETH) - Final, Complete RAD Interpretation STUDY: CXR (Right upper lobe infiltrate, cardiomegaly) Rad Actions: Report Reviewed Assessment/Plan 1. Sepsis secondary to pneumonia: Criteria met with tachycardia, tachypnea, leukocytosis, lactic acidosis and organ involvement. -Monitor patient, monitor for signs symptoms of worsening infection. Blood culture sent.. -Coverage initiated with adjustment for QTC prolongation and patient allergy of amoxicillin. -Follow-up blood cultures and consider adjustment of antibiotics. -Pneumonia likely relative to aspiration given patient describes dysphagia. We will keep patient n.p.o. aspiration precautions and appreciate GARMENT PARTS CUTTER MACHINE for diet scr eening. *Given patient hoarseness (although likely related to cough) there is a concern with his history of pancreatic mass, smoking history, and familial history of cancer whether or not there may be underlying malignancy. Patient may benefit from CT chest for postobstructive component. Consider imaging. 2. Acute respiratory failure with hypoxia: Multifactorial component with pneumonia, COPD exacerbation and CHF exacerbation - Monitor patient, telemetry, continuous pulse ox, ABG pending. -Oxygen for saturation greater than 92. -Symptom management supportive care. -Treat pneumonia as above. -IV steroids Solu-Medrol every 6 hours. -Empiric antibiotics as above. Breathing treatments Atrovent and Xopenex given patient heart rate. 3. Tachyarrhythmia in patient with CHF: Patient echo October 2020 notes EF of 32%., BNP elevated 19,000 last on file 13,000. -Patient does not appear overly edematous or volume overloaded however concern for flash pulmonary edema with tachyarrhythmia. -Patient given metoprolol, digoxin and amiodarone and unfortunately patient blood pressure does not tolerate drip at this point. -Cardiology consulted and recommendations appreciated. Additional dig dose given. Cardiology to see patient today. -Patient may require ICU transfer for assistance in pressure management pending clinical course. 4. Chest pain and elevated trop: Trop 0.39 to 0.35. Likely demand 2/2 above, but pt with significant heart history. Appreciate cardiology recc. 5. Hypernatremia in patient with BRIAN: Sodium 158; creatinine 1.7 BUN 16. Creatinine 0.9 last lab work. likely cardiorenal. However, pt does not appear hypervolemic. -Patient does not endorse GI losses but limitation with HPI given patient focused on getting breathing treatment. Monitor patient for any GI losses given recent antibiotics. Patient did report he has been having trouble swallowing recently and appears emaciated; probable poor p.o. intake. Given the challenge of patient low EF and fluid balance appreciate nephrology input and recommendations. Monitor patient, I's and O's. A.m. labs. Will trial maintenance fluids. Further diuretics on hold pend nephrology recc. 6. CAD: Continue aspirin. Beta-luisito with recommendations of cardiology. 7. Hypertension: As per above patient soft blood pressures this admission. Hold any home blood pressure medication. 8. Deconditioning: Appreciate PT eval for therapeutic purposes once patient more clinically stable. Patient notably emaciated and frail appearance. DVT: Heparin subcu given tachyarrhythmia consider heparin drip. CODE STATUS: Patient at time remains full code. He did report that he would want CPR but not intubation in an emergent situation. Patient would benefit from further CODE STATUS discussion in a.m. Given low EF and advancing COPD. Dispo planning: Pending clinical improvement Plan / VTE VTE Prophylaxis Ordered?: Yes Attending Note Attending Note Despite high BNP, clinically on the dry side. Stop lasix. Start fluids. High Na possible also from dehydration. BNP elevated could be demand from tachycardia. Elevated trop probably demand ischemia. Tach is either sinus tachy vs SVTs. Dr Ballard consulted, appreciate his recs. He recommended Amiodarone bolus. Nephrology consulted for BRIAN/assist with fluid status. INOCENCIO CARRERO NP Nov 27, 2020 02:43 EDNA ZULUAGA MD Nov 27, 2020 07:18
[2020-11-27] MEDS: HEPARIN SOD (PORCINE) 5000UNITS/ML 1ML VIAL/SYRINGE SC SCH ×2 (06:00→14:30)
[2020-11-27] MEDS ORDERED: LevoFLOXacin IV 750 MG in IV 1 EA IV SCH (06:00)
[2020-11-27] MEDS ORDERED: DIGOXIN INJ 0.5 MG/2 ML AMP (J1160) IV ONE (06:05)
[2020-11-27] MEDS ORDERED: NS 1,000 ML IV SCH (07:00)
[2020-11-27] MEDS: BUDESONIDE 0.5 MG/2 ML INHALATION SUSPENSION INH SCH ×2 (07:56→19:40)
[2020-11-27 08:21] LABS: CALCIUM LEVEL 7.8 MG/DL (8.8-10.2); CREATININE FOR GFR 1.72 MG/DL (0.70-1.30); GLOMERULAR FILTRATION RATE 42.6 (>49); POTASSIUM SERUM 5.2 MEQ/L (3.5-5.1)
--- NOTE | 2020-11-27 08:30 | IPNPDOC ---
Subjective Date Seen The patient was seen on 11/27/20. Subjective Chief Complaint/HPI Transfer to the ICU: I was called urgently to the ICU this morning to assess Mr. Ambriz. Please consider this portion of my note as the documentation for transfer to a higher level of care. Nursing was concerned that his BP is low (SBP in the 80-90s) and his HR is elevated (150-160s). They also noted that his skin is pale in color. Several minutes later, when I arrived on the floor his BP was 86/52 and his heart rate was 160. An EKG was done and it showed atrial flutter with a 2:[address] Ballard, the consulting milk pickup driver, had also been contacted by the nursing staff. He recommended that we treat the hypotension first and wait on the tachycardia; he asked that the amiodarone be held. He suggested we start with a 250 cc bolus of NS and reassess. He stated that he would follow-up shortly on this. I will defer to him on these issues at this time. Nursing is very concerned about his vascular access. He currently has a 22 asia in his R forearm, but they feel that it is a little tenuous. A PICC has already been ordered for him, but IR won't be able to get it in until about 10:30 (2 h from now). I asked them to use the peripheral that they currently have in and baby it a little. If we can get it to hold out for the next couple of hours that would be best. If it fails, then I will see about consulting someone for a central line. The patient does not initially respond to verbal stimuli, but does respond to gentle tactile stimuli. When he does his verbal responses are appropriate. He is asking for food. This is not a good idea at this time. He asked for liquids; nursing reported that he choked on water earlier in the day and a speech/bedside swallow evaluation has been ordered. I agreed that he could try some ice chips to keep his mouth moist. They will continue to monitor him for possible aspiration. His condition is very guarded and on the edge of unstable at this time. General: Reports: ROS Unobtainable Objective Physical Examination General Exam: Positive: Mild Distress (laying curled up in the hospital bed), Other (he appears at least 20 years older than his stated age); Negative: Alert, Cooperative (mostly he perseverates on asking me if he can have a liquid diet) Eye Exam: Positive: PERRLA, Conjunctiva & lids normal; Negative: Sclera icteric ENT Exam: Positive: Atraumatic; Negative: Mucous membr. moist/pink (moderately dry) Neck Exam: Positive: Supple; Negative: Lymphadenopathy Chest Exam: Positive: Rales (scant crackles at the right base), Diminished Heart Exam: Positive: Tachycardic, Regular Rhythm Telemetry: Positive: Tachycardia (150-160s on the monitor) Abdomen Exam: Positive: BS Hypoactive, Soft; Negative: Tenderness Male Exam: Negative: Normal Genital Exam (he has a moderately tight phimosis with some scarring on the ventral side of the penis so that the urethral meatus can not be visualized) Extremity Exam: Negative: Clubbing, Edema Neuro Exam: Negative: Normal Speech (non-sequitur responses to questions), Normal Tone (contracted and slightly hypertoic at this time) Psych Exam: Negative: Mental status NL, Memory Intact, Oriented x 3 Assessment /Plan Problems (1) Sepsis Status: Acute Response to Treatment: Uncompensated Problem Text: Blood cultures still pending. On broad spectrum antibiotics at this time. He has significant and life-threatening hypotension at this time. Vascular access is very poor. Pressors really aren't a consideration until we have better access. We have 1 22 asia IV that is tenuous. A PICC has been requested, but it will be at least 2 hours before it can be done. We can not bolus the usual 30mg/kg volume, though I'd like to consider it. For now he is being bolused with 250ml of hypotonic solution (to see if we can carefully bring his sodium back into line). We will need to monitor carefully. (2) Pneumonia Status: Acute Problem Text: Probably aspiration related. He is currently treated with ceftriaxone and doxycycline. He is to be kept NPO until S/T can evaluate him and determine if a diet is safe or not. (3) Acute hypoxemic respiratory failure Status: Acute Problem Text: He has been receiving steroids and his oxygen saturations are reasonable if not great at this time. Will continue to monitor for now. (4) Atrial flutter Status: Acute Response to Treatment: Uncontrolled Discussed With: Nurse Problem Specific Plan: Consult Specialist Problem Text: Currently he has an atrial flutter with 2:1 transmission. He is being seen and this portion of his care is being managed by cardiology. They have tried digoxin so far and are considering amiodarone. I appreciate cardio's input and will defer this portion of his care to them. (5) Chronic HFrEF (heart failure with reduced ejection fraction) Status: Chronic Response to Treatment: Compensated Problem Text: Currently he is compensated clinically, but this may only be because he is to dry and there isn't much to try to pump. I am worried that if we are not extremely careful as we rehydrate him he may go back into decompensated heart failure. His fluids are currently being co-managed by cardiology and nephrology, so I will stay out of this as to not have "too many cooks in the kitchen", but I am carefully monitoring his fluid status and evaluating for signs of fluid overload. (6) Dehydration with hypernatremia Response to Treatment: Uncontrolled Problem Text: His sodium is 155 and this has actually come down a little from 158. He is very volume contracted and has a significant free water deficit. We are working to carefully correct this while not blow his only peripheral IV and also not load him up so fast that his heart can't keep up and he goes back in to heart failure. We will be monitoring very carefully. (7) CAD (coronary artery disease) Status: Chronic Problem Text: His recent Tpn I have been mildly elevated. This is likely related to the demand ischemia from sustaining a tachyarrythmia in the setting of severe dehydration rather than due to occlusion of a coronary vessel, however, we will need to continue to monitor this carefully. (8) COPD (chronic obstructive pulmonary disease) Status: Chronic Response to Treatment: Stable Problem Text: His breathing is actually pretty good right now. He was hypoxic when he first presented, but retention of CO2 and hypercarbia do not seem to be a problem at this time. Will need to continue to monitor carefully. (9) HTN (hypertension) Problem Text: He is actually dangerously hypotensive at this time. Obviously all his antihypertensives have been held along with all of his oral medications at this time. We will continue to monitor his BP carefully. (10) Severe muscle deconditioning Problem Text: He is very weak appearing and emaciated. He needs significant bulking and then reconditioning before he will be safe to live on his own again. Plan/VTE VTE Prophylaxis Ordered?: Yes (TEDS and sequentials) VS, I&O, 24H, Fishbone Vital Signs/I&O Vital Signs Date Time Temp Pulse Resp B/P (MAP) Pulse Ox O2 Delivery O2 Flow Rate FiO2 11/27/20 06:23 160 11/27/20 05:39 93/55 (68) 11/27/20 05:03 99 11/27/20 04:57 99.1 26 11/27/20 02:25 Nasal Cannula 3.0 I&O- Last 24 Hours up to 6 AM 11/27/20 06:00 Intake Total 920 ml Output Total 825 ml Balance 95 ml Laboratory Data 24H LABS Laboratory Tests 2 11/26/20 20:46: Lactic Acid Level 2.3*H 11/26/20 20:54: POC pH (Misc Panel) 7.394, POC Base Excess (Misc Panel) -1.0, POC Saturated Per cent O2 (Misc) 99H, POC pO2 (Misc Panel) 131.0H, POC pCO2 (Misc Panel) 38.5, POC HCO3 (Misc Panel) 23.5, POC Total CO2 (Misc Panel) 25.0 11/26/20 21:43: Immature Granulocyte % (Auto) 0.6, Neutrophils (%) (Auto) 88.0H, Lymphocytes (%) (Auto) 4.3L, Monocytes (%) (Auto) 6.1, Eosinophils (%) (Auto) 0.8, Basophils (%) (Auto) 0.2, Neutrophils # (Auto) 23.2H, Lymphocytes # (Auto) 1.1L, Monocytes # (Auto) 1.6H, Eosinophils # (Auto) 0.2, Basophils # (Auto) 0.1, Nucleated Red Blood Cells % (auto) 0.0, Anion Gap 7L, Glomerular Filtration Rate 41.4L, Calcium Level 8.5L, Total Bilirubin 0.2, Direct Bilirubin 0.1, Aspartate Amino Transf (AST/SGOT) 22, Alanine Aminotransferase (ALT/SGPT) 26, Alkaline Phosphatase 132H, Total Creatine Kinase 119, Creatine Kinase MB 13.4H, Creatine Kinase MB Relative Index 11.26H, Troponin I 0.39H, LS-Bwp-T-Type Natriuretic Peptide 30011Z, Total Protein 5.9L, Albumin 2.8L, Albumin/Globulin Ratio 0.9, Lipase 42L 11/26/20 23:49: Total Creatine Kinase 106, Creatine Kinase MB 10.6H, Creatine Kinase MB Relative Index 10.00H, Troponin I 0.35H 11/27/20 04:19: Anion Gap 9, Glomerular Filtration Rate 42.6L, Calcium Level 7.8L 11/27/20 04:36: Lactic Acid Followup at 4 Hours 4.3*H CBC/BMP Laboratory Tests 11/26/20 21:43 11/27/20 04:19 Microbiology Microbiology 11/26/20 Blood Culture, Received Pending 11/26/20 Blood Culture, Received Pending 11/26/20 Respiratory Virus Panel (PCR) ([facility]) - Final, Complete Burak Austin MD Nov 27, 2020 08:30
[2020-11-27] MEDS ORDERED: NS 250 ML IV ONE (08:40)
[2020-11-27] MEDS ORDERED: D5W 500 ML IV ONE (08:50)
[2020-11-27 09:22] LABS: BASO % 0.1 % (0.0-1.0); HEMATOCRIT 29.7 % (42.0-52.0); HEMOGLOBIN 8.4 g/dl (13.5-17.5); LYMPH # 0.4 10^3/uL (1.5-5.0); LYMPH % 1.1 % (24.0-44.0); MEAN CORPUSCULAR HEMOGLOBIN 21.6 pg (27.0-33.0); MEAN CORPUSCULAR HGB CONC 28.3 g/dl (32.0-36.5); MEAN CORPUSCULAR VOLUME 76.3 fl (80.0-96.0); MONO # 0.2 10^3/uL (0.0-0.8); MONO % 0.8 % (2.0-8.0); NEUTROPHILS # 29.8 10^3/uL (1.5-8.5); PLATELET COUNT, AUTOMATED 306 10^3/uL (150-450); RED BLOOD COUNT 3.89 10^6/uL (4.30-6.10)
[2020-11-27 09:24] LABS: WHITE BLOOD COUNT 30.8 10^3/uL (4.0-10.0)
[2020-11-27] MEDS: D5W 1,000 ML IV SCH ×3 (09:38→20:21)
[2020-11-27] MEDS: methylPREDNISolone 40MG 1ML VIAL IV SCH ×2 (09:38→17:07)
[2020-11-27 09:50] LABS: ALBUMIN 2.2 GM/DL (3.2-5.2); BILIRUBIN,TOTAL 0.2 MG/DL (0.2-1.0); CALCIUM LEVEL 7.3 MG/DL (8.8-10.2); CREATININE FOR GFR 1.7 MG/DL (0.70-1.30); GLOMERULAR FILTRATION RATE 43.1 (>49); POTASSIUM SERUM 5.2 MEQ/L (3.5-5.1); TOTAL PROTEIN 5.1 GM/DL (6.4-8.2)
[2020-11-27] MEDS ORDERED: DIGOXIN INJ 0.5 MG/2 ML AMP (J1160) IV STA (11:14)
[2020-11-27] MEDS ORDERED: AMIODARONE HCL 150 MG in IV 1 EA IV STA (14:44)
[2020-11-27] MEDS: METOPROLOL TART 25 MG TABLET PO SCH ×2 (15:10→21:51)
[2020-11-27] MEDS ORDERED: LIDOCAINE 1% MDV 20ML VIAL As Ordered ONE (15:14)
--- NOTE | 2020-11-27 15:14 | REP ---
INDICATION: aime. COMPARISON: Comparison study is a CT exam from November 15, 2020.. FINDINGS: The urinary bladder is largely empty at the time of scanning.. Renal cortical echogenicity pattern is increased bilaterally consistent with chronic medical renal disease. There is no evidence of hydronephrosis on either side. No mass lesion is observed. There is a septated cyst in the lower pole left kidney measuring 1.3 cm in greatest diameter.. . The right kidney measures 7.9 x 4.8 x 4.4 cm. Left renal dimensions are 9.3 x 4.4 x 4.9 cm. There is mild bilateral renal cortical atrophy. IMPRESSION: Increased renal cortical echogenicity pattern bilaterally consistent with chronic medical renal disease. Small cyst left kidney. Bilateral renal atrophy. No hydronephrosis seen.. <Electronically signed by Jose Victor > 11/27/20 [id number]
[2020-11-27] MEDS: VANCOMYCIN HCL 1,000 MG, VIAL MATE ADAPTER 1 EACH in NS 250 ML IV SCH (15:20)
[2020-11-27] MEDS: MEROPENEM INJ 1 GM in IV 1 EA IV SCH (17:07)
[2020-11-27 17:58] LABS: CREATININE FOR GFR 1.59 MG/DL (0.70-1.30); GLOMERULAR FILTRATION RATE 46.6 (>49); POTASSIUM SERUM 4.7 MEQ/L (3.5-5.1)
[2020-11-27] MEDS ORDERED: DOXYCYCLINE HYCLATE 100 MG in D5W MINI-BAG PLUS 100 ML IV SCH (18:00)
--- NOTE | 2020-11-27 19:33 | REP ---
INDICATION: Poor venous access. COMPARISON: None. TECHNIQUE: The procedure was performed under the direct supervision of Dr. Victor. The risks and benefits of the procedure were explained to the patient and informed consent was obtained. The procedure was performed in the ICU at the bedside. The right brachial vein was localized using ultrasound guidance. The skin was prepped and draped in a sterile fashion. 1 mL of 1% lidocaine was used as a local anesthetic. Using ultrasound guidance the brachial vein was cannulated and a 0.018 guidewire was inserted. The needle was removed and a 5 Green[place] dilator and peel-away sheath was inserted over the guide wire. A 5 [place] dual lumen catheter was cut to length of 38 cm. The dilator was removed and the catheter was inserted over the guide wire. A portable chest x-ray was performed and the image demonstrates the tip of the catheter to be in the SVC.. The peel-away sheath was removed and the catheter was flushed with heparinized saline as per Hospital protocol. The catheter was affixed to the skin and a sterile dressing was applied. Estimated blood loss: Less than 1 mL The patient tolerated the procedure well and there were no immediate complications. FINDINGS: None IMPRESSION: PICC line insertion right brachial vein with the tip ending in the SVC. <Electronically signed by Kian Landa > 11/27/20 [id number] <Electronically signed by Jose Victor > 11/27/20 [id number]
[2020-11-27] MEDS ORDERED: APIXABAN 5 MG TAB (ELIQUIS) PO ONE (20:00)
[2020-11-27] MEDS ORDERED: cefTRIAXone SOD 1 GM in D5W MINI-BAG PLUS 50 ML IV SCH (23:00)
[2020-11-27 23:58] LABS: MAGNESIUM LEVEL 1.6 MG/DL (1.8-2.4)
[2020-11-28] VITALS (28 sets, daily range): BP systolic 109–152; BP diastolic 53–97
[2020-11-28] MEDS: PANTOPRAZOLE 40MG VIAL (C9113 PER 1) IV SCH ×2 (01:20→21:07)
[2020-11-28] MEDS: LEVALBUTEROL 1.25 MG/0.5 ML CONCENTRATE NEB NEB SCH ×4 (01:49→19:50)
[2020-11-28] MEDS: IPRATROPIUM 0.02% SOLN 0.5MG 2.5ML NEB NEB SCH ×4 (01:49→19:49)
[2020-11-28] MEDS: methylPREDNISolone 40MG 1ML VIAL IV SCH ×3 (02:21→18:24)
[2020-11-28] MEDS: METOPROLOL TART 25 MG TABLET PO SCH ×4 (02:58→21:07)
[2020-11-28] MEDS ORDERED: VANCOMYCIN HCL 750 MG, VIAL MATE ADAPTER 1 EACH in NS 250 ML IV SCH (03:00)
[2020-11-28] MEDS: MEROPENEM INJ 1 GM in IV 1 EA IV SCH ×2 (03:45→16:45)
[2020-11-28] MEDS: MAG SULF 1GM/100ML (MAG RUN) 1 GM in IV 1 EA IV SCH ×2 (03:45→05:00)
[2020-11-28 06:26] LABS: BASO % 0.1 % (0.0-1.0); HEMATOCRIT 24.6 % (42.0-52.0); HEMOGLOBIN 7.1 g/dl (13.5-17.5); LYMPH # 0.4 10^3/uL (1.5-5.0); LYMPH % 1.7 % (24.0-44.0); MEAN CORPUSCULAR HEMOGLOBIN 21.5 pg (27.0-33.0); MEAN CORPUSCULAR HGB CONC 28.9 g/dl (32.0-36.5); MEAN CORPUSCULAR VOLUME 74.3 fl (80.0-96.0); MONO # 0.4 10^3/uL (0.0-0.8); MONO % 1.9 % (2.0-8.0); NEUTROPHILS % 95.1 % (36.0-66.0); PLATELET COUNT, AUTOMATED 252 10^3/uL (150-450); RED BLOOD COUNT 3.31 10^6/uL (4.30-6.10); WHITE BLOOD COUNT 23.1 10^3/uL (4.0-10.0)
[2020-11-28 06:53] LABS: ALBUMIN 1.9 GM/DL (3.2-5.2); BILIRUBIN,TOTAL 0.2 MG/DL (0.2-1.0); CALCIUM LEVEL 7.1 MG/DL (8.8-10.2); CREATININE FOR GFR 1.34 MG/DL (0.70-1.30); GLOMERULAR FILTRATION RATE 56.8 (>49); MAGNESIUM LEVEL 2.6 MG/DL (1.8-2.4); POTASSIUM SERUM 4.6 MEQ/L (3.5-5.1); TOTAL PROTEIN 4.3 GM/DL (6.4-8.2)
[2020-11-28] MEDS: BUDESONIDE 0.5 MG/2 ML INHALATION SUSPENSION INH SCH ×2 (07:38→19:50)
--- NOTE | 2020-11-28 08:35 | REP ---
INDICATION: INTERVAL RUL PNA. COMPARISON: Portable chest, 11/26/2020. TECHNIQUE: AP portable chest was performed. FINDINGS: There is continued peribronchial consolidation in the midlung zone on the right. There is no new airspace consolidation or pleural effusions. There has been interval placement of a right PICC with the tip at the junction of the superior vena cava and right atrium. Status post median sternotomy. There is a left atrial appendage clip. The heart size appears normal on this exam. There is calcific vascular disease of the thoracic aorta. There are surgical clips at the base the neck bilaterally consistent with thyroidectomy. There is moderate arthritis of both glenohumeral joints. There is a healed fracture of the right clavicle, and there are multiple healed rib fractures on the right. IMPRESSION: 1. Continued peribronchial consolidation in the midlung zone on the right. 2. Interval placement of a right PICC line. 3. Other findings as noted unchanged. <Electronically signed by Varinder Love > 11/28/20 [id number]
--- NOTE | 2020-11-28 09:15 | ECGEPIP ---
[facility] Test Date: 2020-11-27 Pat Name: RISSA YUSUF Department: Room: [place] [address] Gender: Male Wound Care Coordinator: jay : 1955 Requested By: CORDELL BALLARD Order Number: [id number] Reading MD: Cordell Ballard Measurements Intervals [place] Rate: 160 P: -81 FL: QRS: 58 QRSD: 84 T: 157 QT: 252 QTc: 411 Interpretive Statements Critical Test Result: High HR Atrial flutter with 2:1 AV conduction Minimal voltage criteria for LVH, may be normal variant ( Sokolow-Bradshaw ) ST & T wave abnormality, consider lateral ischemia Last tracing on 11/26/20, 19:43. No remarkable changes Electronically Signed on 11-28-2020 9:14:42 EDT by Cordell Ballard
--- NOTE | 2020-11-28 10:00 | ECGEPIP ---
[facility] Test Date: 2020-11-28 Pat Name: RISSA YUSUF Department: Room: [place] [address] Gender: Male Jack Spinner: jay : 1955 Requested By: INOCENCIO Del Valle Order Number: [id number] Reading MD: Joseph Ballard Measurements Intervals [place] Rate: 76 P: 74 WA: 154 QRS: 31 QRSD: 90 T: 129 QT: 378 QTc: 425 Interpretive Statements Poor data quality, interpretation may be adversely affected Normal sinus rhythm Cannot rule out Inferior infarct , age undetermined T wave abnormality, consider lateral ischemia Compared to prior tracings (2) in the system, Atrial Flutter was present Electronically Signed on 11-28-2020 10:00:10 EDT by Joseph Ballard
--- NOTE | 2020-11-28 10:33 | CR ---
CONSULTATION DATE: 11/27/2020 CONSULTING PHYSICIAN: Burak Austin MD CONSULTING PHYSICIAN: Rossana Wilson DO REASON FOR CONSULTATION: Acute kidney injury with hypernatremia and hyperkalemia and this patient was admitted with sepsis. HISTORY OF PRESENT ILLNESS: Mr. Ambriz is previously unknown to me. He is a 65-year-old male, who was brought today to the emergency room after a wellness check from police and the patient was reportedly found on the ground at home. History is limited to chart review and discussion with other health providers as the patient is unable to provide much clinical history secondary to his condition. He has a past medical history of chronic obstructive pulmonary disease (COPD), hypothyroidism, congestive heart failure (systolic), history of substance abuse, coronary artery disease, dyslipidemia, anemia and other comorbid conditions mentioned below. In the emergency room, the patient was found to be tachycardiac with heart rate 150s to 160s and hypoxic, requiring 2 to 3 liters of oxygen by nasal canula. Laboratory studies revealed a white count of 26, hemoglobin of 9.8, sodium of 159 with creatinine of 1.7 up from a baseline creatinine of 1.0, lactic acid of 2.3, BNP of 19,000, albumin of 2.8. The patient was persistently hypotensive and was transferred to the ICU overnight. He was given a small bolus of normal saline by cardiology this morning, along with a dose of digoxin and nephrology evaluation was requested for help with hypernatremic renal failure. PAST MEDICAL HISTORY: As mentioned above. 1. Chronic obstructive pulmonary disease (COPD). 2. Systolic congestive heart failure. 3. Hypertension. 4. Pancreatic insufficiency. 5. Hypothyroidism. 6. Substance abuse. 7. Anemia. 8. Glaucoma. 9. Cataracts. 10.History of cerebrovascular accident (CVA). 11.Dyslipidemia. 12.Coronary artery disease. SURGICAL HISTORY: Cataract surgery, carotid endarterectomy, left subclavian artery bypass, tonsillectomy, partial pancreatoduodenectomy, cardiac bypass. FAMILY HISTORY: Significant for heart disease in his mother. SOCIAL HISTORY: He is a former smoker. There is no reported alcohol use. There is no reported current drug use. ALLERGIES: AMOXICILLIN, CARBOLIC ACID, PREGABALIN, WARFARIN. HOME MEDICATIONS: Atorvastatin 40 mg by mouth every night at bedtime, ferrous sulfate 325 mg by mouth daily, Lasix 40 mg by mouth daily, Atrovent 2 puffs inhaled q.i.d., losartan 100 mg daily, hydrochlorothiazide 12.5 mg by mouth daily, ropinirole 0.5 mg by mouth twice a day. REVIEW OF SYSTEMS: Unable to obtain secondary to clinical condition. PHYSICAL EXAMINATION: Vital signs: Temperature 98.8, pulse 153, respiratory rate 19, blood pressure 124/61, saturating 100% on 2 liters nasal canula. Weight in the bed scale today is 53.5 kg. General: The patient is seen lying in bed in the intensive care unit. Appears older than stated age. Appears cachetic, chronically ill and malnourished. Makes poor eye contact is lethargic. Tongue is dry. Neck veins are not elevated. Heart sounds are irregularly irregular. Monitor shows atrial flutter with 2:1 conduction. There is no peripheral edema. Lungs show diminished breath sounds on the right upper lobe, otherwise good air movement. No crackle or rale. Abdomen is soft. She does not grimace to palpation. Genitourinary: There is no Velez catheter at the time of my visit. His bladder is not distended nor palpable. Neurologic: He wiggles his toes on commands and squeezes by hand on command, but does not speak or answer simple questions. LABORATORY STUDIES: Urinalysis: Negative protein, negative blood, negative leukocyte esterase, negative nitrites. Sodium 155, potassium 5.2, chloride 121, bicarbonate 25, BUN 16, creatinine 1.7. Hemoglobin 9.4, white count 30.8. MICROBIOLOGY; Blood cultures are pending. IMAGING: Chest x-ray shows a right upper lobe pneumonia, but the lungs are otherwise clear and there is no pleural effusion. Renal ultrasound is negative for any obstruction. INPATIENT MEDICATIONS: Amiodarone 150 mg IV times 1. I ordered D5W 500 ml bolus followed by D5W at 150 ml per hour. He is received one dose of doxycycline 100 mg IV times 1. He is on meropenem 1 gm IV q 12 hours. He received 500 ml normal saline this morning. He was on vancomycin, Eliquis 6 mg by mouth times one dose, budesonide twice a day. He got digoxin 0.25 mg IV times one dose. He also received one dose of Lasix 40 mg IV. Xopenex nebulizer q 6 hours, Solu-Medrol 40 mg IV q 8 hours, Solu-Medrol 125 mg IV times one, Lopressor 25 mg by mouth q 6 hours. PROBLEMS: 1. Nonoliguric acute kidney injury in this patient with sepsis and a large free water deficit and hypotension. The patient is clinically dry and will need further IV fluid. Orders are in for D5W presently to run 150 ml per hour and we will repeat labs this afternoon and adjust the fluids as needed. His renal imaging was negative for obstruction. His urinalysis is benign. 2. Hypernatremia. Based upon his weight at 53 kg and his serum sodium of 155 this morning, the patient has a 2.8 liter free water deficit. He is clinically hypotensive and hypovolemic. Bolus 500 ml of D5W and D5W to run at 150 ml per hour and we will reassess his fluids with repeat labs this afternoon 3. Hyperkalemia. Expect is potassium level will improve with hypotonic fluid administration. 4. Sepsis. The patient had a white count of 26,000 on admission. His blood cultures show no growth for 24 hours times 2 sets. His urinalysis is negative. His chest x-ray did show right upper lobe pneumonia. The patient is on antibiotics managed by the primary team. 5. History of congestive heart failure. The patient is clinically very dry. He has a 2.8 liter free water deficit. His diuretics are held. He is in for hypotonic fluid administration at this time. 6. Atrial flutter. Deferred management to cardiology. I do note his blood pressures have improved with fluid administration. He needs rate control on medication. Will check a magnesium level as well, as none has yet been drawn. Thank you for involving me in the care of Mr. Ambriz. I will follow along with you.
--- NOTE | 2020-11-28 14:58 | IPN ---
NEPHROLOGY PROGRESS NOTE DATE: 11/28/2020 SUBJECTIVE: Mr. Ambriz is seen this morning on his bedside in the intensive care unit. He is not in any acute distress. He is repeatedly asking about food, as he feels hungry and wants to eat. He denies any dyspnea or chest pain. He was admitted with hypotension and severe tachycardia. He was found to be hypernatremic on admission due to dehydration and sepsis. His acute kidney injury has been improving. PHYSICAL EXAMINATION: GENERAL: Patient is awake and alert and without any acute distress. VITAL SIGNS: Temperature 98.2 degrees Fahrenheit, heart rate 78 per minute, respiratory rate 18 per minute, blood pressure 423792 mmHg, oxygen saturation 98% on room air. HEAD: Atraumatic. NECK: Supple and without jugular venous distention (JVD) or thyroid enlargement. HEART SOUNDS: Regular now. LUNGS: Clear to auscultation. ABDOMEN: Soft and nontender. Bowel sounds are present. EXTREMITIES: Without any cyanosis or clubbing. NEUROLOGIC: He seems to be alert, oriented and without a focal deficit. LABORATORY DATA: Today's labs show sodium 143, potassium 4.6, CO2 27, BUN 28, creatinine 1.34, calcium 7.1. Lactic acid level has come down to 0.8. Albumin 1.9. Hemoglobin 7.1, hematocrit 20.6. White cell count has come down to 23.1. PROBLEMS: 1. Acute kidney injury. Kidney function is improving nicely. I would recommend to not give him any diuretic. He can probably increase his oral intake of fluids, as he is now fully alert and likely to swallow without any problem. 2. Hypernatremia. Sodium level has corrected and patient remains on low-dose D5W. Once his oral intake is resumed and he has tolerated, then we can consider to stop his intravenous (IV) fluid of D5W. 3. Anemia. Patient has significant anemia and I would recommend to transfuse him 2 units of packed red blood cells (PRBCs). 4. Sepsis. Patient had severe leukocytosis and elevated lactic acid level. Both are now improving. His blood cultures have been negative so far. He has received vancomycin and meropenem. 5. Nutrition. From a renal standpoint, patient can eat a regular diet. His kidney function is improving and electrolytes are stable.
[2020-11-28] MEDS: VANCOMYCIN HCL 1,000 MG, VIAL MATE ADAPTER 1 EACH in NS 250 ML IV SCH (15:16)
[2020-11-28] MEDS: CALCIUM CARBONATE 500 MG CHEW U/D PO PRN (18:24)
[2020-11-28 18:44] LABS: HEMATOCRIT 30.2 % (42.0-52.0); HEMOGLOBIN 8.5 g/dl (13.5-17.5)
--- NOTE | 2020-11-28 22:58 | IPNPDOC ---
Subjective Date Seen The patient was seen on 11/28/20. Subjective Chief Complaint/HPI Mr. Ambriz is doing remarkably better today. Nursing reports that his atrial flutter converted at about 2100 last night. He has a urinary catheter in now for critical monitoring. I changed his antibiotics to meropenem and vancomycin as he had recently been in for a COPD exacerbation and was on Zosyn and Levaquin at that time. This may be better coverage for him b/c of possible resistance issues. He is asking (very persistently) if he can eat. General: Reports: Normal Appetite Constitutional: Reports: Weakness; Denies: Chills, Fever Pulmonary: Reports: Dyspnea, Cough Cardiovascular: Denies: Chest Pain, Palpitations, Edema Gastrointestinal: Reports: Diarrhea; Denies: Nausea, Vomiting Objective Physical Examination General Exam: Positive: Alert, Cooperative (laying in his bed talking with the nurse when I enter the room), No Acute Distress Eye Exam: Positive: PERRLA, Conjunctiva & lids normal ENT Exam: Positive: Atraumatic, Mucous membr. moist/pink, Tongue Midline Neck Exam: Positive: Supple; Negative: Lymphadenopathy Chest Exam: Positive: Rales (at the right base, but they are not worse and may be better than yesterday), Diminished Heart Exam: Positive: Rate Normal, Regular Rhythm, Normal S1, Normal S2 Telemetry: Positive: No significant arrhythmia, Sinus Abdomen Exam: Positive: Normal bowel sounds, Soft; Negative: Tenderness Male Exam: Negative: Edema Extremity Exam: Negative: Edema Neuro Exam: Positive: Normal Speech (his responses are very appropriate today), Sensation Intact Psych Exam: Positive: Mood NL, Oriented x 3 Assessment /Plan Problems (1) Sepsis Status: Acute Response to Treatment: Uncompensated Problem Text: Blood cultures are negative so far. He is on meropenem and vancomycin now. His PICC is in, but his BP is normal now. He isn't dangerously hypotensive. His tachycardia has also resolved. He is certainly heading the right way physiologically, but we will continue to need to monitor carefully. (2) Pneumonia Status: Acute Problem Text: S/T gave him a diet recommendation and nephrology is ok with him eating as am I. We need to monitor carefully to see that it doesn't seem to be choking or aspirating any more, but he is much more alert than he was just yesterday so my concern for this is also much less. (3) Chronic HFrEF (heart failure with reduced ejection fraction) Status: Chronic Response to Treatment: Compensated Problem Text: He remains compensated even during his rehydration. At this point he is eating and drinking fine on his own. I will stop the IVF (which had already been reduced to 40ml/hr) and let him eat and drink on his own. (4) CAD (coronary artery disease) Status: Chronic Problem Text: No symptoms. Continue current regimen, monitor. (5) COPD (chronic obstructive pulmonary disease) Status: Chronic Response to Treatment: Stable Problem Text: His breathing remains stable. Will need to continue to monitor carefully. (6) HTN (hypertension) Problem Text: His BP is better controlled today. Obviously all his antihypertensives have been held along with all of his oral medications at this time. We will continue to monitor his BP carefully. (7) Severe muscle deconditioning Problem Text: He is very weak appearing and emaciated. He needs significant bulking and then reconditioning before he will be safe to live on his own again. (8) Atrial flutter Response to Treatment: Stable, Controlled Discussed With: Nurse, Patient Problem Specific Plan: Consult Specialist Problem Text: Cardiology was finally able to get his rate under control yesterday. I appreciate all the work that went into that. (9) Acute hypoxemic respiratory failure Status: Resolved Problem Text: He has been receiving steroids and his oxygen saturations are reasonable if not great at this time. Will continue to monitor for now. (10) Dehydration with hypernatremia Status: Resolved Response to Treatment: Controlled Problem Text: His sodium is normal now and his renal fx is almost normal too. His lactic acid is normal for the first time this admission. I think all the efforts at getting him rehydrated has paid off. Plan/VTE VTE Prophylaxis Ordered?: Yes Disposition If things remain stable overnight, I anticipate that I can downgrade him to the PCU tomorrow. VS, I&O, 24H, Fishbone Vital Signs/I&O Vital Signs Date Time Temp Pulse Resp B/P (MAP) Pulse Ox O2 Delivery O2 Flow Rate FiO2 11/28/20 21:07 80 137/65 11/28/20 20:00 97.6 19 100 Room Air 11/27/20 18:00 2.0 I&O- Last 24 Hours up to 6 AM 11/28/20 06:00 Intake Total 2950 ml Output Total 830 ml Balance 2120 ml Laboratory Data 24H LABS Laboratory Tests 2 11/28/20 06:11: Anion Gap 4L, Glomerular Filtration Rate 56.8, Calcium Level 7.1L, Magnesium Level 2.6H, Total Bilirubin 0.2, Aspartate Amino Transf (AST/SGOT) 14, Alanine Aminotransferase (ALT/SGPT) 17, Alkaline Phosphatase 97, Total Protein 4.3L, Albumin 1.9L, Albumin/Globulin Ratio 0.8 11/28/20 06:12: Immature Granulocyte % (Auto) 1.2, Neutrophils (%) (Auto) 95.1H, Lymphocytes (%) (Auto) 1.7L, Monocytes (%) (Auto) 1.9L, Eosinophils (%) (Auto) 0.0, Basophils (%) (Auto) 0.1, Neutrophils # (Auto) 22.0H, Lymphocytes # (Auto) 0.4L, Monocytes # (Auto) 0.4, Eosinophils # (Auto) 0.0, Basophils # (Auto) 0.0, Nucleated Red Blood Cells % (auto) 0.0, Lactic Acid Level 0.8 11/28/20 14:18: Vancomycin Level Trough 9.6L CBC/BMP Laboratory Tests 11/28/20 06:11 11/28/20 06:12 11/28/20 18:17 Microbiology Microbiology 11/26/20 Blood Culture - Preliminary, Resulted No Growth after 48 hours. All Specime... 11/26/20 Blood Culture - Preliminary, Resulted No Growth after 48 hours. All Specime... 11/26/20 Respiratory Virus Panel (PCR) ([facility]) - Final, Complete Burak Austin MD Nov 28, 2020 22:58
[2020-11-29] VITALS (12 sets, daily range): BP systolic 112–147; BP diastolic 54–69
[2020-11-29] MEDS: IPRATROPIUM 0.02% SOLN 0.5MG 2.5ML NEB NEB SCH ×4 (02:00→19:19)
[2020-11-29] MEDS: LEVALBUTEROL 1.25 MG/0.5 ML CONCENTRATE NEB NEB SCH ×4 (02:00→19:20)
[2020-11-29] MEDS: LIDOCAINE 5% (LIDODERM) PATCH TD SCH ×2 (02:27→21:09)
[2020-11-29] MEDS: rOPINIRole 0.25 MG TAB(REQUIP) PO SCH ×3 (02:28→21:08)
[2020-11-29] MEDS: methylPREDNISolone 40MG 1ML VIAL IV SCH ×2 (02:28→09:08)
[2020-11-29] MEDS: CALCIUM CARBONATE 500 MG CHEW U/D PO PRN ×3 (02:28→17:40)
[2020-11-29] MEDS: VANCOMYCIN HCL 750 MG, VIAL MATE ADAPTER 1 EACH in NS 250 ML IV SCH ×2 (03:15→15:13)
[2020-11-29] MEDS: METOPROLOL TART 25 MG TABLET PO SCH ×4 (03:16→21:08)
[2020-11-29] MEDS: MEROPENEM INJ 1 GM in IV 1 EA IV SCH ×2 (04:33→15:40)
--- NOTE | 2020-11-29 05:34 | IPN ---
PROGRESS NOTE DATE: 11/28/2020 SUBJECTIVE: Mr. Ambriz was seen earlier this afternoon, he was lying supine in bed, in no acute distress at rest. He spontaneously converted to a normal sinus rhythm. He was admitted with sepsis and pneumonia and was found to be in atrial flutter with 2:1 AV block. He was treated with beta luisito, digoxin and received amiodarone. Initially, he was hypotensive upon admission. He was responded to IV fluids. He denies any chest pain, shortness of breath, palpitations and there was no orthopnea or paroxysmal nocturnal dyspnea (PND). No pedal edema noted. There is no report of bleeding. OBJECTIVE: On physical examination, the patient is alert and oriented, in no acute distress at rest and his vital signs when I saw him revealed a blood pressure of 115/82 with a pulse of 80, respirations 18 and his saturation was 100% on room air. His maximum temperature was 98 degrees Fahrenheit. He has a positive fluid balance of 2.1 liters on 11/27/2020. Examination of the head: Atraumatic. Neck supple and no jugular venous distention (JVD) appreciated. The lungs did not reveal any wheezing or crackles. Heart examination revealed regular heart sounds without gallops. The PMI is slightly displaced inferiorly and laterally. There is no rub. Abdomen is soft and nontender. Extremities reveal no pedal edema. Neurological examination grossly is negative for focal deficit. LABORATORY DATA: Complete blood count (CBC) done today revealed WBC of 23,000, hemoglobin 7.1, hematocrit 24.6 and platelets 252,000. Basic metabolic panel (BMP) revealed a sodium of 143, potassium 4.6, chloride 112, Co2 27, BUN 28, creatinine 1.34, glomerular filtration rate (GFR) 56.8 and fasting glucose 154 with a calcium of 7.1. Liver enzymes revealed a total bilirubin of 0.2, AST 14, ALT 17, alkaline phosphatase is 97, total protein 4.3 and albumin 1.9. Serum lactic acid is now 0.8. ASSESSMENT: Mr. Edgardo Santos seems to be stable from a cardiac point of view, now in normal sinus rhythm. His echocardiogram with a depressed left ventricular ejection fraction (LVEF), formal report is pending. Will continue with the beta luisito. When he is more stable, will start him on POPPY inhibitor or ARB. In view of his anemia, I am not going to continue with the Eliquis and he will be restarted on heparin subcutaneous. His atrial flutter is probably related to underlying anemia in the setting of cardiomyopathy and left ventricular systolic dysfunction. If he continues to have paroxysmal atrial fibrillation, this will be revisited. He might benefit from gastrointestinal (GI) workup in the future. He also will be started on a baby aspirin daily. It was a pleasure to participate in the care of Mr. Edgardo Ambriz for his underlying cardiac condition. I will continue to monitor him along with you.
[2020-11-29 05:38] LABS: BASO % 0.1 % (0.0-1.0); HEMATOCRIT 25.8 % (42.0-52.0); HEMOGLOBIN 7.5 g/dl (13.5-17.5); LYMPH # 0.4 10^3/uL (1.5-5.0); LYMPH % 1.8 % (24.0-44.0); MEAN CORPUSCULAR HEMOGLOBIN 21.9 pg (27.0-33.0); MEAN CORPUSCULAR HGB CONC 29.1 g/dl (32.0-36.5); MEAN CORPUSCULAR VOLUME 75.2 fl (80.0-96.0); MONO # 0.3 10^3/uL (0.0-0.8); MONO % 1.4 % (2.0-8.0); NEUTROPHILS # 19.2 10^3/uL (1.5-8.5); NEUTROPHILS % 95.6 % (36.0-66.0); PLATELET COUNT, AUTOMATED 237 10^3/uL (150-450); RED BLOOD COUNT 3.43 10^6/uL (4.30-6.10); WHITE BLOOD COUNT 20.1 10^3/uL (4.0-10.0)
[2020-11-29 05:56] LABS: BLOOD UREA NITROGEN 33 MG/DL (7-18); CALCIUM LEVEL 7.5 MG/DL (8.8-10.2); CARBON DIOXIDE LEVEL 23 MEQ/L (21-32); CHLORIDE LEVEL 110 MEQ/L (98-107); CREATININE FOR GFR 1.21 MG/DL (0.70-1.30); GLOMERULAR FILTRATION RATE > 60.0 (>49); GLUCOSE, FASTING 150 MG/DL (70-100); POTASSIUM SERUM 4.4 MEQ/L (3.5-5.1); SODIUM LEVEL 141 MEQ/L (136-145)
[2020-11-29] MEDS: BUDESONIDE 0.5 MG/2 ML INHALATION SUSPENSION INH SCH ×2 (07:51→19:19)
[2020-11-29] MEDS: ENOXAPARIN 40MG/0.4ML SYRINGE (J1650 PER 10MG) SC SCH (09:08)
[2020-11-29] MEDS: **NOTE PATIENT COMMENT** MISC XX SCH (09:08)
--- NOTE | 2020-11-29 12:30 | IPNPDOC ---
Subjective Date Seen The patient was seen on 11/29/20. Subjective Chief Complaint/HPI Mr. Ambriz is feeling pretty well today. Nursing reports that he has a strong gastrocolic reflex and might have some sort of malabsorption syndrome. She reports that shortly after he ate an omelette for breakfast he had a bowel movement and now came undigested pieces of egg. When I asked him if he always has bowel movements right after he eats he says "I poop when I poop". Constitutional: Denies: Chills, Fever Cardiovascular: Denies: Chest Pain, Palpitations Gastrointestinal: Reports: Diarrhea; Denies: Nausea, Vomiting, Abdominal Pain Objective Physical Examination General Exam: Positive: Alert, Cooperative (Sitting comfortably in his bed and easily arousable to verbal stimuli when I enter his room), No Acute Distress Eye Exam: Positive: PERRLA, Conjunctiva & lids normal ENT Exam: Positive: Atraumatic, Mucous membr. moist/pink, Tongue Midline Neck Exam: Positive: Supple; Negative: Lymphadenopathy Chest Exam: Positive: Rales (His right lower lobe actually sounds a little worse today, but it might be because he was resting and not breathing deeply), Diminished Heart Exam: Positive: Rate Normal, Regular Rhythm, Normal S1, Normal S2 Telemetry: Positive: No significant arrhythmia, Sinus Abdomen Exam: Positive: Normal bowel sounds, Soft; Negative: Tenderness Male Exam: Negative: Edema Extremity Exam: Negative: Edema Neuro Exam: Positive: Normal Speech, Sensation Intact Psych Exam: Positive: Mood NL, Oriented x 3 Assessment /Plan Problems (1) Sepsis Status: Acute Response to Treatment: Uncompensated Problem Text: Blood cultures are negative so far. He is on meropenem and vancomycin now. His PICC is in, but his BP is normal now. He isn't dangerously hypotensive. His tachycardia has also resolved. He is certainly heading the right way physiologically, but we will continue to need to monitor carefully. I feel comfortable stepping him down from the ICU today. (2) Pneumonia Status: Acute Problem Text: Nurses are carefully following the dietary recommendations. The patient's not happy with this, but he does not seem to be choking when he eats. One concern is that he seems to always wilson his food down. I asked if this is the way he always eats and he seemed confused about the question. I suspect that he may not have a lot of food available and therefore subconsciously eat as much as he can as soon as he has access to it. We may do better slowly giving him the parts of his meal so that he does not eat them all at once and aspirate. (3) Chronic HFrEF (heart failure with reduced ejection fraction) Status: Chronic Response to Treatment: Compensated Problem Text: He remains compensated even during his rehydration. At this point he is eating and drinking fine on his own. We will continue to monitor. (4) COPD (chronic obstructive pulmonary disease) Status: Chronic Response to Treatment: Stable Problem Text: His breathing remains stable even though he has a pneumonia. I am stopping his IV Solu-Medrol and changing him to oral prednisone. Will need to continue to monitor carefully. (5) Atrial flutter Status: Resolved Response to Treatment: Stable, Controlled Discussed With: Nurse, Patient Problem Specific Plan: Consult Specialist Problem Text: Apparently had 1 small run of SVT last night, but is otherwise remained in sinus rhythm. We will continue to monitor with telemetry. (6) CAD (coronary artery disease) Status: Chronic Problem Text: No symptoms. Continue current regimen, monitor. (7) HTN (hypertension) Problem Text: His BP is better controlled today. Obviously all his antihypertensives have been held along with all of his oral medications at this time. We will continue to monitor his BP carefully. (8) Severe muscle deconditioning Problem Text: He is very weak appearing and emaciated. He needs significant bulking and then reconditioning before he will be safe to live on his own again. Plan/VTE VTE Prophylaxis Ordered?: Yes VS, I&O, 24H, Fishbone Vital Signs/I&O Vital Signs Date Time Temp Pulse Resp B/P (MAP) Pulse Ox O2 Delivery O2 Flow Rate FiO2 11/29/20 10:01 74 17 120/57 (78) 97 Room Air 11/29/20 08:00 98.6 11/27/20 18:00 2.0 I&O- Last 24 Hours up to 6 AM 11/29/20 05:59 Intake Total 2825 ml Output Total 715 ml Balance 2110 ml Laboratory Data 24H LABS Laboratory Tests 2 11/28/20 14:18: Vancomycin Level Trough 9.6L 11/29/20 05:16: Immature Granulocyte % (Auto) 1.1, Neutrophils (%) (Auto) 95.6H, Lymphocytes (%) (Auto) 1.8L, Monocytes (%) (Auto) 1.4L, Eosinophils (%) (Auto) 0.0, Basophils (%) (Auto) 0.1, Neutrophils # (Auto) 19.2H, Lymphocytes # (Auto) 0.4L, Monocytes # (Auto) 0.3, Eosinophils # (Auto) 0.0, Basophils # (Auto) 0.0, Nucleated Red Blood Cells % (auto) 0.0, Anion Gap 8, Glomerular Filtration Rate > 60.0, Calcium Level 7.5L CBC/BMP Laboratory Tests 11/28/20 18:17 11/29/20 05:16 Microbiology Microbiology 11/26/20 Blood Culture - Preliminary, Resulted No Growth after 48 hours. All Specime... 11/26/20 Blood Culture - Preliminary, Resulted No Growth after 48 hours. All Specime... 11/26/20 Respiratory Virus Panel (PCR) ([facility]) - Final, Complete Burak Austin MD Nov 29, 2020 12:30
[2020-11-29] MEDS: LOMOTIL 2.5MG/0.025MG TABLET PO SCH ×3 (12:57→21:26)
[2020-11-29] MEDS: FERROUS SULFATE 325MG TAB PO SCH (12:57)
[2020-11-29] MEDS: ASPIRIN 81MG ENTERIC TABLET PO SCH (12:57)
[2020-11-29] MEDS: LISINOPRIL *2.5 MG* TAB PO SCH (14:50)
--- NOTE | 2020-11-29 16:49 | IPN ---
NEPHROLOGY PROGRESS NOTE DATE: 11/29/2020 SUBJECTIVE: Mr. Ambriz is seen this morning on his bedside. He is feeling well and not happy with his thickened liquids. He wants to drink regular fluids and eat a normal diet. He denies any dyspnea, chest pain, fever or chills. PHYSICAL EXAMINATION: Temperature 98.3 degrees Fahrenheit, heart rate 72 per minute, respiratory rate 18 per minute, blood pressure 113/56 mmHg, oxygen saturation 95% on room air. HEAD: Atraumatic. NECK: Supple and without jugular venous distention (JVD) or thyroid enlargement. HEART SOUNDS: Regular. LUNGS: Clear to auscultation. ABDOMEN: Soft and nontender. Bowel sounds are normal. EXTREMITIES: Without any cyanosis or clubbing. LABORATORY DATA: Today's labs show BUN 33 and creatinine is down to 1.21, sodium 141, potassium 4.4. Hemoglobin 7.5, hematocrit 25.8, WBC 20,000. PROBLEMS: 1. Acute renal failure. Patient had acute renal failure related to sepsis. Kidney function is improving nicely. His electrolytes are stable at this time. 2. Hypernatremia. His sodium level has improved and corrected. His oral intake has improved and intravenous (IV) fluid has already been stopped. 3. Anemia. Patient does have significant anemia and likely to benefit from transfusion. I will defer to his primary care team. 4. Sepsis. Patient has improved and remains on antibiotics. Blood cultures have been negative so far. All in all, from a renal standpoint, patient is doing well and I am going to sign off. Please do not hesitate to call me back if you need any further assistance.
[2020-11-29] MEDS: PANTOPRAZOLE 40MG VIAL (C9113 PER 1) IV SCH (21:09)
[2020-11-30] MEDS ORDERED: BACLOFEN 10 MG TAB PO ONE (01:25)
[2020-11-30] MEDS: LEVALBUTEROL 1.25 MG/0.5 ML CONCENTRATE NEB NEB SCH ×4 (01:42→19:36)
[2020-11-30] MEDS: IPRATROPIUM 0.02% SOLN 0.5MG 2.5ML NEB NEB SCH ×4 (01:42→19:36)
[2020-11-30 02:00] VITALS: BP 106/55
[2020-11-30] MEDS: METOPROLOL TART 25 MG TABLET PO SCH ×4 (02:40→20:37)
[2020-11-30 04:00] VITALS: BP 121/58
[2020-11-30] MEDS: MEROPENEM INJ 1 GM in IV 1 EA IV SCH ×3 (04:04→23:23)
[2020-11-30 04:58] LABS: BASO % 0.1 % (0.0-1.0); EOS % 0.1 % (0.0-3.0); HEMATOCRIT 27.9 % (42.0-52.0); HEMOGLOBIN 7.9 g/dl (13.5-17.5); LYMPH # 0.8 10^3/uL (1.5-5.0); LYMPH % 4.8 % (24.0-44.0); MEAN CORPUSCULAR HEMOGLOBIN 21.4 pg (27.0-33.0); MEAN CORPUSCULAR HGB CONC 28.3 g/dl (32.0-36.5); MEAN CORPUSCULAR VOLUME 75.4 fl (80.0-96.0); MONO # 0.9 10^3/uL (0.0-0.8); MONO % 5.6 % (2.0-8.0); NEUTROPHILS # 14.3 10^3/uL (1.5-8.5); NEUTROPHILS % 88.8 % (36.0-66.0); PLATELET COUNT, AUTOMATED 212 10^3/uL (150-450); WHITE BLOOD COUNT 16.1 10^3/uL (4.0-10.0)
[2020-11-30 05:24] LABS: BLOOD UREA NITROGEN 31 MG/DL (7-18); CALCIUM LEVEL 7.8 MG/DL (8.8-10.2); CARBON DIOXIDE LEVEL 23 MEQ/L (21-32); CHLORIDE LEVEL 113 MEQ/L (98-107); CREATININE FOR GFR 1.15 MG/DL (0.70-1.30); GLOMERULAR FILTRATION RATE > 60.0 (>49); GLUCOSE, FASTING 113 MG/DL (70-100); POTASSIUM SERUM 4.4 MEQ/L (3.5-5.1); SODIUM LEVEL 141 MEQ/L (136-145)
[2020-11-30 08:03] VITALS: BP 130/63
[2020-11-30] MEDS: BUDESONIDE 0.5 MG/2 ML INHALATION SUSPENSION INH SCH ×2 (08:07→19:36)
--- NOTE | 2020-11-30 08:44 | IPN ---
PROGRESS NOTE DATE: 11/29/2020 Mr. Ambriz was seen earlier this morning, he was in supine in bed, in no acute distress at rest. He continues to remain in normal sinus rhythm. There is no report of chest pain, shortness of breath, orthopnea, pedal edema, dizziness. Last night and the night before, he had a short run of ventricular tachycardia (VT) while sleeping. He was initially admitted with pneumonia and sepsis and was found to be in atrial flutter with 2:1 atrioventricular (AV) block. He was treated with digoxin, metoprolol tartrate, and IV amiodarone. He is currently on short-acting metoprolol tartrate. He has been back in sinus rhythm and for this reason, he was not started on anticoagulation, his atrial flutter was thought to be related to his underlying pneumonia and sepsis. He is currently on anticoagulation therapy with subcutaneous Lovenox. PHYSICAL EXAMINATION: Patient is alert and oriented, in no acute distress at rest, and his vital signs earlier today revealed a blood pressure of 113/56, with a pulse of 77, respirations 18, and his maximum temperature was 98.3 degrees Fahrenheit with an oxygen saturation of 95-97% on room air. Examination of the head: Atraumatic. Neck is supple. No jugular venous distention (JVD) appreciated. The lungs were clear bilaterally on auscultation without any wheezing or crackles. The heart examination reveals irregular heart sounds without gallops. The point of maximum impulse (PMI) is displaced inferiorly and laterally. There is no rub. Abdomen is soft and nontender. Extremities revealed no pedal edema. Neurologic examination is negative for focal deficit. LABORATORY DATA: CBC done today revealed a WBC of 20.1, hemoglobin 7.5, hematocrit 25.8, and platelets 237,000. BMP revealed a sodium of 141, potassium 4.4, chloride 110, CO2 23, BUN 33, creatinine 1.2, GFR more than 60, fasting glucose 150, and calcium 7.5. IMPRESSION: 1. Paroxysmal atrial flutter with 2:1 atrioventricular (AV) block in the setting of pneumonia and sepsis: Patient has been in normal sinus rhythm after 24 hours in the hospital. Currently, on a beta luisito and I have added aspirin, and he will continue the same. As mentioned above, we will not be giving him anticoagulation at this present time because his atrial flutter seems to be in the setting of his pneumonia and also he has underlying anemia that will need to be worked up. However, if he continues to have episodes of paroxysmal atrial flutter or atrial fibrillation, he will require chronic anticoagulation therapy. 2. Left ventricular systolic dysfunction: On a beta luisito with metoprolol tartrate and we will continue the same. Tomorrow, will initiate a small dose of an angiotensin-converting enzyme (POPPY) inhibitor with lisinopril. He is not retaining fluid at this present time. 3. History of hypertension, being addressed. 4. Pneumonia, being addressed, on IV antibiotics with meropenem and vancomycin. He was admitted with sepsis, resolved. 5. Coronary artery disease (CAD): Patient could not elaborate on that this morning. He denies any prior history of myocardial infarction but his echocardiogram revealed findings that may be related to a prior coronary event. 6. Chronic obstructive pulmonary disease, stable. No wheezing since seen in the hospital. 7. Status post acute kidney injury (BRIAN), resolving. It was a pleasure to participate in the care of Mr. Edgardo Ambriz for his underlying cardiac condition. He has been stable the last 48 hours from a cardiac point of view and I will continue to monitor him as needed while in the hospital. Upon discharge, I will see him in the office.
[2020-11-30] MEDS: **NOTE PATIENT COMMENT** MISC XX SCH (09:00)
[2020-11-30] MEDS: predniSONE 20 MG TAB PO SCH (09:43)
[2020-11-30] MEDS: rOPINIRole 0.25 MG TAB(REQUIP) PO SCH ×2 (09:43→20:38)
[2020-11-30] MEDS: LOMOTIL 2.5MG/0.025MG TABLET PO SCH ×4 (09:43→20:36)
[2020-11-30] MEDS: FERROUS SULFATE 325MG TAB PO SCH (09:44)
[2020-11-30] MEDS: LISINOPRIL *2.5 MG* TAB PO SCH (09:44)
[2020-11-30] MEDS: ASPIRIN 81MG ENTERIC TABLET PO SCH (09:44)
[2020-11-30] MEDS: ENOXAPARIN 40MG/0.4ML SYRINGE (J1650 PER 10MG) SC SCH (09:44)
[2020-11-30 12:36] VITALS: BP 133/61
[2020-11-30] MEDS ORDERED: VANCOMYCIN HCL 1,000 MG, VIAL MATE ADAPTER 1 EACH in NS 250 ML IV SCH (15:00)
[2020-11-30 15:25] VITALS: BP 140/66
--- NOTE | 2020-11-30 19:23 | IPNPDOC ---
Subjective Date Seen The patient was seen on 11/30/20. Subjective Chief Complaint/HPI Mr. Ambriz is doing well today. He seems to feel that his breathing is close to baseline. He does complain of some back pain. He states that when he is home he uses "percs off the street" and these help him quite a bit. He wonders if he can have something similar here. I questioned him about the loose stool/diarrhea he gets after he eats. After some explaining I understood that he has a known history of pancreatic insufficiency but at some point he became "sick of taking all those pills" and he just stopped taking the pancreatic enzyme supplement. Since then he has always needed to eat a lot because he poops most of his food directly back out undigested when he eats. I ask whether he would like to try some pancreatic enzymes again so he wouldn't have to go through this all the time. He thought long and hard before answering; ultimately he decided it might be worth a try again. General: Reports: Normal Appetite Constitutional: Denies: Chills, Fever Pulmonary: Denies: Cough, Pleuritic Chest Pain Cardiovascular: Denies: Chest Pain, Palpitations Gastrointestinal: Denies: Nausea, Vomiting Genitourinary: Denies: Dysuria, Hematuria Objective Physical Examination General Exam: Positive: Alert, Cooperative (sitting comfortably at the edge of his bed when I entered the room today), No Acute Distress Eye Exam: Positive: PERRLA, Conjunctiva & lids normal; Negative: Sclera icteric ENT Exam: Positive: Atraumatic, Mucous membr. moist/pink, Tongue Midline Neck Exam: Positive: Supple; Negative: Lymphadenopathy Chest Exam: Positive: Rales (chest a few rales in the right lateral edge of his lower lobe today), Diminished Heart Exam: Positive: Rate Normal, Regular Rhythm, Normal S1, Normal S2 Telemetry: Positive: No significant arrhythmia, Sinus Abdomen Exam: Positive: Normal bowel sounds, Soft; Negative: Tenderness Male Exam: Negative: Edema Extremity Exam: Negative: Edema Neuro Exam: Positive: Normal Speech, Sensation Intact Psych Exam: Positive: Mood NL, Oriented x 3 Assessment /Plan Problems (1) Pneumonia Status: Acute Problem Text: His pneumonia is treated with meropenem and vancomycin, but we are discontinuing the vancomycin today. If the blood cultures remain negative and he remains clinically stable we can probably change him over to an oral antibiotic tomorrow. (2) Exocrine pancreatic insufficiency Status: Chronic Problem Text: Although I have not gone back to verify this in his records, he gives a fairly clear history of exocrine pancreatic insufficiency. The unusual thing is that he simply decided to stop taking enzymes that were helping control his loose stools and retain his calories when he ate them. Apparently he's been some time (perhaps years) like this. I will check fat-soluble vitamins for him as I suspect some of them are deficient. After his careful consideration he decided he might consider going back on pancreatic enzyme supplementation. I've ordered this for him. I hope this helps control his ravenous hunger and helps him to retain some of the calories he eats. (3) Chronic HFrEF (heart failure with reduced ejection fraction) Status: Chronic Response to Treatment: Compensated Problem Text: He remains compensated even during his rehydration. At this point he is eating and drinking fine on his own. We will continue to monitor. (4) HTN (hypertension) Problem Text: His blood pressures are starting to creep up again today. He was extremely hypotensive just a couple days ago, but despite this I will add some of his regular antihypertensive medications back on. We will continue to monitor his BP carefully. (5) COPD (chronic obstructive pulmonary disease) Status: Chronic Response to Treatment: Stable Problem Text: His breathing remains stable even though he has a pneumonia. He is on oral prednisone, this probably needs to be tapered in the next day or 2. Will need to continue to monitor carefully. (6) Atrial flutter Status: Resolved Response to Treatment: Stable, Controlled Discussed With: Nurse, Patient Problem Specific Plan: Consult Specialist Problem Text: He has been in sinus rhythm for the last 24 hours. We will cont inue to monitor with telemetry. (7) CAD (coronary artery disease) Status: Chronic Problem Text: No symptoms. Continue current regimen, monitor. (8) Severe muscle deconditioning Problem Text: He is very weak appearing and emaciated. He needs significant bulking and then reconditioning before he will be safe to live on his own again. (9) Sepsis Status: Resolved Response to Treatment: Controlled, Uncompensated Problem Text: Blood cultures remain negative so far. He is on meropenem and vancomycin, but I'm going to stop the vancomycin as his MRSA screen is negative and I don't think it's needed. His PICC is in, and his BP is normal. He may be ready for the floor sometime soon. Plan/VTE VTE Prophylaxis Ordered?: Yes VS, I&O, 24H, Shauna Vital Signs/I&O Vital Signs Date Time Temp Pulse Resp B/P (MAP) Pulse Ox O2 Delivery O2 Flow Rate FiO2 11/30/20 15:25 98.1 66 17 140/66 (90) 100 Room Air 11/27/20 18:00 2.0 I&O- Last 24 Hours up to 6 AM 11/30/20 06:00 Intake Total 2835 ml Output Total 935 ml Balance 1900 ml Laboratory Data 24H LABS Laboratory Tests 2 11/30/20 04:50: Immature Granulocyte % (Auto) 0.6, Neutrophils (%) (Auto) 88.8H, Lymphocytes (%) (Auto) 4.8L, Monocytes (%) (Auto) 5.6, Eosinophils (%) (Auto) 0.1, Basophils (%) (Auto) 0.1, Neutrophils # (Auto) 14.3H, Lymphocytes # (Auto) 0.8L, Monocytes # (Auto) 0.9H, Eosinophils # (Auto) 0.0, Basophils # (Auto) 0.0, Nucleated Red Blood Cells % (auto) 0.0, Anion Gap 5L, Glomerular Filtration Rate > 60.0, Calcium Level 7.8L CBC/BMP Laboratory Tests 11/30/20 04:50 Microbiology Microbiology 11/26/20 Blood Culture - Preliminary, Resulted No Growth after 72 hours. All specime... 11/26/20 Blood Culture - Preliminary, Resulted No Growth after 72 hours. All specime... 11/26/20 Respiratory Virus Panel (PCR) ([facility]) - Final, Complete Burak Austin MD Nov 30, 2020 19:23
[2020-11-30 20:00] VITALS: BP 163/69
[2020-11-30] MEDS: PANTOPRAZOLE 40MG VIAL (C9113 PER 1) IV SCH (20:36)
[2020-11-30] MEDS: DICLOFENAC EPOLAMINE 1.3 % PATCH TOP SCH (20:38)
[2020-11-30] MEDS: LIDOCAINE 5% (LIDODERM) PATCH TD SCH (20:38)
[2020-11-30] MEDS: ACETAMINOPHEN 500 MG TAB PO PRN (20:41)
[2020-11-30] MEDS: ATORVASTATIN 20 MG TAB PO SCH (22:40)
[2020-12-01] VITALS (11 sets, daily range): BP systolic 106–149; BP diastolic 54–79
[2020-12-01] MEDS: IPRATROPIUM 0.02% SOLN 0.5MG 2.5ML NEB NEB SCH ×4 (02:14→19:28)
[2020-12-01] MEDS: LEVALBUTEROL 1.25 MG/0.5 ML CONCENTRATE NEB NEB SCH ×4 (02:14→19:28)
[2020-12-01] MEDS: METOPROLOL TART 25 MG TABLET PO SCH ×4 (03:55→20:42)
[2020-12-01 04:09] LABS: EOS # 0.1 10^3/uL (0.0-0.5); HEMATOCRIT 26.5 % (42.0-52.0); HEMOGLOBIN 7.4 g/dl (13.5-17.5); LYMPH # 0.5 10^3/uL (1.5-5.0); LYMPH % 6.3 % (24.0-44.0); MEAN CORPUSCULAR HEMOGLOBIN 21.2 pg (27.0-33.0); MEAN CORPUSCULAR HGB CONC 27.9 g/dl (32.0-36.5); MEAN CORPUSCULAR VOLUME 75.9 fl (80.0-96.0); MONO # 0.7 10^3/uL (0.0-0.8); PLATELET COUNT, AUTOMATED 174 10^3/uL (150-450); RED BLOOD COUNT 3.49 10^6/uL (4.30-6.10); WHITE BLOOD COUNT 8.4 10^3/uL (4.0-10.0)
[2020-12-01 04:41] LABS: BLOOD UREA NITROGEN 24 MG/DL (7-18); CALCIUM LEVEL 7.4 MG/DL (8.8-10.2); CARBON DIOXIDE LEVEL 19 MEQ/L (21-32); CHLORIDE LEVEL 115 MEQ/L (98-107); CREATININE FOR GFR 0.96 MG/DL (0.70-1.30); GLOMERULAR FILTRATION RATE > 60.0 (>49); GLUCOSE, FASTING 91 MG/DL (70-100); POTASSIUM SERUM 4.2 MEQ/L (3.5-5.1); SODIUM LEVEL 144 MEQ/L (136-145)
[2020-12-01] MEDS: BUDESONIDE 0.5 MG/2 ML INHALATION SUSPENSION INH SCH ×2 (07:37→19:28)
[2020-12-01] MEDS ORDERED: ACETAMINOPHEN TAB 650MG DOSE (2X325MG) PO ONE (07:40)
[2020-12-01] MEDS ORDERED: diphenhydrAMINE 25MG CAP PO ONE (07:40)
--- NOTE | 2020-12-01 08:32 | REP ---
INDICATION: follow pneumonia. COMPARISON: 11/28/2020 TECHNIQUE: PA and lateral FINDINGS: Cardiomediastinal silhouette is unchanged. The heart is not enlarged. Note is again made of previous median sternotomy. Scattered bilateral patchy opacities seen previously have improved. No new patchy parenchymal opacities or pleural effusions have developed. The pleural angles are again seen to be sharp. There is no change in the osseous structures. IMPRESSION: Improvement as described above. <Electronically signed by Kvng Sheppard > 12/01/20 [id number]
[2020-12-01] MEDS: **NOTE PATIENT COMMENT** MISC XX SCH (09:00)
[2020-12-01] MEDS: ENOXAPARIN 40MG/0.4ML SYRINGE (J1650 PER 10MG) SC SCH (09:38)
[2020-12-01] MEDS: CREON-24 CAPSULE PO SCH ×3 (09:39→18:14)
[2020-12-01] MEDS: ASPIRIN 81MG ENTERIC TABLET PO SCH (09:39)
[2020-12-01] MEDS: LOSARTAN 50MG TABLET PO SCH (09:39)
[2020-12-01] MEDS: rOPINIRole 0.25 MG TAB(REQUIP) PO SCH ×2 (09:39→20:42)
[2020-12-01] MEDS: LISINOPRIL *2.5 MG* TAB PO SCH (09:40)
[2020-12-01] MEDS: FERROUS SULFATE 325MG TAB PO SCH (09:40)
[2020-12-01] MEDS: LOMOTIL 2.5MG/0.025MG TABLET PO SCH ×4 (09:40→20:42)
[2020-12-01] MEDS: predniSONE 20 MG TAB PO SCH (09:40)
[2020-12-01] MEDS: DICLOFENAC EPOLAMINE 1.3 % PATCH TOP SCH ×2 (09:40→21:00)
[2020-12-01] MEDS: MEROPENEM INJ 1 GM in IV 1 EA IV SCH (09:41)
[2020-12-01] MEDS: CALCIUM CARBONATE 500 MG CHEW U/D PO PRN (10:34)
[2020-12-01 11:15] LABS: PERCENT SATURATION 6.4 % (19.7-50.0)
--- NOTE | 2020-12-01 11:55 | IPN ---
PROGRESS NOTE DATE: 12/01/2020 SUBJECTIVE: Patient was seen and examined at the bedside, chart has been reviewed. Patient is anxious to go home. He says the shortness of breath has improved. He has no complaints of palpitations, lightheadedness or dizziness. No complaints of chest pain, pressure or tightness, afebrile, no chills. He is tolerating his diet well. Input and output was 1590 in, output of 810, positive 4200. OBJECTIVE: VITAL SIGNS: Temperature is 97.3, pulse is 74, irregularly irregular A-fib, respiratory rate 18, blood pressure 115/54, 97% on room air. GENERAL: Patient is awake, alert and oriented to person, place and time, answering questions appropriately. NECK: No JVD. No thyromegaly. No cervical lymphadenopathy. HEART: S1 and S2 irregularly irregular, not tachycardic. Slightly displaced point of maximal impulse laterally. LUNGS: Clear to auscultation. No wheezing, rales or rhonchi. ABDOMEN: Soft, nontender and nondistended. Positive bowel sounds. EXTREMITIES: No pitting edema. Laboratory data, imaging studies and microbiology have all been reviewed. HOSPITAL MEDICATIONS: Cozaar, Pancrelipase, meropenem, Lipitor, Flector Patch, Tylenol, Prednisone, Lomotil, aspirin, Lisinopril, ferrous sulfate, Lidoderm Patch, Requip, Lovenox, Tums, Protonix, Metoprolol, Atrovent, Xopenex, Pulmicort. ASSESSMENT AND PLAN: This is a 65-year-old male admitted on 11/27/2020 with sepsis, A-fib with RVR, and hypernatremia, hyperkalemia and acute kidney injury. Patient was found to have aspiration pneumonia, new onset, exocrine pancreatic insufficiency with improvement in rate control of A-flutter and resolution of acute kidney injury, electrolyte abnormalities and hypernatremia. Patient was found to be anemic; hemoglobin of 7.4 with no signs of GI bleed and has given consent for blood transfusion. Active issues are as follows: 1. Pneumonia. Patient is currently on Meropenem with a history of allergies to Amoxicillin, Clavulanic Acid, Pregabalin and Warfarin, to complete a seven day course. 2. Atrial flutter with rapid ventricular response, resolved, currently rate controlled, only on aspirin 81 mg daily. Currently on metoprolol 25 q. 6 hourly, managed by his bale sewer. 3. Pancreatitis, tolerating his diet well, on Creon two tablets with meals. 4. Hypertension, controlled on Losartan, Lisinopril. 5. Acute kidney injury with hyperkalemia, hypernatremia, resolved, managed by operations engineer. 6. COPD on rapid tapering of Prednisone 40 daily, inhalers. 7. Chronic pain, on Lidoderm Patch, Flector Patch.oxycodone 8. Anemia, check iron studies, stool Hemoccult, currently on Protonix. Patient will be transfused 2 units of RBCs. 9. Disposition: Await PT/OT recommendations. Transfuse 2 units for now. MTDD
[2020-12-01] MEDS ORDERED: oxyCODONE 5MG TAB PO ONE (12:00)
[2020-12-01] MEDS: MOXIFLOXACIN 400 MG TAB PO SCH (14:11)
[2020-12-01] MEDS: ATORVASTATIN 20 MG TAB PO SCH (20:42)
[2020-12-01] MEDS: LIDOCAINE 5% (LIDODERM) PATCH TD SCH (21:00)
[2020-12-01] MEDS: PANTOPRAZOLE 40MG VIAL (C9113 PER 1) IV SCH (22:12)
[2020-12-02] MEDS: CALCIUM CARBONATE 500 MG CHEW U/D PO PRN (02:42)
[2020-12-02] MEDS: METOPROLOL TART 25 MG TABLET PO SCH ×2 (02:42→09:22)
[2020-12-02] MEDS: LEVALBUTEROL 1.25 MG/0.5 ML CONCENTRATE NEB NEB SCH ×3 (02:46→14:29)
[2020-12-02] MEDS: ACETAMINOPHEN 500 MG TAB PO PRN (02:49)
[2020-12-02] MEDS: IPRATROPIUM 0.02% SOLN 0.5MG 2.5ML NEB NEB SCH ×2 (02:52→08:39)
[2020-12-02 06:00] VITALS: BP 125/66
[2020-12-02] MEDS: MOXIFLOXACIN 400 MG TAB PO SCH (06:31)
[2020-12-02 06:59] LABS: EOS # 0.5 10^3/uL (0.0-0.5); EOS % 5.2 % (0.0-3.0); HEMATOCRIT 34.8 % (42.0-52.0); LYMPH # 0.8 10^3/uL (1.5-5.0); LYMPH % 9.5 % (24.0-44.0); MEAN CORPUSCULAR HEMOGLOBIN 22.7 pg (27.0-33.0); MEAN CORPUSCULAR HGB CONC 29.6 g/dl (32.0-36.5); MEAN CORPUSCULAR VOLUME 76.8 fl (80.0-96.0); MONO # 0.9 10^3/uL (0.0-0.8); MONO % 9.7 % (2.0-8.0); NEUTROPHILS # 6.5 10^3/uL (1.5-8.5); PLATELET COUNT, AUTOMATED 177 10^3/uL (150-450); RED BLOOD COUNT 4.53 10^6/uL (4.30-6.10); WHITE BLOOD COUNT 8.7 10^3/uL (4.0-10.0)
[2020-12-02 07:00] LABS: HEMOGLOBIN 10.3 g/dl (13.5-17.5)
[2020-12-02 07:06] LABS: BLOOD UREA NITROGEN 20 MG/DL (7-18); CALCIUM LEVEL 7.5 MG/DL (8.8-10.2); CARBON DIOXIDE LEVEL 20 MEQ/L (21-32); CHLORIDE LEVEL 114 MEQ/L (98-107); GLOMERULAR FILTRATION RATE > 60.0 (>49); GLUCOSE, FASTING 88 MG/DL (70-100); POTASSIUM SERUM 4.8 MEQ/L (3.5-5.1); SODIUM LEVEL 141 MEQ/L (136-145)
[2020-12-02] MEDS ORDERED: MOXI400T11 PO (08:12)
[2020-12-02] MEDS ORDERED: CREO24CA PO (08:12)
[2020-12-02] MEDS ORDERED: PRED10TA2 PO (08:12)
[2020-12-02] MEDS: BUDESONIDE 0.5 MG/2 ML INHALATION SUSPENSION INH SCH (08:39)
[2020-12-02] MEDS: DICLOFENAC EPOLAMINE 1.3 % PATCH TOP SCH (09:00)
[2020-12-02] MEDS: **NOTE PATIENT COMMENT** MISC XX SCH (09:00)
[2020-12-02] MEDS: ENOXAPARIN 40MG/0.4ML SYRINGE (J1650 PER 10MG) SC SCH (09:19)
[2020-12-02] MEDS: LOSARTAN 50MG TABLET PO SCH (09:21)
[2020-12-02 09:22] VITALS: BP 129/63
[2020-12-02] MEDS: predniSONE 20 MG TAB PO SCH (09:22)
[2020-12-02] MEDS: FERROUS SULFATE 325MG TAB PO SCH (09:22)
[2020-12-02] MEDS: rOPINIRole 0.25 MG TAB(REQUIP) PO SCH (09:22)
[2020-12-02] MEDS: ASPIRIN 81MG ENTERIC TABLET PO SCH (09:22)
[2020-12-02] MEDS: LISINOPRIL *2.5 MG* TAB PO SCH (09:23)
[2020-12-02] MEDS: CREON-24 CAPSULE PO SCH ×2 (09:23→13:01)
[2020-12-02] MEDS ORDERED: METO50TA7 PO (09:54)
[2020-12-02] MEDS ORDERED: ASPI-551 PO (09:54)
[2020-12-02] MEDS ORDERED: PRIL20TA2 PO (09:56)
[2020-12-02] MEDS ORDERED: BACI1CAP PO (09:56)
[2020-12-02] MEDS ORDERED: OXYC1TAB PO (09:58)
[2020-12-02] MEDS ORDERED: oxyCODONE 5MG TAB PO ONE (10:00)
[2020-12-02] MEDS ORDERED: GI COCKTAIL 50ML BTL(HYOSCYAMINE/MAALOX/LIDOCAINE VISCOUS)(1:3:1) PO ONE (10:00)
[2020-12-02] MEDS: LOMOTIL 2.5MG/0.025MG TABLET PO SCH ×2 (10:22→13:01)
[2020-12-02] MEDS ORDERED: ELIQ5TAB PO (10:35)
--- NOTE | 2020-12-02 11:49 | DSES ---
DISCHARGE SUMMARY DATE OF ADMISSION: 11/27/2020 DATE OF DISCHARGE: 12/02/2020 PRIMARY DISCHARGE DIAGNOSES: 1. Pneumonia. 2. Exocrine pancreatic insufficiency. 3. Congestive heart failure with reduced ejection fraction, compensated. 4. Hypertension, controlled. 5. COPD exacerbation. 6. Atrial flutter with rapid ventricular response. 7. Coronary artery disease. 8. Sepsis secondary to pneumonia. 9. Severe muscle deconditioning. 10. Acute kidney injury. 11. COPD exacerbation. CONSULTANTS: Rossana Wilson DO, investigation officer, Joseph Ballard MD, money room supervisor. DISCHARGE MEDICATIONS: 1. Bacid one cap with meals. 2. Metoprolol 50 b.i.d. 3. Avelox 400 daily. 4. Prilosec 20 daily. 5. Oxycodone acetaminophen 2.5/325 one tab q.8 as needed. 6. Creon 24,000 units two tablets with meals. 7. Prednisone 10 mg tablets a day. 8. Albuterol two puffs q.4 q.6 as needed. 9. Atorvastatin 40 q.h.s. 10. Diphenoxylate-atropine one tab q.i.d. 11. Ferrous sulfate 325 daily. 12. Atrovent two puffs q.i.d. 13. Losartan/Hydrochlorothiazide 100-12.5 one tablet daily. 14. Ropinirole 0.5 b.i.d. 15. Eliquis 5 mg b.i.d. DISCHARGE INSTRUCTIONS: The patient is to follow up with Dr. Wilson and Dr. Ballard as outpatient. HOSPITAL COURSE: This is a 65-year-old male admitted on 11/27/2020 with complaints of chest pain, admitted for sepsis with white count 26.3, tachycardic, rate of 162 with A flutter with rapid ventricular response and hypernatremia due to decreased oral intake and acute kidney injury. The patient was started on intravenous ceftriaxone and doxycycline, kept NPO until swallow evaluation could be done if patient was aspirating. IV fluids were given. His A flutter was treated with digoxin due to hypotension since the patient was hypoxic. The patient was also treated for possible COPD exacerbation. The patient was hypernatremic. Nephrology was consulted due to history of congestive heart failure. He had nonoliguric acute kidney injury due to sepsis and free water deficit and hypotension. The patient was 2.8 liters free water deficit with admission weight of 53 kilos and serum sodium of 155 and was treated with a bolus of D5W 500 mL and 150 mL per hour. His hyperkalemia improved with hypertonic fluid administration. The patient was compensated from his congestive heart failure with chest x-ray showing right upper lobe pneumonia. For broader spectrum coverage, the patient was changed to IV Meropenem. There was improvement in white count of 8.4 on 12/01/2020. He remained afebrile. He was noted to have hemodilutional anemia with no overt GI bleed but symptomatic with his hemoglobin of 7.4 and was transfused two units of RBCs on 12/01/2020 with subsequent increase of hemoglobin to 10.3. With IV fluid hydration, the patient's sodium level improved to 141 from admission of 158. Creatinine improved from admission of 1.76 to discharge of 0.9. His atrial flutter was treated with metoprolol 25 q.6 hourly. Once blood pressure was well maintained, he was then restarted back on his home medications, Losartan 100 mg daily. His Lasix was withheld. He complained of back pain and was given a Flector patch and Lidoderm patch with improvement. Dr. Ballard was consulted for A flutter with rapid ventricular rate which improved with metoprolol 25 q.6 hourly. He was kept on aspirin 81 mg for his paroxysmal atrial flutter with 2:1 AV block. He regained normal sinus rhythm after 24 hours of admission. Recommendations are to place the patient on anticoagulation if he remained in atrial flutter. He was started on low dose Eliquis 5 mg b.i.d. at hospital discharge. PHYSICAL EXAMINATION ON DISCHARGE: Vital signs: Temperature 98.5, pulse 68, irregularly irregular, respiratory rate 15, blood pressure 125/66, 99% on room air. General: The patient is awake, alert, oriented, answering questions appropriately, no distress, no JVD, thyromegaly. Lungs: Diminished but clear, no wheezing, rales or rhonchi. Heart: S1, S2, irregularly irregular, nontachycardic, slightly displaced PMI. Abdomen: Soft, nontender, nondistended, positive bowel sounds x4 quadrants, no rebound or guarding. Extremities: No cyanosis, clubbing or pitting edema. Laboratory data, microbiology and imaging studies have been reviewed. Time spent on discharge: 30 minutes.
[2020-12-02 14:00] VITALS: BP 128/63
[2020-12-02] MEDS ORDERED: GI COCKTAIL 50ML BTL(HYOSCYAMINE/MAALOX/LIDOCAINE VISCOUS)(1:3:1) PO PRN (16:00)
== END 2020-12-02 15:58 | disposition home health service (06) | DRG 871 ==
LOC: M ED 19:39 → M ED INP 11-27 02:16 → ENRESERV 11-27 04:02 → M ICU 11-27 04:45 → M PCU 11-30 05:57 → M MSPAV 12-01 11:29
PROVIDERS: ADMIT Family Medicine; ATTEND General Practice
PROC: 02HV33Z Insertion of Infusion Device into Superior Vena Cava, Percutaneous Approach (ICD-10-PCS; principal; 2020-11-27 12:00)
PROC: 30233N1 Transfusion of Nonautologous Red Blood Cells into Peripheral Vein, Percutaneous Approach (ICD-10-PCS; 2020-11-28)
DX: A41.9 Sepsis, unspecified organism (principal); J18.9 Pneumonia, unspecified organism; J96.01 Acute respiratory failure with hypoxia; I50.22 Chronic systolic (congestive) heart failure; I48.92 Unspecified atrial flutter; E87.0 Hyperosmolality and hypernatremia; N17.9 Acute kidney failure, unspecified; J44.1 Chronic obstructive pulmonary disease with (acute) exacerbation; E03.9 Hypothyroidism, unspecified; Z91.19 Patient's noncompliance with other medical treatment and regimen; Z20.822 Contact with and (suspected) exposure to COVID-19; Z79.899 Other long term (current) drug therapy; Z88.1 Allergy status to other antibiotic agents; Z88.8 Allergy status to other drugs, medicaments and biological substances; I11.0 Hypertensive heart disease with heart failure; Z79.82 Long term (current) use of aspirin; Z72.3 Lack of physical exercise; I25.10 Atherosclerotic heart disease of native coronary artery without angina pectoris; E87.5 Hyperkalemia; D64.9 Anemia, unspecified; R65.20 Severe sepsis without septic shock; K86.81 Exocrine pancreatic insufficiency

== ENCOUNTER 2020-12-07 17:00 | Inpatient (IN) | payer MEDICARE, MEDICAID ==
[~2020-12-07] VITALS: Ht 167.6 cm; Wt 58.1 kg
[~2020-12-07 17:00] MED LIST changes: +ALBU8.5H INH; +ASPI-551 PO; +BACI1CAP PO; +ELIQ5TAB PO; +METO50TA7 PO; +MOXI400T11 PO; +OXYC1TAB PO; +PRED10TA2 PO; +PRIL20TA2 PO
[2020-12-07 19:42] LABS: HEMATOCRIT 43.7 % (42.0-52.0); HEMOGLOBIN 12.2 g/dl (13.5-17.5); MEAN CORPUSCULAR HEMOGLOBIN 23.2 pg (27.0-33.0); MEAN CORPUSCULAR HGB CONC 27.9 g/dl (32.0-36.5); MEAN CORPUSCULAR VOLUME 83.2 fl (80.0-96.0); PLATELET COUNT, AUTOMATED 186 10^3/uL (150-450); RED BLOOD COUNT 5.25 10^6/uL (4.30-6.10); WHITE BLOOD COUNT 11.5 10^3/uL (4.0-10.0)
--- NOTE | 2020-12-07 19:44 | REP ---
INDICATION: CHEST PAIN. COMPARISON: Comparison chest x-ray December 01, 2020. TECHNIQUE: Portable upright AP chest radiograph. FINDINGS: EKG monitoring electrodes are seen. Median sternotomy wires are in place. There is a fiducial marker in the right perihilar region. No infiltrate, mass, or adenopathy is apparent. There are multiple old rib fractures bilaterally. Pulmonary vasculature is somewhat cephalized. Granulomatous lymph node calcifications are seen as before.. IMPRESSION: No acute cardiopulmonary disease. Chronic changes as above.. <Electronically signed by Jose Victor > 12/07/201939
[2020-12-07 20:26] LABS: ALBUMIN 2.6 GM/DL (3.2-5.2); BILIRUBIN,DIRECT 0.2 MG/DL (0.0-0.2); BILIRUBIN,TOTAL 0.5 MG/DL (0.2-1.0); CALCIUM LEVEL 8.4 MG/DL (8.8-10.2); GLOMERULAR FILTRATION RATE 35.8 (>49); TOTAL PROTEIN 5.9 GM/DL (6.4-8.2)
[2020-12-07 21:05] LABS: EOSINOPHILS 2 % (0-3); LYMPHOCYTES 4 % (16-44); NEUTROPHILS 77 % (28-66); PLATELET ESTIMATE NORMAL (NORMAL)
[2020-12-07 21:06] LABS: ANISOCYTOSIS 4+
[2020-12-07 21:08] LABS: OVALOCYTES 1+
[2020-12-07 21:09] LABS: BURR CELLS 2+
[2020-12-07 21:29] LABS: RSV AMPLIFICATION NEGATIVE (NEGATIVE)
[2020-12-07 22:35] LABS: CALCIUM LEVEL 8.3 MG/DL (8.8-10.2); CK-MB VALUE MASS 4.8 NG/ML (<3.6); CREATININE FOR GFR 2.03 MG/DL (0.70-1.30); GLOMERULAR FILTRATION RATE 35.2 (>49); MB/CK RELATIVE INDEX 10.43 (< OR =4); POTASSIUM SERUM 5.4 MEQ/L (3.5-5.1); TROPONIN I 0.02 NG/ML (< 0.10)
[2020-12-07] MEDS ORDERED: NS 1,000 ML IV ONE (22:35)
[2020-12-07] MEDS ORDERED: LIDOCAINE 2% 5ML JELLY UROJET TOP ONE (23:10)
[2020-12-08] MEDS ORDERED: ELIQ5TAB PO
[2020-12-08] MEDS ORDERED: PRED10TA2 PO (00:03)
[2020-12-08] MEDS ORDERED: CREO24CA PO (00:03)
[2020-12-08] MEDS ORDERED: METO50TA7 PO (00:04)
[2020-12-08] MEDS ORDERED: MOXI1TAB PO (00:04)
[2020-12-08] MEDS ORDERED: OMEP-218 PO (00:06)
[2020-12-08] MEDS ORDERED: BACITAB PO (00:06)
[2020-12-08] MEDS ORDERED: ASPI-161 PO (00:06)
[2020-12-08] MEDS ORDERED: HOME MED LIST COMPLETE! XX SCH (00:10)
--- NOTE | 2020-12-08 00:48 | REPVR ---
PROCEDURE INFORMATION: Exam: CT Abdomen And Pelvis Without Contrast Exam date and time: 12/07/2020 11:01 PM Age: 65 years old Clinical indication: Nausea; Abdominal pain; Generalized; Additional info: Abdominal pain, nause a TECHNIQUE: Imaging protocol: Computed tomography of the abdomen and pelvis without contrast. Radiation optimization: All CT scans at this facility use at least one of these dose optimization techniques: automated exposure control; mA and/or kV adjustment per patient size (includes targeted exams where dose is matched to clinical indication); or iterative reconstruction. COMPARISON: CT ABD/PEL W/IV ORAL CONTRAS 11/15/2020 3:16 PM FINDINGS: Liver: Unremarkable. No mass. Gallbladder and bile ducts: Normal. No calcified stones. No ductal dilation. Pancreas: Normal. No ductal dilation. Spleen: Normal. No splenomegaly. Adrenal glands: Normal. No mass. Kidneys and ureters: Kidneys are atrophic. No calculi or hydronephrosis. Stomach and bowel: Changes of prior bariatric surgery are noted. No bowel obstruction. Large amount of fecal material throughout the colon. No acute inflammatory changes. Appendix: No evidence of appendicitis. Intraperitoneal space: No free air. No significant fluid collection. Vasculature: Advanced aortoiliac atherosclerotic disease. Lymph nodes: Unremarkable. No enlarged lymph nodes. Urinary bladder: Unremarkable as visualized. Reproductive: Unremarkable as visualized. Bones/joints: Unremarkable. No acute fracture. Soft tissues: Unremarkable. IMPRESSION: 1. Constipation. 2. No bowel obstruction or acute findings. Electronically signed by: Rico Ramey On 12/08/2020 00:48:19 AM
[2020-12-08] MEDS: D5W 1,000 ML IV SCH ×4 (01:30→20:17)
[2020-12-08] MEDS ORDERED: MOM 30ML SUSPENSION UDC PO PRN (02:35)
[2020-12-08] MEDS ORDERED: MAALOX 30 ML SUSP *UDC PO PRN (02:35)
[2020-12-08] MEDS ORDERED: HEPARIN SOD (PORCINE) 5000UNITS/ML 1ML VIAL/SYRINGE SC SCH (02:35)
[2020-12-08] MEDS ORDERED: ACETAMINOPHEN TAB 650MG DOSE (2X325MG) PO PRN (02:35)
[2020-12-08] MEDS ORDERED: PATIROMER SORBITEX CALCIUM 8.4 GM POWDER PACKET (VELTASSA) PO ONE (02:45)
[2020-12-08 03:06] LABS: CALCIUM LEVEL 7.8 MG/DL (8.8-10.2); CREATININE FOR GFR 1.88 MG/DL (0.70-1.30); GLOMERULAR FILTRATION RATE 38.4 (>49); POTASSIUM SERUM 5.4 MEQ/L (3.5-5.1); TROPONIN I 0.02 NG/ML (< 0.10)
--- NOTE | 2020-12-08 03:36 | CR.PDOC ---
General Date of Consultation: Dec 08, 2020 Referring Provider: KEENAN MENDEZ MD Primary Care Physician juliet liu Attending Physician: KEENAN MENDEZ MD Consultation REASON FOR CONSULTATION/CHIEF COMPLAINT: [bilateral lower extremity PVD]. HISTORY OF PRESENT ILLNESS: [65 year old man admitted for severe dehydration in the setting of severe diarrhea. He is not hypotensive. longstanding vasculopath. ALLERGIES: Please see below. HOME MEDICATIONS: Please see below. PAST MEDICAL HISTORY: Carotid Artery Stenosis, Arthritis, Asthma, COPD, Hypercholesterolemia, Thyroid Disease, Lacunar Infarcts, Myocardial Infarction, Anti E PAST SURGICAL HISTORY: Left subclavian to distal internal carotid artery bypass - (06/24/2015) Propaten Exploratory Surgery - (01/30/2015) left neck wound, implant vancomycin and tobramycin beads, wound vac placement Subclavian Carotid Bypass - (11/18/2014) right subclavian to left internal carotid; Hemashield Subclavian Carotid Bypass - (01/27/2014) left Tonsillectomy, Gastrojejunostomy, Pancreatic Necrosectomy And Small Bowel Resection Catarct surgery - (2016) Endoscopy - (06/2017) FAMILY HISTORY: Unable to obtain at this time as he is confused. SOCIAL HISTORY: Prior smoker. REVIEW OF SYSTEMS: Not obtained due to mental status. PHYSICAL EXAMINATION: VITAL SIGNS: Please see below. GENERAL APPEARANCE: [Quite emaciated, temporal wasting noted]. HEENT: [Temporal wasting, poor Jugular venous distension. appears to have a thready pulse]. ABDOMEN: soft, midline incision, has a midline ventral hernia which is reducible and mildly tender, midline chest incision. EXTREMITIES: warm feet to the mid calves then he has red feet bilaterally. LABORATORY DATA: Please see below. ASSESSMENT/PLAN: 1. chronic PVD , I would recommend gently hydrating the patient. Once he is mentally appropriate and the sodium has been corrected we can better understand the true severity of his chronic PVD. Looking back at his CT scans he certainly has severe occlusive disease at multiple levels (iliacs, femorals etc). It is unlikely that he will have acute limb threat and he certainly is not at threat at this time. We can follow him as an outpatient to repair this. Cont asa/eliquis. I discussed this with Dr. Keenan Mendez Vital Signs/I&O Vital Signs Date Time Temp Pulse Resp B/P (MAP) Pulse Ox O2 Delivery O2 Flow Rate FiO2 12/08/20 02:45 84 16 126/51 (76) 100 Room Air 12/07/20 17:30 4.0 12/07/20 17:26 99.5 I&O- Last 24 Hours up to 6 AM 12/08/20 06:00 Intake Total 1000 ml Balance 1000 ml Laboratory Data Labs 24H Laboratory Tests 2 12/07/20 19:25: Neutrophils (%) (Auto) , Nucleated Red Blood Cells % (auto) 0.0, Neutrophils 77H, Band Neutrophils 17H, Lymphocytes (Manual) 4L, Eosinophils (Manual) 2, Anisocytosis 4+, Ovalocytes 1+, Negar Cells 2+, Platelet Estimate NORMAL, Anion Gap 4L, Glomerular Filtration Rate 35.8L, Calcium Level 8.4L, Total Bilirubin 0.5, Direct Bilirubin 0.2, Aspartate Amino Transf (AST/SGOT) 22, Alanine Aminotransferase (ALT/SGPT) 30, Alkaline Phosphatase 138H, JN-[id number]-A-Type Natriuretic Peptide 3806H, Total Protein 5.9L, Albumin 2.6L, Albumin/Globulin Ratio 0.8 12/07/20 19:28: POC Troponin I (Misc) 0.12H 12/07/20 20:20: Coronavirus (COVID-19)(PCR) NEGATIVE, Influenza Type A (RT-PCR) NEGATIVE, Influenza Type B (RT-PCR) NEGATIVE, Respiratory Syncytial Virus (PCR) NEGATIVE 12/07/20 21:49: Anion Gap 5L, Glomerular Filtration Rate 35.2L, Calcium Level 8.3L, NT- Pro-B-Type Natriuretic Peptide 3142H, Total Creatine Kinase 46, Creatine Kinase MB 4.8H, Creatine Kinase MB Relative Index 10.43H, Troponin I 0.02 12/08/20 00:01: Anion Gap 5L, Glomerular Filtration Rate 38.4L, Calcium Level 7.8L, Troponin I 0.02 CBC/BMP Laboratory Tests 12/07/20 19:25 12/07/20 21:49 12/08/20 00:01 Microbiology Microbiology 12/07/20 Blood Culture, Received Pending 12/07/20 Blood Culture, Received Pending Allergies Coded Allergies: amoxicillin (Verified Allergy, Unknown, rash, 01/28/19) clavulanic acid (Verified Allergy, Unknown, rash, 01/28/19) pregabalin (Verified Adverse Reaction, Unknown, seizures, 01/28/19) warfarin (Verified Adverse Reaction, Unknown, bleeding, 01/28/19) Home Medications Scheduled Apixaban (Eliquis) 5 Mg Tablet, 5 MG PO BID, (Reported) Aspirin (Aspirin EC) 81 Mg Tablet.dr, 81 MG PO DAILY, (Reported) Atorvastatin Calcium (Atorvastatin Calcium) 40 Mg Tablet, 40 MG PO QHS, (Reported) Ferrous Sulfate (Ferrous Sulfate) 325 Mg Tablet, 325 MG PO DAILY, (Reported) Ipratropium [place] (Atrovent Hfa) 12.9 Gm Hfa.aer.ad, 2 PUFF INH QID, (R eported) L.acidoph/L.bulg/B.bif/S.therm (Bacid Caplet) 1 Each Tablet, 1 TAB PO WM, (Reported) Losartan/Hydrochlorothiazide (Losartan-Hctz 100-12.5 mg Tab) 1 Each Tablet, 1 TAB PO DAILY, (Reported) Metoprolol Tartrate (Metoprolol Tartrate) 50 Mg Tablet, 50 MG PO BID, (Reported) Moxifloxacin HCl (Moxifloxacin HCl) 400 Mg Tablet, 400 MG PO DAILY for 5 Days, (Reported) Omeprazole (Omeprazole) 20 Mg Capsule.dr, 20 MG PO DAILY, (Reported) Pancreatic Enzymes (Creon Dr 24,000 Units Capsule) 1 Each Capsule.dr, 2 CAP PO WM, (Reported) Prednisone (Prednisone) 10 Mg Tablet, 10 MG PO TAPER, (Reported) 40MG FOR 3 DAYS, 30MG FOR 3 DAYS, 20MG FOR 3 DAYS, 10MG FOR 3 DAYS Ropinirole HCl (Ropinirole HCl) 0.5 Mg Tablet, 0.5 MG PO BID, (Reported) Scheduled PRN Albuterol Sulf (Albuterol Sulfate) 2.5 Mg/3 Ml Vial.neb, 2.5 MG INH Q6H PRN for SHORTNESS OF BREATH, (Reported) Albuterol Sulfate (Albuterol Sulfate Hfa) 8.5 Gm Hfa.aer.ad, 2 PUFFS INH Q4H PRN for SHORTNESS OF BREATH, (Reported) Diphenoxylate HCl/Atropine (Diphenoxylate-Atrop 2.5-0.025) 1 Each Tablet, 1 TAB PO QID PRN for DIARRHEA, (Reported) Oxycodone HCl/Acetaminophen (Oxycodon-Acetaminophen 2.5-325) 1 Each Tablet, 1 TAB PO Q8HP PRN for pain for 5 Days, #15 Miscellaneous Medications [Patient Comment] , (Reported) PATIENT UNABLE TO ANSWER. MED REC COMPLETED VIA EXTERNAL MED HISTORY, DISCHARGE PAPERWORK FROM 12/02/20 AMD CALL TO PHARMACY. Mian Tony MD Dec 08, 2020 03:35
--- NOTE | 2020-12-08 03:51 | HPEPDOC ---
[facility] Medical History & Physical Date of Admission Dec 08, 2020 Date of Service: Dec 08, 2020 History and Physical CHIEF COMPLAINT: Failure to thrive HISTORY OF PRESENT ILLNESS: 65-year-old male with a past medical history of COPD, HFrEF, atrial flutter, CAD hypertension, pancreatic insufficiency secondary pancreatic mass resection, chronic low back pain, hypothyroidism, polysubstance abuse, CVA, cataracts, recently admitted for sepsis secondary to bacterial pneumonia, decomensated diastolic CHF, atrial flutter with RVR and BRIAN and was discharged on 12/02/20. Patient was started on anticoagulation with eliquis on discharge for a flutter. He is brought to ER by EMS for failure to thrive, reduced PO intake and confusion. He complaints of having copious watery diarrhea for the past 2-3 days. He was found to have WBC 11.5, without fever. Most concerning was hypernatremia Na 170, K 6.0 and Cr 2.0 (baseline < 1.0), w ith BNP of 3800 and initial POC trop 0.12, with serum repeat of 0.02. Patient was given a 1L NS bolus in the ER. Dr. Hale was consulted from the ER. Recommended to start D5W at 150 cc/hr after NS bolus and admit to PCU. Finally, on my examination, patient found to have cold and cyanotic extremities, and therefore vascular surgery was consulted upon admission. Of note, patient sustained a run of Vtach x 10 beats while on telemetry in the ER, and was asymptomatic. PAST MEDICAL HISTORY: 1. Pneumonia. 2. Exocrine pancreatic insufficiency. 3. Congestive heart failure with reduced ejection fraction, compensated. 4. Hypertension 5. COPD 6. Atrial flutter with rapid ventricular response. 7. Coronary artery disease. 8. Severe muscle deconditioning. 9. HTN 10. Pancreatic insufficiency 11. Hx of pancreatic mass 12. polysubstance abuse 13. Hypothyroidism 14. glaucoma PAST SURGICAL HISTORY: Cataract surgery carotid endarterectomy left subclavian artery bypass tonsillectomy partial pancreatoduodenectomy CABG December 2019 SOCIAL HISTORY: Former smoker denies etoh use denies illicit drug use FAMILY HISTORY: reviewed with patient, did not provide pertinent history ALLERGIES: Please see below. REVIEW OF SYSTEMS: 10 point ROS conducted, relevant findings are noted in HPI. HOME MEDICATIONS: Please see below. PHYSICAL EXAMINATION: VITAL SIGNS: please see below General: NAD, comfortable HEENT: PERRLA, EOMI, sclerae clear Neck: supple, normal ROM, no JVD Respiratory: rhonchi, no wheeze, no crackles. CVS: RRR, normal S1, S2, no murmurs Abdo: soft, no masses, no hepatosplenomegaly, BS+, no rebound tenderness Extremities: distal bilateral toes cyanotic, non palpable pulses. bedside doppler DP+ on L, absent DP on R. MSK: no joint deformities, normal ROM Neuro: no focal neuro deficits, moving all 4 extremities, CN2-12 intact. Strength 5/5 in all 4 extremities. No nystagmus. Psych: calm, cooperative, AAO x 3 LABORATORY DATA: See below. IMAGING: CT abdo pelvis wo contrast (12/07/20): FINDINGS: Liver: Unremarkable. No mass. Gallbladder and bile ducts: Normal. No calcified stones. No ductal dilation. Pancreas: Normal. No ductal dilation. Spleen: Normal. No splenomegaly. Adrenal glands: Normal. No mass. Kidneys and ureters: Kidneys are atrophic. No calculi or hydronephrosis. Stomach and bowel: Changes of prior bariatric surgery are noted. No bowel obstruction. Large amount of fecal material throughout the colon. No acute inflammatory changes. Appendix: No evidence of appendicitis. Intraperitoneal space: No free air. No significant fluid collection. Vasculature: Advanced aortoiliac atherosclerotic disease. Lymph nodes: Unremarkable. No enlarged lymph nodes. Urinary bladder: Unremarkable as visualized. Reproductive: Unremarkable as visualized. Bones/joints: Unremarkable. No acute fracture. Soft tissues: Unremarkable. IMPRESSION: 1. Constipation. 2. No bowel obstruction or acute findings. CXR (12/08/20): FINDINGS: EKG monitoring electrodes are seen. Median sternotomy wires are in place. There is a fiducial marker in the right perihilar region. No infiltrate, mass, or ad enopathy is apparent. There are multiple old rib fractures bilaterally. Pulmonary vasculature is somewhat cephalized. Granulomatous lymph node calcifications are seen as before.. IMPRESSION: No acute cardiopulmonary disease. Chronic changes as above. MICROBIOLOGY: Please see below. ASSESSMENT: 65-year-old male with a past medical history of COPD, HFrEF, atrial flutter, CAD hypertension, pancreatic insufficiency secondary pancreatic mass resection, chronic low back pain, hypothyroidism, polysubstance abuse, CVA, cataracts. Presented with AMS, failure to thrive and copious diarrhea with poor PO intake. Found to have acute renal failure, with hypernatremia, hyperkalemia as well as poor perfusion to extremities. Will be admitted to hospitalist service with nephrology and vascular surgery consultation. . PLAN: Acute renal failure 2/2 dehydration from poor PO intake, diarrhea - Cr 2.00, baseline ~1.0 - patient refused marsh cath, has been incontinent, unable to accurately count UOP - received 1L NS bolus in ER - check renal US - check UA, with urine lytes Hypernatremia - in setting of dehydration from diarrhea, poor PO intake - s/p 1L NS in ER - nephrology Dr. Hale consulted - recommending starting D5W at 125-150cc/hr - will check BMP q4h - admit to PCU Hyperkalelmia - K 6.0 -> 5.4on repeat, in setting of BRIAN - 1 dose veltassa one dose - c/w IV hydration - trend BMP Diarrhea - has not had BM in ER - check GI panel Vtach on EKG - in setting of dehydration and hyperkalemia - non sustained, asymptomatic - intial trop 0.12 on POC, but repeat 0.02, 0.2 - will check magnesium - no ST elevated on EKG - has known hx of a flutter, possible 2:1 - anticoagulated - resume PO metoprolol - monitor on telemetry in PCU Aflutter - c/w eliquis - c/w metoprolol 50 mg BID - monitor on tele Hx of HFrEF - last echo 10/2020, LVEF 30-35%, moderate-severe hypokinesis of LV - BNP elevated 3800 - no significant crackles or edema appreciated - CXR not indicate of venous congestion or pleural effusions - suspect elevation in BNP 2/2 acute kidney injury - will prioritize rehydration Cyanotic LEs, suspected chronic PAD - unable to palpate pulses in ER - doppler detected DP in L foot, absent pulses by doppler in R foot - consulted vascular surgeon Dr. Tony, examined beside together - patient has significant calcific disease, wellness ambassador from femoral circulation see on CT abdo - unable to perform CTA with runoff - unable to obtain arterial dopplers at night - per Dr. Tony, recommends to c/w ASA, eliquis - no acute limb ischemia at this time. expected to improve with rehydration. - he will continue to follow, unlike to need urgent surgical intervention CAD - c/w ASA, statin Pancreatic insuffiency, hx of resected pancreatic mass - c/w creon DVT ppx: on eliquis. Dispo: pending clinical improvement Vital Signs Vital Signs Date Time Temp Pulse Resp B/P (MAP) Pulse Ox O2 Delivery O2 Flow Rate FiO2 12/08/20 02:45 84 16 126/51 (76) 100 Room Air 12/07/20 17:30 4.0 12/07/20 17:26 99.5 Laboratory Data Labs 24H Laboratory Tests 2 12/07/20 19:25: Neutrophils (%) (Auto) , Nucleated Red Blood Cells % (auto) 0.0, Neutrophils 77H, Band Neutrophils 17H, Lymphocytes (Manual) 4L, Eosinophils (Manual) 2, Anisocytosis 4+, Ovalocytes 1+, [place] Cells 2+, Platelet Estimate NORMAL, Anion Gap 4L, Glomerular Filtration Rate 35.8L, Calcium Level 8.4L, Total Bilirubin 0.5, Direct Bilirubin 0.2, Aspartate Amino Transf (AST/SGOT) 22, Alanine Aminotransferase (ALT/SGPT) 30, Alkaline Phosphatase 138H, HL-Fvh-Q-Type Natriuretic Peptide 3806H, Total Protein 5.9L, Albumin 2.6L, Albumin/Globulin Ratio 0.8 12/07/20 19:28: POC Troponin I (Misc) 0.12H 12/07/20 20:20: Coronavirus (COVID-19)(PCR) NEGATIVE, Influenza Type A (RT-PCR) NEGATIVE, Influenza Type B (RT-PCR) NEGATIVE, Respiratory Syncytial Virus (PCR) NEGATIVE 12/07/20 21:49: Anion Gap 5L, Glomerular Filtration Rate 35.2L, Calcium Level 8.3L, PV-Why-Y-Type Natriuretic Peptide 3142H, Total Creatine Kinase 46, Creatine Kinase MB 4.8H, Creatine Kinase MB Relative Index 10.43H, Troponin I 0.02 12/08/20 00:01: Anion Gap 5L, Glomerular Filtration Rate 38.4L, Calcium Level 7.8L, Troponin I 0.02 CBC/BMP Laboratory Tests 12/07/20 19:25 12/07/20 21:49 12/08/20 00:01 Microbiology Microbiology 12/07/20 Blood Culture, Received Pending 12/07/20 Blood Culture, Received Pending Home Medications Scheduled Apixaban (Eliquis) 5 Mg Tablet, 5 MG PO BID Aspirin (Aspirin EC) 81 Mg Tablet.dr, 81 MG PO DAILY Atorvastatin Calcium (Atorvastatin Calcium) 40 Mg Tablet, 40 MG PO QHS Ferrous Sulfate (Ferrous Sulfate) 325 Mg Tablet, 325 MG PO DAILY Ipratropium [place] (Atrovent Hfa) 12.9 Gm Hfa.aer.ad, 2 PUFF INH QID L.acidoph/L.bulg/B.bif/S.therm (Bacid Caplet) 1 Each Tablet, 1 TAB PO WM Losartan/Hydrochlorothiazide (Losartan-Hctz 100-12.5 mg Tab) 1 Each Tablet, 1 TAB PO DAILY Metoprolol Tartrate (Metoprolol Tartrate) 50 Mg Tablet, 50 MG PO BID Moxifloxacin HCl (Moxifloxacin HCl) 400 Mg Tablet, 400 MG PO DAILY Omeprazole (Omeprazole) 20 Mg Capsule.dr, 20 MG PO DAILY Pancreatic Enzymes (Creon Dr 24,000 Units Capsule) 1 Each Capsule.dr, 2 CAP PO WM Prednisone (Prednisone) 10 Mg Tablet, 10 MG PO TAPER 40MG FOR 3 DAYS, 30MG FOR 3 DAYS, 20MG FOR 3 DAYS, 10MG FOR 3 DAYS Ropinirole HCl (Ropinirole HCl) 0.5 Mg Tablet, 0.5 MG PO BID Scheduled PRN Albuterol Sulf (Albuterol Sulfate) 2.5 Mg/3 Ml Vial.neb, 2.5 MG INH Q6H PRN for SHORTNESS OF BREATH Albuterol Sulfate (Albuterol Sulfate Hfa) 8.5 Gm Hfa.aer.ad, 2 PUFFS INH Q4H PRN for SHORTNESS OF BREATH Diphenoxylate HCl/Atropine (Diphenoxylate-Atrop 2.5-0.025) 1 Each Tablet, 1 TAB PO QID PRN for DIARRHEA Oxycodone HCl/Acetaminophen (Oxycodon-Acetaminophen 2.5-325) 1 Each Tablet, 1 TAB PO Q8HP PRN for pain Miscellaneous Medications [Patient Comment] PATIENT UNABLE TO ANSWER. MED REC COMPLETED VIA EXTERNAL MED HISTORY, DISCHARGE PAPERWORK FROM 12/02/20 [facility] CALL TO PHARMACY. Allergies Coded Allergies: amoxicillin (Verified Allergy, Unknown, rash, 9/30/19) clavulanic acid (Verified Allergy, Unknown, rash, 01/28/19) pregabalin (Verified Adverse Reaction, Unknown, seizures, 01/28/19) warfarin (Verified Adverse Reaction, Unknown, bleeding, 01/28/19) ANGELES LANDEROS MD Dec 08, 2020 03:51
[2020-12-08 04:16] LABS: MAGNESIUM LEVEL 2.1 MG/DL (1.8-2.4)
[2020-12-08 04:50] VITALS: BP 154/72
[2020-12-08 05:45] LABS: CALCIUM LEVEL 7.3 MG/DL (8.8-10.2); CREATININE FOR GFR 1.75 MG/DL (0.70-1.30); GLOMERULAR FILTRATION RATE 41.7 (>49); POTASSIUM SERUM 5.5 MEQ/L (3.5-5.1); TROPONIN I 0.02 NG/ML (< 0.10)
[2020-12-08] MEDS: IPRATROPIUM HFA INHALER 12.9 GRAMS (ATROVENT HFA) INH SCH ×4 (07:30→19:36)
[2020-12-08] MEDS: rOPINIRole 0.25 MG TAB(REQUIP) PO SCH ×2 (08:21→20:12)
[2020-12-08] MEDS: CREON-24 CAPSULE PO SCH ×3 (08:21→18:19)
[2020-12-08] MEDS: ASPIRIN 81MG ENTERIC TABLET PO SCH (08:21)
[2020-12-08] MEDS: LACTOBACILLUS ACIDOPHILUS CAP (BACID) PO SCH ×3 (08:22→18:19)
[2020-12-08] MEDS: OMEPRAZOLE 20 MG CAP PO SCH (08:22)
[2020-12-08] MEDS: APIXABAN 5 MG TAB (ELIQUIS) PO SCH ×2 (08:22→20:12)
[2020-12-08] MEDS: METOPROLOL TART 50 MG TAB PO SCH ×2 (08:22→20:12)
[2020-12-08] MEDS: FERROUS SULFATE 325MG TAB PO SCH (08:22)
[2020-12-08 11:30] VITALS: BP 145/63
[2020-12-08 11:45] LABS: CALCIUM LEVEL 7.8 MG/DL (8.8-10.2); CREATININE FOR GFR 1.58 MG/DL (0.70-1.30); GLOMERULAR FILTRATION RATE 46.9 (>49); POTASSIUM SERUM 4.8 MEQ/L (3.5-5.1); TROPONIN I 0.02 NG/ML (< 0.10)
--- NOTE | 2020-12-08 13:10 | CR ---
CONSULTATION DATE: 12/08/2020 REQUESTING PHYSICIAN: Dr. Keenan Mendez CONSULTING PHYSICIAN: Dr. Hale REASON FOR CONSULTATION: Management of acute renal failure and hypernatremia. CHIEF COMPLAINT: Patient presented to the hospital last night in the emergency room with progressive weakness. HISTORY OF PRESENT ILLNESS: Edgardo Ambriz is a 65-year-old male with past medical history of acute renal failure and hypernatremia in the past as well, history of congestive heart failure, polysubstance abuse, multiple other comorbidities as mentioned below. Recently was treated for sepsis secondary to bacterial pneumonia. He was just discharged from the hospital on 12/02/2020. He was brought back to the emergency room by emergency medical services (EMS) for failure to thrive, reduced oral intake, and confusion. He was having copious watery diarrhea for the past 2-3 days as well. Patient was found to have acute renal failure with a creatinine of 2. He was hypernatremic with a sodium of 170. Case was discussed with myself by the admitting physician. Decision was made to give the patient normal saline followed by D5W. I saw and evaluated the patient today morning at the bedside. Patient is feeling slightly better today as compared with yesterday, and his sodium level has improved to 166; however, he has persistent normal anion gap metabolic acidosis. MEDICAL HISTORY: 1. Chronic cachexia. 2. Pneumonia. 3. Chronic pancreatic insufficiency. 4. Congestive heart failure with reduced ejection fraction. 5. Hypertension. 6. Chronic obstructive pulmonary disease (COPD). 7. Atrial flutter with rapid ventricular response. 8. Coronary artery disease. 9. Severe muscle wasting. 10. Hypertension. 11. Pancreatic mass in the past. 12. Polysubstance abuse. 13. Hypothyroidism. 14. Glaucoma. SURGICAL HISTORY: 1. Cataract surgery. 2. Carotid endarterectomy. 3. Left carotid artery bypass. 4. Tonsillectomy. 5. Partial pancreatoduodenectomy. 6. Coronary artery bypass graft (CABG) in December 2019. ALLERGIES: He is allergic to AMOXICILLIN, CLAVULANIC ACID, PREGABALIN, and WARFARIN. FAMILY HISTORY: No significant family history of end-stage renal disease. SOCIAL HISTORY: Patient lives at home. He is a former smoker. Denies any illicit drug abuse or alcohol abuse. He reports that he lives alone. REVIEW OF SYSTEMS: CONSTITUTIONAL: Reports feeling weak and tired. EYES: He denies any blurry vision or double vision. ENT: He denies any dysphagia or odynophagia. CARDIOVASCULAR: Denies any chest pain or palpitations. RESPIRATORY: He denies any shortness of breath. GASTROINTESTINAL: Reports diarrhea for about 2 days before arrival. GENITOURINARY: Denies any dysuria or hematuria. MUSCULOSKELETAL: Reports some muscle weakness. SKIN: Denies any rashes or ulcers. HEMATOLOGICAL/ONCOLOGICAL: Denies any easy bleeding or bruising. CENTRAL NERVOUS SYSTEM: Denies any strokes or seizures. All other review of systems is negative. PHYSICAL EXAMINATION: GENERAL: Patient is awake, alert, oriented times three, lying in bed, weak and cachectic, chronically malnourished. VITAL SIGNS: Temperature is 97.1 degrees Fahrenheit, blood pressure 145/63, pulse is 73, respiratory rate of 20, saturating 99% on room air. HEAD AND NECK: Extraocular muscles intact. Pupils equally round and reactive to light. Mucous membranes are moist. Neck is supple. He has a left carotid bypass graft, which is palpable in the neck. CARDIOVASCULAR: S1, S2, regular rate. No edema of the bilateral lower extremities. RESPIRATORY: Mildly decreased breath sounds at the bases. Mild inspiratory crackles at the bases. ABDOMEN: Soft. Positive bowel sounds. Nontender. No organomegaly. MUSCULOSKELETAL: Chronic muscle wasting. No clubbing or cyanosis. CENTRAL NERVOUS SYSTEM: No focal deficit. Power is 5/5 in all extremities. LABORATORY REVIEW: CBC showed a WBC of 11.5, hemoglobin 12.2, platelets are 186. BMP on arrival showed sodium 170, potassium 6, chloride 151, bicarbonate 15, BUN 23, creatinine 2, calcium 8.4. BNP was 3806. Repeat BMP done today before noon showed sodium 158, potassium 4.8, chloride 137, bicarbonate 14, BUN 35, creatinine 1.5, calcium 7.8. IMAGING: CT scan of the abdomen and pelvis was done, which showed no constipation. No bowel obstruction or acute findings. CURRENT INPATIENT MEDICATIONS: Patient is getting intravenous (IV) fluid at 150 mL an hour. I have decreased the rate to 125 mL an hour. He is on Tylenol as needed, Mylanta, Eliquis 5 mg by mouth twice a day, aspirin 81 mg by mouth daily, Lipitor 40 mg every night. I have started the patient on Bicitra 30 mL by mouth twice a day. Iron tablet 325 mg by mouth daily, Atrovent, Bacid with meals, metoprolol tartrate 50 mg by mouth twice a day, milk of magnesia, omeprazole 20 mg by mouth daily, pancreatic enzymes. One dose of Veltassa was given today morning. He is on Requip. ASSESSMENT AND PLAN: 1. Severe acute hypernatremia. It is secondary to decreased oral intake, diarrhea, and inability to take care of himself at home. Patient was initially given normal saline. Later on he was started on D5W. Sodium level is adequately improving. He has 5.5 liters of free water deficit. He will be given around 2.5 liters initially in the first 24 hours, and rest of the fluid will be given over the next 48 hours. 2. Hyperkalemia. It is secondary to dehydration, acute renal failure. Potassium level is getting better with IV fluid hydration. 3. Hyperchloremic metabolic acidosis. Patient was having diarrhea. It is not clear whether it is the dehydration that is causing acidosis or whether patient has renal tubular acidosis. I have ordered the urine electrolytes as well, and I have started the patient on Bicitra 30 mL by mouth twice a day. 4. Acute renal failure. Patient has nonoliguric renal failure secondary to dehydration. Creatinine level is improving with IV fluid hydration. 5. Atrial fibrillation/ atrial flutter. Patient is currently on Eliquis and metoprolol. I am going to decrease the Eliquis dose, because patient's creatinine is high and his base only 50 kg. Thank you for involving me in the care of this patient. I shall be happy to follow the patient along with you tomorrow morning.
--- NOTE | 2020-12-08 13:16 | IPNPDOC ---
Text Note Date of Service The patient was seen on 12/08/20. NOTE Subjective: Patient is a 65 year old male with a PMHx of COPD, HFrEF, A. flutter (on Eliquis), CAD, HTN, CVA, Hypothyroidism, Pancreatic insufficiency (2/2 pancreatic mass resection), Chronic low back pain, Polysubstance abuse, who presented to the ER with weakness, decreased oral intake and confusion. Patient was recently admitted for bacterial pneumonia, decompensated diastolic CHF, atrial flutter with RVR and BRIAN. Patient was ultimately discharged on 12/02/20. Patient reported significant watery diarrhea over the last 2-3 days. Upon arrival to emergency room, patient was found to have hypernatremia and acute kidney injury. She was admitted to the hospital service for further evaluation and treatment. Nephrology was called on consultation. Patient was seen and examined at the bedside. . Patient denies any chest pain, shortness breath, palpitations, nausea, vomiting or abdominal pain. Patient had a bowel movement this morning with formed stool was not diarrhea. Patient continues to make urine. Objective: Vitals (See below) General: Lying in bed, appears comfortable, AAOx3 HEENT: NC, AT CVS: +S1S2 Lungs: Fair air entry b/l, -w/r/r Abdomen: Soft, ND, NT Extremities: - Edema, - Calf tenderness Imaging: CT abdomen / pelvis w/o contrast 12/07: 1. Constipation. 2. No bowel obstruction or acute findings. CXR 12/08: No acute cardiopulmonary disease. Chronic changes as above. Assessment and plan: Acute renal failure 2/2 dehydration from poor PO intake, diarrhea - Cr 2.0; Cr continues to improve - Patient has refused Velez catheter on admission - c/w IV fluids as per nephrology - Will avoid nephrotoxic medications - Nephrology on consultation; we appreciate their input Hypernatremia - likely 2/2 dehydration from diarrhea, poor PO intake; possibly 2/2 diabetes insipidus - Sodium has been improving - Nephrology on consultation Hyperkalemia - Improving s/p Diarrhea - BM this AM was formed stool. Non-sustained V tach - possibly 2/2 electrolyte abnromalities - Will c/w Telemetry - EKG reviewed - c/w metoprolol Chronic A flutter - c/w full anticoagulation with eliquis - c/w rate control with metoprolol Hx of HFrEF - No evidence of fluid overload - last echo 10/2020, LVEF 30-35%, moderate-severe hypokinesis of LV - Will avoid nephrotoxic medications Suspected cyanotic LEs, suspected chronic PAD - Clinically patient does not appear to have any cyanotic toes this morning - Patient was evaluated by vascular surgery overnight, Dr. Tony - c/w ASA, eliquis CAD - c/w ASA, Atorvastatin Pancreatic insufficiency - Hx of resected pancreatic mass - c/w supplementation RLS - c/w Ropinirole GERD - c/w Omeprazole DVT prophylaxis - c/w Eliquis Disposition: - Awaiting clinical improvement VS,Shauna, I+O VS, Shauna I+O Laboratory Tests 12/07/20 19:25 12/07/20 21:49 12/08/20 00:01 12/08/20 05:04 12/08/20 11:07 Vital Signs Date Time Temp Pulse Resp B/P (MAP) Pulse Ox O2 Delivery O2 Flow Rate FiO2 12/08/20 11:30 97.1 73 20 145/63 (90) 99 Room Air 12/07/20 17:30 4.0 I&O- Last 24 Hours up to 6 AM 12/08/20 06:00 Intake Total 1000 ml Balance 1000 ml MADY YEPEZ MD Dec 08, 2020 13:16
[2020-12-08] MEDS: BICITRA 30ML SOLN UDC PO SCH ×2 (14:53→20:12)
[2020-12-08 16:00] VITALS: BP 140/60
[2020-12-08 18:25] LABS: ALBUMIN 2.1 GM/DL (3.2-5.2); CALCIUM LEVEL 7.8 MG/DL (8.8-10.2); CREATININE FOR GFR 1.52 MG/DL (0.70-1.30); GLOMERULAR FILTRATION RATE 49.1 (>49); PHOSPHORUS LEVEL 3.5 MG/DL (2.5-4.9); POTASSIUM SERUM 5.4 MEQ/L (3.5-5.1)
[2020-12-08 20:00] VITALS: BP 160/72
[2020-12-08] MEDS: ATORVASTATIN 20 MG TAB PO SCH (20:12)
[2020-12-09] VITALS: BP 121/57
[2020-12-09 04:00] VITALS: BP 128/62
[2020-12-09 05:47] LABS: ALBUMIN 1.8 GM/DL (3.2-5.2); CALCIUM LEVEL 7.7 MG/DL (8.8-10.2); CREATININE FOR GFR 1.3 MG/DL (0.70-1.30); GLOMERULAR FILTRATION RATE 58.8 (>49); MAGNESIUM LEVEL 1.6 MG/DL (1.8-2.4); PHOSPHORUS LEVEL 1.9 MG/DL (2.5-4.9); POTASSIUM SERUM 4.3 MEQ/L (3.5-5.1)
[2020-12-09 05:55] LABS: POTASSIUM RANDOM URINE 55.1 MEQ/L
--- NOTE | 2020-12-09 06:46 | ECGEPIP ---
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
[2020-12-09] MEDS: ALBUTEROL SULFATE 2.5 MG/0.5 ML INH NEB SOLN INH PRN ×2 (07:11→21:36)
[2020-12-09] MEDS: MAG SULF 1GM/100ML (MAG RUN) 1 GM in IV 1 EA IV SCH ×2 (07:12→09:29)
[2020-12-09 07:21] LABS: HEMATOCRIT 33.7 % (42.0-52.0); MEAN CORPUSCULAR HEMOGLOBIN 23.4 pg (27.0-33.0); MEAN CORPUSCULAR HGB CONC 28.8 g/dl (32.0-36.5); MEAN CORPUSCULAR VOLUME 81.4 fl (80.0-96.0); PLATELET COUNT, AUTOMATED 164 10^3/uL (150-450); RED BLOOD COUNT 4.14 10^6/uL (4.30-6.10); WHITE BLOOD COUNT 12.6 10^3/uL (4.0-10.0)
[2020-12-09 07:29] LABS: HEMOGLOBIN 9.7 g/dl (13.5-17.5)
[2020-12-09] MEDS: IPRATROPIUM HFA INHALER 12.9 GRAMS (ATROVENT HFA) INH SCH ×4 (07:37→20:00)
[2020-12-09 07:56] VITALS: BP 112/55
[2020-12-09 08:12] LABS: LYMPHOCYTES 8 % (16-44); MONOCYTES 5 % (0-5); NEUTROPHILS 83 % (28-66); NUCLEATED RED BLOOD CELL 2 % (0-0)
[2020-12-09 08:17] LABS: ANISOCYTOSIS 1+; PLATELET ESTIMATE NORMAL (NORMAL); POIKILOCYTOSIS 1+
--- NOTE | 2020-12-09 08:27 | ECGEPIP ---
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 Frequent isolated unifocal PVCs Low limb voltage with minuscule inferior Q waves; body habitus versus pulmonary d disease but could not rule out prior IWMI. Prominent precordial voltage in asymmetrical lateral ST/T wave abnormalities c consistent with left ventricular hypertrophy. Slower rate with slightly less prominent repolarization abnormality from previous d day. Electronically Signed on 12-09-2020 8:27:15 EDT by Santosh Jorge
[2020-12-09] MEDS: LACTOBACILLUS ACIDOPHILUS CAP (BACID) PO SCH ×3 (09:29→17:50)
[2020-12-09] MEDS: rOPINIRole 0.25 MG TAB(REQUIP) PO SCH ×2 (09:29→20:30)
[2020-12-09] MEDS: ASPIRIN 81MG ENTERIC TABLET PO SCH (09:29)
[2020-12-09] MEDS: APIXABAN 5 MG TAB (ELIQUIS) PO SCH (09:29)
[2020-12-09] MEDS: OMEPRAZOLE 20 MG CAP PO SCH (09:29)
[2020-12-09] MEDS: FERROUS SULFATE 325MG TAB PO SCH (09:30)
[2020-12-09] MEDS: METOPROLOL TART 50 MG TAB PO SCH ×2 (09:30→20:30)
[2020-12-09] MEDS: BICITRA 30ML SOLN UDC PO SCH ×2 (09:40→21:36)
[2020-12-09] MEDS: CREON-24 CAPSULE PO SCH ×3 (09:44→17:50)
[2020-12-09] MEDS: D5W 1,000 ML IV SCH ×2 (09:47→20:30)
--- NOTE | 2020-12-09 10:11 | IPNPDOC ---
Text Note Date of Service The patient was seen on 12/09/20. NOTE Subjective: Patient is a 65 year old male with a PMHx of COPD, HFrEF, A. flutter (on Eliquis), CAD, HTN, CVA, Hypothyroidism, Pancreatic insufficiency (2/2 pancreatic mass resection), Chronic low back pain, Polysubstance abuse, who presented to the ER with weakness, decreased oral intake and confusion. Patient was recently admitted for bacterial pneumonia, decompensated diastolic CHF, atrial flutter with RVR and BRIAN. Patient was ultimately discharged on 12/02/20. Patient reported significant watery diarrhea over the last 2-3 days. Upon arrival to ER, patient was found to have hypernatremia and acute kidney injury. She was admitted to the hospital service for further evaluation and treatment. Nephrology was called on consultation. Patient was seen and examined at the bedside. Patient denies any nausea, vomiting, diarrhea, or urinary discomfort. Patient has been able to urinate overnight. However, bladder scans did continue to reveal urinary retention for which patient has refused again Velez catheter placement. He denies any chest pain, shortness of breath or palpitations. Objective: Vitals (See below) General: Patient is sitting up in bed, appears to be comfortable, watching television, is awake and alert, oriented 3 HEENT: Normocephalic and atraumatic CVS: +S1S2 Lungs: Fair air entry b/l, there does not appear to be any evidence of wheezing, crackles or rhonchi Abdomen: Soft, there does not appear to be any distention. Mild tenderness of suprapubic region Extremities: Lower extremities are without any edema Imaging: CT abdomen / pelvis w/o contrast 12/07: 1. Constipation. 2. No bowel obstruction or acute findings. CXR 12/08: No acute cardiopulmonary disease. Chronic changes as above. Assessment and plan: Acute renal failure 2/2 dehydration from poor PO intake, diarrhea - Baseline Cr of 1.0 - Cr 2.0 on admission; creatinine continues to trend down - Patient again has refused Velez catheter - c/w IV fluids as per nephrology - Will avoid nephrotoxic medications - Nephrology on consultation; we appreciate their input Hypernatremia - likely 2/2 dehydration from diarrhea, poor PO intake; possibly 2/2 diabetes insipidus - Sodium continues to improve - Nephrology on consultation s/p Hyperkalemia - Improving s/p Diarrhea - BM this AM was formed stool. Normocytic anemia - Hg trended down - No evidence of bleeding - Will follow trend Leukocytosis - ROS is negative; diarrhea has resolved - Hemodynamically stable / Afebrile - Will check PCT - Blood cultures 12/07: No growht at 24 hours - UA negative; Urine culture 12/09: Pending - Will hold off on antibiotics at this time Non-sustained V tach - possibly 2/2 electrolyte abnormalities - Will c/w Telemetry - EKG reviewed - c/w metoprolol Chronic A flutter - c/w rate control with metoprolol - c/w full anticoagulation with eliquis Hx of HFrEF - No evidence of fluid overload - last echo 10/2020, LVEF 30-35%, moderate-severe hypokinesis of LV - Will avoid nephrotoxic medications Suspected cyanotic LEs, suspected chronic PAD - Clinically patient does not appear to have any cyanotic toes this morning - Patient was evaluated by vascular surgery on admission; Dr. Tony; appreciate their input - c/w ASA, eliquis CAD - c/w ASA, Atorvastatin Pancreatic insufficiency - Hx of resected pancreatic mass - c/w supplementation RLS - c/w Ropinirole GERD - c/w Omeprazole DVT prophylaxis - c/w Eliquis Disposition: - Awaiting clinical improvement Shauna NGUYEN I+O VSShauna I+O Laboratory Tests 12/08/20 11:07 12/08/20 17:46 12/09/20 04:51 Vital Signs Date Time Temp Pulse Resp B/P (MAP) Pulse Ox O2 Delivery O2 Flow Rate FiO2 12/09/20 09:30 61 112/55 12/09/20 07:56 98.7 22 98 Room Air 12/07/20 17:30 4.0 I&O- Last 24 Hours up to 6 AM 12/09/20 05:59 Intake Total 4535 ml Output Total 775 ml Balance 3760 ml MADY YEPEZ MD Dec 09, 2020 10:11
[2020-12-09 12:25] VITALS: BP 102/54
[2020-12-09 16:45] VITALS: BP 128/61
--- NOTE | 2020-12-09 19:00 | IPN ---
PROGRESS NOTE DATE: 12/09/2020 SUBJECTIVE: The patient is seen and examined at the bedside today morning. He continues to be on IV fluid hydration. He is feeling much better today as compared with yesterday. He was started on Bicitra yesterday which he is tolerating well. His hypernatremia is getting better. OBJECTIVE: VITAL SIGNS: Temperature is 98.7 degrees Fahrenheit, blood pressure is 128/61, pulse is 59, respiratory rate of 20, saturating 98% on room air. INTAKE AND OUTPUT: Urine output recorded as 500 ml since overnight. Weight on the bed scale was 50.6 kg yesterday. GENERAL: Patient is awake, alert and oriented x2, weak and cachectic, chronically malnourished. HEAD AND NECK: Extraocular muscles intact. Pupils equally round and reactive to light. Mucous membranes are moist. Neck is supple. No significant JVD. CARDIOVASCULAR: S1 and S2, regular rate, no edema of the bilateral lower extremities. RESPIRATORY: Mildly decreased breath sounds at the bases with inspiratory crackles. ABDOMEN: Soft, positive bowel sounds, nontender, no organomegaly. MUSCULOSKELETAL: No clubbing or cyanosis. Pulses are 2+. RESIDENTIAL COORDINATOR: No focal deficit. Power is 5/5 in all extremities. LABORATORY DATA: CBC showed a WBC of 12.6, hemoglobin 9.7, platelets are 164,000. Urine electrolytes done today morning showed a creatinine of 89, sodium of 88, potassium 55.1, chloride is 139. Urine anion gap calculated today is slightly more than 4 which points towards distal RTA. BMP showed a sodium of 148, potassium 4.3, chloride 124, bicarbonate 19, BUN is 31, creatinine is 1.3, it was 1.5 yesterday. Phosphorus 1.9, magnesium 1.6. CURRENT INPATIENT MEDICATIONS: The patient's medications were all reviewed by myself. He continues to be on Bicitra 30 ml p.o. twice a day. He was given two runs of IV magnesium. I have decreased his D5W to 75 ml/hr now. No other significant change in the medications today as compared with yesterday. ASSESSMENT AND PLAN: 1. Acute renal failure. Patient was in non-oliguric renal failure, it was secondary to dehydration and volume depletion. Creatinine is improving with IV fluid hydration. 2. Hypernatremia. Patient is getting D5W, sodium level is slightly improving, D5W rate has been decreased today. 3. Hyperkalemia, it is improving with dextrose containing IV fluids and improvement in the renal function. Potassium level is within the acceptable range. 4. Hyperchloremic metabolic acidosis, the patient has a positive urine anion gap, there is a likelihood the patient has distal RTA. Continue Bicitra 30 ml p.o. twice a day. 5. Atrial fibrillation, patient is on Eliquis and metoprolol. Continue current dose at this time.
[2020-12-09 20:00] VITALS: BP 118/57
[2020-12-09] MEDS: APIXABAN 2.5 MG TAB (ELIQUIS) PO SCH (20:30)
[2020-12-09] MEDS: ATORVASTATIN 20 MG TAB PO SCH (20:30)
[2020-12-09 21:26] LABS: CLOSTRIDIUM DIFFICILE PCR NEGATIVE (NEGATIVE)
[2020-12-10] VITALS: BP_SYST 108; BP_SYST 118; BP_DIAS 54; BP_DIAS 57
[2020-12-10] MEDS: ALBUTEROL SULFATE 2.5 MG/0.5 ML INH NEB SOLN INH PRN (02:44)
[2020-12-10 04:00] VITALS: BP 100/51
[2020-12-10 07:04] LABS: HEMATOCRIT 31.9 % (42.0-52.0); HEMOGLOBIN 9.4 g/dl (13.5-17.5); MEAN CORPUSCULAR HEMOGLOBIN 23.3 pg (27.0-33.0); MEAN CORPUSCULAR HGB CONC 29.5 g/dl (32.0-36.5); PLATELET COUNT, AUTOMATED 161 10^3/uL (150-450); RED BLOOD COUNT 4.04 10^6/uL (4.30-6.10); WHITE BLOOD COUNT 9.7 10^3/uL (4.0-10.0)
[2020-12-10 07:20] LABS: BLOOD UREA NITROGEN 26 MG/DL (7-18); CARBON DIOXIDE LEVEL 20 MEQ/L (21-32); CHLORIDE LEVEL 116 MEQ/L (98-107); CREATININE FOR GFR 0.99 MG/DL (0.70-1.30); GLOMERULAR FILTRATION RATE > 60.0 (>49); GLUCOSE, FASTING 98 MG/DL (70-100); MAGNESIUM LEVEL 1.9 MG/DL (1.8-2.4); PHOSPHORUS LEVEL 1.8 MG/DL (2.5-4.9); POTASSIUM SERUM 3.9 MEQ/L (3.5-5.1); SODIUM LEVEL 143 MEQ/L (136-145)
[2020-12-10] MEDS: IPRATROPIUM HFA INHALER 12.9 GRAMS (ATROVENT HFA) INH SCH ×4 (07:25→20:21)
[2020-12-10 07:45] LABS: ATYPICAL LYMPH 4 % (0-5); BASOPHILS 1 % (0-1); LYMPHOCYTES 14 % (16-44); MONOCYTES 3 % (0-5); NEUTROPHILS 71 % (28-66)
[2020-12-10 07:46] LABS: POIKILOCYTOSIS 1+
[2020-12-10 07:47] LABS: ANISOCYTOSIS 1+; MICROCYTOSIS 1+; OVALOCYTES 1+
[2020-12-10 07:48] LABS: PLATELET ESTIMATE NORMAL (NORMAL)
[2020-12-10 08:00] VITALS: BP 119/57
[2020-12-10 08:07] LABS: EOSINOPHILS 7 % (0-3)
[2020-12-10] MEDS: CREON-24 CAPSULE PO SCH ×3 (09:00→17:06)
[2020-12-10] MEDS: METOPROLOL TART 50 MG TAB PO SCH (09:00)
[2020-12-10] MEDS: OMEPRAZOLE 20 MG CAP PO SCH (09:00)
[2020-12-10] MEDS: LACTOBACILLUS ACIDOPHILUS CAP (BACID) PO SCH ×3 (09:00→17:06)
[2020-12-10] MEDS: ASPIRIN 81MG ENTERIC TABLET PO SCH (09:00)
[2020-12-10] MEDS: BICITRA 30ML SOLN UDC PO SCH (09:00)
[2020-12-10] MEDS: rOPINIRole 0.25 MG TAB(REQUIP) PO SCH ×2 (09:03→20:29)
[2020-12-10] MEDS: APIXABAN 2.5 MG TAB (ELIQUIS) PO SCH ×2 (09:03→20:30)
[2020-12-10] MEDS: FERROUS SULFATE 325MG TAB PO SCH (09:03)
--- NOTE | 2020-12-10 11:31 | IPNPDOC ---
Text Note Date of Service The patient was seen on 12/10/20. NOTE Subjective: Patient is a 65 year old male with a PMHx of COPD, HFrEF, A. flutter (on Eliquis), CAD, HTN, CVA, Hypothyroidism, Pancreatic insufficiency (2/2 pancreatic mass resection), Chronic low back pain, Polysubstance abuse, who presented to the ER with weakness, decreased oral intake and confusion. Patient was recently admitted for bacterial pneumonia, decompensated diastolic CHF, atrial flutter with RVR and BRIAN. Patient was ultimately discharged on 12/02/20. Patient reported significant watery diarrhea over the last 2-3 days. Upon arrival to ER, patient was found to have hypernatremia and acute kidney injury. She was admitted to the hospital service for further evaluation and treatment. Nephrology was called on consultation. Patient was seen and examined at the bedside. Patient is seen sitting up in bed watching television. Denies any nausea, vomiting, abdominal pain, reported that he had diarrhea yesterday, however, has not yet had a bowel movement this morning. Denies any chest pain, shortness breath or palpitations. Objective: Vitals (See below) General: Sitting up in bed watching television appears to be comfortable without any acute distress, is awake, alert, oriented 3 HEENT: AT, NC CVS: +S1S2 Lungs: Auscultation does not reveal any wheezing, crackles or rhonchi and air entry appears to be fair bilaterally Abdomen: Abdominal exam, this morning did not reveal any distention or tenderness, remains soft Extremities: No edema Imaging: CT abdomen / pelvis w/o contrast 12/07: 1. Constipation. 2. No bowel obstruction or acute findings. CXR 12/08: No acute cardiopulmonary disease. Chronic changes as above. Assessment and plan: Acute renal failure 2/2 dehydration from poor PO intake, diarrhea - Baseline Cr of 1.0 - Creatinine has trended down to baseline - Has refused Velez catheter - Will avoid nephrotoxic medications - c/w IV fluids as per nephrology - Nephrology on consultation; we appreciate their input NAG metabolic acidosis - Improving currently - c/w Citric acid / Sodium citrate s/p Hypernatremia - likely 2/2 dehydration from diarrhea, poor PO intake; possibly 2/2 diabetes insipidus s/p Hyperkalemia s/p Diarrhea - BM this AM was formed stool - C. diff negative - DC Stool softeners - Will start stool bulking agents Normocytic anemia - Hg trended down - No evidence of bleeding - Will follow trend s/p Leukocytosis - ROS is negative - Hemodynamically stable / Afebrile - PCT 0.39 - Blood cultures 12/07: No growth at 48 hours - UA negative; Urine culture 12/09: Negative - Will continue to hold off on antibiotics at this time Non-sustained V tach - likely 2/2 electrolyte abnormalities - EKG reviewed - c/w Telemetry - c/w metoprolol Chronic A flutter - c/w rate control with metoprolol; dose reduced - c/w full anticoagulation with eliquis Hx of HFrEF - No evidence of fluid overload - last echo 10/2020, LVEF 30-35%, moderate-severe hypokinesis of LV - Will avoid nephrotoxic medications Suspected cyanotic LEs, suspected chronic PAD - Clinically patient does not appear to have any cyanotic toes this morning - Patient was evaluated by vascular surgery on admission; Dr. Tony; appreciate their input - c/w ASA, eliquis CAD - c/w ASA, Atorvastatin Pancreatic insufficiency - Hx of resected pancreatic mass - c/w supplementation RLS - c/w Ropinirole GERD - c/w Omeprazole DVT prophylaxis - c/w Eliquis Disposition: - Awaiting clinical improvement - Anticipate DC home in 24-48 hours VS,Fishbone, I+O VS, Fishbone, I+O Laboratory Tests 12/10/20 06:47 Vital Signs Date Time Temp Pulse Resp B/P (MAP) Pulse Ox O2 Delivery O2 Flow Rate FiO2 12/10/20 09:00 66 100/51 12/10/20 08:00 97.3 22 97 Nasal Cannula 2.0 I&O- Last 24 Hours up to 6 AM 12/10/20 06:00 Intake Total 2060 ml Output Total 625 ml Balance 1435 ml MADY YEPEZ MD Dec 10, 2020 11:31
[2020-12-10 12:00] VITALS: BP 120/56
[2020-12-10] MEDS: SODIUM BICARBONATE 325 MG TAB PO SCH ×3 (13:00→20:30)
--- NOTE | 2020-12-10 13:11 | IPN ---
PROGRESS NOTE DATE: 12/10/2020 SUBJECTIVE: Patient was seen and examined at the bedside today morning. He continues to be on IV fluid hydration. His hypernatremia has resolved now. He still has metabolic acidosis. He was started on Bicitra but I was told by the nursing staff that the patient is starting to have diarrhea now and his C. Diff was checked which was negative. Patient himself denies any active complaints. OBJECTIVE: VITAL SIGNS: Temperature is 97.3 degrees Fahrenheit, blood pressure is 119/57, pulse is 63, respiratory rate is 22, saturating 97% on nasal cannula at 2 liters. INTAKE AND OUTPUT: Urine output recorded as 350 ml and weight on the bed scale is 57.6 kg. GENERAL: Patient is awake, alert and oriented x2, laying in bed, chronically weak and cachectic. HEAD AND NECK: Extraocular muscles are intact. Pupils are equally round and reactive to light. Mucous membranes are moist. Neck is supple. Left sided carotid graft is noted. He has an old midline sternotomy scar as well. RESPIRATORY: Chest is clear to auscultation bilaterally. Mildly decreased breath sounds at the bases. ABDOMEN: Soft, positive bowel sounds, nontender. No organomegaly. MUSCULOSKELETAL: No clubbing or cyanosis. Pulses are 2+. 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 LABORATORY DATA: CBC showed a WBC of 9.7, hemoglobin 9.4, platelets are 161,000. BMP showed a sodium of 143, potassium is 3.9, chloride 116, bicarbonate is 20, BUN is 26, creatinine is 0.9. Calcium is 7, phosphorus is 1.8. Magnesium is 1.9. CURRENT INPATIENT MEDICATIONS: Patient's medications were all reviewed by myself. Metoprolol has been changed to 25 mg p.o. twice a day. He has been started on sodium bicarbonate 325 mg p.o. four times a day. I have stopped his Bicitra now and he was started on Neutra-Phos packets one packet with meal. I have changed his IV fluid to KCl 20 mEq and D5W at 75 ccs/hr. ASSESSMENT AND PLAN: 1. Acute renal failure. Patient is getting IV fluid, renal function continues to improve, creatinine is trending down. 2. Hypernatremia. Patient is getting D5 but I have added the KCl in D5W now. Hypernatremia has resolved now. 3. Hyperchloremic metabolic acidosis. Patient continues to be on IV D5W hyperchloremia is improving, however he still has persistent metabolic acidosis. He was started on Bicitra and it looks like he is having diarrhea with that. I have started him on oral sodium bicarbonate now. 4. Atrial fibrillation, heart rate is controlled with metoprolol. Eliquis was decreased because of low body mass.
[2020-12-10] MEDS: METAMUCIL (PSYLLIUM) PACKET PO SCH ×2 (13:15→20:30)
[2020-12-10] MEDS: NEUTRA-PHOS 1.5 GM PACKET PO SCH ×2 (13:15→17:06)
[2020-12-10] MEDS: KCL 20MEQ IN D5W 1000ML 1,000 ML IV SCH (13:15)
[2020-12-10 16:00] VITALS: BP 118/59
[2020-12-10 20:00] VITALS: BP 128/60
[2020-12-10] MEDS: ATORVASTATIN 20 MG TAB PO SCH (20:30)
[2020-12-10] MEDS: METOPROLOL TART 25 MG TABLET PO SCH (20:30)
[2020-12-11] VITALS (7 sets, daily range): BP systolic 99–146; BP diastolic 50–66
[2020-12-11] MEDS: KCL 20MEQ IN D5W 1000ML 1,000 ML IV SCH ×2 (01:20→15:24)
[2020-12-11] MEDS: LOPERAMIDE 2 MG CAPLET PO PRN ×2 (04:42→20:23)
[2020-12-11] MEDS: IPRATROPIUM HFA INHALER 12.9 GRAMS (ATROVENT HFA) INH SCH ×4 (07:22→19:54)
[2020-12-11 07:25] LABS: HEMATOCRIT 32.9 % (42.0-52.0); HEMOGLOBIN 9.8 g/dl (13.5-17.5); MEAN CORPUSCULAR HEMOGLOBIN 23.4 pg (27.0-33.0); MEAN CORPUSCULAR HGB CONC 29.8 g/dl (32.0-36.5); MEAN CORPUSCULAR VOLUME 78.5 fl (80.0-96.0); PLATELET COUNT, AUTOMATED 127 10^3/uL (150-450); RED BLOOD COUNT 4.19 10^6/uL (4.30-6.10); WHITE BLOOD COUNT 7.7 10^3/uL (4.0-10.0)
[2020-12-11 07:43] LABS: BLOOD UREA NITROGEN 18 MG/DL (7-18); CALCIUM LEVEL 6.7 MG/DL (8.8-10.2); CARBON DIOXIDE LEVEL 21 MEQ/L (21-32); CHLORIDE LEVEL 117 MEQ/L (98-107); CREATININE FOR GFR 0.88 MG/DL (0.70-1.30); GLOMERULAR FILTRATION RATE > 60.0 (>49); GLUCOSE, FASTING 101 MG/DL (70-100); MAGNESIUM LEVEL 1.7 MG/DL (1.8-2.4); PHOSPHORUS LEVEL 2.1 MG/DL (2.5-4.9); POTASSIUM SERUM 4.2 MEQ/L (3.5-5.1); SODIUM LEVEL 145 MEQ/L (136-145)
[2020-12-11] MEDS ORDERED: MAG SULF 1GM/100ML (MAG RUN) 1 GM in IV 1 EA IV ONE (08:05)
[2020-12-11 08:10] LABS: EOSINOPHILS 9 % (0-3); LYMPHOCYTES 13 % (16-44); MONOCYTES 3 % (0-5); NEUTROPHILS 73 % (28-66)
[2020-12-11 08:11] LABS: ANISOCYTOSIS 1+; MICROCYTOSIS 1+; PLATELET ESTIMATE DECREASED (NORMAL)
[2020-12-11 08:12] LABS: HYPOCHROMASIA 1+; OVALOCYTES 1+; POIKILOCYTOSIS 1+
[2020-12-11] MEDS: METAMUCIL (PSYLLIUM) PACKET PO SCH ×2 (09:00→20:24)
[2020-12-11] MEDS: LACTOBACILLUS ACIDOPHILUS CAP (BACID) PO SCH ×3 (09:29→18:29)
[2020-12-11] MEDS: ASPIRIN 81MG ENTERIC TABLET PO SCH (09:29)
[2020-12-11] MEDS: NEUTRA-PHOS 1.5 GM PACKET PO SCH ×2 (09:30→10:00)
[2020-12-11] MEDS: rOPINIRole 0.25 MG TAB(REQUIP) PO SCH ×2 (09:30→20:23)
[2020-12-11] MEDS: METOPROLOL TART 25 MG TABLET PO SCH ×2 (09:30→20:24)
[2020-12-11] MEDS: OMEPRAZOLE 20 MG CAP PO SCH (09:30)
[2020-12-11] MEDS: SODIUM BICARBONATE 325 MG TAB PO SCH ×4 (09:30→20:24)
[2020-12-11] MEDS: CREON-24 CAPSULE PO SCH ×3 (09:30→18:28)
[2020-12-11] MEDS: FERROUS SULFATE 325MG TAB PO SCH (09:30)
[2020-12-11] MEDS: APIXABAN 2.5 MG TAB (ELIQUIS) PO SCH ×2 (09:31→20:23)
[2020-12-11] MEDS ORDERED: CALCIUM GLUCONATE 1,000 MG in D5W MINI-BAG PLUS 100 ML IV ONE (10:05)
[2020-12-11] MEDS: ALBUTEROL SULFATE 2.5 MG/0.5 ML INH NEB SOLN INH PRN ×2 (10:54→15:09)
--- NOTE | 2020-12-11 14:06 | IPNPDOC ---
Text Note Date of Service The patient was seen on 12/11/20. NOTE Subjective: Patient is a 65 year old male with a PMHx of COPD, HFrEF, A. flutter (on Eliquis), CAD, HTN, CVA, Hypothyroidism, Pancreatic insufficiency (2/2 pancreatic mass resection), Chronic low back pain, Polysubstance abuse, who presented to the ER with weakness, decreased oral intake and confusion. Patient was recently admitted for bacterial pneumonia, decompensated diastolic CHF, atrial flutter with RVR and BRIAN. Patient was ultimately discharged on 12/02/20. Patient reported significant watery diarrhea over the last 2-3 days. Upon arrival to ER, patient was found to have hypernatremia and acute kidney injury. She was admitted to the hospital service for further evaluation and treatment. Nephrology was called on consultation. Patient was seen and examined at the bedside. Patient reports that he is an uneventful night had reported diarrhea yesterday. Currently denies any nausea, vomiting, abdominal discomfort. Has not had any bowel movements this morning. Denies chest pain, shortness breath, palpitations. Objective: Vitals (See below) General: Patient is sitting up in bed, appears to be comfortable without any acute distress, is oriented to person, place, time HEENT: Normocephalic and atraumatic CVS: +S1S2 Lungs: There appears to be fair air entry bilaterally without auscultated wheezing, crackles or rhonchi Abdomen: Soft without distention or tenderness Extremities: Lower extremities are free of edema Imaging: CT abdomen / pelvis w/o contrast 12/07: 1. Constipation. 2. No bowel obstruction or acute findings. CXR 12/08: No acute cardiopulmonary disease. Chronic changes as above. Assessment and plan: Acute renal failure 2/2 dehydration from poor PO intake, diarrhea - Cr has improved better than baseline - Has refused Velez catheter - Will continue to avoid nephrotoxic medications - c/w IV fluids as per nephrology - Nephrology on consultation; we appreciate their input NAG metabolic acidosis - Bicarbonate improving - c/w Citric acid / Sodium citrate s/p Hypernatremia - likely 2/2 dehydration from diarrhea, poor PO intake; possibly 2/2 diabetes insipidus s/p Hyperkalemia s/p Diarrhea - BM this AM was formed stool - C. diff / GI panel negative - s/p Stool softeners - c/w bulking agents Normocytic anemia - Hg trended down - No evidence of bleeding - Will follow trend s/p Leukocytosis - ROS is negative - Hemodynamically stable - Fever of 100.6 noted this afternoon - PCT 0.39 - Blood cultures 12/07: No growth at 48 hours - UA negative; Urine culture 12/09: Negative - Will continue to hold off on antibiotics at this time Non-sustained V tach - likely 2/2 electrolyte abnormalities - EKG reviewed - c/w Telemetry - c/w metoprolol Chronic A flutter - c/w rate control with metoprolol; dose reduced - c/w full anticoagulation with eliquis Hx of HFrEF - No evidence of fluid overload - ECHO 10/2020, LVEF 30-35%, moderate-severe hypokinesis of LV - Will avoid nephrotoxic medications Suspected cyanotic LEs - likely 2/2 Chronic PAD - Patient was evaluated by vascular surgery on admission; Dr. Tony; appreciate their input - c/w ASA, Eliquis CAD - c/w ASA, Atorvastatin Pancreatic insufficiency - Hx of resected pancreatic mass - c/w supplementation RLS - c/w Ropinirole GERD - c/w Omeprazole DVT prophylaxis - c/w Eliquis Disposition: - Awaiting clinical improvement - Anticipate DC home in 24-48 hours VS,Shauna, I+O VSShauna, I+O Laboratory Tests 12/11/20 07:02 Vital Signs Date Time Temp Pulse Resp B/P (MAP) Pulse Ox O2 Delivery O2 Flow Rate FiO2 12/11/20 12:00 100.6 67 22 131/62 (85) 96 Room Air 12/11/20 04:00 2.0 I&O- Last 24 Hours up to 6 AM 12/11/20 06:00 Intake Total 1065 ml Balance 1065 ml MADY YEPEZ MD Dec 11, 2020 14:06
[2020-12-11] MEDS ORDERED: SODIUM PHOSPHATE INJ 20 MMOL in D5W 250 ML IV ONE (15:00)
[2020-12-11] MEDS: ATORVASTATIN 20 MG TAB PO SCH (20:24)
--- NOTE | 2020-12-12 00:20 | IPN ---
NEPHROLOGY PROGRESS NOTE DATE: 12/11/2020 SUBJECTIVE: The patient was seen and examined at the bedside today morning. He continues to be on IV fluid hydration. His electrolytes are significantly getting better. Acidosis is also resolving. However I was told that the patient continues to have diarrhea. OBJECTIVE: VITAL SIGNS: Temperature is 99.4 degrees Fahrenheit, blood pressure 141/66, pulse is 72, respiratory rate of 20, saturating 93% on room air. INTAKE AND OUTPUT: Urine output recorded is 350 mL yesterday. He is having some incontinent voids as well. Weight in the bed scale is 58.1 kg. PHYSICAL EXAMINATION: GENERAL APPEARANCE: The patient is awake, alert, oriented x2, weak and cachectic, laying in bed. HEAD AND NECK: Extraocular muscles intact. Pupils are equally round and reactive to light. Mucous membranes are moist. Neck is supple. There is no jugular venous distention. CARDIOVASCULAR: S1, S2, midline sternotomy scar is noted. EXTREMITIES: No edema of the lower extremities. RESPIRATORY: Chest is clear to auscultation bilaterally. ABDOMEN: Soft, positive bowel sounds, nontender. MUSCULOSKELETAL: No clubbing, no cyanosis. HAND BUTTON SPLITTER: The patient follows commands and moves extremities. LAB REVIEW: CBC showed a WBC of 7.7, hemoglobin 9.8, platelet count 127. BMP showed sodium of 145, potassium 4.2, chloride 117, bicarbonate is 21. BUN 18, creatinine is 0.8, calcium 6.7, phosphorous is 2.1, magnesium 1.7. CURRENT INPATIENT MEDICATIONS: The patient's medications were all reviewed by myself. I have decreased the IV fluid rate to 60 mL an hour. The patient is going to get magnesium sulfate today. He was also given a dose of calcium gluconate by myself and I have stopped his oral Neutra-Phos and given the patient dose of sodium phos 20 millimole IV times one dose. ASSESSMENT AND PLAN: 1. Acute renal failure it was secondary to dehydration. Renal function is improving with improvement in the volume status. Continue gentle IV fluid hydration. IV fluids are being slowly weaned off. 2. Hypochloremic metabolic acidosis it is slowly getting better. This patient is on oral bicarbonate. Continue the bicarbonate at this time. 3. Hypophosphatemia stopping the oral Neutra-Phos of diarrhea. The patient will be given IV sodium phos as mentioned above. 4. Hypomagnesemia - The patient was given IV magnesium. 5. Hypocalcemia - The patient was given IV calcium gluconate.
[2020-12-12] MEDS: ALBUTEROL SULFATE 2.5 MG/0.5 ML INH NEB SOLN INH PRN ×2 (00:47→10:56)
[2020-12-12 05:06] LABS: BASO % 0.3 % (0.0-1.0); EOS # 0.5 10^3/uL (0.0-0.5); EOS % 6.4 % (0.0-3.0); HEMATOCRIT 33.9 % (42.0-52.0); HEMOGLOBIN 9.9 g/dl (13.5-17.5); LYMPH # 0.9 10^3/uL (1.5-5.0); LYMPH % 11.5 % (24.0-44.0); MEAN CORPUSCULAR HEMOGLOBIN 23.3 pg (27.0-33.0); MEAN CORPUSCULAR HGB CONC 29.2 g/dl (32.0-36.5); MEAN CORPUSCULAR VOLUME 79.8 fl (80.0-96.0); MONO # 0.6 10^3/uL (0.0-0.8); MONO % 8.4 % (2.0-8.0); NEUTROPHILS # 5.5 10^3/uL (1.5-8.5); PLATELET COUNT, AUTOMATED 134 10^3/uL (150-450); RED BLOOD COUNT 4.25 10^6/uL (4.30-6.10); WHITE BLOOD COUNT 7.5 10^3/uL (4.0-10.0)
[2020-12-12 05:26] LABS: BLOOD UREA NITROGEN 13 MG/DL (7-18); CALCIUM LEVEL 7.2 MG/DL (8.8-10.2); CARBON DIOXIDE LEVEL 19 MEQ/L (21-32); CHLORIDE LEVEL 117 MEQ/L (98-107); CREATININE FOR GFR 0.82 MG/DL (0.70-1.30); GLOMERULAR FILTRATION RATE > 60.0 (>49); GLUCOSE, FASTING 76 MG/DL (70-100); MAGNESIUM LEVEL 1.6 MG/DL (1.8-2.4); PHOSPHORUS LEVEL 2.9 MG/DL (2.5-4.9); POTASSIUM SERUM 4.4 MEQ/L (3.5-5.1); SODIUM LEVEL 143 MEQ/L (136-145)
[2020-12-12 05:30] VITALS: BP 136/66
[2020-12-12] MEDS: IPRATROPIUM HFA INHALER 12.9 GRAMS (ATROVENT HFA) INH SCH (07:43)
[2020-12-12 08:00] VITALS: BP 164/79
[2020-12-12] MEDS: LACTOBACILLUS ACIDOPHILUS CAP (BACID) PO SCH (08:47)
[2020-12-12] MEDS: METAMUCIL (PSYLLIUM) PACKET PO SCH (08:47)
[2020-12-12] MEDS: ASPIRIN 81MG ENTERIC TABLET PO SCH (08:47)
[2020-12-12] MEDS: CREON-24 CAPSULE PO SCH (08:47)
[2020-12-12] MEDS: rOPINIRole 0.25 MG TAB(REQUIP) PO SCH (08:47)
[2020-12-12] MEDS: APIXABAN 2.5 MG TAB (ELIQUIS) PO SCH (08:48)
[2020-12-12] MEDS: METOPROLOL TART 25 MG TABLET PO SCH (08:48)
[2020-12-12] MEDS: SODIUM BICARBONATE 325 MG TAB PO SCH (08:48)
[2020-12-12] MEDS: LOPERAMIDE 2 MG CAPLET PO PRN (08:48)
[2020-12-12] MEDS: OMEPRAZOLE 20 MG CAP PO SCH (08:48)
[2020-12-12] MEDS: MAG SULF 1GM/100ML (MAG RUN) 1 GM in IV 1 EA IV SCH ×2 (08:49→09:00)
[2020-12-12] MEDS ORDERED: SODI325T9 PO ×2 (09:15→19:08)
[2020-12-12] MEDS ORDERED: META1POW PO (09:15)
[2020-12-12] MEDS ORDERED: SODIUM BICARBONATE 50 MEQ in KCL 20MEQ IN D5W 1000ML 1,000 ML IV SCH ×2 (10:00)
--- NOTE | 2020-12-12 11:23 | DS.PDOC ---
Discharge Summary General Date of Admission Dec 08, 2020 at 02:33 Date of Discharge 12/12/2020 Discharge Summary PROCEDURES PERFORMED DURING STAY: [None]. ADMITTING DIAGNOSES / DISCHARGE DIAGNOSES: Acute renal failure 2/2 dehydration from poor PO intake, diarrhea NAG metabolic acidosis s/p Hypernatremia - likely 2/2 dehydration from diarrhea, poor PO intake; possibly 2/2 diabetes insipidus s/p Hyperkalemia Diarrhea Normocytic anemia s/p Leukocytosis Non-sustained V tach - likely 2/2 electrolyte abnormalities Chronic A flutter Hx of HFrEF Suspected cyanotic LEs - likely 2/2 Chronic PAD CAD Pancreatic insufficiency RLS GERD DVT prophylaxis COMPLICATIONS/CHIEF COMPLAINT: Acute Renal Failure. HISTORY OF PRESENT ILLNESS: Patient is a 65 year old male with a PMHx of COPD, HFrEF, A. flutter (on Eliquis), CAD, HTN, CVA, Hypothyroidism, Pancreatic insufficiency (2/2 pancreatic mass resection), Chronic low back pain, Polysubstance abuse, who presented to the ER with weakness, decreased oral intake and confusion. Patient was recently admitted for bacterial pneumonia, decompensated diastolic CHF, atrial flutter with RVR and BRIAN. Patient was ultimately discharged on 12/02/20. Patient reported significant watery diarrhea over the last 2-3 days. Upon arrival to ER, patient was found to have hypernatremia and acute kidney injury. She was admitted to the hospital service for further evaluation and treatment. Nephrology was called on consultation. Patient was seen and examined at the bedside. Reports that he wants to leave today, despite receiving IV fluids and continued monitoring. Patient was advised that his medical condition can worsen, can become disability and/or possible . Patient has verbalized understanding of risks and has signed out AMA. HOSPITAL COURSE: Acute renal failure 2/2 dehydration from poor PO intake, diarrhea - Cr has returned to baseline - Has refused Velez catheter - Advised to continue to avoid nephrotoxic medications (ie: NSAIDs) - c/w IV fluids as per nephrology - Patient was advised to remain inpatient however has decided to sign out AMA; advised risks and benefits - signed AMA paperwork - Nephrology on consultation; we appreciate their input NAG metabolic acidosis - Bicarbonate improving - c/w Citric acid / Sodium citrate - Will have outpatient follow up with Nephrology - Patient was advised to remain inpatient however has decided to sign out AMA; advised risks and benefits - signed AMA paperwork s/p Hypernatremia - likely 2/2 dehydration from diarrhea, poor PO intake; possibly 2/2 diabetes insipidus s/p Hyperkalemia Diarrhea - Continues to experience loose stools - C. diff / GI panel negative - s/p Stool softeners - c/w bulking agents - Patient was advised to remain inpatient however has decided to sign out AMA; advised risks and benefits - signed AMA paperwork Normocytic anemia - Hg trended down - No evidence of bleeding - Will follow trend s/p Leukocytosis - ROS is negative - Hemodynamically stable - Single episode of fever; no further fevers noted - PCT 0.39 - Blood cultures 12/07: No growth at 728 hours - UA negative; Urine culture 12/09: Negative - Will continue to hold off on antibiotics at this time - Patient was advised to remain inpatient however has decided to sign out AMA; advised risks and benefits - signed AMA paperwork - Will have follow up with PCP upon discharge Non-sustained V tach - likely 2/2 electrolyte abnormalities - EKG reviewed - c/w Telemetry - c/w metoprolol Chronic A flutter - c/w rate control with metoprolol; dose has been increased back to baseline - c/w full anticoagulation with eliquis Hx of HFrEF - No evidence of fluid overload - ECHO 10/2020, LVEF 30-35%, moderate-severe hypokinesis of LV - Will avoid nephrotoxic medications Suspected cyanotic LEs - likely 2/2 Chronic PAD - Patient was evaluated by vascular surgery on admission; Dr. Tony; appreciate their input - c/w ASA, Eliquis CAD - c/w ASA, Atorvastatin Pancreatic insufficiency - Hx of resected pancreatic mass - c/w Creon RLS - c/w Ropinirole GERD - c/w Omeprazole DVT prophylaxis - c/w Eliquis DISCHARGE MEDICATIONS: Please see below. ALLERGIES: Please see below. PHYSICAL EXAMINATION ON DISCHARGE: Vitals (See below) General: Lying in bed watching television, appears comfortable, Awake/Alert, orientedx3 HEENT: NC, AT CVS: +S1S2 Lungs: Fair air entry b/l, no wheezing / rhonchi / rales Abdomen: Remains soft, without distension / tenderness Extremities: No evidence of edema, - Calf tenderness LABORATORY DATA: Please see below. IMAGING: CT abdomen / pelvis w/o contrast 12/07: 1. Constipation. 2. No bowel obstruction or acute findings. CXR 12/08: No acute cardiopulmonary disease. Chronic changes as above. ACTIVITY: [As tolerated]. DISCHARGE PLAN: Follow up with PCP and Nephrology within 7 days Remain compliant with treatment plan and medications Return to the ER if you experience any problems DISPOSITION: Against medical advice DISCHARGE CONDITION: [Stable]. TIME SPENT ON DISCHARGE: 35 minutes. Vital Signs/I&Os Vital Signs Date Time Temp Pulse Resp B/P (MAP) Pulse Ox O2 Delivery O2 Flow Rate FiO2 12/12/20 08:00 97.3 82 21 164/79 (107) 97 Room Air 12/11/20 04:00 2.0 I&O- Last 24 Hours up to 6 AM 12/12/20 06:00 Intake Total 2690 ml Balance 2690 ml Laboratory Data Labs 24H Laboratory Tests 2 12/12/20 04:29: Immature Granulocyte % (Auto) 0.4, Neutrophils (%) (Auto) 73.0H, Lymphocytes (%) (Auto) 11.5L, Monocytes (%) (Auto) 8.4H, Eosinophils (%) (Auto) 6.4H, Basophils (%) (Auto) 0.3, Neutrophils # (Auto) 5.5, Lymphocytes # (Auto) 0.9L, Monocytes # (Auto) 0.6, Eosinophils # (Auto) 0.5, Basophils # (Auto) 0.0, Nucleated Red Blood Cells % (auto) 0.3H, Anion Gap 7L, Glomerular Filtration Rate > 60.0, Calcium Level 7.2L, Phosphorus Level 2.9#, Magnesium Level 1.6L CBC/BMP Laboratory Tests 12/12/20 04:29 Microbiology Microbiology 12/10/20 Gastrointestinal Tract Panel (PCR) - Final, Complete 12/09/20 Urine Culture - Final, Complete 12/07/20 Blood Culture - Preliminary, Resulted No Growth after 72 hours. All specime... 12/07/20 Blood Culture - Preliminary, Resulted No Growth after 72 hours. All specime... Discharge Medications Scheduled Apixaban (Eliquis) 5 Mg Tablet, 5 MG PO BID, (Reported) Aspirin (Aspirin EC) 81 Mg Tablet.dr, 81 MG PO DAILY, (Reported) Atorvastatin Calcium (Atorvastatin Calcium) 40 Mg Tablet, 40 MG PO QHS, (Reported) Ferrous Sulfate (Ferrous Sulfate) 325 Mg Tablet, 325 MG PO DAILY, (Reported) Ipratropium [place] (Atrovent Hfa) 12.9 Gm Hfa.aer.ad, 2 PUFF INH QID, (Reported) L.acidoph/L.bulg/B.bif/S.therm (Bacid Caplet) 1 Each Tablet, 1 TAB PO WM, (Reported) Metoprolol Tartrate (Metoprolol Tartrate) 50 Mg Tablet, 50 MG PO BID, (Reported) Omeprazole (Omeprazole) 20 Mg Capsule.dr, 20 MG PO DAILY, (Reported) Pancreatic Enzymes (Creon Dr 24,000 Units Capsule) 1 Each Capsule.dr, 2 CAP PO WM, (Reported) Prednisone (Prednisone) 10 Mg Tablet, 10 MG PO TAPER, (Reported) 40MG FOR 3 DAYS, 30MG FOR 3 DAYS, 20MG FOR 3 DAYS, 10MG FOR 3 DAYS Psyllium Husk/Aspartame (Metamucil Fiber Singles Packet) 3.4 Gm Powd.pack, 1 PKT PO BID Ropinirole HCl (Ropinirole HCl) 0.5 Mg Tablet, 0.5 MG PO BID, (Reported) Sodium Bicarbonate (Sodium Bicarbonate) 325 Mg Tablet, 650 MG PO BID Scheduled PRN Albuterol Sulf (Albuterol Sulfate) 2.5 Mg/3 Ml Vial.neb, 2.5 MG INH Q6H PRN for SHORTNESS OF BREATH, (Reported) Albuterol Sulfate (Albuterol Sulfate Hfa) 8.5 Gm Hfa.aer.ad, 2 PUFFS INH Q4H PRN for SHORTNESS OF BREATH, (Reported) Diphenoxylate HCl/Atropine (Diphenoxylate-Atrop 2.5-0.025) 1 Each Tablet, 1 TAB PO QID PRN for DIARRHEA, (Reported) Oxycodone HCl/Acetaminophen (Oxycodon-Acetaminophen 2.5-325) 1 Each Tablet, 1 TAB PO Q8HP PRN for pain Miscellaneous Medications [Patient Comment] , (Reported) PATIENT UNABLE TO ANSWER. MED REC COMPLETED VIA EXTERNAL MED HISTORY, DISCHARGE PAPERWORK FROM 12/02/20 [facility] CALL TO PHARMACY. Allergies Coded Allergies: amoxicillin (Verified Allergy, Unknown, rash, 01/28/19) clavulanic acid (Verified Allergy, Unknown, rash, 01/28/19) pregabalin (Verified Adverse Reaction, Unknown, seizures, 01/28/19) warfarin (Verified Adverse Reaction, Unknown, bleeding, 01/28/19) MADY YEPEZ MD Dec 12, 2020 11:23
[2020-12-12] MEDS ORDERED: ELIQ2.5T PO (19:08)
[2020-12-12] MEDS ORDERED: METO1TAB87 PO (19:08)
[2020-12-12] MEDS ORDERED: OXYC1TAB PO (19:10)
--- NOTE | 2020-12-12 21:19 | IPN ---
NEPHROLOGY PROGRESS NOTE DATE: 12/12/2020 SUBJECTIVE: The patient was seen and examined at the bedside today morning. He was getting gentle IV fluid hydration. Renal function is improving. He still continues to have diarrhea. Potassium and sodium are within the acceptable range now. The patient wants to sign out against medical advice today. OBJECTIVE: VITAL SIGNS: Temperature 97.3 degrees Fahrenheit, blood pressure 164/79, pulse 82, respiratory rate of 21, saturating 97% on room air. INTAKE AND OUTPUT: Urine output is not recorded because he has incontinent voids and bowel movements. Weight in the bed scale was 58.1 kg yesterday. PHYSICAL EXAMINATION: GENERAL APPEARANCE: The patient is awake, alert, oriented x2, sitting up in the bed in no apparent distress, weak and cachectic, chronically malnourished. HEAD AND NECK: Extraocular muscles intact. Pupils are equally round and reactive to light. Mucous membranes are moist. Neck is supple. There is no jugular venous distention. CARDIOVASCULAR: S1, S2, regular rate. EXTREMITIES: No edema of the bilateral lower extremities. RESPIRATORY: Chest is clear to auscultation bilaterally. Bilaterally currently no rales or rhonchi. ABDOMEN: Soft, positive bowel sounds, nontender, no organomegaly. MUSCULOSKELETAL: No clubbing, no cyanosis. Pulses are 2+. TANK PUMPER PANELBOARD: No focal deficits. Power is 5/5 in all extremities. LAB REVIEW: CBC showed a WBC of 7.5, hemoglobin 9.9, platelet count 134. BMP showed sodium 143, potassium 4.4, chloride 117, bicarbonate is 19, BUN 13, creatinine is 0.82, calcium 7.2, phosphorous 2.9, magnesium 1.6. CURRENT INPATIENT MEDICATIONS: The patient's medications were all reviewed by myself. He continues to be on IV fluid hydration at 60 mL an hour. No significant change in the medications today as compared with yesterday. ASSESSMENT AND PLAN: 1. Acute renal failure it was secondary to dehydration and volume depletion. Renal function is improving back to his baseline. IV fluids are slowly weaned off. 2. Hyperchloremic metabolic acidosis - The patient is getting oral bicarbonate. Bicarbonate level is slowly improving. If he is discharged, he should continue the oral sodium bicarbonate 650 mg p.o. twice daily. 3. Hypomagnesemia - The patient was getting IV magnesium. He should be discharged home on oral magnesium as well. 4. Disposition - The patient is not stable enough to be discharged home. He came in with severe dehydration and hypernatremia, and I believe if he signs out against medical advice, he will back in the hospital within one week.
--- NOTE | 2020-12-14 22:50 | CR ---
NEPHROLOGY CONSULTATION DATE: 12/14/2020 REQUESTING PHYSICIAN: Dr. Julia Clemente CONSULTING PHYSICIAN: Dr. Rossana Wilson REASON FOR CONSULTATION: Hypernatremia and metabolic acidosis. HISTORY OF PRESENT ILLNESS: Mr. Edgardo Ambriz is known to me from a previous hospitalization in October of 2020. He is a 65-year-old male with a past medical history of chronic obstructive pulmonary disease, heart failure with reduced ejection fraction, atrial flutter, on Eliquis anticoagulation, coronary artery disease, hypertension, hypothyroidism, pancreatic insufficiency and other comorbid conditions mentioned below. The patient has recently had multiple admissions for hypernatremia in the setting of diarrhea. I reviewed his prior labs. His first admission for hypernatremia was on November 26 (serum sodium 158). He was then re-admitted on December 07 with hypernatremia (serum sodium 170). He did leave against medical advice from the hospital yesterday, and he presented back to the hospital within 24 hours. Upon arrival to the Emergency Room, he was noted to be hypoxic and chest x-ray showed a new right lung base infiltrate. His labs on admission were significant for serum sodium of 147 and serum bicarbonate of 20, and he did have a mild lactic acidosis as well. The patient was started on IV fluids (bicarbonate drip) and his lactic acidosis did resolve and his hypernatremia resolved as well. Nephrology evaluation was requested in view of electrolyte abnormalities and non anion gap metabolic acidosis. PAST MEDICAL HISTORY: The patient's past medical history is significant for: 1. Systolic congestive heart failure (echocardiogram November 17, 2020 with left ventricular ejection fraction 30%). 2. Moderate mitral regurgitation. 3. Mild tricuspid regurgitation. 4. Chronic obstructive pulmonary disease. 5. Atrial flutter on Eliquis. 6. Coronary artery disease. 7. Hypertension. 8. CVA. 9. Hypothyroidism. 10. Pancreatic insufficiency. 11. Chronic low back pain. 12. Polysubstance abuse. 13. Anemia. 14. Glaucoma. 15. Dyslipidemia. SURGICAL HISTORY: The patient's past surgical history is significant for: 1. History of pancreatic mass resection. 2. Cataract surgery. 3. Carotid endarterectomy. 4. Left subclavian artery bypass. 5. Tonsillectomy. 6. Partial pancreatoduodenectomy. 7. Cardiac bypass. FAMILY HISTORY: The patient's past surgical history is significant for heart disease in his mother. SOCIAL HISTORY: The patient is a former smoker. There is no reported alcohol use. There is no reported drug use. ALLERGIES: 1. Amoxicillin. 2. Carbolic Acid. 3. Pregabalin. 4. Warfarin. MEDICATIONS: Home medications reviewed. They include: 1. Albuterol p.r.n. 2. Eliquis 2.5 mg p.o. twice daily. 3. Aspirin 81 mg p.o. daily. 4. Atorvastatin 40 mg p.o. q. h.s. 5. Lomotil p.r.n. for diarrhea. 6. Ferrous Sulfate 325 mg p.o. daily. 7. Bacid with meals. 8. Metoprolol 25 mg p.o. twice daily. 9. Omeprazole 20 mg p.o. daily. 10. Oxycodone p.r.n. 11. Creon 2 caps p.o. with meals. 12. Prednisone taper. 13. Ropinirole 0.5 mg p.o. twice daily. 14. Sodium Bicarbonate 325 mg p.o. four times daily. REVIEW OF SYSTEMS: Constitutional: He reports weakness and fatigue. Eyes: He denies visual changes or blurring. ENT: He denies epistaxis or rhinorrhea. Cardiac: Has systolic congestive heart failure. Denies edema. Also has a history of atrial flutter. Respiratory: He reports chronic obstructive pulmonary disease and inhaler use and shortness of breath. Gastrointestinal: He reports diarrhea which has been going on for about a month. Genitourinary: He denies any dysuria or hematuria. Musculoskeletal: He reports muscle wasting and weakness. Skin: He denies any new rashes or pruritus. Hematological/Oncological: He reports anticoagulant use and reports anemia. Endocrine: He denies a history of diabetes. Reports hypothyroidism. Neurologic: He denies seizures or syncope or headaches. The remainder review of systems is negative or as per HPI. PHYSICAL EXAMINATION: VITAL SIGNS: Temperature is 98.1, pulse 69, respiratory rate 20, blood pressure 125/54, saturating 100% on 2 liters nasal cannula. INTAKE AND OUTPUT: Intake yesterday was 2.5 liters. Weight in the bed scale today is not reported. GENERAL APPEARANCE: The patient is seen lying in bed cachectic and frail male with bitemporal wasting. HEENT: The extraocular muscles are intact. Tongue is moist. NECK: Supple. Jugular veins were not elevated. HEART: Regular. S1, S2. There was a systolic murmur. LUNGS: Fairly clear breath sounds. No wheeze or crackles. His ribs are prominent. There is muscle wasting in the intercostal areas. ABDOMEN: Soft and nontender. EXTREMITIES: No edema. There is prominent muscle wasting. NEUROLOGIC: He is cooperative with the physical exam and answers simple questions appropriately. IMAGING: Chest x-ray done December 12 shows a right lower lobe infiltrate. LABORATORY STUDIES: Sodium 140, potassium 4.5, bicarbonate 15, anion gap of 9, creatinine 0.8, BUN 9, magnesium 1.2, phosphorous 2.9, albumin was 2.5, hemoglobin 9.2, platelet count 156. Blood cultures no growth for 24 hours times 2 sets. INPATIENT MEDICATIONS: The patient received 2 bags of sodium bicarbonate drip (D5W with 100 mEq of sodium bicarbonate) and this ran at 100 mL per hour and he is now off of IV fluids. He received 2 grams of magnesium sulfate. He received Levofloxacin 750 mg IV daily, Tylenol p.r.n., Eliquis 2.5 mg p.o. twice daily, Aspirin 81 mg p.o. daily, Atorvastatin 40 mg p.o. q. h.s., ferrous sulfate 325 mg p.o. daily, insulin, Metoprolol 25 mg p.o. twice daily, Bacid p.o. daily, Prilosec 20 mg p.o. daily, Creon 2 capsules p.o. with meals, Prednisone 10 mg p.o. daily, Metamucil one packet p.o. twice daily, Requip 0.5 mg p.o. twice daily, sodium bicarbonate 650 mg p.o. twice daily. PROBLEMS: 1. Recurrent hypernatremia I reviewed his prior labs. The first time he was admitted with hypernatremia was on November 26 (sodium level 158). He was then again admitted for hypernatremia 10 days later on December 07 (sodium 170). The patient left against medical advice on his last admission and presented back to the hospital within 24 hours with serum sodium of 147 yesterday. He complains of a one month history of frequent watery diarrhea. He has received hypotonic sodium bicarbonate containing fluids. His sodium level has currently normalized. However, given that this is happening on a repeated basis with him, he is going to get a further workup. Primary Team is in discussion with Gastroenterology for a workup of his diarrhea. He does appear to be quite cachectic on exam although I do not know what his BMI is. 2. Protein calorie malnutrition - The patient comes into the hospital with recurrent diarrhea. He also has a significantly low albumin of 2.5. He is malnourished appearing on exam. He may have decreased oral intake. GI is going to be seeing him for further workup of diarrhea, and I wonder if he would need any sort of tube feeding, etc., given his recurrent hypernatremia and dehydration. 3. Non anion gap metabolic acidosis it is secondary to diarrhea and he is receiving both oral and IV bicarbonate supplementation. 4. Hypomagnesemia - The patient is receiving magnesium supplementation. I would avoid oral magnesium because it can have a diarrheal effect. 5. History of pancreatic insufficiency - The patient is on Creon chronically. I am not sure if his pancreatic insufficiency is also predisposing him to diarrhea. This will be addressed by Gastroenterology. 6. Anemia - hemoglobin is 9.2 on the latest labs and he had a transferrin saturation of only 6% 2 weeks ago with an iron level of only 17. We will repeat his iron studies. 7. Systolic congestive heart failure echocardiogram done recently showed left ventricular ejection fraction of about 30%. There is no need for any diuretic at this present time. He has received 2 liters of hypotonic fluid and his IV fluids have now been discontinued. His sodium level has normalized. He is taking oral intake. We will keep an eye on his fluid status.
== END 2020-12-12 11:36 | disposition left against medical advice (07) | DRG 683 ==
LOC: M ED 17:00 → M ED INP 12-08 02:33 → ENRESERVTM 12-08 03:55 → ENRESERVDT 12-08 03:55 → M PCU 12-08 04:48
PROVIDERS: ADMIT Family Medicine; ATTEND Internal Medicine
DX: N17.9 Acute kidney failure, unspecified (principal); E87.0 Hyperosmolality and hypernatremia; I50.22 Chronic systolic (congestive) heart failure; I48.92 Unspecified atrial flutter; I47.2 Ventricular tachycardia; R64 Cachexia; E23.2 Diabetes insipidus; E87.2 Acidosis; R19.7 Diarrhea, unspecified; J44.9 Chronic obstructive pulmonary disease, unspecified; I11.0 Hypertensive heart disease with heart failure; K86.81 Exocrine pancreatic insufficiency; E87.5 Hyperkalemia; E86.0 Dehydration; I25.10 Atherosclerotic heart disease of native coronary artery without angina pectoris; D64.9 Anemia, unspecified; G25.81 Restless legs syndrome; Z79.01 Long term (current) use of anticoagulants; Z79.899 Other long term (current) drug therapy; Z79.82 Long term (current) use of aspirin; Z88.0 Allergy status to penicillin; Z88.8 Allergy status to other drugs, medicaments and biological substances; K86.89 Other specified diseases of pancreas; H40.9 Unspecified glaucoma

== ENCOUNTER 2020-12-12 17:56 | Inpatient (IN) | payer MEDICARE, MEDICAID, OTHER ==
[~2020-12-12] VITALS: Ht 198.1 cm; Wt 47.4 kg
[~2020-12-12 17:56] MED LIST changes: +ASPI-161 PO; +BACITAB PO; +META1POW PO; +MOXI1TAB PO; +OMEP-218 PO; +SODI325T9 PO
[2020-12-12] MEDS: COMBIVENT RESPIMAT 100-20MCG INHALER 4GM INH SCH ×3 (18:48→19:58)
--- NOTE | 2020-12-12 19:02 | REPVR ---
PROCEDURE INFORMATION: Exam: XR Chest Exam date and time: 12/12/2020 6:49 PM Age: 65 years old Clinical indication: Cough and dyspnea; Additional info: Dyspnea/cough TECHNIQUE: Imaging protocol: XR of the chest. Views: 1 view. COMPARISON: CR PORTABLE CHEST X-RAY 12/07/2020 7:23 PM FINDINGS: Tubes, catheters and devices: Sternal wires. Lungs: 4 mm nodule in the right lung base unchanged. Small opacification in the right lung base which may represent infiltrates/atelectasis. Pleural spaces: Unremarkable. No pleural effusion. No pneumothorax. Heart/Mediastinum: Unremarkable. No cardiomegaly. Bones/joints: Unremarkable. IMPRESSION: Small opacification at the right lung base likely representing infiltrates. Nodule at the right lung base measuring 4 mm unchanged. Electronically signed by: Jassi Marcano On 12/12/2020 19:02:28 PM
[2020-12-12] MEDS ORDERED: METO1TAB87 PO (19:08)
[2020-12-12] MEDS ORDERED: SODI325T9 PO (19:08)
[2020-12-12] MEDS ORDERED: ELIQ2.5T PO (19:08)
[2020-12-12] MEDS ORDERED: OXYC1TAB PO (19:10)
[2020-12-12] MEDS ORDERED: HOME MED LIST COMPLETE! XX SCH (19:15)
[2020-12-12 19:40] LABS: BASO % 0.1 % (0.0-1.0); EOS # 0.5 10^3/uL (0.0-0.5); EOS % 7.5 % (0.0-3.0); HEMATOCRIT 40.4 % (42.0-52.0); HEMOGLOBIN 11.7 g/dl (13.5-17.5); LYMPH # 0.8 10^3/uL (1.5-5.0); LYMPH % 11.7 % (24.0-44.0); MEAN CORPUSCULAR HEMOGLOBIN 23.2 pg (27.0-33.0); MEAN CORPUSCULAR VOLUME 80.2 fl (80.0-96.0); MONO # 0.6 10^3/uL (0.0-0.8); MONO % 7.9 % (2.0-8.0); NEUTROPHILS % 72.2 % (36.0-66.0); PLATELET COUNT, AUTOMATED 154 10^3/uL (150-450); RED BLOOD COUNT 5.04 10^6/uL (4.30-6.10); WHITE BLOOD COUNT 6.9 10^3/uL (4.0-10.0)
[2020-12-12 20:23] LABS: RSV AMPLIFICATION NEGATIVE (NEGATIVE)
[2020-12-12] MEDS ORDERED: SODIUM BICARBONATE 325 MG TAB PO SCH (21:00)
[2020-12-12 22:30] LABS: ALBUMIN 2.5 GM/DL (3.2-5.2); ALT/SGPT 39 U/L (12-78); BILIRUBIN,DIRECT 0.1 MG/DL (0.0-0.2); BILIRUBIN,TOTAL 0.3 MG/DL (0.2-1.0); BLOOD UREA NITROGEN 12 MG/DL (7-18); CALCIUM LEVEL 7.3 MG/DL (8.8-10.2); CARBON DIOXIDE LEVEL 20 MEQ/L (21-32); CHLORIDE LEVEL 118 MEQ/L (98-107); CK-MB VALUE MASS 5.6 NG/ML (<3.6); CPK CREATINE PHOSPHOKINASE 73 U/L (39-308); GLOMERULAR FILTRATION RATE > 60.0 (>49); GLUCOSE, FASTING 62 MG/DL (70-100); MB/CK RELATIVE INDEX 7.67 (< OR =4); NT-PRO BNP 7991 PG/ML (<125); POTASSIUM SERUM 4.6 MEQ/L (3.5-5.1); SODIUM LEVEL 147 MEQ/L (136-145); TROPONIN I 0.02 NG/ML (< 0.10)
[2020-12-12] MEDS ORDERED: NS 1,000 ML IV ONE (23:55)
[2020-12-13] VITALS (11 sets, daily range): BP systolic 116–162; BP diastolic 58–77; O2SAT 99–100
[2020-12-13] MEDS ORDERED: IPRATROPIUM 0.5MG/ALBUTEROL 2.5MG INH SOL UD 3ML (DUONEB) INH PRN (00:25)
[2020-12-13] MEDS: IPRATROPIUM 0.5MG/ALBUTEROL 2.5MG INH SOL UD 3ML (DUONEB) NEB PRN ×4 (02:06→21:11)
--- NOTE | 2020-12-13 02:11 | HPEPDOC ---
General Date of Admission 12/13/2020 Date of Service: Dec 13, 2020 Chief Complaint Diah/Cough. Source: Patient History of Present Illness Edgardo Ambriz is a 65-year-old male with past medical history of COPD, HFrEF, A. flutter (on Eliquis), CAD, HTN, CVA, Hypothyroidism, Pancreatic insufficiency (2/2 pancreatic mass resection), Chronic low back pain, Polysubstance abuse, who presented to the ER with shortness of breath, weakness and diarrhea. Patient is a poor historian. Per chart review, patient was recently admitted for bacterial pneumonia, decompensated diastolic CHF, atrial flutter with RVR and BRIAN. Patient was ultimately discharged on 12/02/20. Patient reported significant watery diarrhea and was readmitted on 12/08/2020. At that time, he was found to have hypernatremia and acute kidney injury. He was admitted for further evaluation and nephrology consult. On 12/12/2020 patient left AMA as he reported "wanting to be home" only to return after family friend encouraged him to come back to the hospital today. Patient vocalizes now increased diarrhea, weakness and shortness of breath since leaving the hospital and reports that now he would like to be admitted for further work-up. He also verbalizes interest in rehab if needed. Upon arrival to the ED patient SPO2 78% on room air-improvement 100% on 2 L nasal cannula. Home Medications Scheduled Apixaban (Eliquis) 2.5 Mg Tablet, 2.5 MG PO BID, (Reported) Aspirin (Aspirin EC) 81 Mg Tablet.dr, 81 MG PO DAILY, (Reported) Atorvastatin Calcium (Atorvastatin Calcium) 40 Mg Tablet, 40 MG PO QHS, (Reported) Cholestyramine (Cholestyramine Packet) 4 Gm Powd.pack, 4 GM PO BID Ferrous Sulfate (Ferrous Sulfate) 325 Mg Tablet, 325 MG PO DAILY, (Reported) Ipratropium [place] (Atrovent Hfa) 12.9 Gm Hfa.aer.ad, 2 PUFF INH QID, (Reported) L.acidoph/L.bulg/B.bif/S.therm (Bacid Caplet) 1 Each Tablet, 1 TAB PO WM, (Reported) Magnesium Oxide (Magnesium Oxide) 400 Mg Tablet, 800 MG PO BID Metoprolol Tartrate (Metoprolol Tartrate) 25 Mg Tablet, 25 MG PO BID, (Reported) Pancreatic Enzymes (Creon Dr 24,000 Units Capsule) 1 Each Capsule.dr, 2 CAP PO WM, (Reported) Pantoprazole Sodium (Pantoprazole Sodium) 40 Mg Tablet.dr, 40 MG PO BID Ropinirole HCl (Ropinirole HCl) 0.5 Mg Tablet, 0.5 MG PO BID, (Reported) Sodium Bicarbonate (Sodium Bicarbonate) 325 Mg Tablet, 650 MG PO BID Sucralfate (Sucralfate) 1 Gm Tablet, 1 GRAM PO QID Scheduled PRN Albuterol Sulf (Albuterol Sulfate) 2.5 Mg/3 Ml Vial.neb, 2.5 MG INH Q6H PRN for SHORTNESS OF BREATH, (Reported) Albuterol Sulfate (Albuterol Sulfate Hfa) 8.5 Gm Hfa.aer.ad, 2 PUFFS INH Q4H PRN for SHORTNESS OF BREATH, (Reported) Diphenoxylate HCl/Atropine (Diphenoxylate-Atrop 2.5-0.025) 1 Each Tablet, 1 TAB PO QID PRN for DIARRHEA, (Reported) Oxycodone HCl/Acetaminophen (Oxycodon-Acetaminophen 2.5-325) 1 Each Tablet, 1 TAB PO Q8H PRN for PAIN LEVEL 6-10, (Reported) Miscellaneous Medications [Patient Comment] , (Reported) MED REC COMPLETED VIA DISCHARGE 12/12 MORNING Allergies Coded Allergies: amoxicillin (Verified Allergy, Unknown, rash, 01/28/19) clavulanic acid (Verified Allergy, Unknown, rash, 01/28/19) pregabalin (Verified Adverse Reaction, Unknown, seizures, 01/28/19) warfarin (Verified Adverse Reaction, Unknown, bleeding, 01/28/19) Past Medical History Medical History COPD, HFrEF, A. flutter (on Eliquis), CAD, HTN, CVA, Hypothyroidism, Pancreatic insufficiency, Chronic low back pain, Polysubstance abuse, anemia Surgical History Pancreatic insufficiency (2/2 pancreatic mass resection) Family History Significant Family History: No pertinent family hx Social History * Smoker: Denies Alcohol: Denies Drugs: denies Recent Travel/Sick Contacts: Denies: Recent travel, Recent sick contacts Psychosocial History: No pertinent psych hx Patient reports he lives alone at home. Gets around without assistive devices. A-FIB/CHADSVASC A-FIB History Current/History of A-Fib/PAF?: Yes Current PO Anticoag Therapy: Yes Review of Systems Constitutional: Reports: Chills, Weakness, Fatigue; Denies: Fever, Night Sweats Eyes: Denies: Pain, Vision change ENT: Denies: Head Aches, Ear Pain, Dysphagia Skin: Denies: Rash, Lesions, Breakdown Pulmonary: Reports: Dyspnea, Cough Cardiovascular: Denies: Chest Pain, Palpitations, Orthopnea, Paroxysmal Noc. Dyspnea, Lt Headedness Gastrointestinal: Reports: Diarrhea; Denies: Nausea, Vomiting, Abdominal Pain Genitourinary: Denies: Dysuria, Frequency, Incontinence, Retention Hematologic: Denies: Bruising, Bleeding Excessively Musculoskeletal: Denies: Neck Pain, Back Pain, Joint Pain, Muscle Pain, Spasms Neurological: Reports: Weakness; Denies: Numbness, Change in speech, Confusion Psych: Reports: Mood Normal, Memory Issues; Denies: Depression Physical Examination General Exam: Positive: Alert, No Acute Distress, Other (thin, frail appearance ) Eye Exam: Positive: PERRLA, Conjunctiva & lids normal, EOMI; Negative: Sclera icteric ENT Exam: Positive: Atraumatic, Mucous membr. moist/pink, Pharynx Normal Neck Exam: Positive: Supple; Negative: JVD, thyromegaly Chest Exam: Positive: Clear to auscultation, Normal air movement Heart Exam: Positive: Rate Normal, Normal S1, Normal S2, Other (extrasystole); Negative: Murmurs, Rubs Telemetry: Positive: PVCs Abdomen Exam: Positive: Normal bowel sounds, Soft; Negative: Tenderness, Hepatospenomegaly Extremity Exam: Positive: Normal pulses; Negative: Clubbing, Cyanosis, Edema Skin Exam: Positive: Nl turgor and temperature; Negative: Breakdown, Lesion Neuro Exam: Positive: Normal Gait, Normal Speech, Cranial Nerves 3-12 NL, Reflexes 2+ Psych Exam: Positive: Mental status NL, Mood NL, Oriented x 3, Other (poor historian ) Vital Signs Vital Signs Date Time Temp Pulse Resp B/P (MAP) Pulse Ox O2 Delivery O2 Flow Rate FiO2 12/12/20 23:32 86 16 166/76 (106) 97 Nasal Cannula 2.0 12/12/20 18:01 97.9 Laboratory Data Labs 24H Laboratory Tests 2 12/12/20 18:24: Immature Granulocyte % (Auto) 0.6, Neutrophils (%) (Auto) 72.2H, Lymphocytes (%) (Auto) 11.7L, Monocytes (%) (Auto) 7.9, Eosinophils (%) (Auto) 7.5H, Basophils (%) (Auto) 0.1, Neutrophils # (Auto) 5.0, Lymphocytes # (Auto) 0.8L, Monocytes # (Auto) 0.6, Eosinophils # (Auto) 0.5, Basophils # (Auto) 0.0, Nucleated Red Blood Cells % (auto) 0.0, Lactic Acid Level 2.3*H 12/12/20 18:56: POC pH (Misc Panel) 7.302L, POC Base Excess (Misc Panel) -9.0L, POC Saturated Percent O2 (Misc) 99H, POC pO2 (Misc Panel) 131.0H, POC pCO2 (Misc Panel) 34.8L, POC HCO3 (Misc Panel) 17.2L, POC Total CO2 (Misc Panel) 18.0L 12/12/20 19:06: Coronavirus (COVID-19)(PCR) NEGATIVE, Influenza Type A (RT-PCR) NEGATIVE, Influenza Type B (RT-PCR) NEGATIVE, Respiratory Syncytial Virus (PCR) NEGATIVE 12/12/20 21:39: Anion Gap 9, Glomerular Filtration Rate > 60.0, Lactic Acid Followup at 4 Hours 3.6*H, Calcium Level 7.3L, Magnesium Level 2.0, Total Bilirubin 0.3, Direct Bilirubin 0.1, Aspartate Amino Transf (AST/SGOT) 26, Alanine Aminotransferase (ALT/SGPT) 39, Alkaline Phosphatase 157H, Total Creatine Kinase 73, Creatine Kinase MB 5.6H, Creatine Kinase MB Relative Index 7.67H, Troponin I 0.02, KX-Boy-P-Type Natriuretic Peptide 7991H, Total Protein 6.0L, Albumin 2.5L, Albumin/Globulin Ratio 0.7, Thyroid Stimulating Hormone (TSH) 8.270H 12/12/20 23:38: POC pH (Misc Panel) 7.276L, POC Base Excess (Misc Panel) -11.0L, POC Saturated Percent O2 (Misc) 98, POC pO2 (Misc Panel) 120.0H, POC pCO2 (Misc Panel) 32.9L, POC HCO3 (Misc Panel) 15.3L, POC Total CO2 (Misc Panel) 16.0L CBC/BMP Laboratory Tests 12/12/20 18:24 12/12/20 21:39 Microbiology Microbiology 12/12/20 Blood Culture, Received Pending 12/12/20 Blood Culture, Received Pending Assessment/Plan 1. Acute respiratory failure with hypoxia 2/2 PNA: In pt with COPD. Patient was status post leukocytosis without bacteremia recently. Chest x-ray this admission shows small right lower lobe infiltratethis is a change compared to the previous chest x-ray done on the . Monitor pt, continuous pulse ox. Scheduled and PRN breathing treatments Oxygen for saturation greater than 93%. Empiric coverage for HCAP. Check pro-[place]apo/lactic, consider de-escalation accordingly. A.m. lab Wean O2 as able. 2. Diarrhea: Continue IV fluids gently. GI panel sent. Continue bulking agents metamucil. Consider differentials. Consider GI consult for possible colonoscopy. 3. NAG metabolic acidosis: Sodium bicarb continued 650 mg p.o. twice daily per last nephrology note. Likely reconsult nephrology in a.m. for continued feedback since patient has readmitted 4. Mild Hypernatremia: Na 147. In setting of continued GI losses with diarrhea. Cr 1.00 at baseline. 5. Normocytic anemia: hgb 11.7, improved. No evidence of bleeding. Continue to trend. 6. Non-sustained V tach: None during this admission. Continue with telemetry and metoprolol. 7. Paroxysmal A. fib: Patient rate controlled. Continue to monitor/telemetry. Continue metoprolol. Patient is on Eliquis. Chronic A flutter 8. Hx of HFrEF: No evidence of fluid overload. ECHO 10/2020, LVEF 30-35%, moderate-severe hypokinesis of LV. Avoid nephrotoxic medications and monitor fluid balance. 9. PAD: Patient was evaluated by vascular surgery on December 09 with recommendations to continue aspirin and Eliquis. 10. CAD: Continue aspirin and atorvastatin. 11. Pancreatic insufficiency: Hx of resected pancreatic mass-we will continue Creon. 12. RLS: Continue Ropinirole 13. GERD: Continue omeprazole 14. Deconditioning in frail elder: Fall precaution. Appreciate physical therapy. 15. Sarcopenia DVT: Eliquis CODE STATUS: Full code Disposition: Patient reports that he is agreeable to rehab if needed. Plan / VTE VTE Prophylaxis Ordered?: Yes INOCENCIO CARRERO NP Dec 13, 2020 00:32 RUSS HERNANDEZ MD Dec 22, 2020 04:46
[2020-12-13] MEDS ORDERED: GLUCAGON INJ 1MG VIAL SC PRN (02:25)
[2020-12-13] MEDS ORDERED: DEXTROSE 50% 50 ML SYRINGE IV PRN (02:25)
[2020-12-13] MEDS ORDERED: GLUCOSE 4GM CHEW TABLET PO PRN (02:25)
[2020-12-13] MEDS: LevoFLOXacin IV 750 MG in IV 1 EA IV SCH (02:25)
[2020-12-13] MEDS: rOPINIRole 0.25 MG TAB(REQUIP) PO SCH ×3 (02:38→21:28)
[2020-12-13] MEDS: SODIUM BICARBONATE 325 MG TAB PO SCH ×3 (02:38→21:29)
[2020-12-13] MEDS: METAMUCIL (PSYLLIUM) PACKET PO SCH ×3 (02:39→21:29)
[2020-12-13] MEDS: APIXABAN 2.5 MG TAB (ELIQUIS) PO SCH ×3 (02:39→21:29)
[2020-12-13] MEDS: ATORVASTATIN 20 MG TAB PO SCH ×2 (02:39→21:29)
[2020-12-13] MEDS: METOPROLOL TART 25 MG TABLET PO SCH ×3 (02:39→21:29)
[2020-12-13] MEDS ORDERED: NS 0.45% 1,000 ML IV SCH (03:10)
[2020-12-13] MEDS ORDERED: VANCOMYCIN HCL 750 MG, VIAL MATE ADAPTER 1 EACH in NS 250 ML IV SCH (04:00)
[2020-12-13 04:35] LABS: BASO % 0.3 % (0.0-1.0); EOS # 0.5 10^3/uL (0.0-0.5); EOS % 8.2 % (0.0-3.0); HEMATOCRIT 37.4 % (42.0-52.0); HEMOGLOBIN 10.6 g/dl (13.5-17.5); LYMPH # 0.7 10^3/uL (1.5-5.0); LYMPH % 10.8 % (24.0-44.0); MEAN CORPUSCULAR HEMOGLOBIN 23.3 pg (27.0-33.0); MEAN CORPUSCULAR HGB CONC 28.3 g/dl (32.0-36.5); MEAN CORPUSCULAR VOLUME 82.2 fl (80.0-96.0); MONO # 0.3 10^3/uL (0.0-0.8); MONO % 5.4 % (2.0-8.0); NEUTROPHILS # 4.7 10^3/uL (1.5-8.5); NEUTROPHILS % 74.7 % (36.0-66.0); PLATELET COUNT, AUTOMATED 149 10^3/uL (150-450); RED BLOOD COUNT 4.55 10^6/uL (4.30-6.10); WHITE BLOOD COUNT 6.3 10^3/uL (4.0-10.0)
[2020-12-13] MEDS ORDERED: VANCOMYCIN HCL 750 MG, VIAL MATE ADAPTER 1 EACH in NS 250 ML IV ONE (05:00)
[2020-12-13 05:08] LABS: HEMOGLOBIN A1c 5.9 %
[2020-12-13 05:31] LABS: BLOOD UREA NITROGEN 11 MG/DL (7-18); CALCIUM LEVEL 7.3 MG/DL (8.8-10.2); CARBON DIOXIDE LEVEL 17 MEQ/L (21-32); CHLORIDE LEVEL 120 MEQ/L (98-107); CREATININE FOR GFR 0.95 MG/DL (0.70-1.30); GLOMERULAR FILTRATION RATE > 60.0 (>49); GLUCOSE, FASTING 66 MG/DL (70-100); POTASSIUM SERUM 4.4 MEQ/L (3.5-5.1); SODIUM LEVEL 147 MEQ/L (136-145)
[2020-12-13] MEDS ORDERED: NS 0.45% 1,000 ML IV ONE (05:40)
[2020-12-13] MEDS: HumaLOG INSULIN (NovoLOG) PER UNIT SC SCH ×4 (07:30→21:00)
[2020-12-13] MEDS: IPRATROPIUM HFA INHALER 12.9 GRAMS (ATROVENT HFA) INH SCH ×3 (07:36→20:00)
--- NOTE | 2020-12-13 08:42 | ECGEPIP ---
[facility] - ED Test Date: 2020-12-12 Pat Name: RISSA YUSUF Department: Room: [place] [address] Gender: Male Manager Ui: LEONID : [id number] Requested By: Yamilex Toro Order Number: [id number] Reading MD: Julio Madsen Measurements Intervals [place] Rate: 82 P: 57 AR: 144 QRS: 46 QRSD: 88 T: 102 QT: 388 QTc: 453 Interpretive Statements Normal sinus rhythm Nonspecific ST and T wave abnormality SIMILAR TO 12/08/20 Electronically Signed on 12-13-2020 8:41:53 EDT by Julio Madsen
--- NOTE | 2020-12-13 10:21 | IPNPDOC ---
Text Note Date of Service The patient was seen on 12/13/20. NOTE Synopsis: 65 year old M with COPD, HFrEF, A. flutter (on Eliquis), CAD, HTN, CVA, Hypothyroidism, Pancreatic insufficiency (2/2 pancreatic mass resection), Chronic low back pain, polysubstance abuse, who originally presented to the ER with weakness, decreased oral intake and confusion, after discharge for bacterial pneumonia, decompensated diastolic CHF, atrial flutter with RVR and BRIAN but represented reporting significant watery diarrhea and was found hypernatremic and acute kidney injury, acidosis and dehydration but signed out AMA before medical optimization, and now returned with the same, with mild hyperNa and acidosis and newly noted RLL likely infiltrate. Subjective: -No acute events, on fluids -On 2L NC Objective: Vitals: see below General: NAD HEENT: NCAT, EOMI, MMM CVS: RRR, no m/r/g Lungs: CTAB without auscultated wheezing, crackles or rhonchi Abdomen: Normoactive bowel sounds, soft, NTND Extremities: WWP, no LE edema Neuro: CN3-12 intact, moving all extremities spontaneously with full strength and tone. Imaging: CXR 12/12: RLL likely infiltrate Assessment: 65 year old M with COPD, HFrEF, A. flutter (on Eliquis), CAD, HTN, CVA, Hypothyroidism, Pancreatic insufficiency (2/2 pancreatic mass resection), Chronic low back pain, polysubstance abuse, who originally presented to the ER with weakness, decreased oral intake and confusion, after discharge for bacterial pneumonia, decompensated diastolic CHF, atrial flutter with RVR and BRIAN but represented reporting significant watery diarrhea and was found hypernatremic and acute kidney injury, acidosis and dehydration but signed out AMA before medical optimization, and now returned with the same, with mild hyperNa and acidosis and newly noted RLL likely infiltrate. Dehydration from poor PO intake, diarrhea - Cr at baseline - Continue to avoid nephrotoxic medications - c/w IV fluids with 1/2NS - Will consult nephrology that was on consult before AMA yesterday Metabolic acidosis w/ lactic acidosis -s/p IVF boluses, continue 1/2NS -Continue bicarbonate -Nephrology consult Hypernatremia - 2/2 dehydration from diarrhea, poor PO intake -IVF as noted above -Daily BMP Diarrhea -C. diff / GI panel recently negative -c/w bulking agents Normocytic anemia, with severe TEDDY -No evidence of bleeding -daily CBC -continue daily ferrous sulfate Potential PNA -was empirically placed on vanc/levaquin, will continue for now -MRSA PCR Chronic A flutter - c/w rate control with metoprolol - c/w full anticoagulation with eliquis Hx of HFrEF - No evidence of fluid overload - ECHO 10/2020, LVEF 30-35%, moderate-severe hypokinesis of LV Chronic PAD - c/w ASA, Eliquis CAD - c/w ASA, Atorvastatin Pancreatic insufficiency - Hx of resected pancreatic mass - c/w supplementation RLS - c/w Ropinirole GERD - c/w Omeprazole DVT prophylaxis - c/w Eliquis Diarrhea: still ongoing -GI panel recently was negative, new one pending -will consult GI -continue bulking agents and loperamide after GI panel results Disposition: - Awaiting clinical improvement VS,Shauna I+O VS, Shauna I+O Laboratory Tests 12/12/20 18:24 12/12/20 21:39 12/13/20 04:21 Vital Signs Date Time Temp Pulse Resp B/P (MAP) Pulse Ox O2 Delivery O2 Flow Rate FiO2 12/13/20 08:00 98.0 82 18 146/73 (97) 100 Nasal Cannula 2.0 I&O- Last 24 Hours up to 6 AM 12/13/20 06:00 Intake Total 1000 ml Balance 1000 ml DANNY HOPPER MD Dec 13, 2020 08:56
[2020-12-13] MEDS: CREON-24 CAPSULE PO SCH ×3 (10:23→18:06)
[2020-12-13] MEDS: LACTOBACILLUS ACIDOPHILUS CAP (BACID) PO SCH (10:24)
[2020-12-13] MEDS: ASPIRIN 81MG ENTERIC TABLET PO SCH (10:24)
[2020-12-13] MEDS: FERROUS SULFATE 325MG TAB PO SCH (10:24)
[2020-12-13] MEDS: OMEPRAZOLE 20 MG CAP PO SCH (10:24)
[2020-12-13] MEDS: predniSONE 10 MG TAB PO SCH (10:24)
[2020-12-14] VITALS: BP 137/63
[2020-12-14] MEDS: LevoFLOXacin IV 750 MG in IV 1 EA IV SCH (01:22)
[2020-12-14] MEDS: SODIUM BICARBONATE 100 MEQ in D5W 1,000 ML IV SCH ×3 (01:22→15:35)
[2020-12-14 04:00] VITALS: BP 147/65
[2020-12-14 05:30] LABS: BASO % 0.1 % (0.0-1.0); EOS # 0.3 10^3/uL (0.0-0.5); EOS % 3.4 % (0.0-3.0); HEMATOCRIT 31.2 % (42.0-52.0); HEMOGLOBIN 9.2 g/dl (13.5-17.5); LYMPH % 12.2 % (24.0-44.0); MEAN CORPUSCULAR HEMOGLOBIN 23.5 pg (27.0-33.0); MEAN CORPUSCULAR HGB CONC 29.5 g/dl (32.0-36.5); MEAN CORPUSCULAR VOLUME 79.8 fl (80.0-96.0); MONO # 0.5 10^3/uL (0.0-0.8); NEUTROPHILS # 6.3 10^3/uL (1.5-8.5); NEUTROPHILS % 77.8 % (36.0-66.0); PLATELET COUNT, AUTOMATED 156 10^3/uL (150-450); RED BLOOD COUNT 3.91 10^6/uL (4.30-6.10); WHITE BLOOD COUNT 8.1 10^3/uL (4.0-10.0)
[2020-12-14 05:47] LABS: BLOOD UREA NITROGEN 9 MG/DL (7-18); CALCIUM LEVEL 6.6 MG/DL (8.8-10.2); CARBON DIOXIDE LEVEL 15 MEQ/L (21-32); CHLORIDE LEVEL 116 MEQ/L (98-107); CREATININE FOR GFR 0.85 MG/DL (0.70-1.30); GLOMERULAR FILTRATION RATE > 60.0 (>49); GLUCOSE, FASTING 79 MG/DL (70-100); MAGNESIUM LEVEL 1.2 MG/DL (1.8-2.4); PHOSPHORUS LEVEL 2.9 MG/DL (2.5-4.9); POTASSIUM SERUM 4.5 MEQ/L (3.5-5.1); SODIUM LEVEL 140 MEQ/L (136-145)
[2020-12-14] MEDS: IPRATROPIUM 0.5MG/ALBUTEROL 2.5MG INH SOL UD 3ML (DUONEB) NEB PRN ×4 (06:37→19:39)
[2020-12-14] MEDS: HumaLOG INSULIN (NovoLOG) PER UNIT SC SCH ×4 (07:26→22:08)
[2020-12-14] MEDS: IPRATROPIUM HFA INHALER 12.9 GRAMS (ATROVENT HFA) INH SCH ×4 (07:58→19:40)
[2020-12-14 07:59] VITALS: BP 119/64
[2020-12-14] MEDS: METAMUCIL (PSYLLIUM) PACKET PO SCH ×2 (08:18→22:01)
[2020-12-14] MEDS: FERROUS SULFATE 325MG TAB PO SCH (08:19)
[2020-12-14] MEDS: SODIUM BICARBONATE 325 MG TAB PO SCH ×2 (08:19→22:01)
[2020-12-14] MEDS: CREON-24 CAPSULE PO SCH ×3 (08:19→17:21)
[2020-12-14] MEDS: predniSONE 10 MG TAB PO SCH (08:19)
[2020-12-14] MEDS: LACTOBACILLUS ACIDOPHILUS CAP (BACID) PO SCH (08:19)
[2020-12-14] MEDS: ASPIRIN 81MG ENTERIC TABLET PO SCH (08:19)
[2020-12-14] MEDS: METOPROLOL TART 25 MG TABLET PO SCH ×2 (08:20→22:00)
[2020-12-14] MEDS: OMEPRAZOLE 20 MG CAP PO SCH (08:20)
[2020-12-14] MEDS: APIXABAN 2.5 MG TAB (ELIQUIS) PO SCH ×2 (08:20→22:01)
[2020-12-14] MEDS: rOPINIRole 0.25 MG TAB(REQUIP) PO SCH ×2 (08:39→22:00)
[2020-12-14] MEDS: MAG SULF 1GM/100ML (MAG RUN) 1 GM in IV 1 EA IV SCH ×2 (11:12→12:46)
--- NOTE | 2020-12-14 11:54 | IPNPDOC ---
Text Note Date of Service The patient was seen on 12/14/20. NOTE Subjective: -No acute events, on fluids -On 2L NC -8 episodes of diarrhea in the last 24h Objective: Vitals: see below General: NAD HEENT: NCAT, EOMI, MMM CVS: RRR, no m/r/g Lungs: CTAB without auscultated wheezing, crackles or rhonchi Abdomen: Normoactive bowel sounds, soft, NTND Extremities: WWP, no LE edema Neuro: CN3-12 intact, moving all extremities spontaneously with full strength and tone. Imaging: CXR 12/12: RLL likely infiltrate Assessment: 65 year old M with COPD, HFrEF, A. flutter (on Eliquis), CAD, HTN, CVA, Hypothyroidism, Pancreatic insufficiency (2/2 pancreatic mass resection), Chronic low back pain, polysubstance abuse, who originally presented to the ER with weakness, decreased oral intake and confusion, after discharge for bacterial pneumonia, decompensated diastolic CHF, atrial flutter with RVR and BRIAN but represented reporting significant watery diarrhea and was found hypernatremic and acute kidney injury, acidosis and dehydration but signed out AMA before medical optimization, and now returned with the same, with mild hyperNa and acidosis and newly noted RLL likely infiltrate. Dehydration from poor PO intake, diarrhea - Cr at baseline - Continue to avoid nephrotoxic medications - Nephrology consulted, on bicarb gtt Metabolic acidosis w/ lactic acidosis -s/p IVF boluses -Nephrology consulted, on bicarb gtt Hypernatremia - 2/2 dehydration from diarrhea, poor PO intake -s/p IVF as noted above -Daily BMP Diarrhea: still persisting -C. diff / GI panel recently negative -c/w bulking agents -surgery consulted given repeated negative infectious workup for potential scope Normocytic anemia, with severe TEDDY -No evidence of bleeding -daily CBC -continue daily ferrous sulfate Potential PNA -was empirically placed on levaquin, will continue for now -MRSA PCR negative Chronic A flutter - c/w rate control with metoprolol - c/w full anticoagulation with eliquis Hx of HFrEF - No evidence of fluid overload - ECHO 10/2020, LVEF 30-35%, moderate-severe hypokinesis of LV Chronic PAD - c/w ASA, Eliquis CAD - c/w ASA, Atorvastatin Pancreatic insufficiency - Hx of resected pancreatic mass - c/w supplementation RLS - c/w Ropinirole GERD - c/w Omeprazole DVT prophylaxis - c/w Eliquis Disposition: - Awaiting clinical improvement VS,Shauna, I+O VSShauna I+O Laboratory Tests 12/14/20 04:47 Vital Signs Date Time Temp Pulse Resp B/P (MAP) Pulse Ox O2 Delivery O2 Flow Rate FiO2 12/14/20 08:20 87 119/64 12/14/20 07:59 98.0 18 100 Nasal Cannula 2.0 I&O- Last 24 Hours up to 6 AM 12/14/20 05:59 Intake Total 1860 ml Balance 1860 ml DANNY HOPPER MD Dec 14, 2020 10:31
[2020-12-14 12:11] VITALS: BP 125/54
[2020-12-14] MEDS: ACETAMINOPHEN TAB 650MG DOSE (2X325MG) PO PRN (12:50)
[2020-12-14 20:00] VITALS: BP 127/62
[2020-12-14] MEDS: ATORVASTATIN 20 MG TAB PO SCH (22:01)
[2020-12-15] VITALS: BP 107/57
[2020-12-15] MEDS: IPRATROPIUM 0.5MG/ALBUTEROL 2.5MG INH SOL UD 3ML (DUONEB) NEB PRN ×5 (01:00→20:48)
[2020-12-15] MEDS: LevoFLOXacin IV 750 MG in IV 1 EA IV SCH (02:33)
[2020-12-15 04:00] VITALS: BP 86/42
[2020-12-15] MEDS: ACETAMINOPHEN TAB 650MG DOSE (2X325MG) PO PRN ×3 (04:24→20:53)
[2020-12-15 04:51] LABS: BASO % 0.3 % (0.0-1.0); EOS # 0.2 10^3/uL (0.0-0.5); EOS % 2.1 % (0.0-3.0); HEMATOCRIT 30.1 % (42.0-52.0); HEMOGLOBIN 9.1 g/dl (13.5-17.5); LYMPH # 0.9 10^3/uL (1.5-5.0); LYMPH % 13.4 % (24.0-44.0); MEAN CORPUSCULAR HEMOGLOBIN 23.9 pg (27.0-33.0); MEAN CORPUSCULAR HGB CONC 30.2 g/dl (32.0-36.5); MEAN CORPUSCULAR VOLUME 79.2 fl (80.0-96.0); MONO # 0.5 10^3/uL (0.0-0.8); MONO % 6.4 % (2.0-8.0); NEUTROPHILS # 5.4 10^3/uL (1.5-8.5); NEUTROPHILS % 77.4 % (36.0-66.0); PLATELET COUNT, AUTOMATED 141 10^3/uL (150-450)
[2020-12-15 05:30] LABS: BLOOD UREA NITROGEN 10 MG/DL (7-18); CALCIUM LEVEL 6.6 MG/DL (8.8-10.2); CARBON DIOXIDE LEVEL 23 MEQ/L (21-32); CHLORIDE LEVEL 110 MEQ/L (98-107); CREATININE FOR GFR 0.95 MG/DL (0.70-1.30); GLOMERULAR FILTRATION RATE > 60.0 (>49); GLUCOSE, FASTING 76 MG/DL (70-100); POTASSIUM SERUM 4.3 MEQ/L (3.5-5.1); SODIUM LEVEL 139 MEQ/L (136-145)
[2020-12-15 05:34] VITALS: BP 129/60
[2020-12-15] MEDS: IPRATROPIUM HFA INHALER 12.9 GRAMS (ATROVENT HFA) INH SCH ×4 (07:25→20:00)
[2020-12-15] MEDS: HumaLOG INSULIN (NovoLOG) PER UNIT SC SCH ×4 (07:30→20:55)
[2020-12-15 08:00] VITALS: BP 107/50
[2020-12-15] MEDS: METOPROLOL TART 25 MG TABLET PO SCH ×2 (09:00→20:52)
[2020-12-15] MEDS: SODIUM BICARBONATE 325 MG TAB PO SCH ×2 (09:24→20:53)
[2020-12-15] MEDS: SUCRALFATE SUSP 1GM/10ML UD PO SCH ×4 (09:24→20:50)
[2020-12-15] MEDS: rOPINIRole 0.25 MG TAB(REQUIP) PO SCH ×2 (09:25→20:52)
[2020-12-15] MEDS: ASPIRIN 81MG ENTERIC TABLET PO SCH (09:25)
[2020-12-15] MEDS: LACTOBACILLUS ACIDOPHILUS CAP (BACID) PO SCH (09:25)
[2020-12-15] MEDS: OMEPRAZOLE 20 MG CAP PO SCH (09:25)
[2020-12-15] MEDS: CREON-24 CAPSULE PO SCH ×3 (09:25→17:31)
[2020-12-15] MEDS: predniSONE 10 MG TAB PO SCH (09:25)
[2020-12-15] MEDS: FERROUS SULFATE 325MG TAB PO SCH (09:25)
[2020-12-15] MEDS: APIXABAN 2.5 MG TAB (ELIQUIS) PO SCH ×2 (09:25→20:50)
[2020-12-15] MEDS: LOMOTIL 2.5MG/0.025MG TABLET PO SCH ×2 (10:28→20:51)
--- NOTE | 2020-12-15 10:42 | CR.PDOC ---
General Date of Consultation: Dec 15, [address] Dr Friedman Reason for consultation. Diarrhea HISTORY OF PRESENT ILLNESS: The patient is a 65-year-old male admitted 12/13/2020 reporting persistent watery diarrhea. The patient was placed on IV fluids. GI panel 12/10/2020 negative. C. difficile negative 12/09/2020. The patient was placed on Bacid, the patient was also started on Lomotil and so far today the patient has had 2 bowel movements recorded. ALLERGIES: Please see below. HOME MEDICATIONS: Please see below. PAST MEDICAL HISTORY: COPD CHF Atrial flutter, on Eliquis CAD Hypertension CVA Hypothyroid Pancreatic insufficiency Chronic low back pain History of polysubstance use Anemia History of noncompliance PAST SURGICAL HISTORY: EGD 03/19/[address] Marquez with reflux esophagitis, gastro jejunostomy with erythema and ulceration Partial pancreatoduodenectomy, pancreatic insufficiency CABG December 2019 Left subclavian artery bypass Cataract extraction Tonsillectomy FAMILY HISTORY: Father with history of cancer, mother with history of CAD/[place] SOCIAL HISTORY: Non-smoker Denies any alcohol use REVIEW OF SYSTEMS: As noted in HPI otherwise 10 point review of systems unremarkable. PHYSICAL EXAMINATION: VITAL SIGNS: Please see below. GENERAL APPEARANCE: No acute distress, resting in bed HEENT: MMM RESPIRATORY: CTAB CARDIOVASCULAR:RRR ABDOMEN: Soft, NTND LABORATORY DATA: Please see below. ASSESSMENT/PLAN: Diarrhea. The patient is reviewed with Dr. Friedman. Would recommend to continue with Lomotil 2 tablets twice daily. The patient has had 2 bowel movements documented so far today, would recommend to continue with symptomatic treatment until the patient's symptoms stabilize. Reflux esophagitis. EGD 03/19/[address] Marquez with reflux esophagitis, gastro jejunostomy with erythema and ulceration. Continue with Prilosec 20 mg daily. Carafate added, continue 1 g AC at bedtime Vital Signs/I&O Vital Signs Date Time Temp Pulse Resp B/P (MAP) Pulse Ox O2 Delivery O2 Flow Rate FiO2 12/15/20 08:00 97.3 71 17 107/50 (69) 100 Nasal Cannula 2.0 I&O- Last 24 Hours up to 6 AM 12/15/20 05:59 Intake Total 4250 ml Output Total 2200 ml Balance 2050 ml Laboratory Data Labs 24H Laboratory Tests 2 8/16/21 11:36: Bedside Glucose (Misc Panel) 144H 12/14/20 16:32: Bedside Glucose (Misc Panel) 129H 12/14/20 22:08: Bedside Glucose (Misc Panel) 150H 12/15/20 04:46: Immature Granulocyte % (Auto) 0.4, Neutrophils (%) (Auto) 77.4H, Lymphocytes (%) (Auto) 13.4L, Monocytes (%) (Auto) 6.4, Eosinophils (%) (Auto) 2.1, Basophils (%) (Auto) 0.3, Neutrophils # (Auto) 5.4, Lymphocytes # (Auto) 0.9L, Monocytes # (Auto) 0.5, Eosinophils # (Auto) 0.2, Basophils # (Auto) 0.0, Nucleated Red Blood Cells % (auto) 0.0, Anion Gap 6L, Glomerular Filtration Rate > 60.0, Lactic Acid Level 1.8, Calcium Level 6.6L CBC/BMP Laboratory Tests 12/15/20 04:46 Microbiology Microbiology 12/12/20 Blood Culture - Preliminary, Resulted No Growth after 48 hours. All Specime... 12/12/20 Blood Culture - Preliminary, Resulted No Growth after 48 hours. All Specime... Allergies Coded Allergies: amoxicillin (Verified Allergy, Unknown, rash, 01/28/19) clavulanic acid (Verified Allergy, Unknown, rash, 01/28/19) pregabalin (Verified Adverse Reaction, Unknown, seizures, 01/28/19) warfarin (Verified Adverse Reaction, Unknown, bleeding, 01/28/19) Home Medications Scheduled Apixaban (Eliquis) 2.5 Mg Tablet, 2.5 MG PO BID, (Reported) Aspirin (Aspirin EC) 81 Mg Tablet.dr, 81 MG PO DAILY, (Reported) Atorvastatin Calcium (Atorvastatin Calcium) 40 Mg Tablet, 40 MG PO QHS, (Reported) Ferrous Sulfate (Ferrous Sulfate) 325 Mg Tablet, 325 MG PO DAILY, (Reported) Ipratropium [place] (Atrovent Hfa) 12.9 Gm Hfa.aer.ad, 2 PUFF INH QID, (Reported) L.acidoph/L.bulg/B.bif/S.therm (Bacid Caplet) 1 Each Tablet, 1 TAB PO WM, (Reported) Metoprolol Tartrate (Metoprolol Tartrate) 25 Mg Tablet, 25 MG PO BID, (Reported) Omeprazole (Omeprazole) 20 Mg Capsule.dr, 20 MG PO DAILY, (Reported) Pancreatic Enzymes (Creon Dr 24,000 Units Capsule) 1 Each Capsule.dr, 2 CAP PO WM, (Reported) Prednisone (Prednisone) 10 Mg Tablet, 10 MG PO TAPER, (Reported) 40MG FOR 3 DAYS, 30MG FOR 3 DAYS, 20MG FOR 3 DAYS, 10MG FOR 3 DAYS Psyllium Husk/Aspartame (Metamucil Fiber Singles Packet) 3.4 Gm Powd.pack, 1 PKT PO BID for 30 Days, #60 Ropinirole HCl (Ropinirole HCl) 0.5 Mg Tablet, 0.5 MG PO BID, (Reported) Sodium Bicarbonate (Sodium Bicarbonate) 325 Mg Tablet, 325 MG PO QID, (Reported) Scheduled PRN Albuterol Sulf (Albuterol Sulfate) 2.5 Mg/3 Ml Vial.neb, 2.5 MG INH Q6H PRN for SHORTNESS OF BREATH, (Reported) Albuterol Sulfate (Albuterol Sulfate Hfa) 8.5 Gm Hfa.aer.ad, 2 PUFFS INH Q4H PRN for SHORTNESS OF BREATH, (Reported) Diphenoxylate HCl/Atropine (Diphenoxylate-Atrop 2.5-0.025) 1 Each Tablet, 1 TAB PO QID PRN for DIARRHEA, (Reported) Oxycodone HCl/Acetaminophen (Oxycodon-Acetaminophen 2.5-325) 1 Each Tablet, 1 TAB PO Q8H PRN for PAIN LEVEL 6-10, (Reported) Miscellaneous Medications [Patient Comment] , (Reported) MED REC COMPLETED VIA DISCHARGE 12/12 MORNING Carlie Magallon Dec 15, 2020 09:20
--- NOTE | 2020-12-15 10:51 | IPNPDOC ---
Text Note Date of Service The patient was seen on 12/15/20. NOTE Subjective: -No acute events, on fluids -On 2L NC -7 episodes of diarrhea yesterday, 2 thus far this AM Objective: Vitals: see below General: NAD HEENT: NCAT, EOMI, MMM CVS: RRR, no m/r/g Lungs: CTAB without auscultated wheezing, crackles or rhonchi Abdomen: Normoactive bowel sounds, soft, NTND Extremities: WWP, no LE edema Neuro: CN3-12 intact, moving all extremities spontaneously with full strength and tone. Labs: reviewed Imaging: CXR 12/12: RLL likely infiltrate Assessment: 65 year old M with COPD, HFrEF, A. flutter (on Eliquis), CAD, HTN, CVA, Hypothyroidism, Pancreatic insufficiency (2/2 pancreatic mass resection), Chronic low back pain, polysubstance abuse, who originally presented to the ER with weakness, decreased oral intake and confusion, after discharge for bacterial pneumonia, decompensated diastolic CHF, atrial flutter with RVR and BRIAN but represented reporting significant watery diarrhea and was found hypernatremic and acute kidney injury, acidosis and dehydration but signed out AMA before medical optimization, and now returned with the same, with mild hyperNa and acidosis and newly noted RLL likely infiltrate. Dehydration from poor PO intake, diarrhea - Cr at baseline - Continue to avoid nephrotoxic medications - Nephrology consulted, s/p bicarb gtt Metabolic acidosis w/ lactic acidosis: resolved -s/p IVF boluses -Nephrology consulted, on bicarb gtt Hypernatremia - 2/2 dehydration from diarrhea, poor PO intake -s/p IVF as noted above -Daily BMP Diarrhea: still persisting -C. diff / GI panel recently negative -c/w bulking agents -surgery consulted given repeated negative infectious workup for potential scope -Surgery started him on Lomotil -On PPI and sucralfate Normocytic anemia, with severe TEDDY -No evidence of bleeding -daily CBC -continue daily ferrous sulfate Potential PNA -was empirically placed on levaquin, will continue for now -MRSA PCR negative Chronic A flutter - c/w rate control with metoprolol - c/w full anticoagulation with eliquis Hx of HFrEF - No evidence of fluid overload - ECHO 10/2020, LVEF 30-35%, moderate-severe hypokinesis of LV Chronic PAD - c/w ASA, Eliquis CAD - c/w ASA, Atorvastatin Pancreatic insufficiency - Hx of resected pancreatic mass - c/w supplementation RLS - c/w Ropinirole GERD - c/w Omeprazole DVT prophylaxis - c/w Eliquis Disposition: - Awaiting clinical improvement VS,Fishbone, I+O VS, Fishbone, I+O Laboratory Tests 12/15/20 04:46 Vital Signs Date Time Temp Pulse Resp B/P (MAP) Pulse Ox O2 Delivery O2 Flow Rate FiO2 12/15/20 09:00 71 107/50 12/15/20 08:00 97.3 17 100 Nasal Cannula 2.0 I&O- Last 24 Hours up to 6 AM 12/15/20 06:00 Intake Total 4250 ml Output Total 2200 ml Balance 2050 ml DANNY HOPPER MD Dec 15, 2020 09:53
--- NOTE | 2020-12-15 14:32 | REP ---
INDICATION: pain, recent trauma r/o fx. COMPARISON: None. TECHNIQUE: Four views FINDINGS: Increased quantum mottle decreases the bony detail. There is no evidence of a fracture. There is a marginal erosion seen involving the medial aspect of the head of the 1st metatarsal. IMPRESSION: Limitations and chronic changes as described above. <Electronically signed by Kvng Sheppard > 12/15/20 [id number]
[2020-12-15 16:00] VITALS: BP 124/58
[2020-12-15 20:00] VITALS: BP 141/65
[2020-12-15] MEDS: ATORVASTATIN 20 MG TAB PO SCH (20:50)
[2020-12-16] MEDS: IPRATROPIUM 0.5MG/ALBUTEROL 2.5MG INH SOL UD 3ML (DUONEB) NEB PRN ×5 (01:50→20:06)
[2020-12-16 04:00] VITALS: BP 136/63
[2020-12-16] MEDS: ACETAMINOPHEN TAB 650MG DOSE (2X325MG) PO PRN ×2 (05:24→20:34)
[2020-12-16] MEDS: LevoFLOXacin 750 MG TABLET PO SCH (05:24)
[2020-12-16 05:29] LABS: BASO % 0.1 % (0.0-1.0); EOS # 0.1 10^3/uL (0.0-0.5); EOS % 1.6 % (0.0-3.0); HEMATOCRIT 28.6 % (42.0-52.0); HEMOGLOBIN 8.5 g/dl (13.5-17.5); LYMPH # 0.7 10^3/uL (1.5-5.0); MEAN CORPUSCULAR HEMOGLOBIN 23.8 pg (27.0-33.0); MEAN CORPUSCULAR HGB CONC 29.7 g/dl (32.0-36.5); MEAN CORPUSCULAR VOLUME 80.1 fl (80.0-96.0); MONO # 0.5 10^3/uL (0.0-0.8); MONO % 5.5 % (2.0-8.0); NEUTROPHILS # 7.1 10^3/uL (1.5-8.5); NEUTROPHILS % 84.4 % (36.0-66.0); PLATELET COUNT, AUTOMATED 141 10^3/uL (150-450); RED BLOOD COUNT 3.57 10^6/uL (4.30-6.10); WHITE BLOOD COUNT 8.4 10^3/uL (4.0-10.0)
[2020-12-16 05:51] LABS: BLOOD UREA NITROGEN 9 MG/DL (7-18); CALCIUM LEVEL 6.9 MG/DL (8.8-10.2); CARBON DIOXIDE LEVEL 20 MEQ/L (21-32); CHLORIDE LEVEL 113 MEQ/L (98-107); CREATININE FOR GFR 0.82 MG/DL (0.70-1.30); GLOMERULAR FILTRATION RATE > 60.0 (>49); GLUCOSE, FASTING 77 MG/DL (70-100); MAGNESIUM LEVEL 1.3 MG/DL (1.8-2.4); POTASSIUM SERUM 4.2 MEQ/L (3.5-5.1); SODIUM LEVEL 139 MEQ/L (136-145)
[2020-12-16] MEDS: KETOROLAC 30 MG/ML 1ML VIAL IV PRN (06:42)
[2020-12-16 08:00] VITALS: BP 97/46
[2020-12-16] MEDS: IPRATROPIUM HFA INHALER 12.9 GRAMS (ATROVENT HFA) INH SCH ×4 (08:00→20:00)
[2020-12-16] MEDS: METOPROLOL TART 25 MG TABLET PO SCH ×2 (09:00→20:26)
[2020-12-16] MEDS: HumaLOG INSULIN (NovoLOG) PER UNIT SC SCH ×4 (09:15→20:26)
[2020-12-16] MEDS: CREON-24 CAPSULE PO SCH ×3 (09:17→19:02)
[2020-12-16] MEDS: MAG SULF 1GM/100ML (MAG RUN) 1 GM in IV 1 EA IV SCH ×2 (09:17→11:40)
[2020-12-16] MEDS: LOMOTIL 2.5MG/0.025MG TABLET PO SCH ×2 (09:17→20:25)
[2020-12-16] MEDS: OMEPRAZOLE 20 MG CAP PO SCH (09:24)
[2020-12-16] MEDS: FERROUS SULFATE 325MG TAB PO SCH (09:24)
[2020-12-16] MEDS: LACTOBACILLUS ACIDOPHILUS CAP (BACID) PO SCH (09:24)
[2020-12-16] MEDS: predniSONE 10 MG TAB PO SCH (09:24)
[2020-12-16] MEDS: APIXABAN 2.5 MG TAB (ELIQUIS) PO SCH ×2 (09:24→20:26)
[2020-12-16] MEDS: ASPIRIN 81MG ENTERIC TABLET PO SCH (09:24)
[2020-12-16] MEDS: SODIUM BICARBONATE 325 MG TAB PO SCH ×2 (09:24→20:25)
[2020-12-16] MEDS: rOPINIRole 0.25 MG TAB(REQUIP) PO SCH ×2 (09:24→20:25)
[2020-12-16] MEDS: SUCRALFATE SUSP 1GM/10ML UD PO SCH ×4 (09:25→20:25)
--- NOTE | 2020-12-16 10:42 | IPNPDOC ---
Text Note Date of Service The patient was seen on 12/16/20. NOTE Subjective: -No acute events -On 2L NC -6 episodes of diarrhea yesterday, 2 thus far this AM despite beginning Lomotil Objective: Vitals: see below General: NAD HEENT: NCAT, EOMI, MMM CVS: RRR, no m/r/g Lungs: CTAB without auscultated wheezing, crackles or rhonchi Abdomen: Normoactive bowel sounds, soft, NTND Extremities: WWP, no LE edema Neuro: CN3-12 intact, moving all extremities spontaneously with full strength and tone. Labs: reviewed Mag 1.2 bicarb 23 Imaging: CXR 12/12: RLL likely infiltrate Assessment: 65 year old M with COPD, HFrEF, A. flutter (on Eliquis), CAD, HTN, CVA, Hypothyroidism, Pancreatic insufficiency (2/2 pancreatic mass resection), Chronic low back pain, polysubstance abuse, who originally presented to the ER with weakness, decreased oral intake and confusion, after discharge for bacterial pneumonia, decompensated diastolic CHF, atrial flutter with RVR and BRIAN but represented reporting significant watery diarrhea and was found hypernatremic and acute kidney injury, acidosis and dehydration but signed out AMA before medical optimization, and now returned with the same, with mild hyperNa and acidosis and newly noted RLL likely infiltrate. Dehydration from poor PO intake, diarrhea - Cr at baseline - Continue to avoid nephrotoxic medications - Nephrology consulted, s/p bicarb gtt on BID 650mg bicarb per nephrology to reduce when bicarb stably wnl Metabolic acidosis w/ lactic acidosis: resolved -s/p IVF boluses -Nephrology consulted, on bicarb Hypernatremia - 2/2 dehydration from diarrhea, poor PO intake -s/p IVF as noted above -Daily BMP Diarrhea: still persisting -C. diff / GI panel recently negative -c/w bulking agents and Lomotil -surgery consulted given repeated negative infectious workup, started on lomotil and monitoring -On PPI and sucralfate Normocytic anemia, with severe TEDDY -No evidence of bleeding -daily CBC -continue daily ferrous sulfate Potential PNA -was empirically placed on levaquin, s/p 3d, will stop -MRSA PCR negative Chronic A flutter - c/w rate control with metoprolol - c/w full anticoagulation with eliquis Hx of HFrEF - No evidence of fluid overload - ECHO 10/2020, LVEF 30-35%, moderate-severe hypokinesis of LV Chronic PAD - c/w ASA, Eliquis CAD - c/w ASA, Atorvastatin Pancreatic insufficiency - Hx of resected pancreatic mass - c/w supplementation RLS - c/w Ropinirole GERD - c/w Omeprazole DVT prophylaxis - c/w Eliquis Hypomagnesemia: i/s/o GI losses from diarrhea -replete PRN Disposition: - Awaiting clinical improvement VS,Shauna, I+O VS, [place], I+O Laboratory Tests 12/16/20 05:15 Vital Signs Date Time Temp Pulse Resp B/P (MAP) Pulse Ox O2 Delivery O2 Flow Rate FiO2 12/16/20 04:00 99.0 104 20 136/63 (87) 100 Nasal Cannula 2.0 I&O- Last 24 Hours up to 6 AM 12/16/20 06:00 Intake Total 2070 ml Output Total 1000 ml Balance 1070 ml DANNY HOPPER MD Dec 16, 2020 08:27
[2020-12-16] MEDS: CHOLESTYRAMINE 4 GM PWD PKT PO SCH ×2 (11:41→20:25)
[2020-12-16 12:00] VITALS: BP 131/60
[2020-12-16] MEDS ORDERED: SLF 3 ML SYR IV PRN (15:05)
[2020-12-16 16:24] VITALS: BP 156/66
[2020-12-16 20:00] VITALS: BP 150/66
[2020-12-16] MEDS: ATORVASTATIN 20 MG TAB PO SCH (20:25)
[2020-12-16] MEDS: SLF 3 ML SYR IV SCH (20:26)
[2020-12-17] VITALS (10 sets, daily range): BP systolic 112–157; BP diastolic 56–70
[2020-12-17] MEDS: IPRATROPIUM 0.5MG/ALBUTEROL 2.5MG INH SOL UD 3ML (DUONEB) NEB PRN ×5 (00:51→15:17)
[2020-12-17 05:20] LABS: BASO % 0.1 % (0.0-1.0); EOS # 0.1 10^3/uL (0.0-0.5); EOS % 1.3 % (0.0-3.0); HEMATOCRIT 26.4 % (42.0-52.0); HEMOGLOBIN 7.9 g/dl (13.5-17.5); LYMPH # 0.9 10^3/uL (1.5-5.0); LYMPH % 10.4 % (24.0-44.0); MEAN CORPUSCULAR HEMOGLOBIN 23.7 pg (27.0-33.0); MEAN CORPUSCULAR HGB CONC 29.9 g/dl (32.0-36.5); MEAN CORPUSCULAR VOLUME 79.3 fl (80.0-96.0); MONO # 0.5 10^3/uL (0.0-0.8); MONO % 6.5 % (2.0-8.0); NEUTROPHILS # 6.8 10^3/uL (1.5-8.5); NEUTROPHILS % 81.5 % (36.0-66.0); PLATELET COUNT, AUTOMATED 140 10^3/uL (150-450); RED BLOOD COUNT 3.33 10^6/uL (4.30-6.10); WHITE BLOOD COUNT 8.4 10^3/uL (4.0-10.0)
[2020-12-17] MEDS: KETOROLAC 30 MG/ML 1ML VIAL IV PRN (05:29)
[2020-12-17] MEDS: LevoFLOXacin 750 MG TABLET PO SCH (05:44)
[2020-12-17] MEDS: SLF 3 ML SYR IV SCH ×3 (05:44→22:00)
[2020-12-17] MEDS: HumaLOG INSULIN (NovoLOG) PER UNIT SC SCH ×4 (07:30→20:26)
[2020-12-17] MEDS: IPRATROPIUM HFA INHALER 12.9 GRAMS (ATROVENT HFA) INH SCH ×4 (08:00→20:03)
--- NOTE | 2020-12-17 08:12 | IPNPDOC ---
Text Note Date of Service The patient was seen on 12/17/20. NOTE General surgery. Dr Friedman. 65-year-old male admitted 12/13/2020 reporting persistent watery diarrhea. GI panel 12/10/2020 negative. C. difficile negative 12/09/2020. On Bacid, Lomotil, Questran. This morning, the patient states diarrhea is improved. The patient states frequency has decreased, he has had 2 bowel movements so far today however 8 were documented yesterday. Afebrile. VSS MMM Abdomen is soft, nontender, nondistended No edema WBC 8.4, hemoglobin 7.9, platelets 140 Assessment/plan Diarrhea. The patient is reviewed by Dr. Friedman. Plan to continue with symptomatic treatment until the patient's symptoms stabilize. The patient is reporting improvement this morning. Continue with Lomotil 2 tablets twice daily Continue Questran 4 g twice daily. Monitor. Reflux esophagitis EGD 03/19/[address] Marquez with reflux esophagitis, gastro jejunostomy with erythema and ulceration. Continue with Prilosec 20 mg daily. Carafate 1 g AC/HS VS,Fishbone, I+O VS, Fishbone, I+O Laboratory Tests 12/17/20 05:08 Vital Signs Date Time Temp Pulse Resp B/P (MAP) Pulse Ox O2 Delivery O2 Flow Rate FiO2 12/17/20 04:00 2.0 12/17/20 04:00 97.9 79 18 128/56 (80) 96 Nasal Cannula I&O- Last 24 Hours up to 6 AM 12/17/20 05:59 Intake Total 3180 ml Balance 3180 ml Carlie Magallon Dec 17, 2020 08:12
[2020-12-17 09:40] LABS: HEMATOCRIT 25.5 % (42.0-52.0); HEMOGLOBIN 7.7 g/dl (13.5-17.5); MEAN CORPUSCULAR HEMOGLOBIN 24.1 pg (27.0-33.0); MEAN CORPUSCULAR HGB CONC 30.2 g/dl (32.0-36.5); MEAN CORPUSCULAR VOLUME 79.7 fl (80.0-96.0); PLATELET COUNT, AUTOMATED 129 10^3/uL (150-450); WHITE BLOOD COUNT 7.3 10^3/uL (4.0-10.0)
[2020-12-17 10:00] LABS: BLOOD UREA NITROGEN 11 MG/DL (7-18); CALCIUM LEVEL 7.3 MG/DL (8.8-10.2); CARBON DIOXIDE LEVEL 20 MEQ/L (21-32); CHLORIDE LEVEL 114 MEQ/L (98-107); CREATININE FOR GFR 0.86 MG/DL (0.70-1.30); GLOMERULAR FILTRATION RATE > 60.0 (>49); GLUCOSE, FASTING 102 MG/DL (70-100); MAGNESIUM LEVEL 1.6 MG/DL (1.8-2.4); POTASSIUM SERUM 4.5 MEQ/L (3.5-5.1); SODIUM LEVEL 139 MEQ/L (136-145)
[2020-12-17] MEDS: ASPIRIN 81MG ENTERIC TABLET PO SCH (10:21)
[2020-12-17] MEDS: rOPINIRole 0.25 MG TAB(REQUIP) PO SCH ×2 (10:21→21:16)
[2020-12-17] MEDS: METOPROLOL TART 25 MG TABLET PO SCH ×2 (10:21→21:16)
[2020-12-17] MEDS: SUCRALFATE SUSP 1GM/10ML UD PO SCH ×4 (10:21→21:17)
[2020-12-17] MEDS: CREON-24 CAPSULE PO SCH ×3 (10:22→18:31)
[2020-12-17] MEDS: CHOLESTYRAMINE 4 GM PWD PKT PO SCH ×2 (10:22→21:15)
[2020-12-17] MEDS: APIXABAN 2.5 MG TAB (ELIQUIS) PO SCH ×2 (10:22→10:41)
[2020-12-17] MEDS: SODIUM BICARBONATE 325 MG TAB PO SCH ×2 (10:22→21:16)
[2020-12-17] MEDS: FERROUS SULFATE 325MG TAB PO SCH (10:22)
[2020-12-17] MEDS: LACTOBACILLUS ACIDOPHILUS CAP (BACID) PO SCH (10:22)
[2020-12-17] MEDS: PANTOPRAZOLE 40MG TAB (PROTONIX) PO SCH ×2 (10:23→21:16)
[2020-12-17] MEDS: LOMOTIL 2.5MG/0.025MG TABLET PO SCH ×2 (10:25→21:16)
--- NOTE | 2020-12-17 10:57 | IPNPDOC ---
Text Note Date of Service The patient was seen on 12/17/20. NOTE Subjective: -No acute events -On 2L NC -8 episodes of diarrhea yesterday, 4 thus far this AM despite cholestyramine and Lomotil Objective: Vitals: see below General: NAD, thin HEENT: NCAT, EOMI, MMM CVS: RRR, no m/r/g Lungs: CTAB without auscultated wheezing, crackles or rhonchi Abdomen: Normoactive bowel sounds, soft, NTND Extremities: WWP, no LE edema Neuro: CN3-12 intact, moving all extremities spontaneously with full strength and tone. Labs: reviewed, pending AM labs Imaging: CXR 12/12: RLL likely infiltrate Assessment: 65 year old M with COPD, HFrEF, A. flutter (on Eliquis), CAD, HTN, CVA, Hypothyroidism, Pancreatic insufficiency (2/2 pancreatic mass resection), Chronic low back pain, polysubstance abuse, who originally presented to the ER with weakness, decreased oral intake and confusion, after discharge for bacterial pneumonia, decompensated diastolic CHF, atrial flutter with RVR and BRIAN but represented reporting significant watery diarrhea and was found hypernatremic and acute kidney injury, acidosis and dehydration but signed out AMA before medical optimization, and now returned with the same, with mild hyperNa and acidosis and newly noted RLL likely infiltrate. Dehydration from poor PO intake, diarrhea - Cr at baseline - Continue to avoid nephrotoxic medications - Nephrology consulted, s/p bicarb gtt on BID 650mg bicarb per nephrology to r educe to 1/2 dose when bicarb stably wnl Metabolic acidosis w/ lactic acidosis: resolved -s/p IVF boluses -Nephrology consulted, on PO bicarb Hypernatremia - 2/2 dehydration from diarrhea, poor PO intake -s/p IVF as noted above -Daily BMP Diarrhea: still persisting -C. diff / GI panel recently negative -c/w cholestyramine and Lomotil per surgery -surgery consulted given repeated negative infectious workup, started on lomotil and cholestyramine, reporting improvement but with 8 episodes in the last 24h, will continue to monitor, appreciate recs -On PPI and sucralfate Acute on chronic Normocytic anemia, with severe TEDDY -daily CBC -continue daily ferrous sulfate -will give 2 u of blood today for hgb <8 Potential PNA -was empirically placed on levaquin, s/p 3d, dc'd stop -MRSA PCR negative Chronic A flutter - c/w rate control with metoprolol - c/w full anticoagulation with eliquis Hx of HFrEF - No evidence of fluid overload - ECHO 10/2020, LVEF 30-35%, moderate-severe hypokinesis of LV Chronic PAD - c/w ASA, Eliquis CAD - c/w ASA, Atorvastatin Pancreatic insufficiency - Hx of resected pancreatic mass - c/w supplementation RLS - c/w Ropinirole GERD - DC Omeprazole and increase to protonix 40 BID, sucralfate DVT prophylaxis - c/w Eliquis Hypomagnesemia: i/s/o GI losses from diarrhea -replete PRN Disposition: - Awaiting clinical improvement VS,Shauna, I+O VSShauna I+O Laboratory Tests 12/17/20 05:08 Vital Signs Date Time Temp Pulse Resp B/P (MAP) Pulse Ox O2 Delivery O2 Flow Rate FiO2 12/17/20 08:00 98.2 82 18 136/62 (86) 98 Nasal Cannula 2.0 I&O- Last 24 Hours up to 6 AM 12/17/20 06:00 Intake Total 3180 ml Balance 3180 ml DANNY HOPPER MD Dec 17, 2020 09:15
[2020-12-17] MEDS ORDERED: MAG SULF 1GM/100ML (MAG RUN) SINGLE DOSE IV ONE ×2 (11:15)
[2020-12-17] MEDS ORDERED: LIDOCAINE 1% MDV 20ML VIAL As Ordered ONE (16:10)
[2020-12-17] MEDS ORDERED: SODIUM CHLORIDE 0.9% INJ 10 ML SYR IV PRN (17:40)
[2020-12-17] MEDS: SODIUM CHLORIDE 0.9% INJ 10 ML SYR IV SCH (18:00)
[2020-12-17] MEDS: ATORVASTATIN 20 MG TAB PO SCH (21:16)
[2020-12-18 00:35] VITALS: BP 132/66
[2020-12-18] MEDS: IPRATROPIUM 0.5MG/ALBUTEROL 2.5MG INH SOL UD 3ML (DUONEB) NEB PRN ×6 (00:51→19:43)
[2020-12-18 01:35] VITALS: BP 134/66
[2020-12-18 02:35] VITALS: BP 138/65
[2020-12-18] MEDS: SODIUM CHLORIDE 0.9% INJ 10 ML SYR IV SCH ×2 (05:12→17:45)
[2020-12-18] MEDS: LevoFLOXacin 750 MG TABLET PO SCH (05:12)
[2020-12-18] MEDS: SLF 3 ML SYR IV SCH ×3 (05:13→21:33)
[2020-12-18 06:00] VITALS: BP 134/68
[2020-12-18 06:35] LABS: BASO % 0.2 % (0.0-1.0); EOS # 0.2 10^3/uL (0.0-0.5); EOS % 3.7 % (0.0-3.0); HEMATOCRIT 34.9 % (42.0-52.0); HEMOGLOBIN 10.8 g/dl (13.5-17.5); LYMPH # 0.8 10^3/uL (1.5-5.0); LYMPH % 13.5 % (24.0-44.0); MEAN CORPUSCULAR HEMOGLOBIN 25.4 pg (27.0-33.0); MEAN CORPUSCULAR HGB CONC 30.9 g/dl (32.0-36.5); MEAN CORPUSCULAR VOLUME 82.1 fl (80.0-96.0); MONO # 0.4 10^3/uL (0.0-0.8); MONO % 7.3 % (2.0-8.0); NEUTROPHILS # 4.4 10^3/uL (1.5-8.5); NEUTROPHILS % 74.8 % (36.0-66.0); PLATELET COUNT, AUTOMATED 140 10^3/uL (150-450); RED BLOOD COUNT 4.25 10^6/uL (4.30-6.10); WHITE BLOOD COUNT 5.9 10^3/uL (4.0-10.0)
[2020-12-18 07:03] LABS: BLOOD UREA NITROGEN 11 MG/DL (7-18); CARBON DIOXIDE LEVEL 20 MEQ/L (21-32); CHLORIDE LEVEL 113 MEQ/L (98-107); CREATININE FOR GFR 0.87 MG/DL (0.70-1.30); GLOMERULAR FILTRATION RATE > 60.0 (>49); GLUCOSE, FASTING 77 MG/DL (70-100); MAGNESIUM LEVEL 1.5 MG/DL (1.8-2.4); POTASSIUM SERUM 4.6 MEQ/L (3.5-5.1); SODIUM LEVEL 138 MEQ/L (136-145)
[2020-12-18] MEDS: HumaLOG INSULIN (NovoLOG) PER UNIT SC SCH ×4 (07:30→21:00)
[2020-12-18] MEDS: IPRATROPIUM HFA INHALER 12.9 GRAMS (ATROVENT HFA) INH SCH ×4 (07:47→19:44)
[2020-12-18] MEDS: ASPIRIN 81MG ENTERIC TABLET PO SCH (09:26)
[2020-12-18] MEDS: SODIUM BICARBONATE 325 MG TAB PO SCH ×2 (09:26→21:30)
[2020-12-18] MEDS: LACTOBACILLUS ACIDOPHILUS CAP (BACID) PO SCH (09:26)
[2020-12-18] MEDS: LOMOTIL 2.5MG/0.025MG TABLET PO SCH ×2 (09:26→21:31)
[2020-12-18] MEDS: rOPINIRole 0.25 MG TAB(REQUIP) PO SCH ×2 (09:26→21:30)
[2020-12-18] MEDS: FERROUS SULFATE 325MG TAB PO SCH (09:26)
[2020-12-18] MEDS: SUCRALFATE SUSP 1GM/10ML UD PO SCH ×4 (09:26→21:30)
[2020-12-18] MEDS: CREON-24 CAPSULE PO SCH ×3 (09:26→17:44)
[2020-12-18] MEDS: PANTOPRAZOLE 40MG TAB (PROTONIX) PO SCH ×2 (09:26→21:31)
[2020-12-18] MEDS: CHOLESTYRAMINE 4 GM PWD PKT PO SCH ×2 (09:26→21:33)
[2020-12-18] MEDS: METOPROLOL TART 25 MG TABLET PO SCH ×2 (09:31→21:32)
[2020-12-18] MEDS: MAG SULF 1GM/100ML (MAG RUN) 1 GM in IV 1 EA IV SCH ×2 (10:48→12:49)
[2020-12-18] MEDS: KETOROLAC 30 MG/ML 1ML VIAL IV PRN (10:49)
--- NOTE | 2020-12-18 11:50 | IPNPDOC ---
Text Note Date of Service The patient was seen on 12/18/20. NOTE Subjective: -No acute events -On 2L NC -9 episodes of diarrhea yesterday, 0 thus far today Objective: Vitals: see below General: NAD, thin HEENT: NCAT, EOMI, MMM CVS: RRR, no m/r/g Lungs: CTAB without auscultated wheezing, crackles or rhonchi Abdomen: Normoactive bowel sounds, soft, NTND Extremities: WWP, no LE edema Neuro: CN3-12 intact, moving all extremities spontaneously with full strength and tone. Labs: reviewed. Imaging: CXR 12/12: RLL likely infiltrate Assessment: 65 year old M with COPD, HFrEF, A. flutter (on Eliquis), CAD, HTN, CVA, Hypothyroidism, Pancreatic insufficiency (2/2 pancreatic mass resection), Chronic low back pain, polysubstance abuse, who originally presented to the ER with weakness, decreased oral intake and confusion, after discharge for bacterial pneumonia, decompensated diastolic CHF, atrial flutter with RVR and BRIAN but represented reporting significant watery diarrhea and was found hypernatremic and acute kidney injury, acidosis and dehydration but signed out AMA before medical optimization, and now returned with the same, with mild hyperNa and acidosis and newly noted RLL likely infiltrate. Diarrhea: still persisting -C. diff / GI panel recently negative -c/w cholestyramine and Lomotil per surgery -surgery consulted given repeated negative infectious workup, started on lomotil and cholestyramine, will continue to monitor, appreciate recs -On PPI and sucralfate Dehydration from poor PO intake, diarrhea - Cr at baseline - Continue to avoid nephrotoxic medications - Nephrology was consulted, s/p bicarb gtt on BID 650mg bicarb per nephrology to reduce to 1/2 dose when bicarb stably wnl Metabolic acidosis w/ lactic acidosis: resolved -s/p IVF boluses -Nephrology consulted, on PO bicarb Hypernatremia - 2/2 dehydration from diarrhea, poor PO intake -s/p IVF as noted above -Daily BMP Acute on chronic Normocytic anemia, with severe TEDDY -daily CBC -continue daily ferrous sulfate -will give 2 u of blood today for hgb <8 Potential PNA -was empirically placed on levaquin, s/p 3d, dc'd stop -MRSA PCR negative Chronic A flutter - c/w rate control with metoprolol - c/w full anticoagulation with eliquis Hx of HFrEF - No evidence of fluid overload - ECHO 10/2020, LVEF 30-35%, moderate-severe hypokinesis of LV Chronic PAD - c/w ASA, Eliquis CAD - c/w ASA, Atorvastatin Pancreatic insufficiency - Hx of resected pancreatic mass - c/w supplementation RLS - c/w Ropinirole GERD - DC Omeprazole and increase to protonix 40 BID, sucralfate DVT prophylaxis - c/w Eliquis Hypomagnesemia: i/s/o GI losses from diarrhea -replete PRN -to start 800mg Mag Ox tomorrow after IV repletion today Disposition: - Awaiting clinical improvement -PT/OT VS,Shauna, I+O VS, Shauna I+O Laboratory Tests 12/17/20 09:28 12/18/20 06:19 Vital Signs Date Time Temp Pulse Resp B/P (MAP) Pulse Ox O2 Delivery O2 Flow Rate FiO2 12/18/20 06:00 97.9 82 19 134/68 (90) 98 Nasal Cannula 2.0 I&O- Last 24 Hours up to 6 AM 12/18/20 06:00 Intake Total 3060 ml Output Total 0 ml Balance 3060 ml DANNY HOPPER MD Dec 18, 2020 09:29
[2020-12-18 14:00] VITALS: BP 130/60
[2020-12-18 20:30] VITALS: BP 125/83
[2020-12-18] MEDS: ATORVASTATIN 20 MG TAB PO SCH (21:29)
[2020-12-19] MEDS: IPRATROPIUM 0.5MG/ALBUTEROL 2.5MG INH SOL UD 3ML (DUONEB) NEB PRN ×4 (03:01→15:20)
[2020-12-19] MEDS: LevoFLOXacin 750 MG TABLET PO SCH (05:57)
[2020-12-19] MEDS: SODIUM CHLORIDE 0.9% INJ 10 ML SYR IV SCH (05:58)
[2020-12-19] MEDS: SLF 3 ML SYR IV SCH ×2 (05:58→14:15)
[2020-12-19 06:24] VITALS: BP 119/58
[2020-12-19] MEDS: IPRATROPIUM HFA INHALER 12.9 GRAMS (ATROVENT HFA) INH SCH ×3 (07:49→15:20)
[2020-12-19] MEDS: LOMOTIL 2.5MG/0.025MG TABLET PO SCH (08:21)
[2020-12-19] MEDS: CREON-24 CAPSULE PO SCH ×2 (08:21→13:02)
[2020-12-19] MEDS: SUCRALFATE SUSP 1GM/10ML UD PO SCH ×2 (08:21→13:02)
[2020-12-19] MEDS: rOPINIRole 0.25 MG TAB(REQUIP) PO SCH (08:21)
[2020-12-19] MEDS: ASPIRIN 81MG ENTERIC TABLET PO SCH (08:21)
[2020-12-19] MEDS: CHOLESTYRAMINE 4 GM PWD PKT PO SCH (08:21)
[2020-12-19] MEDS: PANTOPRAZOLE 40MG TAB (PROTONIX) PO SCH (08:22)
[2020-12-19] MEDS: SODIUM BICARBONATE 325 MG TAB PO SCH (08:22)
[2020-12-19] MEDS: LACTOBACILLUS ACIDOPHILUS CAP (BACID) PO SCH (08:22)
[2020-12-19] MEDS: FERROUS SULFATE 325MG TAB PO SCH (08:23)
[2020-12-19 08:25] VITALS: BP 127/57
[2020-12-19] MEDS: METOPROLOL TART 25 MG TABLET PO SCH (08:25)
[2020-12-19] MEDS: KETOROLAC 30 MG/ML 1ML VIAL IV PRN (08:26)
[2020-12-19] MEDS ORDERED: MAGNESIUM OXIDE 400MG TAB (MAG-OX) PO SCH (09:00)
[2020-12-19 09:03] LABS: BASO % 0.4 % (0.0-1.0); EOS # 0.2 10^3/uL (0.0-0.5); EOS % 4.2 % (0.0-3.0); HEMATOCRIT 32.8 % (42.0-52.0); HEMOGLOBIN 10.4 g/dl (13.5-17.5); LYMPH # 0.7 10^3/uL (1.5-5.0); LYMPH % 14.6 % (24.0-44.0); MEAN CORPUSCULAR HEMOGLOBIN 25.6 pg (27.0-33.0); MEAN CORPUSCULAR HGB CONC 31.7 g/dl (32.0-36.5); MEAN CORPUSCULAR VOLUME 80.8 fl (80.0-96.0); MONO # 0.5 10^3/uL (0.0-0.8); MONO % 10.8 % (2.0-8.0); NEUTROPHILS # 3.4 10^3/uL (1.5-8.5); NEUTROPHILS % 69.6 % (36.0-66.0); PLATELET COUNT, AUTOMATED 152 10^3/uL (150-450); RED BLOOD COUNT 4.06 10^6/uL (4.30-6.10); WHITE BLOOD COUNT 4.8 10^3/uL (4.0-10.0)
[2020-12-19 09:23] LABS: BLOOD UREA NITROGEN 12 MG/DL (7-18); CARBON DIOXIDE LEVEL 21 MEQ/L (21-32); CHLORIDE LEVEL 111 MEQ/L (98-107); CREATININE FOR GFR 0.79 MG/DL (0.70-1.30); GLOMERULAR FILTRATION RATE > 60.0 (>49); GLUCOSE, FASTING 73 MG/DL (70-100); MAGNESIUM LEVEL 1.7 MG/DL (1.8-2.4); POTASSIUM SERUM 4.4 MEQ/L (3.5-5.1); SODIUM LEVEL 138 MEQ/L (136-145)
[2020-12-19] MEDS: HumaLOG INSULIN (NovoLOG) PER UNIT SC SCH ×3 (09:40→16:49)
[2020-12-19] MEDS ORDERED: CHOL4PW PO (12:54)
[2020-12-19] MEDS ORDERED: SUCR1TA PO (12:54)
[2020-12-19] MEDS ORDERED: MAGN400T2 PO (12:54)
[2020-12-19] MEDS ORDERED: SODI325T9 PO (12:54)
[2020-12-19] MEDS ORDERED: PANT40TA29 PO (12:54)
[2020-12-19] MEDS ORDERED: MAGNESIUM SULFATE 1GM/100ML D5W BAG (10MG/ML) As Ordered ONE (12:58)
[2020-12-19] MEDS ORDERED: MAG SULF 1GM/100ML (MAG RUN) 1 GM in IV 1 EA IV ONE (13:00)
--- NOTE | 2020-12-19 13:09 | DS.PDOC ---
Discharge Summary General Date of Admission Dec 13, 2020 at 00:23 Date of Discharge 12/19/2020 Attending Physician: DANNY HOPPER MD Specialist/Consultants Involve: Juan Friedman Jr Discharge Summary PROCEDURES PERFORMED DURING STAY: None ADMITTING DIAGNOSES: Diarrhea DISCHARGE DIAGNOSES: Hypernatremia NAGMA Non-infectious persistent diarrhea Hypomagnesemia Acute on chronic anemia COPD chronic HFrEF History of transient A. flutter and was placed on Eliquis that I have now discontinued i/s/o resolution and acute on chronic anemia requiring transfusions CAD HTN Hypothyroidism Pancreatic insufficiency (2/2 pancreatic mass resection) Chronic low back pain History of polysubstance abuse COMPLICATIONS/CHIEF COMPLAINT: Acute Respiratory Failure With Hypoxemia. HISTORY OF PRESENT ILLNESS: 65-year-old M with past medical history of COPD, HFrEF, transient A. flutter and was placed on Eliquis, CAD, HTN, CVA, Hypothyroidism, Pancreatic insufficiency (2/2 pancreatic mass resection), Chronic low back pain, Polysubstance abuse, who presented to the ER with shortness of breath, weakness and diarrhea. HOSPITAL COURSE: In the ED, he was a poor historian and per chart review he had recently been admitted for bacterial pneumonia, decompensated diastolic CHF, atrial flutter with RVR i/s/o sepsis and BRIAN and was ultimately discharged on 12/02/20. Patient reported significant watery diarrhea and was readmitted on 12/08/2020 and at that time, he was found to have hypernatremia and acute kidney injury and was admitted for hydration, diarrhea workup and management and nephrology consultation. On 12/12/2020 patient left A as he reported "wanting to be home" only to return after family friend encouraged him to come back to the hospital thus this encounter. On his return, he reported increased diarrhea, weakness and shortness of breath since leaving the hospital and reported that now he would like to be admitted for further work-up. He also verbalized interest in rehab if needed. Upon arrival to the ED patient SPO2 78% on room air-improvement 100% on 2 L nasal cannula. Chest x-ray shows right lower lobe infiltrate. Of note, initial lab work patient with nonanion gap metabolic acidosis and he was admitted for RLL PNA, hypernatremia, NAGMA, persistent diarrhea and hypoxemic respiratory failure. He was treated with levaquin for the RLL PNA with resolution of hypoxemia, was hydrated with IVF, treated with bicarb for the acidosis and GI panel was negative. Surgery was consulted for potential scope given the non- infectious persistent diarrhea and started him on cholestyramine, continued the diphenoxylate/atropine, while also having him on BID PPI and sucralfate. his Metamucil was held. His symptoms eventually improved and diarrhea has much improved with an average 3 BMs per day which was a great improvement from the >10 at admission. He also had significant persistent hypomagnesemia for which he has now been started on 800mg BID repletion. DISCHARGE MEDICATIONS: Please see below. ALLERGIES: Please see below. PHYSICAL EXAMINATION ON DISCHARGE: VITAL SIGNS: Please see below. General: NAD, thin HEENT: NCAT, EOMI, MMM CVS: RRR, no m/r/g Lungs: CTAB without auscultated wheezing, crackles or rhonchi Abdomen: Normoactive bowel sounds, soft, NTND Extremities: WWP, no LE edema Neuro: CN3-12 intact, moving all extremities spontaneously with full strength and tone. LABORATORY DATA: Please see below. IMAGING: CXR 12/12: RLL likely infiltrate PROGNOSIS: Good ACTIVITY: As tolerated DIET: regular DISCHARGE PLAN: Home with services DISPOSITION: Home with services DISCHARGE INSTRUCTIONS: Home with services. Please take meds as prescribed and present to PCP for follow up. ITEMS TO FOLLOWUP ON ON OUTPATIENT: Diarrhea DISCHARGE CONDITION: Stable TIME SPENT ON DISCHARGE: 55 minutes. Vital Signs/I&Os Vital Signs Date Time Temp Pulse Resp B/P (MAP) Pulse Ox O2 Delivery O2 Flow Rate FiO2 12/19/20 08:25 82 127/57 12/19/20 06:24 97.5 18 96 Room Air 12/18/20 06:00 2.0 I&O- Last 24 Hours up to 6 AM 12/19/20 06:00 Intake Total 3515 ml Output Total 0 ml Balance 3515 ml Laboratory Data Labs 24H Laboratory Tests 2 12/18/20 16:50: Bedside Glucose (Misc Panel) 98 12/18/20 20:15: Bedside Glucose (Misc Panel) 101 12/19/20 08:04: Anion Gap 6L, Glomerular Filtration Rate > 60.0, Calcium Level 7.0L, Magnesium Level 1.7L 12/19/20 08:05: Immature Granulocyte % (Auto) 0.4, Neutrophils (%) (Auto) 69.6H, Lymphocytes (%) (Auto) 14.6L, Monocytes (%) (Auto) 10.8H, Eosinophils (%) (Auto) 4.2H, Basophils (%) (Auto) 0.4, Neutrophils # (Auto) 3.4, Lymphocytes # (Auto) 0.7L, Monocytes # (Auto) 0.5, Eosinophils # (Auto) 0.2, Basophils # (Auto) 0.0, Nucleated Red Blood Cells % (auto) 0.0 12/19/20 11:17: Bedside Glucose (Misc Panel) 98 CBC/BMP Laboratory Tests 12/19/20 08:04 12/19/20 08:05 FSBS Laboratory Tests Test 12/18/20 16:50 12/18/20 20:15 12/19/20 11:17 Range/Units Bedside Glucose (Misc Panel) 98 101 98 80-115 MG/DL Microbiology Microbiology 12/12/20 Blood Culture - Final, Complete NO GROWTH AFTER 5 DAYS 12/12/20 Blood Culture - Final, Complete NO GROWTH AFTER 5 DAYS Discharge Medications Scheduled Apixaban (Eliquis) 2.5 Mg Tablet, 2.5 MG PO BID, (Reported) Aspirin (Aspirin EC) 81 Mg Tablet.dr, 81 MG PO DAILY, (Reported) Atorvastatin Calcium (Atorvastatin Calcium) 40 Mg Tablet, 40 MG PO QHS, (Reported) Cholestyramine (Cholestyramine Packet) 4 Gm Powd.pack, 4 GM PO BID Ferrous Sulfate (Ferrous Sulfate) 325 Mg Tablet, 325 MG PO DAILY, (Reported) Ipratropium [place] (Atrovent Hfa) 12.9 Gm Hfa.aer.ad, 2 PUFF INH QID, (Reported) L.acidoph/L.bulg/B.bif/S.therm (Bacid Caplet) 1 Each Tablet, 1 TAB PO WM, (Reported) Magnesium Oxide (Magnesium Oxide) 400 Mg Tablet, 800 MG PO BID Metoprolol Tartrate (Metoprolol Tartrate) 25 Mg Tablet, 25 MG PO BID, (Reported) Omeprazole (Omeprazole) 20 Mg Capsule.dr, 20 MG PO DAILY, (Reported) Pancreatic Enzymes (Creon Dr 24,000 Units Capsule) 1 Each Capsule.dr, 2 CAP PO WM, (Reported) Pantoprazole Sodium (Pantoprazole Sodium) 40 Mg Tablet.dr, 40 MG PO BID Ropinirole HCl (Ropinirole HCl) 0.5 Mg Tablet, 0.5 MG PO BID, (Reported) Sodium Bicarbonate (Sodium Bicarbonate) 325 Mg Tablet, 650 MG PO BID Sucralfate (Sucralfate) 1 Gm Tablet, 1 GRAM PO QID Scheduled PRN Albuterol Sulf (Albuterol Sulfate) 2.5 Mg/3 Ml Vial.neb, 2.5 MG INH Q6H PRN for SHORTNESS OF BREATH, (Reported) Albuterol Sulfate (Albuterol Sulfate Hfa) 8.5 Gm Hfa.aer.ad, 2 PUFFS INH Q4H PRN for SHORTNESS OF BREATH, (Reported) Diphenoxylate HCl/Atropine (Diphenoxylate-Atrop 2.5-0.025) 1 Each Tablet, 1 TAB PO QID PRN for DIARRHEA, (Reported) Oxycodone HCl/Acetaminophen (Oxycodon-Acetaminophen 2.5-325) 1 Each Tablet, 1 TAB PO Q8H PRN for PAIN LEVEL 6-10, (Reported) Miscellaneous Medications [Patient Comment] , (Reported) MED REC COMPLETED VIA DISCHARGE 12/12 MORNING Allergies Coded Allergies: amoxicillin (Verified Allergy, Unknown, rash, 01/28/19) clavulanic acid (Verified Allergy, Unknown, rash, 01/28/19) pregabalin (Verified Adverse Reaction, Unknown, seizures, 01/28/19) warfarin (Verified Adverse Reaction, Unknown, bleeding, 01/28/19) DANNY HOPPER MD Dec 19, 2020 13:09
[2020-12-19 14:00] VITALS: BP 129/62
--- NOTE | 2020-12-19 15:29 | IPN ---
PROGRESS NOTE DATE: 12/19/2020 SUBJECTIVE: The patient has been started on some Lomotil and has had decreasing bowel movements. He states that things are much better now since being on the Lomotil. However I anticipate his major issue is probably gastric emptying issue/gastric dumping as his major issue, more so than truly a colitis or a colonic issue and it may be reasonable once the veterinary x ray operator are available on Monday to have them discuss a diet that would be appropriate for a dumping syndrome, but at this point continuing him on his current medications including the Lomotil is very warranted. In addition, we may add some Colestipol to his current Questran but from my standpoint, and given his improvement and decreased output, I would like to avoid over-shooting and causing diarrhea in this individual. We will see how he does with the current plan.
[2020-12-19] MEDS ORDERED: CHOLESTYRAMINE 4 GM PWD PKT PO SCH (21:00)
--- NOTE | 2020-12-23 15:18 | REP ---
INDICATION: Poor access. COMPARISON: None. TECHNIQUE: The procedure was performed under the direct supervision of Dr. Monahan. The risks and benefits of the procedure were explained to the patient and informed consent was obtained. The right brachial vein was localized using ultrasound guidance. The skin was prepped and draped in a sterile fashion. 1 mL of 1% lidocaine was used as a local anesthetic. Using ultrasound guidance the brachial vein was cannulated and a 0.018 guidewire was inserted. The needle was removed and a 5.5 Spanish dilator and peel-away sheath was inserted over the guidewire. A 5.5 Spanish dual lumen catheter was left a length of 16.5 cm. The dilator was removed and the catheter was inserted over the guidewire. The peel-away sheath was removed and the catheter was flushed with heparinized saline as per hospital protocol. The catheter was affixed to the skin and a sterile dressing was applied. The patient tolerated the procedure well and there were no immediate complications. FINDINGS: None IMPRESSION: Midline catheter insertion right brachial vein. <Electronically signed by Kian Landa > 12/17/20 [id number] <Electronically signed by Shravan Monahan > 12/17/20 [id number]
== END 2020-12-19 17:20 | disposition home health service (06) | DRG 391 ==
LOC: M ED 17:56 → M ED INP 12-13 00:23 → ENRESERV 12-13 01:03 → M PCU 12-13 01:54 → M MSPAV 12-17 18:39
PROVIDERS: ADMIT Internal Medicine; ATTEND Internal Medicine
PROC: 30233N1 Transfusion of Nonautologous Red Blood Cells into Peripheral Vein, Percutaneous Approach (ICD-10-PCS; principal; 2020-12-17 16:00)
DX: K52.9 Noninfective gastroenteritis and colitis, unspecified (principal); J18.9 Pneumonia, unspecified organism; J44.0 Chronic obstructive pulmonary disease with (acute) lower respiratory infection; I50.32 Chronic diastolic (congestive) heart failure; E87.0 Hyperosmolality and hypernatremia; N17.9 Acute kidney failure, unspecified; E87.2 Acidosis; I25.10 Atherosclerotic heart disease of native coronary artery without angina pectoris; I11.0 Hypertensive heart disease with heart failure; E03.9 Hypothyroidism, unspecified; K21.00 Gastro-esophageal reflux disease with esophagitis, without bleeding; E83.42 Hypomagnesemia; G25.81 Restless legs syndrome; I48.0 Paroxysmal atrial fibrillation; M54.5 Low back pain; D64.9 Anemia, unspecified; I73.9 Peripheral vascular disease, unspecified; Z79.01 Long term (current) use of anticoagulants; Z79.82 Long term (current) use of aspirin; Z79.899 Other long term (current) drug therapy; Z88.0 Allergy status to penicillin; Z88.8 Allergy status to other drugs, medicaments and biological substances; K86.89 Other specified diseases of pancreas; Z20.822 Contact with and (suspected) exposure to COVID-19

== ENCOUNTER 2020-12-23 16:57 | Emergency (ER) | payer MEDICARE, OTHER ==
[~2020-12-23] VITALS: Ht 167.6 cm; Wt 61.0 kg
[~2020-12-23 16:57] MED LIST changes: +CHOL4PW PO; +ELIQ2.5T PO; +MAGN400T2 PO; +METO1TAB87 PO
[2020-12-23] MEDS ORDERED: MORPHINE 2 MG/ML 1ML VIAL (J2270) IV ONE (18:15)
[2020-12-23] MEDS ORDERED: COMBIVENT RESPIMAT 100-20MCG INHALER 4GM INH ONE (18:15)
[2020-12-23] MEDS ORDERED: NS 500 ML IV ONE (18:15)
[2020-12-23 20:34] LABS: BASO % 0.3 % (0.0-1.0); EOS # 0.2 10^3/uL (0.0-0.5); EOS % 2.9 % (0.0-3.0); HEMATOCRIT 40.6 % (42.0-52.0); HEMOGLOBIN 12.3 g/dl (13.5-17.5); LYMPH # 0.8 10^3/uL (1.5-5.0); LYMPH % 12.4 % (24.0-44.0); MEAN CORPUSCULAR HEMOGLOBIN 25.5 pg (27.0-33.0); MEAN CORPUSCULAR HGB CONC 30.3 g/dl (32.0-36.5); MEAN CORPUSCULAR VOLUME 84.1 fl (80.0-96.0); MONO # 0.9 10^3/uL (0.0-0.8); MONO % 13.5 % (2.0-8.0); NEUTROPHILS # 4.7 10^3/uL (1.5-8.5); NEUTROPHILS % 70.4 % (36.0-66.0); PLATELET COUNT, AUTOMATED 176 10^3/uL (150-450); RED BLOOD COUNT 4.83 10^6/uL (4.30-6.10); WHITE BLOOD COUNT 6.6 10^3/uL (4.0-10.0)
[2020-12-23 20:44] LABS: INR 1.21; PROTHROMBIN TIME 15.7 SECONDS (12.7-14.5)
[2020-12-23 20:45] LABS: PARTIAL THROMBOPLASTIN TIME 35.9 SECONDS (25.9-37.0)
[2020-12-23 21:06] LABS: ALBUMIN 1.8 GM/DL (3.2-5.2); ALT/SGPT 28 U/L (12-78); BILIRUBIN,DIRECT < 0.1 MG/DL (0.0-0.2); BILIRUBIN,TOTAL 0.3 MG/DL (0.2-1.0); LIPASE 41 U/L (73-393); TOTAL PROTEIN 5.3 GM/DL (6.4-8.2)
[2020-12-23 21:10] LABS: RSV AMPLIFICATION NEGATIVE (NEGATIVE)
[2020-12-23 21:31] LABS: BLOOD UREA NITROGEN 19 MG/DL (7-18); CALCIUM LEVEL 7.3 MG/DL (8.8-10.2); CARBON DIOXIDE LEVEL 21 MEQ/L (21-32); CHLORIDE LEVEL 115 MEQ/L (98-107); CREATININE FOR GFR 1.18 MG/DL (0.70-1.30); GLOMERULAR FILTRATION RATE > 60.0 (>49); GLUCOSE, FASTING 71 MG/DL (70-100); SODIUM LEVEL 142 MEQ/L (136-145)
[2020-12-23] MEDS ORDERED: ISOVUE-370 76% 100ML VIAL As Ordered ONE (22:11)
--- NOTE | 2020-12-23 23:24 | REPVR ---
PROCEDURE INFORMATION: Exam: CT Abdomen And Pelvis With Contrast Exam date and time: 12/23/2020 10:43 PM Age: 65 years old Clinical indication: Injury or trauma; Fall; Blunt; Generalized; Additional info: Trauma, posterior TECHNIQUE: Imaging protocol: Computed tomography of the abdomen and pelvis with contrast. Radiation optimization: All CT scans at this facility use at least one of these dose optimization techniques: automated exposure control; mA and/or kV adjustment per patient size (includes targeted exams where dose is matched to clinical indication); or iterative reconstruction. Contrast material: ISOVUE 370; Contrast volume: 100 ml; Contrast route: INTRAVENOUS (IV); COMPARISON: CT ABD PELVIS W/O CONTRAST 12/07/2020 11:08 PM FINDINGS: Lungs: Clear appearing lung bases. Liver: There is uniform enhancement of the liver with no evidence of liver laceration. Gallbladder and bile ducts: Normal appearing gallbladder. Pancreas: Normal size pancreas. Spleen: There is enhancement of the spleen with no evidence of splenic laceration. Adrenal glands: Normal sized adrenal glands. Kidneys and ureters: There is enhancement of the kidneys with no evidence of laceration. Stomach and bowel: There are surgical clips at the anterior aspect of the stomach. Appendix: Not identified. Intraperitoneal space: There is no evidence of pneumoperitoneum. There is moderate free fluid in the left side of the abdomen and left paracolic space. The fluid extends into a left inguinal hernia. There is an anterior abdominal wall hernia above the umbilicus with protrusion of bowel. There is evidence of edema through the mesentery. Vasculature: There is calcification of the aorta consistent with atherosclerotic changes. There is calcification and significant stenosis of the SMA. There is calcification and stenosis of the renal arteries. There is opacification of the aorta and also prominent calcification consistent with severe atherosclerotic changes. There is prominent calcification at the origin of the iliac arteries and stenosis. Lymph nodes: Unremarkable. No enlarged lymph nodes. Urinary bladder: Normal urinary bladder. Normal appearing urinary bladder. Reproductive: There is a cyst at the right seminal vesicle. Bones/joints: There is a large posterior disc protrusion L3-L4. There are old healed rib fractures bilaterally. No acute fracture is seen. Other findings: The fluid within the abdomen is new since the CT of 12/07/2020. The examination is very difficult to interpret because of lack of subcutaneous fat and intra-abdominal as the patient is ematiated. IMPRESSION: 1. There has been development of a moderate amount of free fluid in the upper and left abdomen following the left paracolic space and into the left pelvis where there is fluid entering the left inguinal canal hernia. 2. To exclude any possibility of bowel perforation recommend repeating CT scan after oral contrast and waiting 2-1/2 to 3 hours. The other concern would be ischemic change of bowel. Severe atherosclerotic changes of the aorta and SMA. 3. Anterior abdominal wall hernia with protrusion of the margin of bowel also developing since 12/07/2020. Electronically signed by: Eliu Clark On 12/23/2020 23:23:46 PM
--- NOTE | 2020-12-23 23:40 | REPVR ---
PROCEDURE INFORMATION: Exam: CT Chest With Contrast; Diagnostic Exam date and time: 12/23/2020 10:43 PM Age: 65 years old Clinical indication: Injury or trauma; Fall; Blunt trauma (contusions or hematomas); Additional info: Trauma, posterior TECHNIQUE: Imaging protocol: Diagnostic computed tomography of the chest with contrast. Radiation optimization: All CT scans at this facility use at least one of these dose optimization techniques: automated exposure control; mA and/or kV adjustment per patient size (includes targeted exams where dose is matched to clinical indication); or iterative reconstruction. Contrast material: ISOVUE 370; Contrast volume: 100 ml; Contrast route: INTRAVENOUS (IV); COMPARISON: CT Chest with contrast 02/20/2017 11:26 AM FINDINGS: Lungs: There is a 5 mm density left mid lung field and not seen on the previous CT scan of the chest probably a noncalcified granuloma. However, to exclude any possibility of significant lesion recommend follow-up CT in 6 months. Prominent calcified granuloma left lung unchanged. 3 cm wedge-shaped area stranding density posterior aspect of the left lower lobe probably scarring calcified granulomas on the right. Multiple calcified lymph nodes as well. Pleural spaces: Unremarkable. No pneumothorax. No pleural effusion. Heart: The heart is top-normal in size with no pericardial effusion. Mediastinal space: There is severe thickening of the entire esophagus which could be secondary to an infiltrative process or ischemic change. Pulmonary arteries: There is opacification of the pulmonary arteries with no evidence of pulmonary embolus. Aorta: There is opacification of the aorta which appears intact. Lymph nodes: Calcified lymph nodes within the mediastinum and right and left hilum. Bones/joints: Old healed rib fractures are noted bilaterally. The vertebra appear in alignment. Postoperative changes noted of the sternum. There is fragmentation of the midsternum but appearing chronic. IMPRESSION: 1. 5 mm density left lung and 3 cm wedge-shaped area of density right lung. Recommend follow-up CT in 6 months to document stability as these areas are new since 2017. 2. Severe diffuse thickening of the entire esophagus which may be secondary to a diffuse infiltrative process, esophagitis or ischemic change. Electronically signed by: Eliu Clark On 12/23/2020 23:39:31 PM
--- NOTE | 2020-12-23 23:51 | REPVR ---
PROCEDURE INFORMATION: Exam: CT Head Without Contrast Exam date and time: 12/23/2020 10:43 PM Age: 65 years old Clinical indication: Injury or trauma; Fall; Blunt trauma (contusions or hematomas); Additional info: Trauma, posterior TECHNIQUE: Imaging protocol: Computed tomography of the head without contrast. Radiation optimization: All CT scans at this facility use at least one of these dose optimization techniques: automated exposure control; mA and/or kV adjustment per patient size (includes targeted exams where dose is matched to clinical indication); or iterative reconstruction. COMPARISON: MRI-Brain without Contrast 12/19/2013 2:34 PM FINDINGS: Brain: The there is volume loss. There is white matter lucency consistent with chronic microvascular disease. There are small old no left frontal and parietal cortical infarcts. No acute infarct is identified. There is no hemorrhage or extra-axial collection. There is no mass. Cerebral ventricles: There is no hydrocephalus. Paranasal sinuses: Visualized sinuses are unremarkable. No fluid levels. Mastoid air cells: Visualized mastoid air cells are well aerated. Bones/joints: Unremarkable. No acute fracture. Soft tissues: Unremarkable. IMPRESSION: 1. There is chronic microvascular disease and small old infarcts. 2. No acute intracranial injury or lesion Electronically signed by: Kalyan Love On 12/23/2020 23:50:55 PM
--- NOTE | 2020-12-23 23:56 | REPVR ---
PROCEDURE INFORMATION: Exam: CT Cervical Spine Without Contrast Exam date and time: 12/23/2020 10:43 PM Age: 65 years old Clinical indication: Injury or trauma; Fall; Blunt trauma; Additional info: Trauma, posterior TECHNIQUE: Imaging protocol: Computed tomography images of the cervical spine without contrast. Radiation optimization: All CT scans at this facility use at least one of these dose optimization techniques: automated exposure control; mA and/or kV adjustment per patient size (includes targeted exams where dose is matched to clinical indication); or iterative reconstruction. COMPARISON: US Duplex,carotid (complete) 12/19/2013 1:52 PM FINDINGS: Limitations: Anterior cortex of anterior arch of C1 is not included on this scan and cannot be evaluated. Bones/joints: There is no fracture of the vertebra. The vertebral bodies maintain their height. There is no fracture of the posterior elements. There is mild retrolisthesis at C4-C5 and C5-C6 and anterolisthesis at C7-T1. Alignment is otherwise normal. Discs/Spinal canal/Neural foramina: There is multilevel disc space narrowing. There are posterior osteophytes and disc bulges. This results in severe central stenosis at C5-C6. There is moderate central stenosis at C4-C5. There is foraminal stenosis most severe on the left at C4-C5, bilaterally at at C5-C6 and on the left at C6-C7. Lungs: There is centrilobular emphysema in the lung apices. Soft tissues: Unremarkable. IMPRESSION: 1. No fracture of the cervical spine. 2. Degenerative findings with spinal stenosis most severe at C5-C6. Details above. Electronically signed by: Kalyan Love On 12/23/2020 23:56:49 PM
[2020-12-24] MEDS: GASTROGRAFIN SOLUTION 30ML PO SCH ×2 (01:21→02:00)
[2020-12-24 05:00] VITALS: BP 137/64
--- NOTE | 2020-12-24 05:31 | REPVR ---
PROCEDURE INFORMATION: Exam: CT Abdomen And Pelvis Without Contrast Exam date and time: 12/24/2020 3:25 AM Age: 65 years old Clinical indication: Other: Intra-abdominal fluid post fall, perf v ischemia v cirrhosis TECHNIQUE: Imaging protocol: Computed tomography of the abdomen and pelvis without contrast. Radiation optimization: All CT scans at this facility use at least one of these dose optimization techniques: automated exposure control; mA and/or kV adjustment per patient size (includes targeted exams where dose is matched to clinical indication); or iterative reconstruction. COMPARISON: CT ABD/PEL W/IV CONTRAST ONLY 12/23/2020 10:23 PM FINDINGS: Lungs: There is severe emphysematous lung changes with some bronchial thickening in the lung bases with linear atelectatic changes suggestive of an element of bronchitis. Few small nodules seen in the lingula and left lower lobe on axial image 10 the largest measuring 4-5 mm. There is 3-4 mm right lower lobe lung nodule on axial image 4 which was not seen on studies of 2018. Heart: There is calcifications of the mitral annulus. Liver: Normal. No mass. Gallbladder and bile ducts: The CHD is slightly prominent with some dilatation of the left biliary tree on axial images 21-25. Pancreas: There is pancreatic ductal dilatation. The pancreatic head is prominent. Spleen: Normal. No splenomegaly. Adrenal glands: Normal. No mass. Kidneys and ureters: There is 1.6 cm left renal cyst in addition to few too small to characterize hypodensities. Stomach and bowel: There is significant thickening of multiple small and large bowel loops. There are some dilated small bowel loops measuring up to 3.3 centimetres. There is moderate colonic stool burden. Appendix: No evidence of appendicitis. Intraperitoneal space: There is diffuse mesenteric edema. Ascites is seen around the liver and spleen and along the paracolic gutters. There is anterior abdominal hernia containing omental fat. Vasculature: There is severe calcification of the aorta and iliac arteries. Bulky calcified plaque is seen in the distal thoracic aorta. Lymph nodes: Unremarkable. No enlarged lymph nodes. Urinary bladder: Unremarkable as visualized. Reproductive: Unremarkable as visualized. Bones/joints: There is L5-S1 disc degenerative changes with central posterior disc bulge. Soft tissues: There is diffuse subcutaneous edema. There is a small right and moderate size left inguinal hernias. Fluid is seen in the left inguinal canal. IMPRESSION: 1. Cirrhotic liver with third-spacing manifested by diffuse subcutaneous and mesenteric edema in addition to small abdominal ascites some of which seen in a moderate size left inguinal hernia. 2. Significantly thickened small and large bowel loops could be secondary to 3rd spacing however underlying element of enterocolitis cannot be excluded. 3. No extravasation of oral contrast or free air seen to suggest bowel perforation. 4. Moderate colonic stool burden. 5. Dilated small bowel loops up to 3.3 cm could be secondary to an element of ileus as some of the oral contrast is seen in the colon. An element of partial obstruction cannot be completely excluded. 6. Prominent pancreatic head coupled with pancreatic ductal dilatation particularly in the mid body and tail. Underlying occult pancreatic malignancy should be excluded with MRI of the pancreas with MRCP. 7. Nonspecific mildly dilated left biliary tree. Underlying subtle periductal cholangiocarcinoma cannot be excluded. MRI of the abdomen with contrast with MRCP is suggested. 8. 1.6 cm left renal cyst in addition to few too small to characterize hypodensities. These can be further evaluated during the above suggested MRIs. 9. Severe emphysematous lung changes with element of bronchitis. Few scattered basilar nodules measuring up to 4-5 mm. - For patients at low risk (minimal or absent history of smoking and of other known risk factors), no routine follow-up is indicated. - For patients at high risk (history of smoking or of other known risk factors), consider optional CT Chest at 12 months. - If the patient has history of malignancy than Fleischner Society recommendations cannot be followed and follow-up CT scan should be considered in 3 months. (Reference: Sherice) COMMENTS: Consistent with the [employer]'s Incidental Findings Committee white paper (J Am Miguel Angel Radiol 2018): Any incidental renal lesion less than 1 cm or classified as too small to characterize, or any incidental cystic renal lesion characterized as simple-appearing, is likely benign. No follow-up imaging is recommended for these lesions per consensus recommendations based on imaging criteria. REFERENCES: Sherice Blank, et al. Guidelines for Management of Incidental Pulmonary Nodules Detected on CT Images: From the Fleischner Society 2017. Radiology. 2017;284(1):228-243. Electronically signed by: Sher Ball On 12/24/2020 05:31:01 AM
== END 2020-12-24 05:43 | disposition home or self-care (01) ==
LOC: EDBD 16:57 → M ED 16:57
DX: S29.9XXA Unspecified injury of thorax, initial encounter (principal); W10.8XXA Fall (on) (from) other stairs and steps, initial encounter; Y92.018 Other place in single-family (private) house as the place of occurrence of the external cause; J44.9 Chronic obstructive pulmonary disease, unspecified; I25.10 Atherosclerotic heart disease of native coronary artery without angina pectoris; Z79.899 Other long term (current) drug therapy; Z79.01 Long term (current) use of anticoagulants; Z88.0 Allergy status to penicillin; Z88.8 Allergy status to other drugs, medicaments and biological substances; F17.210 Nicotine dependence, cigarettes, uncomplicated; F11.10 Opioid abuse, uncomplicated
CPT/HCPCS: 36415; 70450; 71260; 72125; 74176; 74177; 80048; 80076; 83690; 84132; 85025; 85610; 85730; 87631; 94640; 96361; 96374; 99285; J2270; Q9963; Q9967

== ENCOUNTER 2021-01-02 00:19 | Inpatient (IN) | payer MEDICARE, OTHER ==
[~2021-01-02] VITALS: Ht 167.6 cm; Wt 60.1 kg
[2021-01-02 01:03] LABS: BASO % 0.2 % (0.0-1.0); EOS # 0.1 10^3/uL (0.0-0.5); EOS % 0.3 % (0.0-3.0); HEMATOCRIT 41.4 % (42.0-52.0); HEMOGLOBIN 12.7 g/dl (13.5-17.5); LYMPH # 1.2 10^3/uL (1.5-5.0); LYMPH % 6.9 % (24.0-44.0); MEAN CORPUSCULAR HEMOGLOBIN 25.6 pg (27.0-33.0); MEAN CORPUSCULAR HGB CONC 30.7 g/dl (32.0-36.5); MEAN CORPUSCULAR VOLUME 83.5 fl (80.0-96.0); MONO # 1.1 10^3/uL (0.0-0.8); MONO % 6.1 % (2.0-8.0); NEUTROPHILS # 14.9 10^3/uL (1.5-8.5); PLATELET COUNT, AUTOMATED 340 10^3/uL (150-450); RED BLOOD COUNT 4.96 10^6/uL (4.30-6.10); WHITE BLOOD COUNT 17.3 10^3/uL (4.0-10.0)
[2021-01-02 01:16] LABS: INR 1.19; PROTHROMBIN TIME 15.5 SECONDS (12.7-14.5)
[2021-01-02 01:24] LABS: ERYTHROCYTE SEDIMENTATION RATE 16 mm/hr (0-20)
[2021-01-02 01:34] LABS: PARTIAL THROMBOPLASTIN TIME 24.5 SECONDS (25.9-37.0)
--- NOTE | 2021-01-02 01:38 | REPVR ---
PROCEDURE INFORMATION: Exam: XR Chest Exam date and time: 01/02/2021 12:44 AM Age: 65 years old Clinical indication: Pain; On breathing; Additional info: Chest pain TECHNIQUE: Imaging protocol: XR of the chest. Views: 1 view. COMPARISON: CT Chest with contrast 12/23/2020 10:23 PM FINDINGS: Tubes, catheters and devices: Surgical clips are noted in the neck. Lungs: Calcified granuloma in the right lung base. Relative lucency of lung with slight interstitial prominence. Pleural spaces: Unremarkable. No pleural effusion. No pneumothorax. Heart/Mediastinum: Unremarkable. No cardiomegaly. Calcified AP window node. Bones/joints: The forStatus post sternotomy. Residua of old right clavicular fracture. There are degenerative changes of the shoulders. IMPRESSION: 1. Status post sternotomy. 2. Suggestion of some degree of COPD. 3. Old granulomatous disease. 4. Otherwise negative chest. No acute process is identified. Electronically signed by: Kirk Mott On 01/02/2021 01:37:46 AM
[2021-01-02 01:39] LABS: ALBUMIN 1.8 GM/DL (3.2-5.2); ALT/SGPT 17 U/L (12-78); BILIRUBIN,DIRECT < 0.1 MG/DL (0.0-0.2); BILIRUBIN,TOTAL 0.2 MG/DL (0.2-1.0); BLOOD UREA NITROGEN 18 MG/DL (7-18); CALCIUM LEVEL 8.3 MG/DL (8.8-10.2); CARBON DIOXIDE LEVEL 25 MEQ/L (21-32); CHLORIDE LEVEL 109 MEQ/L (98-107); CK-MB VALUE MASS 4.2 NG/ML (<3.6); CPK CREATINE PHOSPHOKINASE 44 U/L (39-308); CREATININE FOR GFR 1.15 MG/DL (0.70-1.30); FREE T4 0.83 NG/DL (0.76-1.46); GLOMERULAR FILTRATION RATE > 60.0 (>49); GLUCOSE, FASTING 85 MG/DL (70-100); LIPASE 84 U/L (73-393); MB/CK RELATIVE INDEX 9.55 (< OR =4); NT-PRO BNP 8681 PG/ML (<125); POTASSIUM SERUM 4.4 MEQ/L (3.5-5.1); SODIUM LEVEL 141 MEQ/L (136-145); TOTAL PROTEIN 5.1 GM/DL (6.4-8.2); TROPONIN I < 0.02 NG/ML (< 0.10)
[2021-01-02] MEDS ORDERED: ISOVUE-370 76% 100ML VIAL As Ordered ONE (02:29)
--- NOTE | 2021-01-02 02:40 | REPVR ---
PROCEDURE INFORMATION: Exam: US Duplex Right Lower Extremity Veins, Limited Exam date and time: 01/02/2021 2:32 AM Age: 65 years old Clinical indication: Edema, localized; Lower extremity, right; Additional info: Swelling TECHNIQUE: Imaging protocol: Real-time Duplex ultrasound of the Right Lower Extremity with 2-D jack scale, color Doppler flow and spectral waveform analysis with image documentation. Limited exam was focused on the right lower extremity veins. COMPARISON: RENAL US 11/27/2020 2:41 PM FINDINGS: Right deep veins: Unremarkable. The common femoral, femoral, proximal profunda femoral and popliteal veins are patent without thrombus. Normal Doppler waveforms. Normal compressibility and/or augmentation response. Right superficial veins: Unremarkable. Saphenofemoral junction is patent without thrombus. Soft tissues: Unremarkable. IMPRESSION: Negative right lower extremity venous duplex exam without evidence of deep venous thrombosis. Electronically signed by: Kirk Mott On 01/02/2021 02:40:08 AM
[2021-01-02] MEDS ORDERED: KETOROLAC 30 MG/ML 1ML VIAL IV ONE (02:50)
[2021-01-02 03:40] LABS: RSV AMPLIFICATION NEGATIVE (NEGATIVE)
--- NOTE | 2021-01-02 03:59 | REPVR ---
PROCEDURE INFORMATION: Exam: CTA Chest With Contrast Exam date and time: 01/02/2021 3:37 AM Age: 65 years old Clinical indication: Other: Chest pain radiates to back TECHNIQUE: Imaging protocol: Computed tomographic angiography of the chest with contrast. 3D rendering (Not supervised by radiologist): MIP and/or 3D reconstructed images were created by the technologist. Radiation optimization: All CT scans at this facility use at least one of these dose optimization techniques: automated exposure control; mA and/or kV adjustment per patient size (includes targeted exams where dose is matched to clinical indication); or iterative reconstruction. Contrast material: ISOVUE 370; Contrast volume: 75 ml; Contrast route: INTRAVENOUS (IV); COMPARISON: CT Chest with contrast 12/23/2020 10:23 PM FINDINGS: Pulmonary arteries: The main pulmonary artery measures 18 mm. No pulmonary embolism is identified. Aorta: The ascending thoracic aorta measures 27 mm. No gross or obvious aortic dissection is identified, particularly distal to the mid arch. Artifact and image degradation precludes detailed evaluation of the ascending thoracic aorta. Lungs: Mild diffuse bullous change with interstitial coarsening and minimal scattered fibro-atelectatic change. There is a minimal density in the lateral left upper lobe which is unchanged from a prior study measuring 4 mm. Pleural spaces: Unremarkable. No pneumothorax. No pleural effusion. Heart: Unremarkable. No cardiomegaly. No pericardial effusion. Mediastinal space: Esophageal wall thickening. Lymph nodes: Calcified right hilar nodes. Spleen: Splenic calcifications. Bones/joints: Status post sternotomy. Healing fracture of the left 11th rib posteriorly and old fractures of the left 9th and 10th ribs posterolaterally. Old fractures of the right 8th-10th ribs posteriorly. Prominent degenerative change of the shoulders. Soft tissues: Calcified granulomata are noted. IMPRESSION: 1. Esophageal wall thickening which may reflect esophagitis. 2. Mild bullous changes with coarse interstitium and minimal scattered fibro-atelectatic change. Pulmonary densities are similar to the prior study. 3. Old granulomatous disease of the chest and spleen. 4. Old or healing fractures bilaterally. 5. Otherwise negative CTA chest. No pulmonary embolism is identified. No gross or obvious aortic dissection is identified, particularly distal to the mid arch. Artifact and image degradation precludes detailed evaluation of the ascending thoracic aorta. Electronically signed by: Kirk Mott On 01/02/2021 03:59:07 AM
[2021-01-02] MEDS ORDERED: NITROGLYCERIN 2% OINT 1 GM *U/D* PKT TOP ONE (04:40)
[2021-01-02] MEDS ORDERED: cefTRIAXone SOD 2 GM in D5W MINI-BAG PLUS 50 ML IV ONE (05:00)
[2021-01-02] MEDS ORDERED: NS 1,000 ML IV ONE (05:00)
[2021-01-02] MEDS ORDERED: SODIUM BICARBONATE 8.4% INJ 50 ML SYRINGE IV STA (05:29)
[2021-01-02] MEDS ORDERED: GI COCKTAIL 50ML BTL(HYOSCYAMINE/MAALOX/LIDOCAINE VISCOUS)(1:3:1) PO ONE (05:50)
[2021-01-02 06:01] LABS: CK-MB VALUE MASS 4.1 NG/ML (<3.6); MB/CK RELATIVE INDEX 4.18 (< OR =4); TROPONIN I 0.02 NG/ML (< 0.10)
[2021-01-02 06:05] LABS: AMPHETAMINES LEVEL URINE POSITIVE (NEGATIVE); BARBITURATES URINE NEGATIVE (NEGATIVE); BENZODIAZEPINES URINE NEGATIVE (NEGATIVE); CANNABINOIDS URINE NEGATIVE (NEGATIVE); COCAINE METABOLITE URINE NEGATIVE (NEGATIVE); METHADONE URINE NEGATIVE (NEGATIVE); OPIATES URINE NEGATIVE (NEGATIVE); PHENCYCLIDINE URINE NEGATIVE (NEGATIVE)
[2021-01-02] MEDS ORDERED: ALBU83IN INH (06:07)
[2021-01-02] MEDS ORDERED: PROAAER10 INH (06:07)
[2021-01-02] MEDS ORDERED: SUCR1TA PO (06:07)
[2021-01-02] MEDS ORDERED: PANT40TA29 PO (06:07)
[2021-01-02] MEDS ORDERED: CHOL4PW PO (06:07)
[2021-01-02] MEDS ORDERED: ELIQ5TAB PO (06:16)
[2021-01-02] MEDS ORDERED: METO50TA7 PO (06:16)
--- NOTE | 2021-01-02 07:13 | HPEPDOC ---
General Date of Admission January 02, 2021 Date of Service: Jan 02, 2021 Chief Complaint The patient is a 65-year-old male admitted with a reason for visit of Chest Pain. History of Present Illness Mr. Ambriz is a 65-year-old male with anion gap metabolic acidosis chronically on bicarb and paroxysmal atrial fibrillation who is here for intractable chest pain and throat pain. The chest pain started 18 hours ago. It is a sharp chest pain that comes and goes. Is worse with breathing and activity. It is also tender to touch. Otherwise he tells me that he has throat pain and it hurts to swallow. He told me that both of these started at the same time. He does not remember what he was doing when this first started. He has tried Tylenol for the pain which did not help. Otherwise, work-up was significant for a white blood count of 17.3 and a pH of 7. CT angio chest demonstrates esophagitis and is negative for PE. Patient will be admitted for atypical chest pain and esophagitis Home Medications Scheduled Apixaban (Eliquis) 5 Mg Tablet, 5 MG PO BID, (Reported) used external history Aspirin (Aspirin EC) 81 Mg Tablet.dr, 81 MG PO DAILY, (Reported) Atorvastatin Calcium (Atorvastatin Calcium) 40 Mg Tablet, 40 MG PO QHS, (Reported) used external history and previous discharge Cholestyramine (Cholestyramine Packet) 4 Gm Powd.pack, 4 GM PO BID, (Reported) used external history and previous discharge Ferrous Sulfate (Ferrous Sulfate) 325 Mg Tablet, 325 MG PO DAILY, (Reported) Ipratropium [place] (Atrovent Hfa) 12.9 Gm Hfa.aer.ad, 2 PUFF INH QID, (Repo rted) used external history and previous discharge L.acidoph/L.bulg/B.bif/S.therm (Bacid Caplet) 1 Each Tablet, 1 TAB PO WM, (Reported) Magnesium Oxide (Magnesium Oxide) 400 Mg Tablet, 800 MG PO BID Metoprolol Tartrate (Metoprolol Tartrate) 50 Mg Tablet, 50 MG PO BID, (Reported) used external history Pancreatic Enzymes (Sebas Hayes 24,000 Units Capsule) 1 Each Capsule.dr, 2 CAP PO WM, (Reported) used external history and previous discharge information Pantoprazole Sodium (Pantoprazole Sodium) 40 Mg Tablet.dr, 40 MG PO BID, (Reported) used external history and previous discharge Ropinirole HCl (Ropinirole HCl) 0.5 Mg Tablet, 0.5 MG PO BID, (Reported) used external history and previous discharge Sodium Bicarbonate (Sodium Bicarbonate) 325 Mg Tablet, 650 MG PO BID Sucralfate (Sucralfate) 1 Gm Tablet, 1 GM PO QID, (Reported) used external history and previous discharge Scheduled PRN Albuterol Sulf (Albuterol Sulfate) 2.5 Mg/3 Ml Vial.neb, 2.5 MG INH Q6H PRN for SHORTNESS OF BREATH, (Reported) Albuterol Sulfate (Proair Hfa) 8.5 Gm Hfa.aer.ad, 2 PUFF INH Q4HP PRN for SH ORTNESS OF BREATH, (Reported) used external history and previous discharge Diphenoxylate HCl/Atropine (Diphenoxylate-Atrop 2.5-0.025) 1 Each Tablet, 1 TAB PO QID PRN for DIARRHEA, (Reported) Allergies Coded Allergies: amoxicillin (Verified Allergy, Mild, rash, 12/23/20) clavulanic acid (Verified Allergy, Mild, rash, 12/23/20) pregabalin (Verified Adverse Reaction, Intermediate, seizures, 12/23/20) warfarin (Verified Adverse Reaction, Intermediate, bleeding, 12/23/20) Past Medical History Medical History 1. COPD 2. Heart failure with reduced ejection fraction 3. Atrial flutter on Eliquis 4. CAD 5. Hypertension 6. CVA 7. Hypothyroidism 8. Pancreatic insufficiency 9. Chronic low back pain 10. Polysubstance abuse 11. Anemia Surgical History 1. 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 Social History * Smoker: Denies Alcohol: Denies Drugs: denies A-FIB/CHADSVASC A-FIB History Current/History of A-Fib/PAF?: Yes Current PO Anticoag Therapy: Yes Review of Systems Constitutional: Reports: Chills Eyes: Denies: Vision change ENT: Reports: Other Symptoms (Burning throat) Skin: Denies: Rash Pulmonary: Reports: Pleuritic Chest Pain Cardiovascular: Reports: Chest Pain Gastrointestinal: Reports: Diarrhea (Watery); Denies: Abdominal Pain Genitourinary: Denies: Dysuria Hematologic: Denies: Bruising Neurological: Denies: Numbness Psych: Reports: Anxiety, Depression Physical Examination General Exam: Positive: Alert, Cooperative, Mild Distress Eye Exam: Positive: EOMI; Negative: Sclera icteric Neck Exam: Positive: Supple Chest Exam: Positive: Clear to auscultation Heart Exam: Positive: Tachycardic, Regular Rhythm Abdomen Exam: Positive: Normal bowel sounds, Soft; Negative: Tenderness Extremity Exam: Positive: Edema (Bilateral) Neuro Exam: Positive: Normal Speech, Cranial Nerves 3-12 NL Psych Exam: Positive: Anxiety Vital Signs Vital Signs Date Time Temp Pulse Resp B/P (MAP) Pulse Ox O2 Delivery O2 Flow Rate FiO2 01/02/21 05:45 124/68 (86) 01/02/21 05:34 98 17 100 Room Air 01/02/21 00:37 98.0 Laboratory Data Labs 24H Laboratory Tests 2 01/02/21 00:57: Immature Granulocyte % (Auto) 0.5, Neutrophils (%) (Auto) 86.0H, Lymphocytes (%) (Auto) 6.9L, Monocytes (%) (Auto) 6.1, Eosinophils (%) (Auto) 0.3, Basophils (%) (Auto) 0.2, Neutrophils # (Auto) 14.9H, Lymphocytes # (Auto) 1.2L, Monocytes # (Auto) 1.1H, Eosinophils # (Auto) 0.1, Basophils # (Auto) 0.0, Nucleated Red Blood Cells % (auto) 0.0, Erythrocyte Sedimentation Rate 16, Prothrombin Time 15.5H, Prothromb Time International Ratio 1.19, Activated Partial Thromboplast Time 24.5L, Anion Gap 7L, Glomerular Filtration Rate > 60.0, Calcium Level 8.3L, Total Bilirubin 0.2, Direct Bilirubin < 0.1, Aspartate Amino Transf (AST/SGOT) 20, Alanine Aminotransferase (ALT/SGPT) 17, Alkaline Phosphatase 251H, Total Creatine Kinase 44, Creatine Kinase MB 4.2H, Creatine Kinase MB Relative Index 9.55H, Troponin I < 0.02, C-Reactive Protein, Quantitative 11.30H, SJ-Tbm-F-Type Natriuretic Peptide 8681H, Total Protein 5.1L, Albumin 1.8L, Albumin/Globulin Ratio 0.5, Lipase 84, Thyroid Stimulating Hormone (TSH) 8.480H, Free Thyroxine 0.83 01/02/21 02:42: Coronavirus (COVID-19)(PCR) NEGATIVE, Influenza Type A (RT-PCR) NEGATIVE, Influenza Type B (RT-PCR) NEGATIVE, Respiratory Syncytial Virus (PCR) NEGATIVE 01/02/21 04:54: POC pH (Misc Panel) 7.073*L, POC Base Excess (Misc Panel) -20.0L, POC Saturated Percent O2 (Misc) 87L, POC pO2 (Misc Panel) 73.0L, POC pCO2 (Misc Panel) 34.2L, POC HCO3 (Misc Panel) 10.0L, POC Total CO2 (Misc Panel) 11.0L 01/02/21 05:12: Urine Color YELLOW, Urine Appearance CLEAR, Urine pH 5.0, Urine Specific Wiley 1.040, Urine Protein NEGATIVE, Urine Glucose (UA) NEGATIVE, Urine Ketones NEGATIVE, Urine Blood NEGATIVE, Urine Nitrite NEGATIVE, Urine Bilirubin NEGATIVE, Urine Urobilinogen 0.2, Urine Leukocyte Esterase 2+H, Urine WBC (Auto) 27H, Urine RBC (Auto) 3, Urine Hyaline Casts (Auto) 0, Urine Bacteria (Auto) NEGATIVE, Urine Squamous Epithelial Cells 1, Urine Mucus (Auto) SMALL, Urine Sperm (Auto) 01/02/21 05:23: CBC/BMP Laboratory Tests 01/02/21 00:57 Microbiology Microbiology 01/02/21 Urine Culture, Received Pending 01/02/21 Blood Culture, Received Pending Assessment/Plan Mr. Ambriz is a 65-year-old male with anion gap metabolic acidosis chronically on bicarb and paroxysmal atrial fibrillation who is here for intractable chest pain and throat pain. Chest pain is unlikely to be cardiac in nature. Initial troponins negative. Pending repeat troponin. Chest pain suspected to be costochondritis. Will start IV ketorolac. Otherwise patient complains of throat burning and CT chest demonstrates esophagitis. We will do a trial of GI cocktail. We will also start Carafate and Protonix. Otherwise per previous H& P, patient has non-anion gap metabolic acidosis and chronically is on bicarb by nephrology Plan / VTE VTE Prophylaxis Ordered?: Yes Plan Plan 1. Atypical chest pain It is a sharp pain that is reproducible. Also pleuritic Most likely costochondritis IV ketorolac 2. Odynophagia Imaging demonstrates esophagitis We will do a trial of GI cocktail Start Carafate and Protonix Patient may need EGD in the future for evaluation of esophagitis 3. Non-anion gap metabolic acidosis Continue sodium bicarb 4. Diarrhea Patient reports having watery diarrhea over a month Continue cholestyramine We will check a GI panel 5. Pancreatic insufficiency Continue pancreatic enzymes 6. Hyperlipidemia Continue Lipitor 7. Leukocytosis No clear evidence of infection Patient given a dose of ceftriaxone. Initially was thinking COPD exacerbation, but no wheezing on examination Monitor leukocytosis, possibly reactive 8. Paroxysmal atrial fibrillation Med rec not complete at the time of this dictation He is possibly on Lopressor 50 mg twice daily and apixaban If completed med rec suggest otherwise, please correct 9. DVT prophylaxis On apixaban At time of this dictation, med rec was not completed. Please adjust medications based off of final med rec. PUJA CASTELLANOS DO Jan 02, 2021 07:03
[2021-01-02] MEDS ORDERED: ALBUTEROL 90 MCG/ACT 8GM HFA INHALER INH PRN (07:25)
[2021-01-02] MEDS: SUCRALFATE SUSP 1GM/10ML UD PO SCH ×4 (07:30→19:58)
[2021-01-02] MEDS ORDERED: SODI325T9 PO (07:39)
[2021-01-02] MEDS ORDERED: MAGN400T2 PO (07:39)
[2021-01-02] MEDS ORDERED: COMMENTS (07:47)
[2021-01-02] MEDS ORDERED: HOME MED LIST COMPLETE! XX SCH (07:50)
[2021-01-02] MEDS: CREON-24 CAPSULE PO SCH ×3 (08:00→17:58)
[2021-01-02 08:15] LABS: HEMATOCRIT 34.6 % (42.0-52.0); MEAN CORPUSCULAR HEMOGLOBIN 25.6 pg (27.0-33.0); MEAN CORPUSCULAR HGB CONC 30.9 g/dl (32.0-36.5); MEAN CORPUSCULAR VOLUME 82.8 fl (80.0-96.0); PLATELET COUNT, AUTOMATED 243 10^3/uL (150-450); RED BLOOD COUNT 4.18 10^6/uL (4.30-6.10); WHITE BLOOD COUNT 13.3 10^3/uL (4.0-10.0)
[2021-01-02 08:32] LABS: HEMOGLOBIN 10.7 g/dl (13.5-17.5)
[2021-01-02 08:38] LABS: BLOOD UREA NITROGEN 17 MG/DL (7-18); CALCIUM LEVEL 7.5 MG/DL (8.8-10.2); CARBON DIOXIDE LEVEL 27 MEQ/L (21-32); CHLORIDE LEVEL 109 MEQ/L (98-107); CREATININE FOR GFR 0.86 MG/DL (0.70-1.30); GLOMERULAR FILTRATION RATE > 60.0 (>49); GLUCOSE, FASTING 95 MG/DL (70-100); POTASSIUM SERUM 4.5 MEQ/L (3.5-5.1); SODIUM LEVEL 140 MEQ/L (136-145)
[2021-01-02] MEDS ORDERED: KETOROLAC 30 MG/ML 1ML VIAL IV PRN (09:00)
[2021-01-02 10:00] VITALS: BP 135/85
[2021-01-02] MEDS ORDERED: CHOLESTYRAMINE 4 GM PWD PKT PO SCH (10:00)
[2021-01-02] MEDS: APIXABAN 5 MG TAB (ELIQUIS) PO SCH ×2 (10:18→19:58)
[2021-01-02] MEDS: METOPROLOL TART 50 MG TAB PO SCH ×2 (10:18→19:59)
[2021-01-02] MEDS: PANTOPRAZOLE 40MG VIAL (C9113 PER 1) IV SCH ×2 (10:19→19:58)
[2021-01-02] MEDS: SODIUM BICARBONATE 325 MG TAB PO SCH ×2 (10:23→20:00)
[2021-01-02 12:25] LABS: CK-MB VALUE MASS 4.5 NG/ML (<3.6); MB/CK RELATIVE INDEX 14.06 (< OR =4)
[2021-01-02 12:26] LABS: TROPONIN I 0.02 NG/ML (< 0.10)
[2021-01-02] MEDS: GI COCKTAIL 50ML BTL(HYOSCYAMINE/MAALOX/LIDOCAINE VISCOUS)(1:3:1) PO PRN (12:52)
[2021-01-02 14:30] VITALS: BP 121/68
[2021-01-02] MEDS ORDERED: LEVALBUTEROL 1.25 MG/0.5 ML CONCENTRATE NEB INH PRN (14:50)
[2021-01-02] MEDS: LEVALBUTEROL 1.25 MG/0.5 ML CONCENTRATE NEB NEB SCH ×2 (15:26→16:00)
[2021-01-02 15:28] LABS: ABG BASE EXCESS -4.5 (-2.0-2.0); ABG HCO3 20.3 MEQ/L (22.0-26.0); ABG O2 SATURATION 99.1 % (95.0-99.0); ABG PARTIAL PRESSURE CO2 36.5 mmHg (35.0-45.0); ABG PARTIAL PRESSURE O2 153.9 mmHg (75.0-100.0); ABG STANDARD HCO3 20.8 MEQ/L (22.0-26.0); ABG TOTAL CO2 21.5 MEQ/L (23.0-31.0); ABG pH (ARTERIAL) 7.364 UNITS (7.350-7.450)
[2021-01-02] MEDS ORDERED: methylPREDNISolone 125MG 2ML VIAL IV ONE (15:30)
[2021-01-02] MEDS: CHOLESTYRAMINE 4 GM PWD PKT PO SCH ×2 (16:11→22:07)
[2021-01-02] MEDS: LOMOTIL 2.5MG/0.025MG TABLET PO SCH ×2 (17:58→20:00)
--- NOTE | 2021-01-02 18:49 | ECGEPIP ---
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
[2021-01-02] MEDS: LEVALBUTEROL 1.25 MG/0.5 ML CONCENTRATE NEB INH SCH ×2 (19:30→23:25)
[2021-01-02] MEDS: ATORVASTATIN 20 MG TAB PO SCH (19:58)
[2021-01-02 21:57] LABS: BLOOD UREA NITROGEN 18 MG/DL (7-18); CALCIUM LEVEL 7.9 MG/DL (8.8-10.2); CARBON DIOXIDE LEVEL 22 MEQ/L (21-32); CHLORIDE LEVEL 106 MEQ/L (98-107); CK-MB VALUE MASS 5.3 NG/ML (<3.6); CPK CREATINE PHOSPHOKINASE 43 U/L (39-308); CREATININE FOR GFR 1.05 MG/DL (0.70-1.30); GLOMERULAR FILTRATION RATE > 60.0 (>49); GLUCOSE, FASTING 130 MG/DL (70-100); MB/CK RELATIVE INDEX 12.33 (< OR =4); MYOGLOBIN 62 NG/ML (16-116); NT-PRO BNP 6493 PG/ML (<125); POTASSIUM SERUM 4.7 MEQ/L (3.5-5.1); RHEUMATOID FACTOR QUANT < 10.0 IU/ML (<15.0); SODIUM LEVEL 136 MEQ/L (136-145)
[2021-01-02 22:00] VITALS: BP 134/81
[2021-01-02 22:02] LABS: TROPONIN I < 0.02 NG/ML (< 0.10)
--- NOTE | 2021-01-02 23:51 | REPVR ---
PROCEDURE INFORMATION: Exam: XR Chest Exam date and time: 01/02/2021 11:18 PM Age: 65 years old Clinical indication: Other: SOB TECHNIQUE: Imaging protocol: XR of the chest. Views: 1 view. COMPARISON: CR PORTABLE CHEST X-RAY 01/02/2021 12:38 AM FINDINGS: Lungs: Calcified granuloma in the right lung base. There are no interval infiltrates. Mild pulmonary hyperinflation. Pleural spaces: Unremarkable. No pleural effusion. No pneumothorax. Heart/Mediastinum: The heart and mediastinum are unchanged. A left atrial appendage exclusion device is again noted. Bones/joints: Status post sternotomy. IMPRESSION: Stable chest since a study done earlier in the day with evidence of COPD. No acute interval process is identified. Electronically signed by: Kirk Mott On 01/02/2021 23:51:05 PM
[2021-01-03] MEDS ORDERED: NS 1,000 ML IV SCH (02:20)
[2021-01-03] MEDS ORDERED: ISOVUE-370 76% 100ML VIAL As Ordered ONE (02:24)
[2021-01-03] MEDS: LEVALBUTEROL 1.25 MG/0.5 ML CONCENTRATE NEB INH SCH ×6 (03:25→22:52)
[2021-01-03 06:00] VITALS: BP 118/59
[2021-01-03] MEDS: CHOLESTYRAMINE 4 GM PWD PKT PO SCH ×4 (06:47→22:37)
[2021-01-03] MEDS: LOMOTIL 2.5MG/0.025MG TABLET PO SCH ×4 (06:47→20:00)
[2021-01-03] MEDS: SUCRALFATE SUSP 1GM/10ML UD PO SCH ×4 (06:47→19:57)
[2021-01-03] MEDS ORDERED: metOLazone 5 MG TAB PO ONE (08:00)
[2021-01-03] MEDS: MIDODRINE 5 MG TAB PO SCH ×4 (08:00→17:09)
[2021-01-03] MEDS: CREON-24 CAPSULE PO SCH ×3 (08:00→17:09)
[2021-01-03] MEDS: metroNIDAZOLE 500 MG in IV 1 EA IV SCH ×2 (08:00→17:10)
[2021-01-03 08:04] LABS: BASO % 0.1 % (0.0-1.0); HEMATOCRIT 37.1 % (42.0-52.0); HEMOGLOBIN 11.1 g/dl (13.5-17.5); LYMPH # 0.7 10^3/uL (1.5-5.0); LYMPH % 4.5 % (24.0-44.0); MEAN CORPUSCULAR HEMOGLOBIN 25.5 pg (27.0-33.0); MEAN CORPUSCULAR HGB CONC 29.9 g/dl (32.0-36.5); MEAN CORPUSCULAR VOLUME 85.1 fl (80.0-96.0); MONO # 0.2 10^3/uL (0.0-0.8); MONO % 1.2 % (2.0-8.0); NEUTROPHILS # 14.4 10^3/uL (1.5-8.5); NEUTROPHILS % 93.6 % (36.0-66.0); PLATELET COUNT, AUTOMATED 271 10^3/uL (150-450); RED BLOOD COUNT 4.36 10^6/uL (4.30-6.10); WHITE BLOOD COUNT 15.4 10^3/uL (4.0-10.0)
[2021-01-03 08:30] LABS: ALBUMIN 1.6 GM/DL (3.2-5.2); ALT/SGPT 14 U/L (12-78); AMYLASE 58 U/L (25-115); BILIRUBIN,TOTAL 0.1 MG/DL (0.2-1.0); BLOOD UREA NITROGEN 17 MG/DL (7-18); CALCIUM LEVEL 7.4 MG/DL (8.8-10.2); CARBON DIOXIDE LEVEL 22 MEQ/L (21-32); CHLORIDE LEVEL 107 MEQ/L (98-107); CREATININE FOR GFR 1.11 MG/DL (0.70-1.30); GLOMERULAR FILTRATION RATE > 60.0 (>49); GLUCOSE, FASTING 175 MG/DL (70-100); LIPASE 101 U/L (73-393); MAGNESIUM LEVEL 1.5 MG/DL (1.8-2.4); POTASSIUM SERUM 4.9 MEQ/L (3.5-5.1); SODIUM LEVEL 136 MEQ/L (136-145); TOTAL PROTEIN 4.7 GM/DL (6.4-8.2)
[2021-01-03] MEDS ORDERED: FUROSEMIDE 100MG/10ML VIAL (J1940) IV ONE (08:30)
[2021-01-03 08:31] LABS: ERYTHROCYTE SEDIMENTATION RATE 16 mm/hr (0-20)
--- NOTE | 2021-01-03 08:32 | REP ---
INDICATION: sob. COMPARISON: Portable chest, 01/02/2021 TECHNIQUE: Upright AP portable chest image was obtained. FINDINGS: There is severe emphysema. There is a fiducial marker in the right mid lung. The heart size is normal. There is a left atrial appendage clip. There is calcific vascular disease of the thoracic aorta. There are surgical clips at the base of the neck on the left possible carotid endarterectomy. There are surgical clips in both lungs of uncertain significance. Status post median sternotomy. The upper abdominal bowel gas pattern is normal. There is significant arthritis of both glenohumeral joints. IMPRESSION: 1. Emphysema. 2. Other findings as noted, not significantly changed. <Electronically signed by Varinder Love > 01/03/21 [id number]
[2021-01-03] MEDS: SODIUM BICARBONATE 325 MG TAB PO SCH ×2 (08:58→20:00)
[2021-01-03] MEDS: PANTOPRAZOLE 40MG TAB (PROTONIX) PO SCH ×2 (08:58→20:00)
[2021-01-03] MEDS: METOPROLOL TART 50 MG TAB PO SCH ×2 (08:58→20:01)
[2021-01-03] MEDS: CIPROFLOXACIN 400 MG in IV 1 EA IV SCH ×2 (09:00→20:00)
[2021-01-03] MEDS: APIXABAN 5 MG TAB (ELIQUIS) PO SCH ×2 (09:00→20:00)
[2021-01-03] MEDS: GI COCKTAIL 50ML BTL(HYOSCYAMINE/MAALOX/LIDOCAINE VISCOUS)(1:3:1) PO PRN ×2 (12:49→17:58)
[2021-01-03] MEDS: methylPREDNISolone 125MG 2ML VIAL IV SCH ×3 (12:50→21:00)
--- NOTE | 2021-01-03 12:53 | ROOPDOC ---
[facility] Report Of Operation Report of Operation DATE OF PROCEDURE: 01/03/21 PREPROCEDURE DIAGNOSES: chest pain, lack of adequate peripheral access. POSTPROCEDURE DIAGNOSES: same. PROCEDURE PERFORMED: insertion of right IJ triple lumen catheter under US guidance. SURGEON: Nigel Treviño MD ANESTHESIA: local anesthesia with 1% lidocaine. ESTIMATED BLOOD LOSS: Approximately 5 mL. COMPLICATIONS: none. FINDINGS: Previous vascular operations to the head and neck not available and patient not really fully aware of what it was but it looks like patient has a left-sided carotid to subclavian bypass. He is bilateral subclavian incisions and the tract of the left carotid to subclavian bypass is noticeable over on the left side. SPECIMENS REMOVED: None. DESCRIPTION OF PROCEDURE: Patient remained in his room and positioned on his bed which was positioned flat. Both arms tucked. He was positioned facing towards the left side to extend his right side of the neck. This was prepped with the included chlorhexidine prep. We used a line bundle. White sterile drapes placed. We paused for a surgical timeout using both pre-incision safety checklist to verify correct patient, procedure site and additional clinical information prior to beginning the procedure Using ultrasound, the location of the subclavian vein and related structures including the carotid artery is determined. The most appropriate area at the neck was chosen. A direct anterior approach was used. The overlying skin infiltrated with 1% lidocaine. Using the finder needle, this was introduced into the internal jugular vein under direct vision of the ultrasound. This was repositioned to be tangential and the guidewire was placed. The tract was then enlarged with the fascial dilator and the triple-lumen catheter was placed through the guidewire in position at 17 cm at the skin level without any difficulty. All three ports were tested and noted to be aspirating and flushing well. This was then secured to the skin with 3-0 silk. A chlorhexidine- containing nonocclusive dressing then placed to cover the skin exit of the line. Patient tolerated the procedure well. A postoperative portable chest x-ray was performed and confirms adequate placement. No pneumothorax found . NIGEL TREVIÑO MD Jan 03, 2021 12:53
[2021-01-03] MEDS ORDERED: CALCIUM GLUCONATE 1,000 MG in D5W MINI-BAG PLUS 100 ML IV ONE (13:00)
[2021-01-03 14:00] VITALS: BP 149/74
[2021-01-03] MEDS ORDERED: MAG SULF 1GM/100ML (MAG RUN) 1 GM in IV 1 EA IV ONE (14:00)
--- NOTE | 2021-01-03 14:16 | IPN ---
PROGRESS NOTE DATE: 01/03/2021 SUBJECTIVE: The patient complains of significant shortness of breath this morning without fever or chills, cough, also complains of persistent diarrhea, abdominal discomfort, denies any diaphoresis, feeling of impending doom, palpitations, lightheadedness, dizziness or near syncope. The patient was found to have lactic acidosis, shortness of breath with BNP of 8681. Patient has lost his IV site overnight. Multiple attempts by nursing were unsuccessful. Surgery consulted for line placement. OBJECTIVE: Vital signs: Temperature 98.2, pulse 80, respiratory rate 18, blood pressure 118/59, 97% on two liters nasal cannula. General: The patient is in mild distress, able to speak 6-7 words but has use of respiratory accessory muscles, barrel chested, leaning forward with prolonged expirations, positive mild JVD, no thyromegaly, cervical lymphadenopathy, dry mucous membranes. Lungs: Diminished. Bilateral faint expiratory wheezing but scant. Fine crackles noted bilaterally. Heart: S1, S2, sinus rhythm. Abdomen: Soft, nontender, nondistended, positive bowel sounds. No rebound, guarding. Extremities: No cyanosis, clubbing or pitting edema. LABORATORY DATA: Microbiology, imaging studies have been reviewed. ASSESSMENT AND PLAN: This is a 65-year-old male with history of systolic dysfunction, EF of 32% on echo by Dr. Azul, November 16, 2020 with moderate to moderately severe LV hypokinesis of the left ventricle, moderate mitral regurgitation with no LV thrombus, mild tricuspid regurgitation, COPD, emphysema, admitted on 01/02/2021 with complaints of atypical chest pain with history of paroxysmal atrial fibrillation and chronic non-anion gap metabolic acidosis on bicarb. Patient does have a history of atrial flutter on chronic Eliquis, hypertension, history of CVA, hypothyroidism, pancreatic insufficiency with chronic diarrhea previously admitted and started on Questran, Lomotil and Colestipol for possible dumping syndrome, chronic low back pain, polysubstance abuse, developed significant electrolyte imbalance due to diarrhea with low magnesium, found to have significant lactic acidosis, complained of atypical chest pain with negative troponin, shortness of breath with elevated BNP. Active issues are as follows. CURRENT ISSUES: 1. Acute COPD exacerbation. 2. Decompensated congestive heart failure with low ejection fraction, systolic dysfunction. BNP>1000. 3. Lactic acidosis. 4. Chronic diarrhea, rule out dumping syndrome. 5. Poor IV access. Patient has lost IV access. 6. History of non-anion gap metabolic acidosis. 7. Hypomagnesemia. 8. Wfhop-sb-qfvioqk anemia. 9. History of paroxysmal atrial fibrillation. 10. History of CAD. 11. Hypertension, controlled. 12. Hypothyroidism. 13. 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. 14. Chronic low back pain. PLAN: The patient has lost IV access. General surgeon, Dr. Treviño has been consulted in order to place a triple lumen catheter due to lactic acidosis and complaints of abdominal pain. We will obtain a CT, abdomen and pelvis today. Due to worsening shortness of breath and COPD exacerbation with crackles on exam, the patient will be treated for both COPD and CHF exacerbation. He has been given one dose of Lasix. We will continue to monitor strict I&Os, daily weights and maintain on fluid restriction. IV antibiotics have been started. He has developed steroid induced leukocytosis from yesterday. Telemetry monitoring and transfer to PCU. For electrolyte abnormalities, oral med surge with telemetry. Patient has been given Cipro and Flagyl for possible intra-abdominal infection. Midodrine has been given in order to allow for good diuresis from Lasix. Continue to monitor patient's volume status. If develops acute kidney injury, may need to hold off on further Lasix and continue with Solu-Medrol and nebulizer treatments for now. MTDD
--- NOTE | 2021-01-03 14:28 | REP ---
INDICATION: IJ PLACEMENT. COMPARISON: Portable chest, 01/03/2021, 8:19 a.m.. TECHNIQUE: Upright AP portable chest image was obtained. FINDINGS: There is no significant lung disease. There is a fiducial marker in the right mid lung. The heart size is normal. There is a left atrial appendage clip. There is calcific vascular disease of the thoracic aorta. There are surgical clips at the base of the neck on the left consistent with carotid endarterectomy. There are surgical clips at the base of the neck on the right of uncertain significance. There are surgical clips in the left lung apex of uncertain significance. Status post CABG surgery. Status post median sternotomy. There is a new right internal jugular deep line with the tip in the area of the superior vena cava. IMPRESSION: 1. No acute lung disease. 2. New right IJ deep line appears in good position. 3. Other findings as noted, not significantly changed. <Electronically signed by Varinder Love > 01/03/21 0302
[2021-01-03 17:28] VITALS: BP 150/67
[2021-01-03] MEDS ORDERED: SODIUM CHLORIDE 0.9% INJ 10 ML SYR IV PRN (17:40)
[2021-01-03] MEDS: ATORVASTATIN 20 MG TAB PO SCH (20:01)
[2021-01-03 22:00] VITALS: BP 144/64
[2021-01-03] MEDS: SODIUM CHLORIDE 0.9% INJ 10 ML SYR IV SCH (22:38)
[2021-01-04] MEDS: metroNIDAZOLE 500 MG in IV 1 EA IV SCH ×4 (00:13→23:46)
[2021-01-04] MEDS: methylPREDNISolone 125MG 2ML VIAL IV SCH ×4 (03:18→20:29)
[2021-01-04] MEDS: SODIUM CHLORIDE 0.9% INJ 10 ML SYR IV SCH ×3 (05:52→23:44)
[2021-01-04] MEDS: CHOLESTYRAMINE 4 GM PWD PKT PO SCH ×4 (05:55→23:43)
[2021-01-04 06:00] VITALS: BP 136/83
[2021-01-04] MEDS: LEVALBUTEROL 1.25 MG/0.5 ML CONCENTRATE NEB INH SCH ×6 (06:26→23:28)
--- NOTE | 2021-01-04 07:59 | REPVR ---
PROCEDURE INFORMATION: Exam: XR Chest Exam date and time: 01/04/2021 7:48 AM Age: 65 years old Clinical indication: Shortness of breath; Additional info: SOB TECHNIQUE: Imaging protocol: XR of the chest. Views: 1 view. COMPARISON: CR Chest, 1 view 01/03/2021 12:56 PM FINDINGS: Tubes, catheters and devices: Right neck central venous catheter seen with its tip in the distal SVC. The patient is status post sternotomy with grossly intact sternal wires. Lungs: Unremarkable. No consolidation. Pleural spaces: Unremarkable. No pleural effusion. No pneumothorax. Heart/Mediastinum: Unremarkable. No cardiomegaly. Bones/joints: Significant bilateral shoulder joints DJD seen. Old rib fractures seen. IMPRESSION: 1. No focal consolidation. 2. Right neck CVC with its tip in the distal SVC. Electronically signed by: Sher Ball On 01/04/2021 07:59:28 AM
[2021-01-04] MEDS: SUCRALFATE SUSP 1GM/10ML UD PO SCH ×4 (08:37→20:26)
[2021-01-04] MEDS: APIXABAN 5 MG TAB (ELIQUIS) PO SCH ×2 (08:37→20:28)
[2021-01-04] MEDS: PANTOPRAZOLE 40MG TAB (PROTONIX) PO SCH ×2 (08:38→20:27)
[2021-01-04] MEDS: LOMOTIL 2.5MG/0.025MG TABLET PO SCH ×4 (08:38→20:29)
[2021-01-04] MEDS: SODIUM BICARBONATE 325 MG TAB PO SCH ×2 (08:38→20:29)
[2021-01-04] MEDS: MIDODRINE 5 MG TAB PO SCH ×3 (08:38→15:39)
[2021-01-04] MEDS: CREON-24 CAPSULE PO SCH ×3 (08:38→16:58)
[2021-01-04] MEDS: METOPROLOL TART 50 MG TAB PO SCH ×2 (08:38→20:27)
--- NOTE | 2021-01-04 09:35 | IPN ---
PROGRESS NOTE DATE: 01/04/2021 SUBJECTIVE: The patient complains of eight loose bowel movements yesterday. No nausea, vomiting, or fever; shortness of breath improved after the patient was given Lasix and Solu-Medrol yesterday, still with some expiratory wheezing. He denies any lightheadedness, chest pain, pressure, tightness, dizziness or near syncope this morning. OBJECTIVE: Vitals: Temperature 98.5, pulse 92, respiratory rate 16, blood pressure 136/83, 97% on room air. General: The patient is awake, alert and oriented x3, answering questions appropriately, cachectic with bitemporal wasting, no respiratory distress. Mild JVD, no thyromegaly, cervical lymphadenopathy. Lungs: Diminished, faint expiratory wheezing bilaterally. Air entry is much improved from yesterday. Heart: S1, S2, sinus rhythm, no murmur, rub or gallop. Abdomen: Soft, nontender, non-distended, positive bowel sounds. Extremities: No cyanosis, clubbing. Laboratory data, imaging studies, microbiology have all been reviewed; notable for yeast in the urine. GI panel on 01/02 was negative. ASSESSMENT AND PLAN: This is a 65-year-old male with history of COPD, congestive heart failure, systolic dysfunction, ejection fraction of 32% on echo done by Dr. Azul, November 16, 2020 with moderate to moderately severe left ventricular hypokinesis, moderate mitral regurg with no LV thrombus, mild tricuspid regurg, COPD, emphysema, admitted on 01/02/2021 with complaints of atypical chest pain with history of paroxysmal atrial fibrillation and chronic non-anion gap metabolic acidosis on chronic bicarbonate use. He does have a history of atrial flutter on chronic Eliquis, hypertension, history of CVA, hypothyroidism, pancreatic insufficiency with chronic diarrhea with possible dumping syndrome with prior history of dehydration and electrolyte abnormalities, started on Questran, Lomotil and Colestipol with chronic low back pain, polysubstance abuse, admitted due to complaints of atypical chest pain with negative troponins and shortness of breath with elevated BNP. Active issues are as follows. 1. Acute decompensated congestive heart failure with low ejection fraction with BNP of over 1000, improved with dose of Lasix, kept on strict I's and O's, daily weights and fluid restriction. Will need to assess the patient's fluid balance on daily basis due to ongoing diarrhea to prevent hypernatremia and dehydration. 2. Acute COPD exacerbation, improved on Solu-Medrol which is continue every 6 hours as well as nebulizer treatments, supplemental oxygen to keep saturations at 88-92%. The patient is currently on Ciprofloxacin. 3. Chronic diarrhea, most likely dumping syndrome. The patient has history of chronic diarrhea with pancreatic insufficiency and Questran, Lomotil and Colestipol with no significant improvement. Lasix is decided on daily basis regarding patient's fluid balance due to ongoing volume loss to prevent hypernatremia, dehydration and further electrolyte abnormalities. Potassium, magnesium, ionized calcium are being monitored and repeated as needed. 4. Poor IV access. Patient had a triple lumen catheter placed on 01/03/2021 by general surgeon, Dr. Treviño due to losing his peripheral IV access. 5. Anion gap metabolic acidosis/lactic acidosis: The patient was empirically given Cipro and Flagyl yesterday due to lactic acidosis. IV fluids could not be given due to elevated BNP and decompensated CHF. If procalcitonin is negative will discontinue antibiotics that is being empirically given for lactic acidosis and intraabdominal possible source. 6. Electrolyte abnormalities with low magnesium that has been repleted. 7. Khjrx-mq-tlbbtvy anemia, no acute RBC transfusion requirement. 8. History of paroxysmal atrial fibrillation, currently rate controlled. 9. History of CAD with complaints of atypical chest pain with negative troponins. If recurrent episodes the patient should be evaluated with repeat EKG and serum myoglobin to rule out acute coronary syndrome. 10. Esophagitis, on PPI and Carafate. 11. Hypertension, currently controlled. 12. Hypothyroidism, on supplement with Synthroid. 13. Pancreatic insufficiency with dumping syndrome. GI panel is negative. The patient is currently on Colestipol, Cholestyramine, and Lomotil. 14. Chronic low back pain, stable. 15. Failure to thrive with dumping syndrome, BMI 21. 16. Protein calorie malnutrition with albumin of 1.6, check retail field representative consult. [facility]
[2021-01-04] MEDS: CIPROFLOXACIN 400 MG in IV 1 EA IV SCH ×2 (10:02→20:30)
[2021-01-04 10:03] LABS: VITAMIN B12 LEVEL 1183 PG/ML (247-911)
[2021-01-04] MEDS: GI COCKTAIL 50ML BTL(HYOSCYAMINE/MAALOX/LIDOCAINE VISCOUS)(1:3:1) PO PRN ×2 (10:41→17:52)
[2021-01-04 12:04] LABS: BASO % 0.1 % (0.0-1.0); LYMPH # 0.3 10^3/uL (1.5-5.0); LYMPH % 2.3 % (24.0-44.0); MEAN CORPUSCULAR HEMOGLOBIN 25.3 pg (27.0-33.0); MEAN CORPUSCULAR HGB CONC 30.3 g/dl (32.0-36.5); MEAN CORPUSCULAR VOLUME 83.5 fl (80.0-96.0); MONO # 0.1 10^3/uL (0.0-0.8); MONO % 0.9 % (2.0-8.0); NEUTROPHILS # 13.1 10^3/uL (1.5-8.5); NEUTROPHILS % 95.8 % (36.0-66.0); PLATELET COUNT, AUTOMATED 266 10^3/uL (150-450); RED BLOOD COUNT 3.95 10^6/uL (4.30-6.10); WHITE BLOOD COUNT 13.6 10^3/uL (4.0-10.0)
[2021-01-04 12:27] LABS: ERYTHROCYTE SEDIMENTATION RATE 23 mm/hr (0-20)
[2021-01-04 12:34] LABS: ALBUMIN 1.5 GM/DL (3.2-5.2); ALT/SGPT 13 U/L (12-78); BILIRUBIN,TOTAL 0.1 MG/DL (0.2-1.0); BLOOD UREA NITROGEN 15 MG/DL (7-18); CARBON DIOXIDE LEVEL 21 MEQ/L (21-32); CHLORIDE LEVEL 103 MEQ/L (98-107); CK-MB VALUE MASS 3.9 NG/ML (<3.6); CPK CREATINE PHOSPHOKINASE 38 U/L (39-308); CREATININE FOR GFR 1.16 MG/DL (0.70-1.30); GLOMERULAR FILTRATION RATE > 60.0 (>49); GLUCOSE, FASTING 225 MG/DL (70-100); MB/CK RELATIVE INDEX 10.26 (< OR =4); NT-PRO BNP 7219 PG/ML (<125); POTASSIUM SERUM 3.1 MEQ/L (3.5-5.1); SODIUM LEVEL 136 MEQ/L (136-145); TOTAL PROTEIN 4.5 GM/DL (6.4-8.2); TROPONIN I 0.02 NG/ML (< 0.10)
[2021-01-04] MEDS: NS 1,000 ML IV SCH ×2 (12:42→23:55)
[2021-01-04 14:00] VITALS: BP 151/68
--- NOTE | 2021-01-04 16:35 | ECGEPIP ---
[facility] - ED Test Date: 2021-01-02 Pat Name: RISSA YUSUF Department: Room: Gender: Male Study Manager: MONISHA : 1955 Requested By: JAYLIN Limon Order Number: [id number] Reading MD: Yamilex Toro Measurements Intervals [place] Rate: 99 P: 66 [place]: 156 QRS: 16 QRSD: 90 T: 105 QT: 378 QTc: 485 Interpretive Statements Sinus rhythm with occasional premature ventricular complexes Possible Inferior infarct , age undetermined NSTTW abnormalities increased rate 12/12/20 Electronically Signed on 01-04-2021 16:34:57 EDT by Yamilex Toro
[2021-01-04 20:08] VITALS: BP 150/67
[2021-01-04] MEDS: ATORVASTATIN 20 MG TAB PO SCH (20:28)
[2021-01-05] MEDS ORDERED: METOCLOPRAMIDE INJ 10MG/2ML VIAL (J2765 PER 1) IV ONE
[2021-01-05] MEDS: GI COCKTAIL 50ML BTL(HYOSCYAMINE/MAALOX/LIDOCAINE VISCOUS)(1:3:1) PO PRN ×3 (00:59→14:38)
[2021-01-05] MEDS: LEVALBUTEROL 1.25 MG/0.5 ML CONCENTRATE NEB INH SCH ×2 (03:23→07:24)
[2021-01-05] MEDS: methylPREDNISolone 125MG 2ML VIAL IV SCH (03:56)
[2021-01-05 06:06] VITALS: BP 145/67
[2021-01-05] MEDS: CHOLESTYRAMINE 4 GM PWD PKT PO SCH ×4 (06:58→21:07)
[2021-01-05] MEDS: SODIUM CHLORIDE 0.9% INJ 10 ML SYR IV SCH ×3 (06:59→21:07)
[2021-01-05 08:08] LABS: HEMATOCRIT 31.6 % (42.0-52.0); HEMOGLOBIN 9.7 g/dl (13.5-17.5); RED BLOOD COUNT 3.81 10^6/uL (4.30-6.10)
--- NOTE | 2021-01-05 08:08 | REP ---
INDICATION: sob. COMPARISON: Comparison chest x-ray January 04, 2021. TECHNIQUE: Portable upright AP chest radiograph. FINDINGS: Lungs are symmetrically aerated and free of infiltrate. Median sternotomy wires, a left atrial appendage clamp, and a right internal jugular central venous line are seen unchanged in position. Old healed clavicle fracture on the right. Osteoarthritic changes in the shoulders are noted bilaterally. There are old healed rib fractures bilaterally. Pulmonary vasculature is not increased. No infiltrate is seen. The pleural angles are sharp. Heart size is normal. IMPRESSION: No active disease. <Electronically signed by Jose Victor > 01/05/21 0041
[2021-01-05 08:09] LABS: BASO % 0.1 % (0.0-1.0); LYMPH # 0.3 10^3/uL (1.5-5.0); LYMPH % 2.1 % (24.0-44.0); MEAN CORPUSCULAR HEMOGLOBIN 25.5 pg (27.0-33.0); MEAN CORPUSCULAR HGB CONC 30.7 g/dl (32.0-36.5); MEAN CORPUSCULAR VOLUME 82.9 fl (80.0-96.0); MONO # 0.2 10^3/uL (0.0-0.8); MONO % 1.3 % (2.0-8.0); NEUTROPHILS # 14.4 10^3/uL (1.5-8.5); NEUTROPHILS % 95.8 % (36.0-66.0); PLATELET COUNT, AUTOMATED 232 10^3/uL (150-450)
[2021-01-05 08:35] LABS: ALBUMIN 1.4 GM/DL (3.2-5.2); ALT/SGPT 14 U/L (12-78); BILIRUBIN,TOTAL 0.1 MG/DL (0.2-1.0); BLOOD UREA NITROGEN 16 MG/DL (7-18); CALCIUM LEVEL 6.7 MG/DL (8.8-10.2); CARBON DIOXIDE LEVEL 25 MEQ/L (21-32); CHLORIDE LEVEL 105 MEQ/L (98-107); GLOMERULAR FILTRATION RATE > 60.0 (>49); GLUCOSE, FASTING 155 MG/DL (70-100); NT-PRO BNP 7694 PG/ML (<125); SODIUM LEVEL 135 MEQ/L (136-145); TOTAL PROTEIN 4.6 GM/DL (6.4-8.2)
[2021-01-05 08:42] LABS: ERYTHROCYTE SEDIMENTATION RATE 12 mm/hr (0-20)
[2021-01-05] MEDS: LOMOTIL 2.5MG/0.025MG TABLET PO SCH ×4 (08:49→21:06)
[2021-01-05] MEDS: CREON-24 CAPSULE PO SCH ×3 (08:49→18:20)
[2021-01-05] MEDS: SUCRALFATE SUSP 1GM/10ML UD PO SCH ×4 (08:49→21:07)
[2021-01-05] MEDS: APIXABAN 5 MG TAB (ELIQUIS) PO SCH ×2 (08:50→21:06)
[2021-01-05] MEDS: PANTOPRAZOLE 40MG TAB (PROTONIX) PO SCH (08:50)
[2021-01-05] MEDS: SODIUM BICARBONATE 325 MG TAB PO SCH ×2 (08:50→21:06)
[2021-01-05] MEDS: METOPROLOL TART 50 MG TAB PO SCH ×2 (08:52→21:06)
[2021-01-05] MEDS: FIBER-CON 625 MG TAB PO SCH ×2 (09:00→21:06)
[2021-01-05] MEDS ORDERED: methylPREDNISolone 125MG 2ML VIAL IV SCH (09:00)
[2021-01-05] MEDS ORDERED: ALBUTEROL SULFATE 2.5 MG/0.5 ML INH NEB SOLN INH PRN (11:05)
[2021-01-05] MEDS: IPRATROPIUM HFA INHALER 12.9 GRAMS (ATROVENT HFA) INH SCH ×2 (11:39→15:42)
[2021-01-05 14:00] VITALS: BP 136/65
--- NOTE | 2021-01-05 16:28 | IPNPDOC ---
Subjective Date Seen The patient was seen on 01/05/21. Subjective Chief Complaint/HPI Complains of severe diarrhea at least 8-10 times per day. Denies any abdominal pain denies any nausea or vomiting. No blood in stool. The stool is light brown to whitish in color liquid in consistency. Objective Physical Examination General Exam: Positive: Alert, Cooperative, No Acute Distress Eye Exam: Positive: PERRLA, EOMI; Negative: Sclera icteric Neck Exam: Positive: Supple; Negative: JVD Chest Exam: Positive: Diminished; Negative: Rales, Rhonchi, Wheezing Heart Exam: Positive: Rate Normal, Regular Rhythm, Normal S1, Normal S2 Abdomen Exam: Positive: Normal bowel sounds, Soft; Negative: Tenderness Extremity Exam: Positive: Edema (Trace edema only on the left leg); Negative: Clubbing, Cyanosis Neuro Exam: Positive: Normal Speech, Strength at 5/5 X4 ext, Normal Tone Psych Exam: Positive: Anxiety, Oriented x 3 Assessment /Plan Assessment This is a 65-year-old male with history of COPD, systolic congestive heart failure, ejection fraction of 32% with moderate to severe left ventricular hypokinesis, moderate mitral regurg, COPD, emphysema, paroxysmal atrial fibrillation, hypertension, history of CVA, hypothyroidism, history of partial pancreatectomy for pancreatitis, gastrojejunostomy, chronic pancreatic insufficiency, chronic diarrhea, non-anion gap metabolic acidosis on chronic bicarbonate use admitted on 01/02/2021 with complaints of atypical chest pain. Patient was ruled out for acute coronary syndrome. He was felt to have CHF exacerbation and COPD exacerbation which has now resolved. Now his main complaint is ongoing severe diarrhea for the past 1 month. Acute on chronic diarrhea Patient reports this is going for about 1 month GI panel x2 Patient has history of partial pancreatectomy due to pancreatitis and gastrojejunostomy Likely diarrhea is related to the above We will continue with cholestyramine, fiber, Imodium, continue Creon Systolic CHF Now appears to be compensated Patient has ongoing severe diarrhea which is keeping him in a negative balance Not on any diuretics or fluid restriction at this time COPD with moderately severe pulmonary hypertension Had exacerbation on admission which has now resolved Steroid has been tapered Restarted home inhaler Hypomagnesemia and hypokalemia Repleted Anion gap and non-anion gap metabolic acidosis/lactic acidosis and diarrhea We will continue bicarb tablets Exfne-hv-hlbhzqw anemia, Has history of iron deficiency anemia no acute RBC transfusion requirement. Paroxysmal atrial fibrillation Now in sinus rhythm Continue Eliquis History of CAD status post CABG in November 2019 negative troponins. Hypertension On metoprolol Hypothyroidism, Synthroid. Pancreatic insufficiency with dumping syndrome. History of severe pancreatitis 8 years ago related to alcohol abuse s/p partial resection and gastrojejunostomy. Chronic pancreatic insufficiency, GI panel is negative. patient is currently on Colestipol, Cholestyramine, and Lomotil and fiber Protein calorie malnutrition with albumin of 1.6, questions of small muscles of hands and feet, BMI of 20.5 Pancreatic Head mass since 2017 had EUS biopsy in 2019 with [facility] in 2018 was negative for malignancy Pulmonary nodules . Had Bx of right Lower lobe pulmonary nodule in dec 2019 History of DM Now resolved with weight loss HLD CKD stage 3 Osteoarthritis/Low Back Pain Cataract, Glaucoma Substance abuse: former EtOH and former smoker. 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 Carotid artery disease with bilateral axillary to carotid bypass. Chronic aortic insufficiency. History of CVA/TIA History of peptic ulcer disease with gastrointestinal (GI) bleeding/ Esophageal stenosis/pyloric stenosis H/o GIB due to Anastomotic ulcer at the gastrojejunostomy, esophagitis RLS Plan/VTE VTE Prophylaxis Ordered?: Yes VS, I&O, 24H, Fishbone Vital Signs/I&O Vital Signs Date Time Temp Pulse Resp B/P (MAP) Pulse Ox O2 Delivery O2 Flow Rate FiO2 01/05/21 08:52 93 137/74 01/05/21 06:06 98.7 20 97 Room Air 01/03/21 02:09 2.0 I&O- Last 24 Hours up to 6 AM 01/05/21 05:59 Intake Total 3440 ml Output Total 2400 ml Balance 1040 ml Laboratory Data 24H LABS Laboratory Tests 2 01/04/21 17:01: Lactic Acid Followup at 4 Hours 4.9*H 01/05/21 07:42: Immature Granulocyte % (Auto) 0.7, Neutrophils (%) (Auto) 95.8H, Lymphocytes (%) (Auto) 2.1L, Monocytes (%) (Auto) 1.3L, Eosinophils (%) (Auto) 0.0, Basophils (%) (Auto) 0.1, Neutrophils # (Auto) 14.4H, Lymphocytes # (Auto) 0.3L, Monocytes # (Auto) 0.2, Eosinophils # (Auto) 0.0, Basophils # (Auto) 0.0, Nucleated Red Blood Cells % (auto) 0.0, Erythrocyte Sedimentation Rate 12, Anion Gap 5L, Glomerular Filtration Rate > 60.0, Lactic Acid Level 1.9, Calcium Level 6.7L, Total Bilirubin 0.1L, Aspartate Amino Transf (AST/SGOT) 11, Alanine Aminotransferase (ALT/SGPT) 14, Alkaline Phosphatase 206H, C-Reactive Protein, Quantitative 2.50H, OS-Pxb-Z-Type Natriuretic Peptide 7694H, Total Protein 4.6L, Albumin 1.4L, Albumin/Globulin Ratio 0.4 01/05/21 14:24: Lab Scanned Report Miscellaneous Lab CBC/BMP Laboratory Tests 01/05/21 07:42 Microbiology Microbiology 01/02/21 Gastrointestinal Tract Panel (PCR) - Final, Complete 01/02/21 Blood Culture - Preliminary, Resulted No Growth after 72 hours. All specime... 01/02/21 Urine Culture - Final, Complete Yeast Like Organism Lactobacillus Species Staphylococcus Epidermidis 01/02/21 Blood Culture - Preliminary, Resulted No Growth after 72 hours. All specime... Becca Malik MD Jan 05, 2021 16:28
[2021-01-05] MEDS: COMBIVENT RESPIMAT 100-20MCG INHALER 4GM INH SCH (19:17)
[2021-01-05] MEDS: ATORVASTATIN 20 MG TAB PO SCH (21:06)
[2021-01-05] MEDS ORDERED: CEPACOL LOZENGE PO PRN (21:25)
[2021-01-05 21:54] VITALS: BP 141/58
[2021-01-05] MEDS: PERCOCET 5MG/325MG TAB PO PRN (22:16)
[2021-01-06] MEDS: CALCIUM CARBONATE 500 MG CHEW U/D PO PRN (01:07)
[2021-01-06] MEDS: SODIUM CHLORIDE 0.9% INJ 10 ML SYR IV SCH ×3 (05:01→21:11)
[2021-01-06] MEDS: CHOLESTYRAMINE 4 GM PWD PKT PO SCH ×4 (05:34→21:07)
[2021-01-06 06:00] VITALS: BP 135/64
[2021-01-06 06:00] LABS: HEMOGLOBIN 10.3 g/dl (13.5-17.5); MEAN CORPUSCULAR HEMOGLOBIN 25.9 pg (27.0-33.0); MEAN CORPUSCULAR HGB CONC 31.2 g/dl (32.0-36.5); MEAN CORPUSCULAR VOLUME 82.9 fl (80.0-96.0); PLATELET COUNT, AUTOMATED 265 10^3/uL (150-450); RED BLOOD COUNT 3.98 10^6/uL (4.30-6.10); WHITE BLOOD COUNT 13.9 10^3/uL (4.0-10.0)
[2021-01-06 06:13] LABS: BLOOD UREA NITROGEN 19 MG/DL (7-18); CALCIUM LEVEL 6.8 MG/DL (8.8-10.2); CARBON DIOXIDE LEVEL 26 MEQ/L (21-32); CHLORIDE LEVEL 103 MEQ/L (98-107); CREATININE FOR GFR 1.16 MG/DL (0.70-1.30); GLOMERULAR FILTRATION RATE > 60.0 (>49); GLUCOSE, FASTING 108 MG/DL (70-100); POTASSIUM SERUM 3.2 MEQ/L (3.5-5.1); SODIUM LEVEL 135 MEQ/L (136-145)
[2021-01-06] MEDS ORDERED: POTASSIUM CHLORIDE 10 MEQ SR TABLET PO ONE (07:30)
[2021-01-06] MEDS: COMBIVENT RESPIMAT 100-20MCG INHALER 4GM INH SCH ×4 (07:32→19:34)
[2021-01-06] MEDS: FIBER-CON 625 MG TAB PO SCH ×2 (08:08→21:11)
[2021-01-06] MEDS: PANTOPRAZOLE 40MG TAB (PROTONIX) PO SCH (08:08)
[2021-01-06] MEDS: SUCRALFATE SUSP 1GM/10ML UD PO SCH ×4 (08:08→21:08)
[2021-01-06] MEDS: SODIUM BICARBONATE 325 MG TAB PO SCH ×2 (08:08→21:09)
[2021-01-06] MEDS: CREON-24 CAPSULE PO SCH ×3 (08:08→18:07)
[2021-01-06] MEDS: GI COCKTAIL 50ML BTL(HYOSCYAMINE/MAALOX/LIDOCAINE VISCOUS)(1:3:1) PO PRN ×2 (08:08→21:07)
[2021-01-06] MEDS: METOPROLOL TART 50 MG TAB PO SCH ×2 (08:09→21:10)
[2021-01-06] MEDS: APIXABAN 5 MG TAB (ELIQUIS) PO SCH ×2 (08:09→21:09)
[2021-01-06] MEDS: LOMOTIL 2.5MG/0.025MG TABLET PO SCH ×4 (08:09→21:09)
[2021-01-06] MEDS ORDERED: predniSONE 20 MG TAB PO SCH (09:00)
--- NOTE | 2021-01-06 11:32 | IPNPDOC ---
Subjective Date Seen The patient was seen on 01/06/21. Subjective Chief Complaint/HPI Patient reports that his diarrhea is a little better. This morning he said his stool was hard. However after breakfast he again had diarrhea. Denies any abdominal pain nausea or vomiting. Requests more fluids in his diet. Objective Physical Examination General Exam: Positive: Alert, Cooperative, No Acute Distress Eye Exam: Positive: PERRLA, EOMI; Negative: Sclera icteric Neck Exam: Positive: Supple; Negative: JVD Chest Exam: Positive: Diminished; Negative: Rales, Rhonchi, Wheezing Heart Exam: Positive: Rate Normal, Regular Rhythm, Normal S1, Normal S2 Abdomen Exam: Positive: Normal bowel sounds, Soft; Negative: Tenderness Extremity Exam: Positive: Edema (Trace edema only on the left leg); Negative: Clubbing, Cyanosis Neuro Exam: Positive: Normal Speech, Strength at 5/5 X4 ext, Normal Tone Psych Exam: Positive: Anxiety, Oriented x 3 Assessment /Plan Assessment This is a 65-year-old male with history of COPD, systolic congestive heart failure, ejection fraction of 32% with moderate to severe left ventricular hypokinesis, moderate mitral regurg, COPD, emphysema, paroxysmal atrial fibrillation, hypertension, history of CVA, hypothyroidism, history of partial pancreatectomy for pancreatitis, gastrojejunostomy, chronic pancreatic insufficiency, chronic diarrhea, non-anion gap metabolic acidosis on chronic bicarbonate use admitted on 01/02/2021 with complaints of atypical chest pain. Patient was ruled out for acute coronary syndrome. He was felt to have CHF exacerbation and COPD exacerbation which has now resolved. Now his main complaint is ongoing severe diarrhea for the past 1 month. Acute on chronic diarrhea Patient reports this is going for about 1 month GI panel x2 Patient has history of partial pancreatectomy due to pancreatitis and gastr ojejunostomy Likely diarrhea is related to the above worsened with the recent use of antibiotics We will continue with cholestyramine, fiber, Imodium, continue Creon Systolic CHF Now appears to be compensated Patient has ongoing severe diarrhea which is keeping him in a negative balance Not on any diuretics or fluid restriction at this time COPD with moderately severe pulmonary hypertension Had exacerbation on admission which has now resolved Steroid has been tapered Restarted home inhaler Hypomagnesemia and hypokalemia Repleted Anion gap and non-anion gap metabolic acidosis/lactic acidosis and diarrhea We will continue bicarb tablets Twpta-ip-mabyxfp anemia, Has history of iron deficiency anemia no acute RBC transfusion requirement. Paroxysmal atrial fibrillation Now in sinus rhythm Continue Eliquis History of CAD status post CABG in November 2019 negative troponins. Hypertension On metoprolol Hypothyroidism, Synthroid. Pancreatic insufficiency with dumping syndrome. History of severe pancreatitis 8 years ago related to alcohol abuse s/p partial resection and gastrojejunostomy. Chronic pancreatic insufficiency, GI panel is negative. patient is currently on Colestipol, Cholestyramine, and Lomotil and fiber Protein calorie malnutrition with albumin of 1.6, questions of small muscles of hands and feet, BMI of 20.5 Pancreatic Head mass since 2017 had EUS biopsy in 2019 with G[facility]ology and hepat[facility] of [facility] in 2018 was negative for malignancy Pulmonary nodules . Had Bx of right Lower lobe pulmonary nodule in dec 2019 History of DM Now resolved with weight loss HLD CKD stage 3 Osteoarthritis/Low Back Pain Cataract, Glaucoma Substance abuse: former EtOH and former smoker. 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 Carotid artery disease with bilateral axillary to carotid bypass. Chronic aortic insufficiency. History of CVA/TIA History of peptic ulcer disease with gastrointestinal (GI) bleeding/ Esophageal stenosis/pyloric stenosis H/o GIB due to Anastomotic ulcer at the gastrojejunostomy, esophagitis RLS Plan/VTE VTE Prophylaxis Ordered?: Yes VS, I&O, 24H, Fishbone Vital Signs/I&O Vital Signs Date Time Temp Pulse Resp B/P (MAP) Pulse Ox O2 Delivery O2 Flow Rate FiO2 01/06/21 08:09 82 142/68 01/06/21 06:00 98.2 20 96 Room Air 01/03/21 02:09 2.0 I&O- Last 24 Hours up to 6 AM 01/06/21 06:00 Intake Total 1640 ml Output Total 650 ml Balance 990 ml Laboratory Data 24H LABS Laboratory Tests 2 01/05/21 14:24: Lab Scanned Report Miscellaneous Lab 01/06/21 04:53: Nucleated Red Blood Cells % (auto) 0.0, Anion Gap 6L, Glomerular Filtration Rate > 60.0, Calcium Level 6.8L CBC/BMP Laboratory Tests 01/06/21 04:53 Microbiology Microbiology 01/02/21 Gastrointestinal Tract Panel (PCR) - Final, Complete 01/02/21 Blood Culture - Preliminary, Resulted No Growth after 72 hours. All specime... 01/02/21 Urine Culture - Final, Complete Yeast Like Organism Lactobacillus Species Staphylococcus Epidermidis 01/02/21 Blood Culture - Preliminary, Resulted No Growth after 72 hours. All specime... Becca Malik MD Jan 06, 2021 11:32
[2021-01-06 14:00] VITALS: BP 140/67
[2021-01-06] MEDS: PERCOCET 5MG/325MG TAB PO PRN (21:10)
[2021-01-06] MEDS: ATORVASTATIN 20 MG TAB PO SCH (21:10)
[2021-01-06 22:00] VITALS: BP 140/70
[2021-01-07 00:09] LABS: ANTINUCLEAR ANTIBODIES DIRECT Negative (Negative); CYCLIC CITRULLINATED PEPTIDE 6 units (0-19); Chitobioside Carbohydrat (ACCA 23 units (0-90); Laminaribioside Carbohyd (ALCA 96 units (0-60); Mannobioside Carbohydrat (AMCA 50 units (0-100); Saccharomyces cerevisiae IgG A 172 units (0-50)
[2021-01-07] MEDS: PERCOCET 5MG/325MG TAB PO PRN ×2 (03:52→10:27)
[2021-01-07] MEDS: GI COCKTAIL 50ML BTL(HYOSCYAMINE/MAALOX/LIDOCAINE VISCOUS)(1:3:1) PO PRN (03:52)
[2021-01-07] MEDS: CHOLESTYRAMINE 4 GM PWD PKT PO SCH (05:09)
[2021-01-07 05:10] VITALS: BP 104/50
[2021-01-07] MEDS: SODIUM CHLORIDE 0.9% INJ 10 ML SYR IV SCH (05:10)
[2021-01-07 05:27] LABS: HEMATOCRIT 31.5 % (42.0-52.0); HEMOGLOBIN 9.9 g/dl (13.5-17.5); MEAN CORPUSCULAR HEMOGLOBIN 25.8 pg (27.0-33.0); MEAN CORPUSCULAR HGB CONC 31.4 g/dl (32.0-36.5); PLATELET COUNT, AUTOMATED 204 10^3/uL (150-450); RED BLOOD COUNT 3.84 10^6/uL (4.30-6.10); WHITE BLOOD COUNT 9.5 10^3/uL (4.0-10.0)
[2021-01-07 05:48] LABS: BLOOD UREA NITROGEN 18 MG/DL (7-18); CALCIUM LEVEL 6.7 MG/DL (8.8-10.2); CARBON DIOXIDE LEVEL 28 MEQ/L (21-32); CHLORIDE LEVEL 106 MEQ/L (98-107); CREATININE FOR GFR 0.96 MG/DL (0.70-1.30); GLOMERULAR FILTRATION RATE > 60.0 (>49); GLUCOSE, FASTING 93 MG/DL (70-100); POTASSIUM SERUM 3.8 MEQ/L (3.5-5.1); SODIUM LEVEL 136 MEQ/L (136-145)
[2021-01-07] MEDS: COMBIVENT RESPIMAT 100-20MCG INHALER 4GM INH SCH ×2 (07:17→11:03)
[2021-01-07] MEDS: SUCRALFATE SUSP 1GM/10ML UD PO SCH ×2 (07:30→08:27)
[2021-01-07] MEDS: LOMOTIL 2.5MG/0.025MG TABLET PO SCH ×2 (07:30→08:28)
[2021-01-07] MEDS: CREON-24 CAPSULE PO SCH ×2 (08:00→08:29)
[2021-01-07] MEDS: PANTOPRAZOLE 40MG TAB (PROTONIX) PO SCH ×2 (08:27→09:00)
[2021-01-07] MEDS: METOPROLOL TART 50 MG TAB PO SCH ×2 (08:28→09:00)
[2021-01-07] MEDS: APIXABAN 5 MG TAB (ELIQUIS) PO SCH ×2 (08:28→09:00)
[2021-01-07] MEDS: FIBER-CON 625 MG TAB PO SCH ×2 (08:28→09:00)
[2021-01-07] MEDS: SODIUM BICARBONATE 325 MG TAB PO SCH ×2 (08:29→09:00)
[2021-01-07] MEDS: CALCIUM CARBONATE 500 MG CHEW U/D PO PRN (08:45)
[2021-01-07 09:00] VITALS: BP 143/78
[2021-01-07] MEDS ORDERED: CHOL4PW PO (09:22)
[2021-01-07] MEDS ORDERED: PANT40TA29 PO (09:22)
[2021-01-07] MEDS ORDERED: CREO24CA PO (09:23)
--- NOTE | 2021-01-07 19:33 | DS.PDOC ---
Discharge Summary General Date of Admission Jan 02, 2021 at 00:20 Date of Discharge 01/07/21 Discharge Summary PROCEDURES PERFORMED DURING STAY: [None]. DISCHARGE DIAGNOSES: Atypical chest pain likely related to esophageal spasm/acute GERD/acute esophagitis Acute on chronic diarrhea non infective likely due to pancreatic insufficiency, dumping syndrome Recent left 11th rib fracture Positive IBD serology tests needs to follow-up with own GI in [place] Secondary diagnosis COPD CAD s/p CABG in November 2019 Systolic CHF ejection fraction 25-30% with mitral regurgitation (MR) Moderately severe pulmonary hypertension Chronic aortic insufficiency. Cirrhotic liver in CT scan of the abdomen. History of severe pancreatitis 8 years ago related to alcohol abuse s/p partial resection and gastrojejunostomy. Chronic pancreatic insufficiency, Pancreatic Head mass since 2016 had EUS biopsy recently with Gastroenterology and hepatology of [facility] in 2018 Reflux esophagitis Gastric antrum stenosis H/o GIB due to Anastomotic ulcer at the gastrojejunostomy. Pulmonary nodules . Had Bx of right Lower lobe pulmonary nodule in dec 2019 DM Anemia HTN HLD Hypothyroidism CKD stage 3 Osteoarthritis Low Back Pain Cataract Glaucoma TIA Carotid artery disease with bilateral axillary to carotid bypass. History of CVA. iron deficiency anemia RLS Substance abuse: former EtOH and former smoker. 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 Noncompliance with medications Old bilateral rib fractures Transient atrial flutter during prior admission. COMPLICATIONS/CHIEF COMPLAINT: Atypical Chest Pain. HOSPITAL COURSE: This is a 65-year-old male with history of COPD, systolic congestive heart failure, ejection fraction of 32% with moderate to severe left ventricular hypokinesis, moderate mitral regurg, COPD, emphysema, paroxysmal atrial fibrillation, hypertension, history of CVA, hypothyroidism, history of partial pancreatectomy for pancreatitis, gastrojejunostomy, chronic pancreatic insufficiency, chronic diarrhea, non-anion gap metabolic acidosis on chronic bicarbonate use admitted on 01/02/2021 with complaints of atypical chest pain. Patient was ruled out for acute coronary syndrome. He was felt to have CHF exacerbation and COPD exacerbation which has now resolved. Now his main co mplaint is ongoing severe diarrhea for the past 1 month. Acute on chronic diarrhea Patient reports this is going for about 1 month GI panel x2 negative Patient has history of partial pancreatectomy due to pancreatitis and gastrojejunostomy, dumping syndrome Likely diarrhea is related to the above worsened with the recent use of antibiotics We will continue with cholestyramine, fiber, Imodium, continue Creon Systolic CHF Now appears to be compensated Patient has ongoing severe diarrhea which is keeping him in a negative balance Not on any diuretics or fluid restriction at this time COPD with moderately severe pulmonary hypertension Had exacerbation on admission which has now resolved Steroid has been tapered Restarted home inhaler Hypomagnesemia and hypokalemia Repleted Anion gap and non-anion gap metabolic acidosis/lactic acidosis and diarrhea We will continue bicarb tablets Eljdv-ga-maywgto anemia, Has history of iron deficiency anemia no acute RBC transfusion requirement. Paroxysmal atrial fibrillation Now in sinus rhythm Continue Eliquis History of CAD status post CABG in November 2019 negative troponins. Hypertension On metoprolol Hypothyroidism, Synthroid. Pancreatic insufficiency with dumping syndrome. History of severe pancreatitis 8 years ago related to alcohol abuse s/p partial resection and gastrojejunostomy. Chronic pancreatic insufficiency, GI panel is negative. patient is currently on Colestipol, Cholestyramine, and Lomotil and fiber Protein calorie malnutrition with albumin of 1.6, questions of small muscles of hands and feet, BMI of 20.5 Pancreatic Head mass since 2017 had EUS biopsy in 2019 with Gastroenterology and hepatology of [facility] in 2018 was negative for malignancy Pulmonary nodules . Had Bx of right Lower lobe pulmonary nodule in dec 2019 History of DM Now resolved with weight loss HLD CKD stage 3 Osteoarthritis/Low Back Pain Cataract, Glaucoma Substance abuse: former EtOH and former smoker. 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 Carotid artery disease with bilateral axillary to carotid bypass. Chronic aortic insufficiency. History of CVA/TIA History of peptic ulcer disease with gastrointestinal (GI) bleeding/ Esophageal stenosis/pyloric stenosis H/o GIB due to Anastomotic ulcer at the gastrojejunostomy, esophagitis DISCHARGE MEDICATIONS: Please see below. ALLERGIES: Please see below. PHYSICAL EXAMINATION ON DISCHARGE: VITAL SIGNS: Please see below. General Exam: Positive: Alert, Cooperative, No Acute Distress Eye Exam: Positive: PERRLA, EOMI; Negative: Sclera icteric Neck Exam: Positive: Supple; Negative: JVD Chest Exam: Positive: Diminished; Negative: Rales, Rhonchi, Wheezing Heart Exam: Positive: Rate Normal, Regular Rhythm, Normal S1, Normal S2 Abdomen Exam: Positive: Normal bowel sounds, Soft; Negative: Tenderness Extremity Exam: Positive: Edema (Trace edema only on the left leg); Negative: Clubbing, Cyanosis Neuro Exam: Positive: Normal Speech, Strength at 5/5 X4 ext, Normal Tone Psych Exam: Positive: Anxiety, Oriented x 3 LABORATORY DATA: Please see below. ACTIVITY: [As tolerated]. DIET: As tolerated DISCHARGE PLAN: Home DISPOSITION: 01 Home, Self-Care. DISCHARGE INSTRUCTIONS: Follow-up with PMD in 1 week Suggested referral to GI for chronic diarrhea DISCHARGE CONDITION: [Stable]. TIME SPENT ON DISCHARGE: 35 minutes. Vital Signs/I&Os Vital Signs Date Time Temp Pulse Resp B/P (MAP) Pulse Ox O2 Delivery O2 Flow Rate FiO2 01/07/21 10:57 16 Room Air 01/07/21 09:00 82 143/78 01/07/21 05:10 97.9 95 01/03/21 02:09 2.0 I&O- Last 24 Hours up to 6 AM 01/07/21 06:00 Intake Total 2580 ml Balance 2580 ml Laboratory Data Labs 24H Laboratory Tests 2 01/07/21 05:09: Nucleated Red Blood Cells % (auto) 0.0, Anion Gap 2L, Glomerular Filtration Rate > 60.0, Calcium Level 6.7L CBC/BMP Laboratory Tests 01/07/21 05:09 Microbiology Microbiology 01/02/21 Gastrointestinal Tract Panel (PCR) - Final, Complete 01/02/21 Blood Culture - Final, Complete NO GROWTH AFTER 5 DAYS 01/02/21 Urine Culture - Final, Complete Yeast Like Organism Lactobacillus Species Staphylococcus Epidermidis 01/02/21 Blood Culture - Final, Complete NO GROWTH AFTER 5 DAYS Discharge Medications Scheduled Apixaban (Eliquis) 5 Mg Tablet, 5 MG PO BID, (Reported) used external history Aspirin (Aspirin EC) 81 Mg Tablet.dr, 81 MG PO DAILY, (Reported) Cholestyramine (Cholestyramine Packet) 4 Gm Powd.pack, 4 GM PO BID used external history and previous discharge Ferrous Sulfate (Ferrous Sulfate) 325 Mg Tablet, 325 MG PO DAILY, (Reported) Ipratropium [place] (Atrovent Hfa) 12.9 Gm Hfa.aer.ad, 2 PUFF INH QID, (Rep orted) used external history and previous discharge L.acidoph/L.bulg/B.bif/S.therm (Bacid Caplet) 1 Each Tablet, 1 TAB PO WM, (Reported) Magnesium Oxide (Magnesium Oxide) 400 Mg Tablet, 800 MG PO BID, (Reported) Metoprolol Tartrate (Metoprolol Tartrate) 50 Mg Tablet, 50 MG PO BID, (Reported) used external history Pancreatic Enzymes (Creon Dr 24,000 Units Capsule) 1 Each Capsule.dr, 2 CAP PO WM used external history and previous discharge information Pantoprazole Sodium (Pantoprazole Sodium) 40 Mg Tablet.dr, 40 MG PO DAILY used external history and previous discharge Sodium Bicarbonate (Sodium Bicarbonate) 325 Mg Tablet, 650 MG PO BID, (Reported) Sucralfate (Sucralfate) 1 Gm Tablet, 1 GM PO QID, (Reported) used external history and previous discharge Scheduled PRN Albuterol Sulf (Albuterol Sulfate) 2.5 Mg/3 Ml Vial.neb, 2.5 MG INH Q6H PRN for SHORTNESS OF BREATH, (Reported) Albuterol Sulfate (Proair Hfa) 8.5 Gm Hfa.aer.ad, 2 PUFF INH Q4HP PRN for SHORTNESS OF BREATH, (Reported) used external history and previous discharge Diphenoxylate HCl/Atropine (Diphenoxylate-Atrop 2.5-0.025) 1 Each Tablet, 1 TAB PO QID PRN for DIARRHEA, (Reported) Allergies Coded Allergies: amoxicillin (Verified Allergy, Mild, rash, 12/23/20) clavulanic acid (Verified Allergy, Mild, rash, 12/23/20) pregabalin (Verified Adverse Reaction, Intermediate, seizures, 12/23/20) warfarin (Verified Adverse Reaction, Intermediate, bleeding, 12/23/20) Becca Malik MD Jan 07, 2021 17:57
== END 2021-01-07 12:20 | disposition home health service (06) | DRG 391 ==
LOC: M ED 00:19 → M ED INP 00:20 → ENRESERV 06:35 → M MS5PR 09:35
PROVIDERS: ADMIT Internal Medicine; ATTEND Internal Medicine Nephrology
PROC: 02HV33Z Insertion of Infusion Device into Superior Vena Cava, Percutaneous Approach (ICD-10-PCS; principal; 2021-01-03)
DX: K91.1 Postgastric surgery syndromes (principal); I50.33 Acute on chronic diastolic (congestive) heart failure; I48.92 Unspecified atrial flutter; E87.2 Acidosis; J44.1 Chronic obstructive pulmonary disease with (acute) exacerbation; E46 Unspecified protein-calorie malnutrition; I25.10 Atherosclerotic heart disease of native coronary artery without angina pectoris; E03.9 Hypothyroidism, unspecified; M54.5 Low back pain; K21.00 Gastro-esophageal reflux disease with esophagitis, without bleeding; N18.30 Chronic kidney disease, stage 3 unspecified; D64.9 Anemia, unspecified; I27.20 Pulmonary hypertension, unspecified; I35.1 Nonrheumatic aortic (valve) insufficiency; K86.89 Other specified diseases of pancreas; I48.0 Paroxysmal atrial fibrillation; J44.9 Chronic obstructive pulmonary disease, unspecified; K52.9 Noninfective gastroenteritis and colitis, unspecified; E83.42 Hypomagnesemia; R62.7 Adult failure to thrive; D50.9 Iron deficiency anemia, unspecified; H40.9 Unspecified glaucoma; F12.10 Cannabis abuse, uncomplicated; F15.10 Other stimulant abuse, uncomplicated; E11.22 Type 2 diabetes mellitus with diabetic chronic kidney disease; Z86.73 Personal history of transient ischemic attack (TIA), and cerebral infarction without residual deficits; Z68.21 Body mass index [BMI] 21.0-21.9, adult; Z87.891 Personal history of nicotine dependence; Z88.8 Allergy status to other drugs, medicaments and biological substances; Z88.0 Allergy status to penicillin; Z79.01 Long term (current) use of anticoagulants; Z20.822 Contact with and (suspected) exposure to COVID-19; Z79.82 Long term (current) use of aspirin; Z79.899 Other long term (current) drug therapy

== ENCOUNTER 2021-02-02 23:24 | Inpatient (IN) | payer MEDICARE, OTHER ==
[~2021-02-02] VITALS: Ht 177.8 cm; Wt 60.0 kg
[~2021-02-02 23:24] MED LIST changes: +COMMENTS; +PROAAER10 INH
[2021-02-03] VITALS (67 sets, daily range): BP systolic 65–175; BP diastolic 32–93
[2021-02-03] MEDS ORDERED: REFRIGERATOR IV KEYS XX PRN (00:10)
[2021-02-03] MEDS: fentaNYL CITRATE 1,000 MCG in NS 80 ML IV SCH ×2 (00:10→06:24)
[2021-02-03] MEDS ORDERED: MIDAZOLAM HCL 100 MG in D5W 80 ML IV SCH (00:10)
[2021-02-03] MEDS ORDERED: VASOPRESSIN INJ 20 UNITS in NS 500 ML IV SCH (00:35)
[2021-02-03] MEDS: NOREPINEPHRINE BITARTRATE 8 MG in D5W 492 ML IV SCH ×2 (02:56→12:38)
[2021-02-03 03:12] LABS: BASO # 0.1 10^3/uL (0.0-0.2); BASO % 0.2 % (0.0-1.0); HEMATOCRIT 29.2 % (42.0-52.0); HEMOGLOBIN 8.6 g/dl (13.5-17.5); LYMPH # 0.7 10^3/uL (1.5-5.0); MEAN CORPUSCULAR HEMOGLOBIN 25.1 pg (27.0-33.0); MEAN CORPUSCULAR HGB CONC 29.5 g/dl (32.0-36.5); MEAN CORPUSCULAR VOLUME 85.4 fl (80.0-96.0); MONO # 0.9 10^3/uL (0.0-0.8); MONO % 2.7 % (2.0-8.0); NEUTROPHILS # 30.1 10^3/uL (1.5-8.5); NEUTROPHILS % 94.3 % (36.0-66.0); PLATELET COUNT, AUTOMATED 668 10^3/uL (150-450); RED BLOOD COUNT 3.42 10^6/uL (4.30-6.10)
[2021-02-03 03:13] LABS: ABG O2 SATURATION 96.8 % (95.0-99.0); ABG PARTIAL PRESSURE O2 111.3 mmHg (75.0-100.0); ABG STANDARD HCO3 12.8 MEQ/L (22.0-26.0); ABG TOTAL CO2 14.2 MEQ/L (23.0-31.0)
[2021-02-03 03:17] LABS: ABG pH (ARTERIAL) 7.142 UNITS (7.350-7.450)
[2021-02-03 03:20] LABS: WHITE BLOOD COUNT 31.9 10^3/uL (4.0-10.0)
--- NOTE | 2021-02-03 03:27 | HPEPDOC ---
[facility] Medical History & Physical Date of Admission Feb 03, 2021 Date of Service: Feb 03, 2021 Primary Care Physician: BENI HERNANDEZ MD History and Physical REASON FOR CRITICAL CARE CONSULTATION/CHEIF COMPLAINT: Respiratory failure HISTORY OF PRESENT ILLNESS: History obtained from the chart This is a 65-year-old male who was transferred from [facility] for respiratory failure. He was brought in by ambulance with a chief complaint of shortness of breath. On arrival to the ER he was in respiratory distress and hypoxic respiratory failure. He was intubated in the ER. He was noted to have coffee-ground emesis in the mouth during intubation which were suctioned. Patient was hemodynamically unstable, central line was placed in the ER and vasopressors were started. He was given 4 L of normal saline in the ED. He was also given 1 dose of Zosyn and 1 dose of Solu-Medrol in the ED. Once he was st abilized he was sent to [facility]. Patient is seen and examined at bedside. He is intubated, he is not responsive and he is not on any sedatives. He is on 60% FiO2. ALLERGIES: Please see below. Augmentin with possible itching, Lyrica, morphine itching, warfarin bleeding HOME MEDICATIONS: Please see below. Albuterol, amlodipine 10 mg daily, Atrovent, Combivent, hydrochlorothiazide 12.5 mg daily, Lasix 40 mg daily, levothyroxine 88 mcg daily, losartan, pantoprazole 40 mg daily, paroxetine 10 mg daily, ropinirole 0.25 mg at bedtime, Spiriva, tramadol as needed PAST MEDICAL HISTORY: Poor medical compliance, CAD, CABG 2 months ago, COPD, depression, hypertension, hypothyroidism, pancreatic cancer, GI bleed, chronic anemia, CHF PAST SURGICAL HISTORY: Cardiac bypass, carotid surgery, pancreatic tumors removed, tonsillectomy, abdominal surgery FAMILY HISTORY: Unable to obtain SOCIAL HISTORY: Active smoker about half pack per day, no alcohol use, marijuana use. REVIEW OF SYSTEMS: Unable to obtain as the patient is intubated and not responsive PHYSICAL EXAMINATION: VITAL SIGNS: Please see below. Hypothermic GENERAL APPEARANCE: Cachectic, malnourished, intubated HEENT: Pupils 3 mm bilaterally and nonreactive, no thyromegaly, trachea midline, normal mucous membranes RESPIRATORY: breathing over the vent, Reduced breath sounds on the right ,CTA B/L, good air entry. CARDIOVASCULAR: +s1 s2, no murmurs, irregular rhythm. ABDOMEN: nontender, not distended, +BS EXTREMITIES: no edema or erythema. palpable distal pulses SKIN: no rash, no purpura NEUROLOGICAL: no sensory or motor deficits, orientedx3. LABS/IMAGING: Labs from [facility] ABG 7.09 CO2 49 O2 471 WBC 27 hemoglobin 9.4 platelets 214 Sodium 143 potassium 3.1 chloride 96 bicarb 10 glucose 169 BUN 30 creatinine 4.5 albumin 2 calcium 6.9 total bili less than 0.7 alk phos 485 AST 84 ALT 32 Lactic acid 15.4 INR 1.72 PT TT 43.4 Troponin 0 0.09 Portable chest x-ray post intubation at [facility] shows endotracheal tube tip above the elle, NG tube tip below the diaphragm projected over the stomach, no acute infiltrate IMPRESSION: The most critical problems requiring my immediate presence at bedside are: 1. Acute hypoxic respiratory failure 2. Possible Aspiration pneumonitis 3. Upper GI bleed 4. HAGMA secondary to renal failure and lactic acidosis 5. Acute kidney injury oliguric 6. Septic shock 7. History of A. fib not on anticoagulation due to bleeding 8. History of poor medical compliance 9. History of COPD and active smoker PLAN: [employer]: RASS -1, Versed and fentanyl, daily SAT PULM: HOB 30 degrees. Maintain Sp02 94-98%. ABG in the ICU 7.14/39/111. Vent changes: Reduce fio2 to 50%, RR 24. Bronchodilators [id number] and as needed CARDIO: Maintain MAPs 60-65. Continue with vasopressor support with Levophed, add vasopressin if tachyarrhythmia or nearing max dose levo. Start Bicarb drip 50cc/h GI: Pantoprazole drip. Surgery eval for EGD when stable. NG tube to low intermittent suction. Keep n.p.o. RENAL: monitor lytes. Keep Velez for now ID: Broad-spectrum antibiotics with Zosyn, Vanco 1000mg x 1, blood cultures, tracheal aspirate cultures ENDO: Monitor FS per routine. Goal range 140-180. HEME: DVT ppx with teds and SCDs, cbc q8h LINES/CATHETERS: Right IJ central line, Velez catheter in place. CODE STATUS: DNR. DISPOSITION: ICU. A total of 55 minutes of critical care time was spent on patient care, not including procedures Vital Signs Vital Signs Date Time Temp Pulse Resp B/P (MAP) Pulse Ox O2 Delivery O2 Flow Rate FiO2 02/03/21 02:56 96.6 94 23 138/54 100 Ventilator Home Medications Scheduled Apixaban (Eliquis) 5 Mg Tablet, 5 MG PO BID used external history Aspirin (Aspirin EC) 81 Mg Tablet.dr, 81 MG PO DAILY Cholestyramine (Cholestyramine Packet) 4 Gm Powd.pack, 4 GM PO BID used external history and previous discharge Ferrous Sulfate (Ferrous Sulfate) 325 Mg Tablet, 325 MG PO DAILY Ipratropium [place] (Atrovent Hfa) 12.9 Gm Hfa.aer.ad, 2 PUFF INH QID used external history and previous discharge L.acidoph/L.bulg/B.bif/S.therm (Bacid Caplet) 1 Each Tablet, 1 TAB PO WM Magnesium Oxide (Magnesium Oxide) 400 Mg Tablet, 800 MG PO BID Metoprolol Tartrate (Metoprolol Tartrate) 50 Mg Tablet, 50 MG PO BID used external history Pancreatic Enzymes (Creon Dr 24,000 Units Capsule) 1 Each Capsule.dr, 2 CAP PO WM used external history and previous discharge information Pantoprazole Sodium (Pantoprazole Sodium) 40 Mg Tablet.dr, 40 MG PO DAILY used external history and previous discharge Sodium Bicarbonate (Sodium Bicarbonate) 325 Mg Tablet, 650 MG PO BID Sucralfate (Sucralfate) 1 Gm Tablet, 1 GM PO QID used external history and previous discharge Scheduled PRN Albuterol Sulf (Albuterol Sulfate) 2.5 Mg/3 Ml Vial.neb, 2.5 MG INH Q6H PRN for SHORTNESS OF BREATH Albuterol Sulfate (Proair Hfa) 8.5 Gm Hfa.aer.ad, 2 PUFF INH Q4HP PRN for SHORTNESS OF BREATH used external history and previous discharge Diphenoxylate HCl/Atropine (Diphenoxylate-Atrop 2.5-0.025) 1 Each Tablet, 1 TAB PO QID PRN for DIARRHEA Allergies Coded Allergies: amoxicillin (Verified Allergy, Mild, rash, 12/23/20) clavulanic acid (Verified Allergy, Mild, rash, 12/23/20) pregabalin (Verified Adverse Reaction, Intermediate, seizures, 12/23/20) warfarin (Verified Adverse Reaction, Intermediate, bleeding, 12/23/20) A-FIB/CHADSVASC A-FIB History Current/History of A-Fib/PAF?: Yes Current PO Anticoag Therapy: No BENI HERNANDEZ MD Feb 03, 2021 03:27
[2021-02-03] MEDS ORDERED: SODIUM BICARBONATE 150 MEQ in D5W 1,000 ML IV SCH (04:00)
[2021-02-03 04:04] LABS: CALCIUM LEVEL 6.1 MG/DL (8.8-10.2); CREATININE FOR GFR 4.16 MG/DL (0.70-1.30); GLOMERULAR FILTRATION RATE 15.4 (>49); MAGNESIUM LEVEL 1.6 MG/DL (1.8-2.4); PHOSPHORUS LEVEL 9.3 MG/DL (2.5-4.9); POTASSIUM SERUM 3.3 MEQ/L (3.5-5.1); TROPONIN I 0.04 NG/ML (< 0.10)
[2021-02-03] MEDS ORDERED: VANCOMYCIN HCL 500 MG in D5W MINI-BAG PLUS 100 ML IV ONE (04:20)
[2021-02-03] MEDS ORDERED: VANCOMYCIN INTERMITTENT/PULSE DOSING BY CLINICAL PHARMACIST PER DOSING PROTOCOL XX SCH (04:40)
--- NOTE | 2021-02-03 05:26 | REPVR ---
PROCEDURE INFORMATION: Exam: XR Chest Exam date and time: 02/03/2021 3:15 AM Age: 65 years old Clinical indication: Device placement; Ett placement (vent status); Additional info: Intubated TECHNIQUE: Imaging protocol: XR of the chest. Views: 1 view. COMPARISON: CR PORTABLE CHEST X-RAY 01/05/2021 7:59 AM FINDINGS: Tubes, catheters and devices: Feeding tube seen with its tip in the stomach. ET tube is seen however exact position is difficult to discern due to obscure a farrell by mediastinal surgical clips and unclear visualization of the tracheal bifurcation. Right neck central venous catheter seen with its tip in the mid SVC. Overlying EKG leads are seen. Left neck surgical clip seen. Lungs: There is left apical lung infiltrates. Pleural spaces: There is questionable trace bilateral pleural effusions. Heart/Mediastinum: Mediastinal surgical clips are seen. The patient is status post sternotomy with grossly intact sternal wires. Bones/joints: There is bilateral shoulder joint DJD. IMPRESSION: 1. Tubes and lines as above. 2. Left apical lung infiltrate and questionable trace pleural effusions versus basilar atelectatic changes. Electronically signed by: Sher Ball On 02/03/2021 05:25:44 AM
[2021-02-03] MEDS ORDERED: VANCOMYCIN HCL 1,000 MG, VIAL MATE ADAPTER 1 EACH in NS 250 ML IV ONE (05:30)
[2021-02-03] MEDS: IPRATROPIUM 0.5MG/ALBUTEROL 2.5MG INH SOL UD 3ML (DUONEB) NEB SCH ×3 (07:00→19:34)
[2021-02-03] MEDS: PIPERACILLIN/TAZOBACTAM SOD 2.25 GM in D5W MINI-BAG PLUS 50 ML IV SCH ×2 (08:01→16:00)
[2021-02-03] MEDS: CHLORHEXIDINE GLUCONATE 0.12 % 15ML UDC (PERIDEX ORAL RINSE) MT SCH ×2 (08:01→21:00)
[2021-02-03] MEDS: PANTOPRAZOLE SODIUM 40 MG in D5W 50 ML IV SCH ×3 (08:01→17:30)
[2021-02-03] MEDS ORDERED: MAG SULF 1GM/100ML (MAG RUN) 1 GM in IV 1 EA IV ONE (09:00)
[2021-02-03] MEDS ORDERED: KCL 20MEQ IN 100ML SWI (KRUN) 20 MEQ in IV 1 EA IV ONE ×2 (09:00)
[2021-02-03] MEDS ORDERED: PANTOPRAZOLE 40MG VIAL (C9113 PER 1) IV SCH (09:00)
[2021-02-03 09:02] LABS: ABG BASE EXCESS -17.1 (-2.0-2.0); ABG HCO3 11.9 MEQ/L (22.0-26.0); ABG PARTIAL PRESSURE CO2 41.1 mmHg (35.0-45.0); ABG PARTIAL PRESSURE O2 92.9 mmHg (75.0-100.0); ABG STANDARD HCO3 11.3 MEQ/L (22.0-26.0); ABG TOTAL CO2 13.2 MEQ/L (23.0-31.0)
[2021-02-03] MEDS ORDERED: SODIUM BICARBONATE 8.4% INJ 50 ML SYRINGE IV STA (09:21)
--- NOTE | 2021-02-03 10:02 | REP ---
INDICATION: ETT placement COMPARISON: 02/03/2021 at 3:08 a.m. TECHNIQUE: Portable AP view of the chest FINDINGS: Endotracheal tube approximately 3 cm above the elle. Nasogastric tube courses below left hemidiaphragm. Right IJ line with tip in the SVC. Lung gavin demonstrate diffuse chronic appearing interstitial changes. Subtle superimposed viral/interstitial pneumonia pattern cannot be excluded. Left upper lobe opacity on prior examination appears improved. No definite effusion. No pneumothorax. Mediastinum and cardiac silhouette stable. Skeletal structures stable. IMPRESSION: 1. Lines and tubes in satisfactory position. 2. Relatively stable pleuroparenchymal changes. Left upper lobe opacity on prior examination may be minimally improved. <Electronically signed by Rocael James > 02/03/21 [id number]
[2021-02-03 10:50] LABS: HEMATOCRIT 32.4 % (42.0-52.0); HEMOGLOBIN 9.4 g/dl (13.5-17.5); MEAN CORPUSCULAR HEMOGLOBIN 25.6 pg (27.0-33.0); MEAN CORPUSCULAR VOLUME 88.3 fl (80.0-96.0); RED BLOOD COUNT 3.67 10^6/uL (4.30-6.10)
[2021-02-03 10:54] LABS: PLATELET COUNT, AUTOMATED 552 10^3/uL (150-450)
[2021-02-03 11:06] LABS: ALBUMIN 1.2 GM/DL (3.2-5.2); BILIRUBIN,TOTAL 0.7 MG/DL (0.2-1.0); CALCIUM LEVEL 6.3 MG/DL (8.8-10.2); CREATININE FOR GFR 4.4 MG/DL (0.70-1.30); GLOMERULAR FILTRATION RATE 14.4 (>49); POTASSIUM SERUM 3.7 MEQ/L (3.5-5.1); TOTAL PROTEIN 4.3 GM/DL (6.4-8.2)
[2021-02-03] MEDS ORDERED: CREO24CA PO (11:57)
[2021-02-03] MEDS ORDERED: CHOL4POW4 PO (11:57)
[2021-02-03] MEDS ORDERED: MED REC COMMENT (11:57)
[2021-02-03] MEDS ORDERED: ROPI0.5T3 PO (11:57)
[2021-02-03] MEDS ORDERED: PANT40TA29 PO (11:57)
[2021-02-03] MEDS ORDERED: ATOR40TA75 PO (11:57)
[2021-02-03] MEDS ORDERED: COMBAER6 INH (11:57)
[2021-02-03] MEDS ORDERED: HOME MED LIST COMPLETE! XX SCH (12:00)
--- NOTE | 2021-02-03 12:58 | CR ---
CONSULTATION DATE: 02/03/2021 CONSULTATION FOR: Alban Robb M.D. REASON FOR CONSULTATION: Oliguric renal failure and respiratory failure. HISTORY OF PRESENT ILLNESS: Mr. Ambriz is a 65-year-old male who is admitted to intensive care unit at [facility], a transfer from [facility]. He has known history of coronary artery disease, prior coronary artery bypass graft (CABG), history of pancreatic cancer, hypertension, and gastrointestinal (GI) bleed. He presented to emergency room at [facility] with difficulty breathing and was found to be in respiratory failure. Apparently patient has signed papers for DO NOT RESUSCITATE and DO NOT INTUBATE. Patient was intubated in the emergency room (ER) in [facility]. He was noted to have coffee-ground emesis during intubation. He was hemodynamically unstable, and a central line was placed and vasopressor started. He was then transferred to [facility] for further care. Patient is not making any urine, and a nephrology consultation is requested for urgent dialysis. MEDICAL HISTORY: Significant for: 1. Pancreatic cancer, for which patient has declined any treatment. 2. Coronary artery disease, status post CABG. 3. Chronic obstructive pulmonary disease (COPD). 4. Depression. 5. Hypertension. 6. Hypothyroidism. 7. History of GI bleed. 8. History of congestive heart failure. 9. Anemia. SURGICAL HISTORY: Significant for: 1. CABG. 2. Carotid surgery. 3. Pancreatic tumors removed. 4. Tonsillectomy. 5. Abdominal surgery. FAMILY HISTORY: Not remarkable and unobtainable at present. PERSONAL AND SOCIAL HISTORY: According to his records, patient has a history of smoking. No alcohol or intravenous drug use. CURRENT MEDICATIONS: - Zosyn 2.25 grams every 8 hours - pantoprazole drip - sodium bicarbonate drip 50 mL per hour - vasopressin - Levophed drip - midazolam for sedation ALLERGIES: Has allergy to AMOXICILLIN, PREGABALIN, WARFARIN, and CLAVULANIC ACID. REVIEW OF SYSTEMS: Not possible, as patient is unresponsive and intubated. PHYSICAL EXAMINATION: This is a very cachectic and malnourished gentleman who is intubated and sedated. He is not able to answer any questions or respond to any stimuli. Temperature 98.6 degrees Fahrenheit, heart rate 96 per minute, respiratory rate 24 per minute on the ventilator. Blood pressure is 98/52 mmHg, and he is on the ventilator with 50% FiO2. He is chronically ill looking and cachectic with significant wasting of muscle and fat. Endotracheal and nasogastric tubes are in place. He also has a central line in right internal jugular vein. Heart sounds are somewhat tachycardic. Lungs have moderate bilateral air entry. Abdomen is nondistended, and bowel sounds are hypoactive. Extremities have cyanosis on his toes and no edema or clubbing. Neurologically he is totally unresponsive. LABORATORY DATA: WBC count is 40.0, hemoglobin 9.4, hematocrit 32.4, platelets 552. Blood gas showed a pH of 7.0, pCO2 of 41, pO2 of 93, and bicarbonate 11. Sodium is 145, potassium 3.7, chloride 109, CO2 of 12, BUN 32, and creatinine 4.4. Glucose 152 and calcium 6.3. Lactic acid level is 11.6. AST 524, ALT 135, and alkaline phosphatase 430. Albumin level is only 1.2. PROBLEMS: 1. Anuric acute renal failure. This is most likely related to septic shock. Patient has been given intravenous (IV) fluid; however, he is still not making any urine. Considering his multiple comorbid conditions, including pancreatic cancer and other comorbid conditions, I am not certain if dialysis will be appropriate for him. At this point, I will recommend to continue with IV sodium bicarbonate drip and consider to readdress the issue of DO NOT RESUSCITATE with his niece. Apparently, the patient had a DO NOT RESUSCITATE and DO NOT INTUBATE status. 2. Septic shock. Patient has a lactic acid level of 11.6. He is currently on pressors after giving IV fluids. I will recommend to give further IV fluids if needed. He remains on Zosyn. 3. Metabolic acidosis. Most likely his acidosis is related to septic shock and acute renal failure. An intra-abdominal source of sepsis is possible. 4. Respiratory failure. Patient is totally unresponsive at present. Apparently he had a DO NOT INTUBATE and DO NOT RESUSCITATE status according to his wishes. I am not sure under what circumstances he was intubated, but this can probably be readdressed with his niece if she is available. Thank you for asking me to participate in the care of Gr. Ambriz. At this point, I would not recommend dialysis, and I will recommend to consider comfort care for him.
[2021-02-03] MEDS ORDERED: ISOVUE-370 76% 100ML VIAL As Ordered ONE (14:21)
[2021-02-03 14:25] LABS: CALCIUM LEVEL 6.5 MG/DL (8.8-10.2); CREATININE FOR GFR 4.58 MG/DL (0.70-1.30); GLOMERULAR FILTRATION RATE 13.7 (>49); POTASSIUM SERUM 3.7 MEQ/L (3.5-5.1)
--- NOTE | 2021-02-03 15:20 | REP ---
INDICATION: assess for mesenteric artery occlusion. COMPARISON: Comparison is made with a noncontrast CT study from December 24, 2020. TECHNIQUE: Helical scanning is acquired following the intravenous injection of 100 mL of Isovue 370. 3 mm axial images re-formatted. Coronal and sagittal MPR images are generated and maximum intensity projection images are included this abdominal and pelvic CT angio study. IV contrast was administered after extensive discussion with the referring boiler riveter in consultation with nephrology and in difference the fact that the patient is progressively acidotic and probably already incomplete renal failure. FINDINGS: There is good opacification of the thoraco abdominal aorta and the aortic branches. There is a high-grade focal stenosis, 85-90% 1 cm from the origin of the SMA. There is calcific plaquing at the origin. There is diffuse 40-50% narrowing of the celiac axis over a 1 cm area. The inferior mesenteric artery shows patency but also has a high-grade stenosis originating from a anterior wall aortic plaque. There is atherosclerotic rib irregularity and plaquing of the distal SMA as well. The renal arteries are small caliber bilaterally. There is an irregular focal stenosis of the left main renal artery, 85-90%. The infrarenal abdominal aorta is relatively small and circumferentially calcified. There is mixed predominantly calcific plaquing in the common iliac arteries bilaterally with moderate common iliac artery stenoses. Similarly, extensive plaquing is seen in the external iliac arteries bilaterally. The internal iliac arteries appear to be patent although atherosclerotic irregular plaquing is observed. There is no evidence of pneumoperitoneum. However, there is intramural gas in the splenic flexure and proximal descending colon which is a new finding. And compatible with ischemic colitis. There is a Velez catheter in the urinary bladder. The gallbladder is mildly distended. IMPRESSION: Stenoses are observed in the proximal celiac, proximal SMA, and proximal JOCELINE although these vessels are patent. Extensive diffuse atherosclerotic changes are noted. Aortoiliac atherosclerosis is seen. Left renal artery stenosis. There is pneumatosis intestinalis in the wall of the left colon at the splenic flexure and proximal descending segments which is a new finding suggestive of bowel wall ischemia. Critical Findings: Bowel wall pneumatosis left colon findings consistent with ischemic colitis. The critical information above was relayed directly by me by telephone to BENI HERNANDEZ on 02/03/2021 at 3:16 pm with readback verification. <Electronically signed by Jose Victor > 02/03/21 [id number]
--- NOTE | 2021-02-03 15:32 | ECHO ---
ECHOCARDIOGRAM DATE OF PROCEDURE: 02/03/2021 Age: Gender: Male Height: 177 cm Weight: 60 kg REFERRING PHYSICIAN: Charli Christianson M.D. INDICATION: Heart failure, unspecified. MEASUREMENTS: 2D Measurements: Left ventricle diastole 3.0 cm Left ventricle systole 3.5 cm Intraventricular septum 1.05 cm Posterior wall 1.07 cm Aortic root 3.5 cm Left atrium 3.9 cm Left atrial volume index 29 Doppler Measurements: No aortic regurgitation No aortic stenosis Aortic valve velocity 123 cm/sec LVOT velocity 71.9 cm/sec Mild mitral regurgitation No mitral stenosis Mitral E velocity 58.3 cm/sec Mitral A velocity 64.8 cm/sec Mitral deceleration time 345 msec Trace tricuspid regurgitation No pulmonic regurgitation Pulmonary artery acceleration time 82 mmHg consistent with moderate elevation of pulmonary artery pressure in the low 40s. MITRAL ANNULAR TISSUE DOPPLER: E prime septal 3.5 cm/sec E prime lateral 5.2 cm/sec DESCRIPTION: Rhythm was sinus with fairly frequent premature ventricular contractions (PVCs). This was a moderately technically difficult echocardiogram performed with the patient supine on a ventilator. CONCLUSIONS: 1. Left ventricle normal in size end-diastole. Normal left ventricular (LV) wall thickness. Moderately severe global LV hypokinesis and paradoxical septal motion. Severe reduction of LV systolic function. Left ventricular ejection fraction (LVEF) 25% by visual assessment. Paradoxical septal motion. Grade 1 LV diastolic dysfunction (impaired relaxation filling pattern). 2. Normal right ventricle size and systolic function. 3. Moderate mitral annular calcification. Mild mitral regurgitation. No mitral stenosis. 4. Mild left atrial dilatation by left atrial volume index. 5. Suggestive of moderate elevation of the pulmonary artery systolic pressure (estimated to be in the low 40s). 6. Small pericardial effusion without diastolic chamber collapse.
[2021-02-03] MEDS ORDERED: LORazepam 2 MG/ML VIAL IV PRN (18:00)
[2021-02-03] MEDS ORDERED: MORPHINE 2 MG/ML 1ML VIAL (J2270) IV PRN (18:00)
--- NOTE | 2021-02-16 11:08 | DS.PDOC ---
Discharge Summary General Date of Admission Feb 03, 2021 at 00:08 Date of Discharge jan, Discharge Summary This is a 65-year-old male with a past medical history of CAD and CABG, A. fib, COPD, depression, hypertension, CHF, pancreatic cancer, GI bleeding who initially presented to [facility] for acute hypoxic respiratory failure. On arrival to the ED he was in respiratory distress and hypoxic and he was intubated in the ER. He was hemodynamically unstable in the ER so a central line was placed and vasopressors were started. He was resuscitated and started on broad-spectrum antibiotics. Once he was stabilized he was subsequently transferred to [facility] ICU and was admitted for acute hypoxic respiratory failure, upper GI bleed, BRIAN on CKD, lactic acidosis, septic shock. He was noted to have severe metabolic acidosis in the setting of progressive renal failure and eventually he became an uric. His lactate continued to rise despite maintaining adequate maps with vasopressor support. He was started on sodium bicarb drip. Despite this his metabolic acidosis continued to worsen and he was having a pH from 6.9-7. He received broad-spectrum antibiotics. Intra- abdominal source for the lactic acidosis was explored and he had a CT abdomen and pelvis with IV contrast which revealed diffuse mesenteric ischemia in addition to ischemic colon and the presence of pneumatosis intestinalis. Nep hrology was consulted because of his anuric state and it was decided that he was not a candidate for renal replacement therapy. The niece which is the healthcare proxy was eventually reached and she decided on comfort measures only. The patient was terminally extubated and about 2 hours afterward he had asystole and was pronounced . Discharge Medications Scheduled Apixaban (Eliquis) 5 Mg Tablet, 5 MG PO BID, (Reported) Aspirin (Aspirin EC) 81 Mg Tablet.dr, 81 MG PO DAILY, (Reported) Atorvastatin Calcium (Atorvastatin Calcium) 40 Mg Tablet, 40 MG PO QHS, (Reported) Cholestyramine (with Sugar) (Cholestyramine Packet) 4 Gm Powd.pack, 4 GM PO BID, (Reported) Ferrous Sulfate (Ferrous Sulfate) 325 Mg Tablet, 325 MG PO DAILY, (Reported) Ipratropium [place] (Atrovent Hfa) 12.9 Gm Hfa.aer.ad, 2 PUFF INH QID, (Reported) Ipratropium/Albuterol Sulfate (Combivent Respimat 20-100 Mcg) 4 Gm Mist.inhal, 1 PUFF INH Q6H, (Reported) L.acidoph/L.bulg/B.bif/S.therm (Bacid Caplet) 1 Each Tablet, 1 TAB PO WM, (Reported) Magnesium Oxide (Magnesium Oxide) 400 Mg Tablet, 800 MG PO BID, (Reported) Metoprolol Tartrate (Metoprolol Tartrate) 50 Mg Tablet, 50 MG PO BID, (Reported) Pancreatic Enzymes (Creon Dr 24,000 Units Capsule) 1 Each Capsule.dr, 48,000 UNITS PO WM, (Reported) Pantoprazole Sodium (Pantoprazole Sodium) 40 Mg Tablet.dr, 40 MG PO DAILY, (Reported) Ropinirole HCl (Ropinirole HCl) 0.5 Mg Tablet, 0.5 MG PO BID, (Reported) Sodium Bicarbonate (Sodium Bicarbonate) 325 Mg Tablet, 650 MG PO BID, (Reported) Sucralfate (Sucralfate) 1 Gm Tablet, 1 GM PO QID, (Reported) Scheduled PRN Albuterol Sulf (Albuterol Sulfate) 2.5 Mg/3 Ml Vial.neb, 2.5 MG INH Q6H PRN for SHORTNESS OF BREATH, (Reported) Albuterol Sulfate (Proair Hfa) 8.5 Gm Hfa.aer.ad, 2 PUFF INH Q4HP PRN for SHORTNESS OF BREATH, (Reported) Diphenoxylate HCl/Atropine (Diphenoxylate-Atrop 2.5-0.025) 1 Each Tablet, 1 TAB PO QID PRN for DIARRHEA, (Reported) Miscellaneous Medications [Med Rec Comment] , (Reported) MED REC OBTAINED FROM EXTERNAL AND PREVIOUS DISCHARGE INSTRUCTIONS Allergies Coded Allergies: amoxicillin (Verified Allergy, Mild, rash, 12/23/20) clavulanic acid (Verified Allergy, Mild, rash, 12/23/20) pregabalin (Verified Adverse Reaction, Intermediate, seizures, 12/23/20) warfarin (Verified Adverse Reaction, Intermediate, bleeding, 12/23/20) BENI HERNANDEZ MD Feb 16, 2021 11:08
== END 2021-02-03 22:14 | disposition expired | DRG 871 ==
LOC: ENRESERV 23:59 → M ICU 02-03 00:08 → M PCU 02-03 17:52
PROVIDERS: ADMIT Internal Medicine Pulmonary Disease; ATTEND Internal Medicine Pulmonary Disease
PROC: 5A1935Z Respiratory Ventilation, Less than 24 Consecutive Hours (ICD-10-PCS; principal; 2021-02-03)
DX: A41.9 Sepsis, unspecified organism (principal); J69.0 Pneumonitis due to inhalation of food and vomit; R65.21 Severe sepsis with septic shock; J96.01 Acute respiratory failure with hypoxia; K92.2 Gastrointestinal hemorrhage, unspecified; E87.2 Acidosis; N17.9 Acute kidney failure, unspecified; C25.9 Malignant neoplasm of pancreas, unspecified; I48.91 Unspecified atrial fibrillation; Z91.19 Patient's noncompliance with other medical treatment and regimen; J44.9 Chronic obstructive pulmonary disease, unspecified; Z79.899 Other long term (current) drug therapy; Z95.1 Presence of aortocoronary bypass graft; F32.9 Major depressive disorder, single episode, unspecified; E03.9 Hypothyroidism, unspecified; D64.9 Anemia, unspecified; I50.9 Heart failure, unspecified; Z66 Do not resuscitate; Z88.0 Allergy status to penicillin; Z88.8 Allergy status to other drugs, medicaments and biological substances